=== PATIENT | male | born 1940 | race Caucasian/White ===

== ENCOUNTER → 2016-09-12 | Outpatient (CLI) | payer BC ==
[~2016-09-12] MED LIST: AMOX500C3 PO; DEXL60CA4 PO; LEVO1TAB33 PO; METH-589 PO; METO50TA16 PO; OMEP20TA PO; PROM25TA16 PO; RBTDACL PO; TPZ5 PO; TRAM-10 PO
--- NOTE | 2016-09-12 10:30 | DIAGNOSTIC IMAGING REPORT ---
ULTRASOUND OF THE THYROID GLAND CLINICAL HISTORY: Thyroid nodule. COMPARISON STUDY: Nuclear thyroid scan dated 09/01/2016. TECHNIQUE: Real-time, grayscale, and color flow sonography of the thyroid gland is performed utilizing a high-frequency linear transducer. Images are reviewed in the transverse and longitudinal planes. FINDINGS: Right lobe: The right lobe of the thyroid gland is normal in size and slightly heterogeneous in echotexture, measuring 5.2 x 3.0 x 2.0 cm. Left lobe: The left lobe of the thyroid gland is normal in size and slightly heterogeneous in echotexture, measuring 4.3 x 2.3 x 1.2 cm. Isthmus: The thyroid isthmus is normal in appearance and measures 0.3 cm in AP diameter. IMPRESSION: 1. The thyroid gland is normal in size and slightly heterogeneous in echotexture. 2. No thyroid nodule is identified as clinically queried. Specifically, there is no abnormality identified to correspond to the nodule questioned on the nuclear thyroid scan. Electronically signed by: Sharad Russell M.D. 09/12/2016 10:28 AM Dictated Date/Time: 09/12/2016 10:19 AM
[2016-09-13 14:22] LABS: MICROSOMAL AB 201 IU/ML (<9)
== END | disposition home or self-care (01) ==
LOC: C.ULTR 09:30
PROVIDERS: ATTEND Internal Medicine
DX: E05.90 Thyrotoxicosis, unspecified without thyrotoxic crisis or storm (principal); E04.1 Nontoxic single thyroid nodule

== ENCOUNTER → 2016-10-26 | Outpatient (CLI) | payer BC ==
[2016-10-26 15:20] LABS: BASO % 0.2 %; BASO ABS # 0.02 K/uL (0-0.2); COMPLETE YES; EOS % 0.2 %; IG% 0.2 %; LYMPH % 24.2 %; LYMPH ABS # 2.07 K/uL (1.2-3.4); MEAN CELL VOLUME 83.8 fL (80-100); MEAN CORPUSCULAR HGB CONC 33.4 g/dl (32-36); MEAN PLATELET VOLUME 11.3 fL (7.4-10.4); MONO % 9.8 %; NEUT % 65.4 %; PLATELET COUNT 170 K/uL (130-400); RED BLOOD COUNT 5.61 M/uL (4.7-6.1); WHITE BLOOD COUNT 8.56 K/uL (4.8-10.8)
[2016-10-26 15:35] LABS: ALT/SGPT 37 U/L (12-78); AMYLASE 45 U/L (25-115); BLOOD UREA NITROGEN 12 mg/dl (7-18); BUN/CREATININE RATIO 13.8 (10-20); CALCIUM 8.6 mg/dl (8.5-10.1); CARBON DIOXIDE 27 mmol/L (21-32); CHLORIDE 102 mmol/L (98-107); CREATININE 0.89 mg/dl (0.60-1.40); GLUCOSE 105 mg/dl (70-99); POTASSIUM 4.3 mmol/L (3.5-5.1); SODIUM 139 mmol/L (136-145)
[2016-10-26 15:46] LABS: ALB/GLOB RATIO 0.7 (0.9-2); ALKALINE PHOSPHATASE 170 U/L (45-117); AST/SGOT 29 U/L (15-37); THYROID STIMULATING HORMONE < 0.005 uIu/ml (0.300-4.500)
== END | disposition home or self-care (01) ==
LOC: C.LABSPEC 14:58
PROVIDERS: ATTEND Internal Medicine
DX: E03.9 Hypothyroidism, unspecified (principal); R10.10 Upper abdominal pain, unspecified; R63.4 Abnormal weight loss

== ENCOUNTER → 2016-10-28 | Outpatient (CLI) | payer BC ==
[~2016-10-28] MED LIST changes: +OPTIRAY 320 IV PRN
--- NOTE | 2016-10-28 08:34 | DIAGNOSTIC IMAGING REPORT ---
ABDOMEN CT WITH IV AND ORAL CONTRAST CT DOSE: 171.53 mGy.cm HISTORY: UPPER ABDOMINAL PAIN, WEIGHT LOSS TECHNIQUE: Multiaxial CT images of the abdomen and pelvis were performed following the use of intravenous and oral contrast. COMPARISON STUDY: Abdomen and pelvis CT 06/29/2009. FINDINGS: Multifocal patchy groundglass and nodular airspace opacities seen within the lung bases. Dominant nodular density within the anterior aspect of the right upper lobe on image 1 measures 9 mm. No pneumoperitoneum. No pneumatosis. No suspicious lytic or blastic osseous lesions. Mild aneurysmal dilatation of the abdominal aorta measures up to 3.1 cm. Mild motion artifact. The spleen, adrenal glands, gallbladder, and pancreas are unremarkable. A 1.3 cm cyst within the caudate lobe. This is similar to the prior study. No retroperitoneal lymphadenopathy. Bilateral nephrolithiasis. No hydronephrosis. Tiny diverticulum at the second portion of the duodenum. The visualized loops of bowel show no wall thickening or obstruction. A few colonic diverticula. IMPRESSION: 1. Multifocal patchy groundglass and nodular airspace opacities within the lung bases. This favors a pneumonia, possibly secondary to aspiration. The dominant nodular density within the right upper lobe measures 9 mm. A follow-up chest CT in 1-2 months is recommended to ensure resolution following a course of antibiotic therapy. 2. Bilateral nephrolithiasis. No hydronephrosis. 3. A 3.1 cm abdominal aortic aneurysm. Electronically signed by: Michele Arreguin M.D. 10/28/2016 8:32 AM Dictated Date/Time: 10/28/2016 8:25 AM
== END | disposition home or self-care (01) ==
LOC: C.CTS 07:44
PROVIDERS: ATTEND Internal Medicine
DX: R10.10 Upper abdominal pain, unspecified (principal); R63.4 Abnormal weight loss; J18.9 Pneumonia, unspecified organism; R91.1 Solitary pulmonary nodule; N20.0 Calculus of kidney; I71.4 Abdominal aortic aneurysm, without rupture

== ENCOUNTER 2016-10-30 09:07 | Inpatient (IN) | payer BC, OTHER ==
[~2016-10-30] VITALS: Ht 177.8 cm; Wt 62.3 kg
[~2016-10-30 09:07] MED LIST changes: -DEXL60CA4 PO; -LEVO1TAB33 PO; -METH-589 PO; -OMEP20TA PO; -OPTIRAY 320 IV PRN; -PROM25TA16 PO; -TPZ5 PO
[2016-10-30] MEDS ORDERED: SODIUM CHLORIDE 0.9% 1000ML 1,000 ML IV STA (09:37)
--- NOTE | 2016-10-30 09:41 | EMERGENCY ROOM VISIT NOTE ---
History Report prepared by Julianneibroyer: Maddy Diaz Under the Supervision of: Dr. Juwan Villegas M.D. First contact with patient: 09:31 Chief Complaint: FLU LIKE SX Stated Complaint: FLU History of Present Illness The patient is a 76 year old male who presents to the Emergency Room with complaints of persistent flu like symptoms for the past 2 weeks. He is accompanied by his and daughter. He complains of a cough, congestion, nausea and intermittent diarrhea. He denies any vomiting or abdominal pain. He reports he had a CT scan of the abdomen and pelvis last week that showed "bilateral lower lobe pneumonia's" and states his doctor placed him on Levaquin. He has not noticed any improvement yet. The patient also reports he has been losing weight because of his nausea subsequent decreased appetite. He notes he also feels weak and has been very fatigued. He thinks he has been running a fever intermittently as well. 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 A total of 10 systems reviewed and were otherwise negative. Past Medical & Surgical Medical Problems: (1) Bilateral pneumonia (2) Pneumonia Social History Smoking Status: Never Smoker Alcohol Use: none Drug Use: none Marital Status: Housing Status: lives with family Occupation Status: retired Current/Historical Medications Scheduled Dexlansoprazole (Dexilant), 60 MG PO DAILY Levofloxacin (Levaquin), 500 MG PO DAILY Metoprolol Tartrate (Lopressor) (Lopressor), 50 MG PO DAILY Scheduled PRN Promethazine HCl (Promethazine HCl), 25 MG PO Q4H PRN for Nausea Allergies Coded Allergies: No Known Allergies (Unverified , 05/03/16) Physical Exam Vital Signs Date Time Temp Pulse Resp B/P Pulse Ox O2 Delivery O2 Flow Rate FiO2 10/30/16 10:17 99 10/30/16 10:13 100 18 143/68 95 Room Air 10/30/16 09:14 36.8 122 18 109/67 92 Room Air Physical Exam GENERAL: Patient is ill appearing and in moderate distress. HEENT: No acute trauma, normocephalic atraumatic, mucous membranes dry, no nasal congestion, no scleral icterus. NECK: No stridor, no adenopathy, no meningismus, trachea is midline. LUNGS: The patient is mildly dyspneic and tachypneic. Decreased breath sounds in the right lower lobe. No wheeze, no rhonchi. HEART: Tachycardic heart rate, regular rhythm. No murmurs, rubs, gallops appreciated. ABDOMEN: Soft, nontender, bowel sounds positive, no masses appreciated, no peritonitis. BACK: No midline tenderness, no CVA tenderness EXTREMITIES: Normal motion all extremities, no cyanosis, no edema. NEUROLOGIC: Alert and oriented, no acute motor or sensory deficits, no focal weakness, cranial nerves grossly intact. SKIN: No rash, no jaundice, no diaphoresis. Medical Decision & Procedures ER Provider Diagnostic Interpretation: This X-Ray was reviewed and interpreted by myself and the radiologist. CHEST ONE VIEW PORTABLE IMPRESSION: Bilateral patchy airspace opacities which favors a pneumonia. However, recommend follow-up to ensure complete resolution. Electronically signed by: Michele Arreguin M.D. 10/30/2016 10:06 AM Laboratory Results 10/30/16 09:52 Red Blood Count 5.25, Mean Corpuscular Volume 80.8, Mean Corpuscular Hemoglobin 27.4, Mean Corpuscular Hemoglobin Concent 34.0, Mean Platelet Volume 10.2, Neutrophils (%) (Auto) 73.8, Lymphocytes (%) (Auto) 13.4, Monocytes (%) (Auto) 12.2, Eosinophils (%) (Auto) 0.1, Basophils (%) (Auto) 0.1, Neutrophils # (Auto ) 8.02, Lymphocytes # (Auto) 1.45, Monocytes # (Auto) 1.32, Eosinophils # (Auto ) 0.01, Basophils # (Auto) 0.01 10/30/16 09:52 Test 10/30/16 09:40 10/30/16 09:52 10/30/16 09:57 Influenza Type A Antigen Neg for Influ A (NEG) Influenza Type B Antigen Neg for Influ B (NEG) White Blood Count 10.85 K/uL (4.8-10.8) Red Blood Count 5.25 M/uL (4.7-6.1) Hemoglobin 14.4 g/dL (14.0-18.0) Hematocrit 42.4 % (42-52) Mean Corpuscular Volume 80.8 fL (80-100) Mean Corpuscular Hemoglobin 27.4 pg (25-34) Mean Corpuscular Hemoglobin Concent 34.0 g/dl (32-36) Platelet Count 236 K/uL (130-400) Mean Platelet Volume 10.2 fL (7.4-10.4) Neutrophils (%) (Auto) 73.8 % Lymphocytes (%) (Auto) 13.4 % Monocytes (%) (Auto) 12.2 % Eosinophils (%) (Auto) 0.1 % Basophils (%) (Auto) 0.1 % Neutrophils # (Auto) 8.02 K/uL (1.4-6.5) Lymphocytes # (Auto) 1.45 K/uL (1.2-3.4) Monocytes # (Auto) 1.32 K/uL (0.11-0.59) Eosinophils # (Auto) 0.01 K/uL (0-0.5) Basophils # (Auto) 0.01 K/uL (0-0.2) RDW Standard Deviation 38.8 fL (36.4-46.3) RDW Coefficient of Variation 13.1 % (11.5-14.5) Immature Granulocyte % (Auto) 0.4 % Immature Granulocyte # (Auto) 0.04 K/uL (0.00-0.02) Prothrombin Time 13.4 SECONDS (9.0-12.0) Prothromb Time International Ratio 1.2 (0.9-1.1) Activated Partial Thromboplast Time 28.6 SECONDS (21.0-31.0) Partial Thromboplastin Ratio 1.1 Anion Gap 6.0 mmol/L (3-11) Est Creatinine Clear Calc Drug Dose 69.9 ml/min Estimated GFR () 100.9 Estimated GFR (Non- 87.1 BUN/Creatinine Ratio 16.0 (10-20) Calcium Level 8.6 mg/dl (8.5-10.1) Magnesium Level 2.0 mg/dl (1.8-2.4) Troponin I < 0.015 ng/ml (0-0.045) Bedside Lactic Acid Venous 1.62 mmol/L (0.90-1.70) Laboratory results as reviewed by me. Medications Administered Medications (Trade) Dose Ordered Sig/Nikkie Route Start Time Stop Time Status Last Admin Dose Admin Sodium Chloride (Nss 1000ml) 1,000 ml @ 999 mls/hr Q1H1M STAT IV 10/30/16 09:37 10/30/16 10:37 DC 10/30/16 10:16 999 MLS/HR Levofloxacin (Levaquin / D5W) 750 mg NOW STAT IV 10/30/16 10:48 10/30/16 10:49 DC 10/30/16 11:06 750 MG ECG Indication: weakness Rate (beats per minute): 101 Rhythm: sinus tachycardia Findings: no acute ischemic change, no ectopy ED Course 0934: The patient was evaluated in room B4B. A complete history and physical exam was performed. 0937: NSS 1000 ml @ 999 mls/hr IV. 1048: Levaquin 750 mg IV. 1048: I discussed the patients case with Dr. Pappas, Internal Medicine. The patient will be further evaluated. Medical Decision Differential: Infectious, Reactive Airway Disease, Pneumonia, Pneumothorax, COPD , CHF, ACS, Pulmonary Embolism, MSK, GI, Dissection, amongst other etiologies entertained. 76 yr old male arrives with complaint of persistent cough, fatigue and essentially not eating over last few days. Levaquin already started as outpatient though no improvement and now very weak. CXR consistent with bilateral pna. Labs/ekg OK. No evidence ACS/PE at this time nor dissection. Consults Time Called: 1037 Consulting Physician: Dr. Pappas, Returned Call: 1048 I discussed the patients case with Dr. Pappas, Internal Medicine. The patient will be further evaluated. Impression Primary Impression: Pneumonia Additional Impression: Failure of outpatient treatment Scribe Attestation The scribe's documentation has been prepared under my direction and personally reviewed by me in its entirety. I confirm that the note above accurately reflects all work, treatment, procedures, and medical decision making performed by me. Departure Information Dispostion Being Evaluated By Hospitalist Cristóbal Garrido M.D. (PCP) Patient Instructions My [facility] Problem Qualifiers Primary Impression: Pneumonia Pneumonia type: due to unspecified organism Laterality: bilateral Lung location: lower lobe of lung Qualified Codes: J18.9 - Pneumonia, unspecified organism
--- NOTE | 2016-10-30 10:07 | DIAGNOSTIC IMAGING REPORT ---
CHEST ONE VIEW PORTABLE HISTORY: cough COMPARISON: Chest 09/23/2014. FINDINGS: Patchy airspace opacities within the right upper lobe and lung bases. The heart is normal in size. No pleural effusions. No pneumothorax. IMPRESSION: Bilateral patchy airspace opacities which favors a pneumonia. However, recommend follow-up to ensure complete resolution. Electronically signed by: Michele Arreguin M.D. 10/30/2016 10:06 AM Dictated Date/Time: 10/30/2016 10:05 AM
[2016-10-30 10:09] LABS: BASO % 0.1 %; BASO ABS # 0.01 K/uL (0-0.2); COMPLETE YES; EOS % 0.1 %; HEMATOCRIT 42.4 % (42-52); IG% 0.4 %; LYMPH % 13.4 %; LYMPH ABS # 1.45 K/uL (1.2-3.4); MEAN CELL VOLUME 80.8 fL (80-100); MEAN CORPUSCULAR HEMOGLOBIN 27.4 pg (25-34); MEAN PLATELET VOLUME 10.2 fL (7.4-10.4); MONO % 12.2 %; NEUT % 73.8 %; PLATELET COUNT 236 K/uL (130-400); RED BLOOD COUNT 5.25 M/uL (4.7-6.1); WHITE BLOOD COUNT 10.85 K/uL (4.8-10.8)
[2016-10-30] MEDS ORDERED: PROM25TA16 PO ×2 (10:20)
[2016-10-30] MEDS ORDERED: DEXL60CA4 PO (10:20)
[2016-10-30] MEDS ORDERED: LEVO1TAB33 PO (10:20)
[2016-10-30 10:28] LABS: BLOOD UREA NITROGEN 13 mg/dl (7-18); CALCIUM 8.6 mg/dl (8.5-10.1); CARBON DIOXIDE 28 mmol/L (21-32); CHLORIDE 99 mmol/L (98-107); CREATININE 0.78 mg/dl (0.60-1.40); GLUCOSE 112 mg/dl (70-99); POTASSIUM 3.9 mmol/L (3.5-5.1); SODIUM 133 mmol/L (136-145)
[2016-10-30] MEDS ORDERED: LEVAQUIN 750MG / 150ML D5W IV STA (10:48)
[2016-10-30] MEDS ORDERED: DO NOT ADMINISTER PNEUMOCOCCAL VACCINE PRN ×2 (11:30)
[2016-10-30] MEDS ORDERED: ACETAMINOPHEN 500 MG TAB PO PRN (11:30)
[2016-10-30 11:36] VITALS: O2SAT 95; Ht 177.8 cm; Wt 62.3 kg
[2016-10-30 12:28] LABS: INR 1.2 (0.9-1.1); PARTIAL THROMBOPLASTIN RATIO 1.1; PROTHROMBIN TIME (PATIENT) 13.4 SECONDS (9.0-12.0)
[2016-10-30] MEDS: SODIUM CHLORIDE 0.9% 1000ML 1,000 ML IV SCH ×2 (12:32→20:39)
[2016-10-30 12:35] VITALS: BP 132/73; PULSE 104; TEMP 36.9; O2SAT 93
[2016-10-30] MEDS: ONDANSETRON INJ 8 MG in DEXTROSE 5% 50ML 50 ML IV PRN ×2 (13:25→17:58)
[2016-10-30] MEDS: LEVALBUTEROL 1.25MG/3ML NEB INH SCH ×2 (15:00→18:14)
[2016-10-30] MEDS ORDERED: INFLUENZA VIRUS QUAD VACCINE 0.5 ML SYR IM. ONE (16:30)
[2016-10-30] MEDS ORDERED: INFLUENZA ADMINISTRATION CHARGE ONE (16:30)
--- NOTE | 2016-10-30 17:33 | HISTORY & PHYSICAL EXAMINATION ---
DATE OF ADMISSION: 10/30/2016 A 76-year-old male admitted through the Emergency Room with persistent cough and chest congestion, nausea and weight loss and evidence of bilateral pneumonia. HISTORY OF PRESENT ILLNESS: The patient is with known arterial hypertension and hyperthyroidism. He was recently seen in the office complaining of epigastric pain. He has been sick since approximately 10/19/2016. He had difficulty explaining exactly what was going on, but he complained that for about a week and a half, he was complaining of congestion. He was coughing up phlegm. Mostly clear secretions. He did not have any fever or any chills. Subsequently, he started complaining of severe epigastric pain. He was also complaining of burning sensation in his upper abdomen. He was not able to eat or drink. He lost about 14 pounds from 09/20/2016 until 10/26/2016. At that time, multiple laboratory tests have been done. Also, a CT scan of the abdomen was done. The CT scan did not show any evidence of any intraabdominal pathology. There was no pancreatic abnormalities, but he was noted to have multifocal patchy ground-glass and nodular airspace opacities within the lung bases. This is thought to represent a pneumonia. There was also a dominant 9-mm density in the right upper lobe. Bilateral nephrolithiasis without hydronephrosis. He also had a 3.1-cm abdominal aortic aneurysm. The patient was started on Levaquin 500 mg daily. He was also complaining of nausea, so he was given Phenergan 25 mg every 4 hours as needed. His condition did not improve. He was still feeling quite ill. Still congested in his chest. Feeling nauseous. Not eating or drinking sufficiently. He was brought to the Emergency Room. Multiple tests were done. His chest x-ray showed the changes noted on his CT scan suspicious for pneumonia. He already had been on Levaquin for 2 days. In view of his persistent symptoms, weight loss, nausea and his inability to eat or drink sufficiently, the patient was admitted for further treatment. PAST MEDICAL HISTORY: 1. He had a prostate biopsy in 1999 and it was negative for cancer. 2. Surgery for a spermatocele and circumcision in the past. 3. Dislocation of the right wrist many years ago, required surgery. 4. In 2011, he presented with exertional dyspnea and he had a stress echo done, which was negative for any ischemic changes. 5. Right inguinal hernia repair in 2014. 6. Arterial hypertension. He is on metoprolol. 7. Hyperthyroidism. His TSH was markedly decreased to less than 0.005. His T4 was elevated. Also, his free T4 was elevated. His antimicrosomal antibodies were elevated to 201 with the normal being less than 9. His antithyroglobulin antibodies were elevated to 8 with a normal less 8. His 24-hour radioactive iodine uptake was 34%. He was started on Tapazole 5 mg twice a day. 8. Colonoscopy in 2008. 9. He has declined in the past receiving any vaccinations including influenza and Pneumovax. SOCIAL HISTORY: He is . 3 sons. He stopped smoking about 30 years ago. He also stopped drinking any alcohol about 30 years ago. No excessive coffee, tea or soft drinks. He worked in a [employer] about 38 years at the [employer] and he is retired. FAMILY HISTORY: Both of his parents are . Mother at 82. Natural cause. Father at 37. blood clot. 3 brothers and 5 sisters. 1 brother at age 52 of [place], One brother at age 55 of unknown cause. 3 sons doing well. ALLERGIES: None. ADMISSION MEDICATIONS: Included, 1. Levaquin 500 mg daily. 2. Metoprolol tartrate 50 mg daily. 3. Phenergan 25 mg every 4 hours as needed for any nausea. 4. Tapazole 5 mg twice a day. It was interrupted recently because I was concerned about any potential side effects from his Tapazole. 5. Dexilant 60 mg daily, which was started when I saw him in the office with his epigastric burning and pain. REVIEW OF SYSTEMS: He is feeling weak. Poor appetite. He has lost weight. He had no fever. No chills. No earache and no sore throat. On examination in the office last time, he was noted to have what was suspected a mass in his throat. There were no mucosal abnormalities. He was scheduled to see Dr. Nugent in ENT consultation and his appointment was coming up this week. Denied any chest pain. He is feeling congested in his chest. He is having cough. Not producing any purulent sputum. No hemoptysis. He does have some nonspecific abdominal pain. He is feeling nauseous. No vomiting. He had no change in his bowel movements recently. No problem urinating. No pain in his back or extremities. PHYSICAL EXAMINATION: GENERAL: Well developed, in no acute distress. His recorded weight is 62.3 kg, height 177.8 cm, and BMI 19.7. VITAL SIGNS: On arrival to the Emergency Room, his blood pressure was 109/67, pulse 122, respirations 18, temperature 36.8, and oxygen saturation 92% on room air. SKIN: Warm and dry. No rash. HEENT: He does wear glasses usually. He has upper dentures. Poor dentition. Multiple roots in place. No mucosal abnormality in his nose or mouth. He does have the mass in the midline of his throat. No mucosal ulceration noted. No bleeding noted. NECK: Supple. Nontender. No adenopathy. No thyromegaly. No JVD. Normal carotid pulses. No bruit. CHEST: Normal. HEART: Regular heart sounds. No evident murmur, rub, or gallop. LUNGS: Bilateral scattered rhonchi throughout both lung jc. AXILLA: No adenopathy. BREASTS: Normal. ABDOMEN: Soft. Slight epigastric tenderness. No guarding. No rebound. No organomegaly. No masses. BACK: No spinal tenderness. EXTREMITIES: No edema, clubbing, or cyanosis. No joint or muscle tenderness. Absent left dorsalis pedis pulse. NEUROLOGIC: He is alert and oriented. There is no evidence of any deficits. TODAY'S LABORATORY TESTS: WBC count 10,850, hemoglobin 14.4, hematocrit 42.4, and platelet count 236,000. Prothrombin time 13.4, INR 1.2, and PTT 28.6. Sodium 133, potassium 3.9, chloride 99, CO2 of 28, BUN 13, creatinine 0.78, glucose 112, calcium 8.6, and magnesium 2.0. Troponin I less than 0.015. Electrocardiogram showed sinus tachycardia without any significant abnormality otherwise. His chest x-ray showed bilateral patchy airspace opacities favoring pneumonia. As noted, he had recent laboratory tests on 10/26/2016. At that time, his WBC count was 8560, hemoglobin 15.7, hematocrit 47%, and platelet count 170,000. Sodium 139, potassium 3.4, chloride 102, CO2 of 27, BUN 12, creatinine 0.89, glucose 105, and calcium 8.6. Total bilirubin 0.7, AST 29, ALT 37, alkaline phosphatase 170, total protein 7.3, albumin 3.0, globulin 4.3, amylase 45, and lipase 231. TSH less than 0.005. Free T4 of 1.93. Total T4 11.4. Today, his influenza serology for AMB were negative. ASSESSMENT: 1. Bilateral pneumonia. 2. Generalized weakness. 3. Significant weight loss. 4. Arterial hypertension. 5. Hyperthyroidism. 6. A 3.1 abdominal aortic aneurysm. PLAN: The patient was admitted to medical bed. Resuscitation level 1. All his laboratory tests were ordered. He was started on IV fluids. He was started on IV Levaquin. Given IV Protonix. IV Zofran. High flow treatments with Xopenex. His condition will be monitored. He will be hydrated. Eventually, we need to repeat his chest x-ray. He was restarted on his Tapazole. He is allowed out of bed as tolerated. MTDD
[2016-10-30 18:14] VITALS: PULSE 96; O2SAT 95
[2016-10-30] MEDS: METHIMAZOLE 5 MG TAB PO SCH (20:33)
[2016-10-30] MEDS: HEPARIN SOD 5000 UNIT/0.5 ML CARP SQ SCH (20:35)
[2016-10-31] VITALS (10 sets, daily range): BP systolic 130–175; BP diastolic 66–72; PULSE 92–117; TEMP 36.9–37.2; O2SAT 92–96
[2016-10-31] MEDS: LEVALBUTEROL 1.25MG/3ML NEB INH SCH ×4 (01:44→19:41)
[2016-10-31] MEDS: ONDANSETRON INJ 8 MG in DEXTROSE 5% 50ML 50 ML IV PRN ×3 (01:52→14:20)
[2016-10-31] MEDS: SODIUM CHLORIDE 0.9% 1000ML 1,000 ML IV SCH ×2 (06:20→17:19)
[2016-10-31 06:22] LABS: BASO % 0.2 %; BASO ABS # 0.02 K/uL (0-0.2); COMPLETE YES; HEMATOCRIT 38.3 % (42-52); IG% 0.5 %; LYMPH % 15.2 %; LYMPH ABS # 1.95 K/uL (1.2-3.4); MEAN CELL VOLUME 82.4 fL (80-100); MEAN CORPUSCULAR HEMOGLOBIN 27.7 pg (25-34); MEAN CORPUSCULAR HGB CONC 33.7 g/dl (32-36); MEAN PLATELET VOLUME 10.3 fL (7.4-10.4); MONO % 10.4 %; NEUT % 73.7 %; PLATELET COUNT 242 K/uL (130-400); RED BLOOD COUNT 4.65 M/uL (4.7-6.1); WHITE BLOOD COUNT 12.85 K/uL (4.8-10.8)
[2016-10-31 06:44] LABS: ALB/GLOB RATIO 0.5 (0.9-2); BUN/CREATININE RATIO 13.5 (10-20); CREATININE 0.75 mg/dl (0.60-1.40); POTASSIUM 3.9 mmol/L (3.5-5.1)
[2016-10-31] MEDS ORDERED: OPTIRAY 320 IV PRN (07:45)
[2016-10-31] MEDS: METOPROLOL TARTRATE 50 MG TAB PO SCH (08:14)
[2016-10-31] MEDS: HEPARIN SOD 5000 UNIT/0.5 ML CARP SQ SCH ×2 (08:17→19:59)
--- NOTE | 2016-10-31 10:16 | Clinical Documentation Query ---
[facility] CLINICAL DOCUMENTATION QUERY Patient is a 76 year old male presenting for the evaluation and treatment of cough, chest congestion, nausea, and weight loss with evidence of bilateral pneumonia. Documentation includes "He lost about 14 pounds from 09/20/2016 until 10/26/2016". This represents a 9.3% loss from initial body weight over this interval. As appropriate, consider documentation as suggested below as this significantly impacts severity of illness, risk of mortality, and DRG assignment. Thank you. In your clinical opinion is this patient being managed for: ( ) Severe protein-calorie malnutrition ( ) Other explanation of clinical findings (Please Explain) (x ) Unable to determine (Please Define) Difficult to make definite conclusion ( ) Need to Discuss ( ) Not Agree The medical record reflects the following clinical findings, treatment, and risk factors. Clinical Indicators: As above Treatment: IVF, treatment of the pneumonia, Zofran, IV Protonix Risk Factors: Infection/acute illness Malnutrition in Acute Illness/Injury Moderate or Severe Malnutrition defined by 2 of the following 6 criteria: CHARACTERISTICS MODERATE MALNUTRITION SEVERE MALNUTRITION ENERGY INTAKE <75% of estimated energyrequirement for > 7 days <50% of estimated energyrequirement for > 5 days WEIGHT LOSS 1-2%/1 Week5%/1 month7.5%/3 months >1-2%/1 Week>5%/1 month>7.5%/3 months BODY FAT*loss of SQ fat from the orbits, triceps, or fat overlying the ribs MILD MODERATE MUSCLE MASS*muscle wasting at the temples, clavicles, shoulders, interosseous spaces, scapula, thigh, calf MILD MODERATE FLUID ACCUMULATION*localized or generalized edema of the extremities, vulva, scrotum weight loss may be masked by edema MILD MODERATE-SEVERE GROUP RESERVATIONS COORDINATOR STRENGTH N/A measurably decreased per the device's standards Please clarify and document your clinical opinion in the progress notes and discharge summary. Terms such as "probable", "suspected", "likely", "questionable", "possible", or "still to be ruled out" are acceptable. IF IN AGREEMENT, YOU MUST DOCUMENT ABOVE DIAGNOSTIC STATEMENT IN DAILY PROGRESS NOTES AND DISCHARGE SUMMARY. This document is not part of the patient's record. Thank You, Arun Gregory, RN [phone]
[2016-10-31] MEDS: LEVOFLOXACIN / D5W 750 MG in PREMIXED IN D5W 150 ML IV SCH (10:42)
[2016-10-31] MEDS: PANTOprazole INJ 40 MG in SYRINGE 0 ML IV SCH (10:42)
--- NOTE | 2016-10-31 14:11 | DIAGNOSTIC IMAGING REPORT ---
CT SCAN OF THE NECK WITH IV CONTRAST CLINICAL HISTORY: Pharyngeal mass. COMPARISON STUDY: No priors. TECHNIQUE: Following the IV administration of 93 cc of Optiray 320, CT scan of the soft tissues of the neck was performed from the skull base to the upper chest. Images are reviewed in the axial, sagittal, and coronal planes. IV contrast was administered without complication. CT DOSE: 349.55 mGy.cm FINDINGS: Pharynx: The nasopharynx, oropharynx, and laryngeal pharynx are normal in appearance. The pharyngeal airway is widely patent. There is no evidence of mass lesion. The vocal cords are symmetric. The parapharyngeal fat is well maintained. The prevertebral/retropharyngeal soft tissues are within normal limits. The epiglottis is normal. Lymphadenopathy: No cervical lymphadenopathy is seen Thyroid: Normal in size and attenuation. Salivary glands: The parotid and submandibular glands are within normal limits. Brain parenchyma: The visualized brain parenchyma at the skull base is normal in appearance noting age-related involutional change. Vascular structures: There is atherosclerotic calcification of the carotid bulbs. 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 Only trace flow is seen. The remainder of the left internal carotid artery is widely patent. The right internal carotid artery and both jugular veins are patent. Skeletal structures: The skeletal structures are osteopenic. Imaged portions of the calvarium at the skull base appear intact. There is multilevel cervical spondylosis. Orbits: The bony orbits are grossly intact. Orbital contents are within normal limits Sinuses and mastoids:. There are air-fluid levels within the maxillary antra, right greater than left. There is also a large air-fluid level in the left sphenoid sinus. Mild to moderate mucosal thickening is present in the ethmoid sinuses. The mastoid air cells are well pneumatized. Lung apices: Visualized apical lung parenchyma is clear. IMPRESSION: 1. No pharyngeal mass lesion is identified. If there is strong clinical concern for a mass lesion then endoscopy should be considered. 2. There is no cervical lymphadenopathy. 3. There is high-grade stenosis with near complete occlusion and only trace flow seen at the origin of the left internal carotid artery. 4. Paranasal sinus disease as above. Electronically signed by: Sharad Russell M.D. 10/31/2016 2:10 PM Dictated Date/Time: 10/31/2016 2:02 PM
[2016-10-31] MEDS: METHIMAZOLE 5 MG TAB PO SCH ×2 (14:23→19:59)
--- NOTE | 2016-10-31 15:49 | DIAGNOSTIC IMAGING REPORT ---
ULTRASOUND OF THE CAROTID ARTERIES CLINICAL HISTORY: Carotid artery stenosis. COMPARISON STUDY: CT scan of the neck dated 10/31/2016. TECHNIQUE: Real-time, grayscale, and color Doppler sonography of the carotid arteries is performed. Images are reviewed in the transverse and longitudinal planes. FINDINGS: Blood pressure in the right arm measures 136/60 and blood pressure in the left arm measures 146/60. The carotid arteries are patent bilaterally and demonstrate antegrade flow. There is moderate echogenic shadowing atherosclerotic plaque seen in the carotid bulbs bilaterally, left greater than right. Normal doppler arterial waveforms are seen throughout. Velocity measurements are listed below. Common carotid peak systolic velocity (cm/sec): RIGHT: 86 LEFT: 84 ICA proximal peak systolic velocity (cm/sec): RIGHT: 66 LEFT: 211 ICA mid peak systolic velocity (cm/sec): RIGHT: 64 LEFT: 165 ICA distal peak systolic velocity (cm/sec): RIGHT: 62 LEFT: 98 ICA/CC peak systolic ratio: RIGHT: 0.8 LEFT: 2.5 Antegrade flow was shown in the vertebral arteries. The external carotid arteries are patent. IMPRESSION: 1. Findings are consistent with 50-69% stenosis in the proximal left internal carotid artery by velocity criteria. This is discordant with the CT findings which suggest a greater degree of stenosis. Consider a CT angiogram of the neck in follow-up for further assessment. 2. There is no sonographic evidence of hemodynamically significant stenosis in the right carotid arterial system. 3. Antegrade flow is shown in the vertebral arteries. Electronically signed by: Sharad Russell M.D. 10/31/2016 3:48 PM Dictated Date/Time: 10/31/2016 3:43 PM
--- NOTE | 2016-10-31 19:31 | GASTROINTESTINAL CONSULTATION ---
DATE OF CONSULTATION: 10/31/2016 REQUESTING PHYSICIAN: Dr. Pappas. CHIEF COMPLAINT: Nausea, weight loss, for 2 months. HISTORY OF PRESENT ILLNESS: Mr. George is a 76-year-old white male who reports an approximate 1- to 2-month history of nausea with nearly all foods that he eats. The patient does not describe pain with these events and the nausea although can be present throughout the day, clearly seems to be worse with meals. This has not affected his appetite and such remains hungry; however, does develop these symptoms. There is no clear food aversion, however. These symptoms seemed to coincidentally occur around the time that he describes a recent diagnosis of hyperthyroidism, for which the patient was placed on medication several weeks ago for its treatment. The patient describes losing weight from baseline of approximately 162 pounds down to 137 recently. At times, the stools can be more loose than formed, but he denies any melena or bright red blood per rectum. In addition, he has no vomiting with these symptoms and has not had hematemesis or coffee ground emesis. The patient has no prior history of peptic ulcer disease and takes no NSAIDs. Other than the medication for his hyperthyroid state, he reports no new medications. The patient presented to the Emergency Room today because of chest congestion and a persistent cough. PAST MEDICAL HISTORY: Includes hypertension, hyperthyroidism over the past few months. The patient does report night sweats at times but does not report any fevers. The patient had undergone CT scan without obvious abdominal pathology including the pancreas. There are ground-glass nodular airspace opacities, felt to be pneumonia. The patient was started on Levaquin and Phenergan. ADDITIONAL PAST MEDICAL HISTORY: Includes prostate biopsy in 1999 which was negative for cancer. He also had surgery for circumcision, spermatocele, inguinal hernia. This was on the right side in 2014. For his hyperthyroid state, he had a markedly diminished TSH with simultaneous elevations in his T4 as well as free T4. The patient was started on Tapazole (methimazole) 5 mg twice a day. His last colonoscopy was 2008 and the patient described that he had polyps in the past but that a subsequent study in 2008 revealed no additional polyps. SOCIAL HISTORY: The patient is , has 3 children (sons). He did smoke cigarettes, although has not had any for nearly 3 decades. He also stopped alcohol use. The patient worked at the [employer], is retired and worked in the [employer]. FAMILY HISTORY: Significant for parents who of natural causes and father with blood clots. He has 8 siblings. ALLERGIES: He has no known drug allergies. CURRENT MEDICATIONS: At home include Levaquin, metoprolol, Phenergan, Tapazole, Dexilant 60 mg daily. REVIEW OF SYSTEMS: Otherwise noncontributory based on 14-point exam. There is no odynophagia, dysphagia, melena or bright red blood per rectum, abdominal angina; stools are perhaps more loose than normal and there is no blood described. The patient denies any rashes or problems with his hair. He denies no significant tremors or agitation, although did report the sweats. LABORATORY STUDIES: Today - white count 10,800, hemoglobin 14.4, platelets 236,000. INR 1.2. Potassium 3.9, chloride 99, BUN and creatinine are 13 and 0.8. Normal glucose, magnesium 2.0. Troponins are negative. EKG shows sinus tachycardia. Laboratory studies today include a white count of 12.8, hemoglobin 12.9, platelets of 242,000. Chemistries show a mild elevation in alkaline phosphatase is 153 with bilirubin, AST and ALT all within the normal range. Albumin is low at 2.0. Sodium is 134. Influenza type A and B are negative. Free T4 on October 26 was 1.93 (upper range 1.6 and was slightly lower in August at 1.65). IMAGING STUDIES: Discussed above. The patient also had a CT soft tissue of the neck and this revealed no evidence of cervical adenopathy. There is no pharyngeal mass identified. High grade stenosis seen on the left internal carotid, although ultrasound Doppler showed less significant disease. IMPRESSION AND PLAN: This is a 76-year-old white male with a history of a recent diagnosis of hyperthyroidism over the past couple months, on Tapazole therapy. The patient has had an approximate 20-pound weight loss over the past few months and a sense of nausea. There is a slight elevation in alkaline phosphatase, on the most recent liver panel. The remainder of the levels are normal. The albumin, however, is low. There is no prior history of peptic ulcer disease and the patient does not take chronic non-steroidal anti-inflammatory drugs. Differential diagnosis for this includes weight loss changes and perhaps nausea that is associated with his hyperthyroid state. In some instances of liver tests, particularly alkaline phosphatase can sometimes be elevated with thyroid abnormalities. Recent imaging study by CAT scan did not suggest any abnormalities in the liver except for a small cyst in the caudate lobe. This was unchanged. There is no evidence for adenopathy. There is a small diverticulum in the second portion of the duodenum and colonic diverticula. Given the patient's weight loss, nausea and mild change in stool habits, I believe it is reasonable to perform an upper endoscopy with biopsy to exclude peptic ulcer disease or infiltrative processes in the small bowel (amyloid). Would strive for euthyroid state and if the nausea persists, a CT imaging of the head, if not recently performed may be reasonable. Depending on these results, colonoscopy at some point may be helpful from the stool pattern change. Would continue the proton pump inhibitor therapy as presently prescribed. Antiemetics to reduce nausea and to help improve his food intolerance is also reasonable. Thank you for allowing me to participate in this pleasant gentleman's care. Further recommendations to follow.
--- NOTE | 2016-10-31 20:23 | PROGRESS NOTE ---
DATE: 10/31/2016 A 76-year-old male, admitted with bilateral pneumonia. He also has multiple other medical problems including recent diagnosis of hyperthyroidism. He has been complaining of nausea. Poor appetite. Significant weight loss. The patient was admitted. Cultures were done. He was started on IV Levaquin. I saw Mr. George early this morning. He was still complaining of nausea, but no vomiting. He has not had any fever or any chills. Has poor appetite. The patient was continued on IVs and the same medications. Because of the suspected mass in his throat a CT scan of the neck was done with contrast. Actually, the CT scan was negative for any evidence of mass. I think what I see in the back of his throat mostly could be just the effect of a bony prominence inside his throat. On his CT scan of the neck, there was mention of a high-grade stenosis with near complete occlusion and only trace flow at the origin of the left internal carotid artery. A carotid ultrasound was done and there was quite a bit of discrepancy of the results between the CT scan and ultrasound. The ultrasound results described 50-69% stenosis in the proximal left internal carotid artery. Because of the persistent nausea and the weight loss, I also requested a GI consultation. I saw Mr. George this afternoon. He was sitting up in bed. He was eating with excellent appetite. His family was at his bedside. He was not complaining of any headache, dizziness or lightheadedness. He had no chest pain or shortness of breath. No cough, sputum or hemoptysis. He was not complaining of any nausea. No vomiting. He has not had a bowel movement yet since admission. He was not having any problem urinating. PHYSICAL EXAMINATION: GENERAL: Well-developed. No distress. VITAL SIGNS: Blood pressure 130/72, pulse 98, respirations 20, temperature 37.1 and oxygen saturation 94% on room air. SKIN: Warm and dry. No rash. HEENT: He wears glasses. No mucosal abnormality. NECK: No adenopathy, no thyromegaly. No JVD. HEART: Regular heart sounds. LUNGS: Bilateral rhonchi. ABDOMEN: Soft, nontender, without organomegaly or masses. BACK: No spinal tenderness. EXTREMITIES: No edema, clubbing or cyanosis. TODAY'S LABORATORY TESTS: WBC count 12,850, hemoglobin 12.9, hematocrit 242,000. Sodium 134, potassium 3.9, chloride 101, CO2 26, BUN 10, creatinine 0.75, glucose 109, calcium 8.0, total bilirubin 0.9, AST 15, ALT 23, alkaline phosphatase 153, total protein 6.0, albumin 2.0. The imaging studies done today were as noted above as far as results. ASSESSMENT: 1. Bilateral pneumonia. 2. Persistent nausea. 3. Weight loss. 4. Hyperthyroidism. 5. Arterial hypertension. 6. Suspected left internal carotid artery stenosis. PLAN: 1. Late this afternoon, patient was seen by Dr. Ramos. Considering doing an EGD. 2. The elevation of his alkaline phosphatase is indeed related to his or hyperthyroidism. No liver abnormalities noted as far as his additional liver test or the CT scan of the abdomen that was just done. 3. Continue Tapazole. 4. We will proceed with his evaluation as recommended by Dr. Ramos. 5. I will discuss with the radiologist the significant discrepancy between the results of the left internal carotid artery stenosis; between the CT scan of the neck and ultrasound. It was recommended to do a CT angiogram of the neck for further definition. We will discuss that. 6. We will get him out of bed. 7. We will continue monitoring his laboratory tests. [facility]
[2016-11-01] VITALS (7 sets, daily range): BP systolic 158; BP diastolic 64; PULSE 91–109; TEMP 36.9; O2SAT 91–96
[2016-11-01] MEDS: LEVALBUTEROL 1.25MG/3ML NEB INH SCH ×4 (01:47→19:36)
[2016-11-01] MEDS: SODIUM CHLORIDE 0.9% 1000ML 1,000 ML IV SCH ×2 (03:12→16:50)
[2016-11-01 07:31] LABS: BASO % 0.1 %; BASO ABS # 0.01 K/uL (0-0.2); COMPLETE YES; EOS % 0.3 %; HEMATOCRIT 36.4 % (42-52); IG% 0.3 %; LYMPH % 13.3 %; MEAN CELL VOLUME 81.1 fL (80-100); MEAN CORPUSCULAR HEMOGLOBIN 27.2 pg (25-34); MEAN CORPUSCULAR HGB CONC 33.5 g/dl (32-36); MEAN PLATELET VOLUME 10.2 fL (7.4-10.4); PLATELET COUNT 206 K/uL (130-400); RED BLOOD COUNT 4.49 M/uL (4.7-6.1); WHITE BLOOD COUNT 10.54 K/uL (4.8-10.8)
[2016-11-01 07:54] LABS: BUN/CREATININE RATIO 11.4 (10-20); CALCIUM 7.8 mg/dl (8.5-10.1); CREATININE 0.65 mg/dl (0.60-1.40); POTASSIUM 3.8 mmol/L (3.5-5.1)
[2016-11-01] MEDS: METOPROLOL TARTRATE 50 MG TAB PO SCH (08:00)
[2016-11-01] MEDS: METHIMAZOLE 5 MG TAB PO SCH ×2 (08:00→21:07)
[2016-11-01] MEDS: ONDANSETRON INJ 8 MG in DEXTROSE 5% 50ML 50 ML IV PRN ×2 (08:21→21:59)
[2016-11-01] MEDS: HEPARIN SOD 5000 UNIT/0.5 ML CARP SQ SCH ×2 (08:23→21:09)
[2016-11-01] MEDS: LEVOFLOXACIN / D5W 750 MG in PREMIXED IN D5W 150 ML IV SCH (10:48)
[2016-11-01] MEDS: PANTOprazole INJ 40 MG in SYRINGE 0 ML IV SCH (10:49)
--- NOTE | 2016-11-01 15:34 | History & Physical Bridge Note ---
H&P Re-Evaluation Bridge Note: I have examined the patient, reviewed the History & Physical and in the interval since the performance of the History & Physical I have noted the following changes of clinical significance: No changes noted
--- NOTE | 2016-11-01 15:53 | GI REPORT ---
Procedure Date: 11/01/2016 3:24 PM Procedure: Upper GI endoscopy Indications: Nausea, Weight loss Medicines: Propofol per Anesthesia Complications: No immediate complications. Estimated blood loss: Minimal. Estimated Blood Loss: Estimated blood loss was minimal. Procedure: Pre-Anesthesia Assessment: - Prior to the procedure, a History and Physical was performed, and patient medications and allergies were reviewed. The patient's tolerance of previous anesthesia was also reviewed. The risks and benefits of the procedure and the sedation options and risks were discussed with the patient. All questions were answered, and informed consent was obtained. Prior Anticoagulants: The patient has taken no previous anticoagulant or antiplatelet agents. ASA Grade Assessment: II - A patient with mild systemic disease. After reviewing the risks and benefits, the patient was deemed in satisfactory condition to undergo the procedure. After obtaining informed consent, the endoscope was passed under direct vision. Throughout the procedure, the patient's blood pressure, pulse, and oxygen saturations were monitored continuously. The Scope was introduced through the mouth, and advanced to the third part of duodenum. The upper GI endoscopy was accomplished without difficulty. The patient tolerated the procedure well. Findings: The examined esophagus was normal. The Z-line was irregular and was found 41 cm from the incisors. Diffuse mildly erythematous mucosa without bleeding was found in the entire examined stomach. Biopsies were taken with a cold forceps for histology. Biopsies were taken with a cold forceps for histology. Verification of patient identification for the specimen was done by the physician and cartography technician using the patient's name and medical record number. The examined duodenum was normal. Biopsies were taken with a cold forceps for histology. Biopsies for histology were taken with a cold forceps for evaluation of celiac disease. Estimated blood loss was minimal. Verification of patient identification for the specimen was done by the physician and cartography technician using the patient's name and medical record number. The cardia and gastric fundus were normal on retroflexion. Retained gastric contents are not identified on this exam. Impression: - Normal esophagus. - Z-line irregular, 41 cm from the incisors. - Erythematous mucosa in the stomach. Biopsied. r/o atrophic gastritis - Normal examined duodenum. Biopsied. R/O Amyloid/Celiac Recommendation: - [facility]. - Resume regular diet. - Await pathology results. MD Anup Salter MD 11/01/2016 3:53:05 PM This report has been signed electronically. Note Initiated On: 11/01/2016 3:24 PM I attest to the content of the Intraoperative Record and orders documented therein, exceptions below
[2016-11-01] MEDS ORDERED: LIDOCAINE HCL 2% 2 ML VIAL (20MG/ML) ONE (15:56)
[2016-11-01] MEDS ORDERED: PROPOFOL IV EMULSION 10 MG/ML 20 ML VIAL IV ONE (15:56)
--- NOTE | 2016-11-01 16:41 | Anesthesiology Progress Note ---
Anesthesia Post Op Note Date & Time Nov 01, 2016 at 16:40 Vital Signs Pain Intensity: 0 Vital Signs Past 12 Hours Date Time Temp Pulse Resp B/P Pulse Ox O2 Delivery O2 Flow Rate FiO2 11/01/16 16:22 98 24 137/64 97 Room Air 11/01/16 16:07 105 24 126/69 100 Room Air 11/01/16 15:54 105 24 135/63 95 Room Air 11/01/16 14:54 36.7 110 24 154/72 91 Room Air 11/01/16 14:14 94 18 94 Room Air 11/01/16 08:09 36.9 109 17 158/64 91 Room Air 11/01/16 07:26 36.9 109 17 158/64 91 Room Air 11/01/16 07:02 102 18 94 Room Air Notes Mental Status: alert / awake / arousable, participated in evaluation Pt Amnestic to Procedure: Yes Nausea / Vomiting: adequately controlled Pain: adequately controlled Airway Patency, RR, SpO2: stable & adequate BP & HR: stable & adequate Hydration State: stable & adequate Anesthetic Complications: no major complications apparent
--- NOTE | 2016-11-01 20:57 | PROGRESS NOTE ---
DATE: 11/01/2016 A 76-year-old male, admitted with: 1. Bilateral pneumonia. 2. Persistent nausea. 3. Weight loss. 4. Hyperthyroidism. The patient was admitted. He was started on IV fluids. Started on IV Levaquin. All cultures were done. Because of his persistent nausea and weight loss, a GI consultation was requested. The patient was seen by Dr. Ramos. He is resting comfortably. He denied any headache. No dizziness. No chest pain, no shortness of breath. No abdominal pain. His nausea is intermittent. No vomiting. No problem urinating. No bowel movements yet. The patient had an EGD done today. There was erythema of the gastric mucosa. He had no ulcers. PHYSICAL EXAMINATION: GENERAL: Well-developed, in no distress. VITAL SIGNS: Blood pressure 158/64, pulse 109, respirations 17, temperature 36.9 and oxygen saturation 91% on room air. SKIN: Warm and dry. No rash. HEENT: No mucosal abnormality. NECK: No JVD. No adenopathy. HEART: Regular heart sounds. LUNGS: Scattered rhonchi. No wheezing. ABDOMEN: Soft, nontender, without organomegaly or masses. BACK: No spinal tenderness. EXTREMITIES: No edema, clubbing or cyanosis. TODAY'S LABORATORY TESTS: WBC count 10,540, hemoglobin 12.2, hematocrit 36.4 and platelet count 206,000. Sodium 137, potassium 3.8, chloride 102, CO2 25, BUN 7, creatinine 0.65, glucose 107 and calcium 7.8. ASSESSMENT: 1. Bilateral pneumonia. 2. Persistent nausea. 3. Suspected gastritis. 4. Weight loss. 5. Arterial hypertension. 6. Hyperthyroidism. PLAN: 1. Continue IV fluid. 2. Continue the same medications. 3. Try to increase his activity. 4. His appetite seems to be improving. 5. Continue monitoring his laboratory tests. 6. We will repeat his chest x-ray tomorrow.
[2016-11-02] VITALS (7 sets, daily range): BP systolic 136–150; BP diastolic 64–76; PULSE 89–118; TEMP 36.7–37.1; O2SAT 90–96
[2016-11-02] MEDS: LEVALBUTEROL 1.25MG/3ML NEB INH SCH ×4 (02:20→19:25)
[2016-11-02 06:49] LABS: BASO % 0.2 %; BASO ABS # 0.02 K/uL (0-0.2); COMPLETE YES; HEMATOCRIT 34.7 % (42-52); IG% 0.4 %; LYMPH % 12.2 %; LYMPH ABS # 1.59 K/uL (1.2-3.4); MEAN CELL VOLUME 80.5 fL (80-100); MEAN CORPUSCULAR HEMOGLOBIN 27.6 pg (25-34); MEAN CORPUSCULAR HGB CONC 34.3 g/dl (32-36); MEAN PLATELET VOLUME 9.6 fL (7.4-10.4); MONO % 9.9 %; NEUT % 77.3 %; PLATELET COUNT 191 K/uL (130-400); RED BLOOD COUNT 4.31 M/uL (4.7-6.1); WHITE BLOOD COUNT 13.03 K/uL (4.8-10.8)
[2016-11-02 07:22] LABS: BUN/CREATININE RATIO 14.8 (10-20); CALCIUM 7.7 mg/dl (8.5-10.1); CREATININE 0.56 mg/dl (0.60-1.40); POTASSIUM 3.8 mmol/L (3.5-5.1)
[2016-11-02] MEDS: METHIMAZOLE 5 MG TAB PO SCH ×2 (08:36→21:34)
[2016-11-02] MEDS: METOPROLOL TARTRATE 50 MG TAB PO SCH (08:36)
[2016-11-02] MEDS: HEPARIN SOD 5000 UNIT/0.5 ML CARP SQ SCH ×2 (08:38→21:38)
[2016-11-02] MEDS: SODIUM CHLORIDE 0.9% 1000ML 1,000 ML IV SCH ×3 (09:30→21:34)
[2016-11-02] MEDS: LEVOFLOXACIN / D5W 750 MG in PREMIXED IN D5W 150 ML IV SCH (12:07)
[2016-11-02] MEDS: PANTOprazole INJ 40 MG in SYRINGE 0 ML IV SCH (12:07)
[2016-11-03] VITALS (9 sets, daily range): BP systolic 138–147; BP diastolic 63–80; PULSE 89–107; TEMP 36.5–36.8; O2SAT 91–96
--- NOTE | 2016-11-03 00:51 | PROGRESS NOTE ---
DATE: 11/02/2016 A 76-year-old male admitted with bilateral pneumonia. He also has persistent nausea. He has lost significant amount of weight. He is treated for arterial hypertension, newly diagnosed hyperthyroidism. The patient was admitted. Cultures were done. He was started on IV Levaquin. He was seen in GI consultation by Dr. Ramos. An EGD was done yesterday. There was erythema of the gastric mucosa, but no ulceration. He remains afebrile. He denied any headache or dizziness. He still has some recurrent nausea. No vomiting. His appetite is improving. He is feeling stronger. He denied any headache or dizziness. No chest pain, no shortness of breath. No abdominal pain. Slight nausea, but no vomiting. No problem with his bowel movements. No urinary problem. PHYSICAL EXAMINATION: GENERAL: Well developed, in no distress. VITAL SIGNS: Blood pressure 147/76, pulse 93, respirations 20, temperature 37, oxygen saturation 90% on room air. SKIN: Warm and dry. No rash. HEENT: No mucosal abnormality. NECK: No JVD. No adenopathy. HEART: Regular heart sounds. LUNGS: Bilateral rhonchi. No wheezing. ABDOMEN: Soft, nontender. No organomegaly or masses. BACK: No spinal tenderness. EXTREMITIES: No edema, clubbing or cyanosis. TODAY'S LABORATORY TESTS: WBC count 13,030, hemoglobin 11.9, hematocrit 34.7, platelet count 191,000. Sodium 137, potassium 3.8, chloride 103, CO2 of 25, BUN 8, creatinine 0.56, glucose 111, calcium 7.7. ASSESSMENT: 1. Bilateral pneumonia. 2. Gastritis. 3. Hyperthyroidism. 4. Weight loss. 5. Arterial hypertension. PLAN: 1. Continuing the same medications including his IV fluids and IV Levaquin. 2. Continue IV Protonix, should be able to switch him to oral tomorrow. 3. We will plan on repeating his chest x-ray tomorrow. 4. He is ambulating. Encouraged to continue with that.
[2016-11-03] MEDS: LEVALBUTEROL 1.25MG/3ML NEB INH SCH ×4 (01:35→19:24)
[2016-11-03] MEDS: SODIUM CHLORIDE 0.9% 1000ML 1,000 ML IV SCH ×2 (05:38→17:02)
[2016-11-03 06:52] LABS: BASO % 0.1 %; BASO ABS # 0.01 K/uL (0-0.2); COMPLETE YES; EOS % 0.3 %; HEMATOCRIT 36.1 % (42-52); IG% 0.3 %; LYMPH % 14.9 %; LYMPH ABS # 1.72 K/uL (1.2-3.4); MEAN CELL VOLUME 81.3 fL (80-100); MEAN CORPUSCULAR HGB CONC 33.2 g/dl (32-36); MEAN PLATELET VOLUME 9.9 fL (7.4-10.4); MONO % 9.8 %; NEUT % 74.6 %; PLATELET COUNT 218 K/uL (130-400); RED BLOOD COUNT 4.44 M/uL (4.7-6.1); WHITE BLOOD COUNT 11.52 K/uL (4.8-10.8)
[2016-11-03 06:56] LABS: BUN/CREATININE RATIO 17.1 (10-20); CALCIUM 7.8 mg/dl (8.5-10.1); CREATININE 0.61 mg/dl (0.60-1.40); POTASSIUM 3.9 mmol/L (3.5-5.1)
[2016-11-03 06:59] LABS: ALB/GLOB RATIO 0.5 (0.9-2)
[2016-11-03] MEDS: METHIMAZOLE 5 MG TAB PO SCH ×2 (07:41→21:27)
[2016-11-03] MEDS: METOPROLOL TARTRATE 50 MG TAB PO SCH (07:41)
[2016-11-03] MEDS ORDERED: OPTIRAY 320 IV PRN (08:00)
[2016-11-03] MEDS: HEPARIN SOD 5000 UNIT/0.5 ML CARP SQ SCH ×2 (08:42→21:00)
--- NOTE | 2016-11-03 09:57 | DIAGNOSTIC IMAGING REPORT ---
CHEST 2 VIEWS ROUTINE CLINICAL HISTORY: Bilateral pneumonia. COMPARISON STUDY: Chest radiograph October 30, 2016. FINDINGS: There is no pneumothorax. There are suspected trace bilateral pleural effusions. Cardiomediastinal silhouette is stable. Multifocal airspace opacities, greatest within the lower lobes, are similar to prior exam of October 30, 2016. There is no evidence of pulmonary edema. IMPRESSION: No significant change in bilateral airspace opacities suggestive of multifocal pneumonia. Electronically signed by: Gaston Delgado M.D. 11/03/2016 9:56 AM Dictated Date/Time: 11/03/2016 9:54 AM
--- NOTE | 2016-11-03 10:07 | DIAGNOSTIC IMAGING REPORT ---
CT NECK ANGIO WITH CONTRAST CLINICAL HISTORY: Left internal carotid artery stenosis. Ultrasound discrepancy. COMPARISON STUDY: Carotid Doppler ultrasound dated 10/31/2016 TECHNIQUE: CT angiography was performed from the aortic arch to the skull base. MIP imaging was performed. The patient was scanned in a dynamic helical fashion during intravenous administration of 118 cc of Optiray 320. CT DOSE: 560.09 mGy.cm Technique: CT angiogram of the carotid and vertebral arteries was obtained using intravenous contrast and 3-D reconstruction. NASCET criteria was utilized. Findings: The right carotid revealed no evidence of aneurysm and no evidence of dissection. There is no evidence of hemodynamic significant stenosis. There is no evidence of aneurysm. There is no evidence of dissection. There are extensive atheromatous changes present within the proximal internal carotid. There is a 67% maximal diameter stenosis. There is no evidence of hemodynamically significant vertebral stenosis. There is no evidence of vertebral dissection. IMPRESSION: 1. Extensive atheromatous changes involving the proximal left internal carotid artery with a 67% maximal diameter stenosis. 2. No evidence of hemodynamically significant stenosis on the right 3. No evidence of vertebral artery stenosis Electronically signed by: Mike Patel M.D. 11/03/2016 10:06 AM Dictated Date/Time: 11/03/2016 9:50 AM
[2016-11-03] MEDS: PANTOprazole INJ 40 MG in SYRINGE 0 ML IV SCH (11:38)
[2016-11-03] MEDS: LEVOFLOXACIN / D5W 750 MG in PREMIXED IN D5W 150 ML IV SCH (11:38)
--- NOTE | 2016-11-03 20:21 | PROGRESS NOTE ---
DATE: 11/03/2016 A 76-year-old male, admitted with bilateral pneumonia. He also was having persistent nausea. He has lost weight. He has a new diagnosis of hyperthyroidism. The patient was admitted. Cultures were done. He was started on IV Levaquin. He was seen in GI consultation by Dr. Ramos. He had an EGD done. Pathology report of the biopsy is showing evidence of gastritis. No other abnormalities noted. Initially, the patient was thought to have a mass in his throat, but most likely that is a bony prominence. CT scan of the neck did not show any evidence of any mass, but there was a question of severe stenosis of his left internal carotid artery. A carotid ultrasound was done, it did not confirm the same degree of stenosis. It was in the range of up to 69%. Today, a CT angiogram of the neck with contrast was done and the findings are consistent with the findings on his ultrasound. Overall, his condition has improved. He remains afebrile. He denied any headache or dizziness. No chest pain, no shortness of breath. Has slight cough. No sputum. Intermittent nausea. No vomiting. No problem with his bowel movements. No problem urinating. No pain in his back or extremities. He has been ambulating in the hallway without any problem. PHYSICAL EXAMINATION: GENERAL: Well-developed, in no distress. VITAL SIGNS: Blood pressure 147/80, pulse 100, respirations 16, temperature 36.8 and oxygen saturation 91% on room air. SKIN: Warm and dry. No rash. HEENT: No mucosal abnormalities. NECK: No JVD, no adenopathy. HEART: Regular heart sounds. No murmur, rub or gallop. LUNGS: Clear. No wheezing. ABDOMEN: Soft and nontender. No organomegaly or masses. EXTREMITIES: No edema, clubbing or cyanosis. TODAY'S LABORATORY TESTS: WBC count 11,520, hemoglobin 12, hematocrit 36.1 and platelet count 218,000. Sodium 138, potassium 3.9, chloride 103, CO2 25, CONTINUED ......... MTDD
--- NOTE | 2016-11-03 20:32 | PROGRESS NOTE ---
DATE: 11/03/2016 CONTINUATION.... LABORATORY TESTS: Sodium 138, potassium 3.9, chloride 103, CO2 25, BUN 10, creatinine 0.61, glucose 99, calcium 7.8, total bilirubin 0.6, AST 19, ALT 27, alkaline phosphatase 158, total protein 5.7 and albumin 1.9. Repeat chest x-ray did not show any significant changes compared to prior x-rays. CT angiogram of the neck with contrast; the results were as noted above. ASSESSMENT: 1. Bilateral pneumonia. 2. Persistent nausea. 3. Weight loss. 4. Hyperthyroidism. 5. Gastritis. PLAN: 1. Continuing the same medications. 2. He is ambulating. Tolerating his diet. His condition has definitely improved. 3. If he remains stable through the night without any new problems, I anticipate that he should be able to go home tomorrow. JOSEPH
[2016-11-04] MEDS: SODIUM CHLORIDE 0.9% 1000ML 1,000 ML IV SCH (01:13)
[2016-11-04 02:03] VITALS: PULSE 102; O2SAT 92
[2016-11-04] MEDS: LEVALBUTEROL 1.25MG/3ML NEB INH SCH ×2 (02:03→07:15)
[2016-11-04 07:15] VITALS: PULSE 99; O2SAT 93
[2016-11-04] MEDS ORDERED: OMEP20TA PO (07:32)
[2016-11-04] MEDS ORDERED: TPZ5 PO (07:32)
--- NOTE | 2016-11-04 07:36 | Discharge Instructions ---
Discharge Instructions Admission Reason for Admission: Bilateral Pneumonia Gastritis weight loss arterial hypertension Hyperthyroidism Discharge Discharge Diagnosis / Problem: BILATERAL PNEUMONIA. GASTRITIS. HYPERTHYROIDISM. Discharge Goals Goal(s): Decrease discomfort, Improve function, Increase independence, Improve disease control, Improve nutritional status Activity Recommendations Activity Limitations: resume your previous activity . Instructions / Follow-Up Instructions / Follow-Up DR MEIER IN ONE WEEK Current Hospital Diet Patient's current hospital diet: Regular Diet Discharge Diet Recommended Diet: Regular Diet Pending Studies Studies pending at discharge: no Laboratory Results Lipid Panel Test 08/17/16 09:30 Range/Units Triglycerides Level 109 0-150 mg/dl Cholesterol Level 149 0-200 mg/dl HDL Cholesterol 39 mg/dl LDL Cholesterol Direct 106 mg/dl Cholesterol/HDL Ratio 3.8 LDL Cholesterol, Calculated mg/dl Medical Emergencies . Who to Call and When: Medical Emergencies: If at any time you feel your situation is an emergency, please call 911 immediately. . Non-Emergent Contact Non-Emergency issues call your: Primary Care Provider . . "Provider Documentation" section prepared by Cristóbal Meier. VTE Core Measure Inpt VTE Proph given/why not?: Treatment not indicated
[2016-11-04 08:06] VITALS: BP 154/68; PULSE 109; TEMP 36.7; O2SAT 91
[2016-11-04 08:07] VITALS: BP 144/63; PULSE 99; TEMP 36.7; O2SAT 93
[2016-11-04] MEDS: HEPARIN SOD 5000 UNIT/0.5 ML CARP SQ SCH (08:15)
[2016-11-04] MEDS: METOPROLOL TARTRATE 50 MG TAB PO SCH (08:15)
[2016-11-04] MEDS: METHIMAZOLE 5 MG TAB PO SCH (08:15)
--- NOTE | 2016-11-04 19:40 | GASTROENTEROLOGY PROGRESS NOTE ---
DATE: 11/03/2016 SUBJECTIVE: The patient is doing well, eating with his family in the room. He has no abdominal pain. The patient does have occasional loose stools. There is no blood described. The patient is with gastric and duodenal biopsies, was negative for H. pylori and evidence of chronic gastritis with reactive changes. The stomach showed mild atrophic gastritis with intestinal metaplasia. There was no dysplasia identified and H. pylori was negative. REVIEW OF SYSTEMS: Otherwise noncontributory. MEDICATIONS AND ALLERGIES: His medications were reviewed and reconciled as was his allergy list. PHYSICAL EXAMINATION: VITAL SIGNS: Stable. HEART: Normal S1, S2. LUNGS: Clear to auscultation. ABDOMEN: Soft, flat, without rebound or guarding. EXTREMITIES: Without edema. IMPRESSION: The patient with symptoms of diarrhea, weight loss, without significant changes on upper endoscopy or its biopsies. I believe a colonoscopy reasonable as it has been some time since his last study and this would be to take additional random biopsies. This could be arranged as an outpatient and I will make arrangements with the patient to set this up over the next few weeks. The patient is tentatively for a discharge for Monday. Intestinal metaplasia can sometimes be seen in the setting of atrophic gastritis. Would ensure that B12 levels are satisfactory. All questions were answered for the patient and his family. Thank you for allowing me to participate in the care of this pleasant patient.
--- NOTE | 2016-11-04 20:24 | PROGRESS NOTE ---
DATE: 11/04/2016 SUBJECTIVE: A 76-year-old male with the following problems: 1. Bilateral pneumonia. 2. Gastritis. 3. Hyperthyroidism. 4. Arterial hypertension. 5. Weight loss. His condition has improved. His workup included an EGD which showed evidence of gastritis. His chest x-ray showed evidence of bibasilar pneumonia. He was treated with IV Levaquin. His condition improved. His appetite improved. He was ambulating without any problem. He denied any headache. No dizziness, no lightheadedness. No chest pain, no shortness of breath. No abdominal pain, no nausea, no vomiting. No problem with his bowel movements. No problem urinating. No pain in his back or extremities. PHYSICAL EXAMINATION: GENERAL: Well developed in no distress. VITAL SIGNS: Blood pressure 154/68, pulse 109, respirations 16, temperature 36.7, oxygen saturation 91% on room air. SKIN: Warm and dry. No rash. HEENT: No evidence of any mucosal abnormality. NECK: No JVD. No adenopathy. HEART: Regular heart sounds. LUNGS: Clear. ABDOMEN: Soft, nontender, without organomegaly or masses. EXTREMITIES: No edema, clubbing, or cyanosis. ASSESSMENT: 1. Bilateral pneumonia. 2. Gastritis. 3. Weight loss. 4. Hyperthyroidism. 5. Arterial hypertension. PLAN: 1. Overall, his condition has improved. He is doing well. 2. He was discharged home. Continue Levaquin 500 mg daily, he has the remainder of the prescription that was started prior to his admission at home and he will finish the course. 3. He will continue the same dose of the Tapazole. 4. Follow up in the office.
[2016-11-11] MEDS ORDERED: METH-589 PO (09:50)
[2016-11-11] MEDS ORDERED: OMEP20TA PO (09:50)
--- NOTE | 2016-11-16 23:55 | DISCHARGE SUMMARY ---
DISCHARGE DIAGNOSES: 1. Bilateral pneumonia. 2. Gastritis. 3. Weight loss. 4. Arterial hypertension. 5. Hyperthyroidism. 6. Recurrent nausea. DISCHARGE MEDICATIONS: Included: 1. Tapazole 5 mg twice a day. 2. Omeprazole 20 mg daily. 3. Levaquin 500 mg daily. 4. Metoprolol tartrate 50 mg daily. 5. Promethazine 25 mg every 4 hours as needed for nausea. CONSULTATION: Dr. Anup Ramos in gastroenterology. PROCEDURE: EGD done by Dr. Ramos. HISTORY: Mr. George is a 76-year-old male admitted through the Emergency Room with persistent cough and chest congestion, nausea, weight loss, and evidence of bilateral pneumonia. The patient with known arterial hypertension and hyperthyroidism. He was recently seen in the office complaining of epigastric pain. His illness started around 10/19/2016. He was complaining of cough, coughing up some phlegm, mostly clear secretions. He did not have any fever. No chills. Subsequently, he started complaining of severe epigastric pain. He was also complaining of burning sensation in the upper abdomen. He was not maintaining adequate oral intake. He lost about 4 pounds from 09/20/2016 until 10/26/2016. Multiple laboratory tests were done. A CT scan of the abdomen was also done. It did not show any significant intraabdominal pathology. He was noted to have multifocal patchy ground-glass and nodular airspace opacities of both lung bases. He was thought to have bilateral pneumonia. He was started on oral Levaquin. He was also complaining of persistent nausea. No vomiting. Phenergan was also prescribed. His condition did not improve. He continued to feel quite ill. He was feeling congested in his chest. He remained nauseous. The patient was brought to the Emergency Room. He was evaluated. He was admitted for further treatment. PAST MEDICAL HISTORY, SOCIAL HISTORY AND FAMILY HISTORY: All as noted. ALLERGIES: None. MEDICATIONS ON ADMISSION: All as noted. PHYSICAL EXAMINATION AND ADMISSION LABORATORY TESTS: All as ordered. HOSPITAL COURSE: The patient was admitted to medical bed. Resuscitation level 1. All his laboratory tests were ordered. He was started on IV fluids. Started on IV Levaquin. IV Protonix. IV Zofran. He was given Xopenex high flow treatments. His condition was monitored. He was hydrated. Because of his persistent nausea, GI consultation was requested. He was seen by Dr. Ramos. An EGD was done. He had evidence of gastritis. His condition started to improve. His chest congestion was improving. He was not producing any significant sputum. All his cultures including blood culture and sputum cultures were negative. He remained afebrile. His WBC counts did fluctuate. It remains slightly elevated. His alkaline phosphatase was elevated. This was thought to be related to his hyperthyroidism. As his condition improved, his appetite improved. He was ambulating. His nausea subsided. Repeat chest x-ray did not really show any significant changes but it was too early to expect any changes, but definitely it was not worsening. The patient was discharged home. Medications as noted above. Follow up in the office. Dr. Ramos recommended doing a colonoscopy. This was to be scheduled as an outpatient.
== END 2016-11-04 08:43 | disposition home or self-care (01) | DRG 194 ==
LOC: ENRESERVDT → ENRESERVTM → C.EDB 09:12 → C.4E 11:19
PROVIDERS: ADMIT Internal Medicine; ATTEND Internal Medicine
PROC: 0DB98ZX Excision of Duodenum, Via Natural or Artificial Opening Endoscopic, Diagnostic (ICD-10-PCS; principal; 2016-11-01 14:49)
PROC: 0DB68ZX Excision of Stomach, Via Natural or Artificial Opening Endoscopic, Diagnostic (ICD-10-PCS; principal; 2016-11-01 14:49)
DX: J18.9 Pneumonia, unspecified organism (principal); Z68.1 Body mass index [BMI] 19.9 or less, adult; K57.30 Diverticulosis of large intestine without perforation or abscess without bleeding; I10 Essential (primary) hypertension; I71.4 Abdominal aortic aneurysm, without rupture; E05.90 Thyrotoxicosis, unspecified without thyrotoxic crisis or storm; R11.0 Nausea; R63.4 Abnormal weight loss; I65.22 Occlusion and stenosis of left carotid artery; Z87.01 Personal history of pneumonia (recurrent); Z87.891 Personal history of nicotine dependence; K27.9 Peptic ulcer, site unspecified, unspecified as acute or chronic, without hemorrhage or perforation; K29.50 Unspecified chronic gastritis without bleeding; R91.1 Solitary pulmonary nodule; N20.0 Calculus of kidney

== ENCOUNTER → 2016-11-16 | Outpatient (CLI) | payer BC ==
[~2016-11-16] MED LIST changes: +DEXL60CA4 PO; +LEVO1TAB33 PO; +METH-589 PO; +OMEP20TA PO; +PROM25TA16 PO; +TPZ5 PO
[2016-11-16 12:42] LABS: BASO % 0.2 %; BASO ABS # 0.03 K/uL (0-0.2); COMPLETE YES; EOS % 2.8 %; HEMATOCRIT 43.1 % (42-52); IG% 0.3 %; LYMPH % 18.3 %; LYMPH ABS # 2.45 K/uL (1.2-3.4); MEAN CELL VOLUME 85.5 fL (80-100); MEAN CORPUSCULAR HGB CONC 32.7 g/dl (32-36); MEAN PLATELET VOLUME 10.1 fL (7.4-10.4); MONO % 6.7 %; NEUT % 71.7 %; PLATELET COUNT 377 K/uL (130-400); RED BLOOD COUNT 5.04 M/uL (4.7-6.1); WHITE BLOOD COUNT 13.37 K/uL (4.8-10.8)
[2016-11-16 12:51] LABS: ALT/SGPT 30 U/L (12-78); BLOOD UREA NITROGEN 8 mg/dl (7-18); BUN/CREATININE RATIO 10.5 (10-20); CALCIUM 8.9 mg/dl (8.5-10.1); CARBON DIOXIDE 31 mmol/L (21-32); CHLORIDE 104 mmol/L (98-107); CREATININE 0.74 mg/dl (0.60-1.40); GLUCOSE 101 mg/dl (70-99); POTASSIUM 4.5 mmol/L (3.5-5.1); SODIUM 141 mmol/L (136-145)
[2016-11-16 12:54] LABS: ALB/GLOB RATIO 0.5 (0.9-2); ALKALINE PHOSPHATASE 200 U/L (45-117); AST/SGOT 23 U/L (15-37)
== END | disposition home or self-care (01) ==
LOC: C.LABSPEC 12:15
PROVIDERS: ATTEND Internal Medicine
DX: R63.4 Abnormal weight loss (principal); D64.9 Anemia, unspecified; K29.70 Gastritis, unspecified, without bleeding; E03.9 Hypothyroidism, unspecified

== ENCOUNTER → 2016-12-01 | Day surgery (SDC) | payer BC ==
[2016-11-11 09:51] VITALS: Ht 177.8 cm; Wt 60.0 kg
[~2016-12-01] VITALS: Ht 177.8 cm; Wt 60.0 kg
[~2016-12-01] MED LIST changes: -AMOX500C3 PO; -DEXL60CA4 PO; -LEVO1TAB33 PO; +LIDOCAINE HCL 2% 2 ML VIAL (20MG/ML) ONE; +PROPOFOL IV EMULSION 10 MG/ML 20 ML VIAL IV ONE; -RBTDACL PO; +SODIUM CHLORIDE 0.9% 500ML 500 ML IV ONE; -TPZ5 PO; -TRAM-10 PO
[2016-12-01 12:48] VITALS: TEMP 36.6
--- NOTE | 2016-12-01 13:04 | Endo History and Physical ---
History & Physical Date of Service: Dec 01, 2016. Chief Complaint: Diarrhea Referring Physician: Dr. Angela Ivory History of Present Illness diarrhea Past Surgical History Hx Cardiac Surgery: No Hx Internal Defibrillator: No Hx Pacemaker: No Hx Abdominal Surgery: Yes (HERNIA REPAIR) Hx of Implantable Prosthesis: No Hx Post-Op Nausea and Vomiting: No Hx Cancer Surgery: No Hx Thoracic Surgery: No Hx Orthopedic: Yes (RT ARM SURGERY) Hx Urinary Tract Surgery: Yes (CYST REMOVAL FROM TESTES AND CIRCUMCISION) Family History None Social History Smoking Status: Former Smoker Hx Substance Use: No Hx Alcohol Use: No Allergies Coded Allergies: No Known Allergies (Verified , 12/01/16) Current Medications Reported Home Medications Medications Dose Route/Sig Max Daily Dose Days Date Category Methimazole (Methimazole) 5 Mg Tab 1 Tab PO QAM 11/11/16 Reported Omeprazole 20 Mg Tab 1 Tab PO QAM 11/11/16 Reported Promethazine HCl 25 Mg Tab 25 Mg PO Q4H PRN 10/30/16 Reported Lopressor (Metoprolol Tartrate) 50 Mg Tab 50 Mg PO QAM 05/03/16 Reported Vital Signs Weight (Kilograms): 60 Height (Feet): 5 Height (Inches): 10 Date Time Temp Pulse Resp B/P Pulse Ox O2 Delivery O2 Flow Rate FiO2 12/01/16 12:48 36.6 88 20 148/64 95 Room Air Physical Exam AAO x3 Nl s1s2 Lungs CTA Abd soft NT/ND + BS - CCE Assessment and Plan colonoscoipy
--- NOTE | 2016-12-01 13:32 | Discharge Instructions ---
Endoscopy Patient Instructions Date / Procedure(s) Performed Dec 01, 2016. Colonoscopy Allergy Information Coded Allergies: No Known Allergies (Verified , 12/01/16) Discharge Date / Findings Dec 01, 2016. diverticulosis/hemorrhoids Medication Instructions Restart Stopped Medication(s): Reported Home Medications Medications Dose Route/Sig Max Daily Dose Days Date Category Methimazole (Methimazole) 5 Mg Tab 1 Tab PO QAM 11/11/16 Reported Omeprazole 20 Mg Tab 1 Tab PO QAM 11/11/16 Reported Promethazine HCl 25 Mg Tab 25 Mg PO Q4H PRN 10/30/16 Reported Lopressor (Metoprolol Tartrate) 50 Mg Tab 50 Mg PO QAM 05/03/16 Reported Reported Home Medications Medications Dose Route/Sig Max Daily Dose Days Date Category Methimazole (Methimazole) 5 Mg Tab 1 Tab PO QAM 11/11/16 Reported Omeprazole 20 Mg Tab 1 Tab PO QAM 11/11/16 Reported Promethazine HCl 25 Mg Tab 25 Mg PO Q4H PRN 10/30/16 Reported Lopressor (Metoprolol Tartrate) 50 Mg Tab 50 Mg PO QAM 05/03/16 Reported Provider Instructions Activity Restrictions - No exercising or heavy lifting for 24 hours. - Do not drink alcohol the day of the procedure. - Do not drive a car or operate machinery until the day after the procedure. - Do not make any important decisions or sign important papers in 24 hours after the procedure. Following Day: - Return to full activity which may include returning to work/school. Diet Start your diet with liquids and light foods (jello, soup, juice, toast). Then eat your usual diet if not nauseated. Treatment For Common After Affects For mild abdominal pain, bloating, or excessive gas: - Rest - Eat lightly - Lie on right side Follow-Up Information Follow-up with Dr. Angela Ivory as scheduled Anesthesia Information What You Should Know You have had a procedure that required some medicine to reduce anxiety and discomfort. This treatment is called moderate sedation. After receiving the treatment, you may be sleepy, but you will be able to breathe on your own. The effects of the treatment may last for several hours. Follow these instructions along with Activity/Diet recommendations noted above: * Do NOT do anything where dizziness or clumsiness would be dangerous. * Rest quietly at home today, then you can be up and about tomorrow. * Have a responsible person stay with you the rest of today. * You may have had an I.V. today. If so, you may take the dressing off later today. Recommendations Call your doctor if: * Trouble breathing * Continuous vomiting for more than 24 hours * Temperature above 101 degrees * Severe abdominal pain or bloating * Pain not relieved by pain medicine ordered * There is increased drainage or redness from any incision * A large amount of rectal bleeding greater than 2-3 tablespoons. (If you had a polyp/s removed or have hemorrhoids, a small amount of blood - from the rectum is to be expected.) * You have any unanswered questions or concerns. IN THE EVENT OF A SERIOUS EMERGENCY, GO TO THE NEAREST EMERGENCY ROOM Your discharge instructions were prepared by provider Anup Ramos. Patient Instructions Signature Page Roddy George Patient (or Guardian) Signature/Date: I have read and understand the instructions given to me by my caregivers. Caregiver/RN/Doctor Signature/Date: The above-named patient and/or guardian has received patient instructions on this date. + Original Patient Signature Page (only) stays with chart. Please make copy for patient.
[2016-12-01 14:06] VITALS: BP 125/76; PULSE 81; O2SAT 95
--- NOTE | 2016-12-01 14:12 | Anesthesiology Progress Note ---
Anesthesia Post Op Note Date & Time Dec 01, 2016 at 14:12 Vital Signs Pain Intensity: 0 Vital Signs Past 12 Hours Date Time Temp Pulse Resp B/P Pulse Ox O2 Delivery O2 Flow Rate FiO2 12/01/16 14:06 81 20 125/76 95 Room Air 12/01/16 13:52 83 20 138/70 94 Room Air 12/01/16 13:37 85 20 111/62 94 Room Air 12/01/16 12:48 36.6 88 20 148/64 95 Room Air Notes Mental Status: alert / awake / arousable, participated in evaluation Pt Amnestic to Procedure: Yes Nausea / Vomiting: adequately controlled Pain: adequately controlled Airway Patency, RR, SpO2: stable & adequate BP & HR: stable & adequate Hydration State: stable & adequate Anesthetic Complications: no major complications apparent
--- NOTE | 2016-12-01 14:25 | GI REPORT ---
Procedure Date: 12/01/2016 1:03 PM Procedure: Colonoscopy Indications: Change in bowel habits Medicines: Propofol per Anesthesia Complications: No immediate complications. Estimated blood loss: Minimal. Estimated Blood Loss: Estimated blood loss was minimal. Procedure: Pre-Anesthesia Assessment: - Prior to the procedure, a History and Physical was performed, and patient medications and allergies were reviewed. The patient's tolerance of previous anesthesia was also reviewed. The risks and benefits of the procedure and the sedation options and risks were discussed with the patient. All questions were answered, and informed consent was obtained. Prior Anticoagulants: The patient has taken no previous anticoagulant or antiplatelet agents. ASA Grade Assessment: III - A patient with severe systemic disease. After reviewing the risks and benefits, the patient was deemed in satisfactory condition to undergo the procedure. After I obtained informed consent, the scope was passed under direct vision. Throughout the procedure, the patient's blood pressure, pulse, and oxygen saturations were monitored continuously. The On-site loaner was introduced through the anus and advanced to the terminal ileum, with identification of the appendiceal orifice and IC valve. The colonoscopy was performed without difficulty. The patient tolerated the procedure well. The quality of the bowel preparation was good. Findings: The perianal and digital rectal examinations were normal. Pertinent negatives include normal sphincter tone, no palpable rectal lesions and no anal lesion or abnormality was detected. The descending colon, ascending colon and ileum appeared normal. Biopsies for histology were taken with a cold forceps from the ascending colon and descending colon for evaluation of microscopic colitis. Verification of patient identification for the specimen was done by the physician and motion picture camera lens technician using the patient's name and medical record number. A few small-mouthed diverticula were found in the sigmoid colon. Non-bleeding internal hemorrhoids were found during retroflexion. The hemorrhoids were moderate. No additional abnormalities were found on retroflexion. Impression: - The descending colon, ascending colon and terminal ileum are normal. Biopsied. - Diverticulosis in the sigmoid colon. - Non-bleeding internal hemorrhoids. Recommendation: - Patient has a contact number available for emergencies. The signs and symptoms of potential delayed complications were discussed with the patient. Return to normal activities tomorrow. Written discharge instructions were provided to the patient. - Discharge patient to home (ambulatory). - Resume regular diet. - Continue present medications. - Await pathology results. - Return to referring physician as previously scheduled. - Repeat colonoscopy for surveillance based on pathology results. MD Anup Salter MD 12/01/2016 1:38:20 PM This report has been signed electronically. Note Initiated On: 12/01/2016 1:03 PM I attest to the content of the Intraoperative Record and orders documented therein, exceptions below
== END | disposition home or self-care (01) ==
LOC: C.GI 11:55
PROVIDERS: ATTEND Internal Medicine Gastroenterology
DX: R19.4 Change in bowel habit (principal); K57.30 Diverticulosis of large intestine without perforation or abscess without bleeding; K64.8 Other hemorrhoids; Z98.890 Other specified postprocedural states; Z87.891 Personal history of nicotine dependence

== ENCOUNTER → 2017-03-16 | Outpatient (CLI) | payer BC ==
[~2017-03-16] MED LIST changes: -LIDOCAINE HCL 2% 2 ML VIAL (20MG/ML) ONE; -PROPOFOL IV EMULSION 10 MG/ML 20 ML VIAL IV ONE; -SODIUM CHLORIDE 0.9% 500ML 500 ML IV ONE
[2017-03-16 13:34] LABS: BASO % 0.5 %; BASO ABS # 0.04 K/uL (0-0.2); COMPLETE YES; HEMATOCRIT 47.4 % (42-52); IG% 0.1 %; LYMPH % 24.8 %; LYMPH ABS # 2.04 K/uL (1.2-3.4); MEAN CELL VOLUME 89.9 fL (80-100); MEAN CORPUSCULAR HEMOGLOBIN 28.8 pg (25-34); MEAN CORPUSCULAR HGB CONC 32.1 g/dl (32-36); MEAN PLATELET VOLUME 10.3 fL (7.4-10.4); MONO % 8.1 %; NEUT % 59.5 %; PLATELET COUNT 219 K/uL (130-400); RED BLOOD COUNT 5.27 M/uL (4.7-6.1); WHITE BLOOD COUNT 8.23 K/uL (4.8-10.8)
== END | disposition home or self-care (01) ==
LOC: C.LABSPEC 12:40
PROVIDERS: ATTEND Internal Medicine
DX: E03.9 Hypothyroidism, unspecified (principal); D72.829 Elevated white blood cell count, unspecified

== ENCOUNTER → 2017-07-26 | Outpatient (CLI) | payer BC ==
[2017-07-26 13:25] LABS: BASO % 0.4 %; BASO ABS # 0.04 K/uL (0-0.2); COMPLETE YES; HEMATOCRIT 45.8 % (42-52); IG% 0.4 %; LYMPH ABS # 1.84 K/uL (1.2-3.4); MEAN CELL VOLUME 90.2 fL (80-100); MEAN CORPUSCULAR HEMOGLOBIN 29.7 pg (25-34); MEAN PLATELET VOLUME 10.5 fL (7.4-10.4); MONO % 9.4 %; NEUT % 64.8 %; PLATELET COUNT 201 K/uL (130-400); RED BLOOD COUNT 5.08 M/uL (4.7-6.1); WHITE BLOOD COUNT 9.21 K/uL (4.8-10.8)
[2017-07-26 13:37] LABS: ESTIMATED AVERAGE GLUCOSE 108 mg/dl; HA1C FLAG Normal (Normal)
[2017-07-26 15:41] LABS: ALT/SGPT 20 U/L (12-78); AST/SGOT 18 U/L (15-37); BLOOD UREA NITROGEN 12 mg/dl (7-18); BUN/CREATININE RATIO 13.8 (10-20); CALCIUM 8.9 mg/dl (8.5-10.1); CARBON DIOXIDE 31 mmol/L (21-32); CHLORIDE 105 mmol/L (98-107); CHOLESTEROL 185 mg/dl (0-200); CREATININE 0.89 mg/dl (0.60-1.40); GLUCOSE 96 mg/dl (70-99); MAGNESIUM 2.1 mg/dl (1.8-2.4); POTASSIUM 4.4 mmol/L (3.5-5.1); SODIUM 141 mmol/L (136-145); TRIGLYCERIDES 140 mg/dl (0-150); VERY LOW DENSITY LIPOPROT CALC 28 mg/dl
[2017-07-26 15:50] LABS: ALKALINE PHOSPHATASE 114 U/L (45-117); CHOLESTEROL/HDL RATIO 4.6; HDL CHOLESTEROL 40 mg/dl
== END | disposition home or self-care (01) ==
LOC: C.LABSPEC 12:39
PROVIDERS: ATTEND Internal Medicine
DX: R73.9 Hyperglycemia, unspecified (principal); I10 Essential (primary) hypertension; E78.5 Hyperlipidemia, unspecified; R25.2 Cramp and spasm; E05.90 Thyrotoxicosis, unspecified without thyrotoxic crisis or storm

== ENCOUNTER → 2017-07-28 | Outpatient (CLI) | payer BC | END | disposition home or self-care (01) | LOC: C.LABSPEC 14:28 | PROVIDERS: ATTEND Internal Medicine | DX: Z12.11 Encounter for screening for malignant neoplasm of colon (principal) ==

== ENCOUNTER → 2017-12-09 | Outpatient (CLI) | payer BC ==
[2017-12-09 11:42] LABS: BLOOD UREA NITROGEN 17 mg/dl (7-18); CREATININE 0.95 mg/dl (0.60-1.40)
== END | disposition home or self-care (01) ==
LOC: C.LAB 09:54
DX: R22.1 Localized swelling, mass and lump, neck (principal)

== ENCOUNTER → 2017-12-13 | Outpatient (CLI) | payer BC ==
[~2017-12-13] MED LIST changes: +OPTIRAY 320 IV PRN
--- NOTE | 2017-12-13 07:39 | DIAGNOSTIC IMAGING REPORT ---
SOFT TISSUE NECK WITH CLINICAL HISTORY: 77 years-old Male presenting with R13.10 Odynophagia. TECHNIQUE: Multidetector CT of the neck was performed after the administration of intravenous contrast. IV contrast: 93 mL of Optiray 320. A dose lowering technique was used consistent with the principles of ALARA (as low as reasonably achievable). COMPARISON: 10/31/2016. CT DOSE (mGy.cm): The estimated cumulative dose is 476.83 mGy.cm. FINDINGS: Ground Systems Engineer topogram: Unremarkable. No suspicious nodular enhancement along the airway and upper gastrointestinal tract. No effacement of the valleculae or piriform sinuses. Symmetric area epiglottic folds. Symmetric true vocal folds. Increased opacification of the left sphenoid sinus. Sclerosis of the left sphenoid sinus wall suggest chronic sinusitis. No osseous erosion. The total thickening in ethmoid air cells also noted. These findings have increased since the prior exam. Obstruction of the posterior sphenoethmoidal recess secondary to mucosal thickening. There is no enhancing mass in this region as a cause for obstruction. Mild mucosal thickening in the left frontal sinus with mucosal narrowing and/or obstruction of the left nasofrontal ethmoidal recess. Orbits normal. Limited intracranial evaluation within normal limits. Atherosclerosis of the cavernous segments of the internal carotid arteries. Significant stenosis of the origin of the left internal carotid artery (over 50% stenosis), unchanged from prior exam. Atherosclerosis of the right carotid bulb and proximal right internal carotid artery with less significant stenosis. Parotid, submandibular, and thyroid glands normal. No lymphadenopathy. Solid 4 mm nodule in the posterior segment of the right upper lobe (series 3 image 354). 2 mm nodule noted in the superior segment of the left lower lobe (series 3 image 369). Pleural-parenchymal scarring of the lung apices. Degenerative changes of the cervical spine. IMPRESSION: 1. Evidence of chronic sinusitis of the left sphenoid sinus. No evidence of an obstructing mass. Obstruction appears secondary to mucosal thickening in ethmoid air cells. 2. No evidence of a suspicious mass. 3. No lymphadenopathy. 4. Solid pulmonary nodules the largest measuring 4 mm. Follow-up per [employer] 2017 recommendations below. Please refer to below summary of Fleischner Society 2017 recommendations for follow-up of incidental CT nodules (H Laron et al. Guidelines for management of incidental pulmonary nodules detected on CT images: From the Fleischner Society 2017. Radiology 2017; 284: 228-243.) SOLID NODULES Single nodule; size < 6 mm * Low risk patients: No routine follow-up * High risk patients: Optional CT at 12 months Single nodule; size 6-8 mm * Low risk patients: CT at 6-12 months, then consider CT at 18-24 months * High risk patients: CT at 6-12 months, then at 18-24 months Single nodule; size > 8 mm * Either low or high risk patients: Considered CT at 3 months, PET/CT, or tissue sampling Multiple nodules; size < 6 mm * Low risk patients: No routine follow up * High risk patients: Optional CT at 12 months Multiple nodules; size 6-8 mm * Low risk patients: CT at 3-6 months, then consider CT at 18-24 months * High risk patients: CT at 3-6 months, then at 18-24 months Multiple nodules; size > 8 mm * Low risk patients: CT at 3-6 months, then consider at 18-24 months * High risk patients: CT at 3-6 months, then at 18-24 months SUBSOLID NODULES Single ground-glass nodule * Nodule size < 6 mm: No routine follow-up * Nodule size > or = 6 mm: CT at 6-12 months to confirm persistence, then CT every 2 years until 5 years Single part-solid nodule * Nodule size < 6 mm: No routine follow-up * Nodules size > or = 6 mm: CT at 3-6 months to confirm persistence. If unchanged and solid component remains < 6 mm, annual CT should be performed for 5 years Multiple nodules * Nodule size < 6 mm: CT at 3-6 months. If stable, consider CT at 2 and 4 years. * Nodules size > or = 6 mm: CT at 3-6 months. Subsequent management based on the most suspicious nodule(s) NOTE: These guidelines apply to incidental nodules. These guidelines do not apply to patients younger than 35 years, immunocompromised patients, or patients with cancer. * Low risk patients: Minimal or absent history of smoking and/or other known risk factors * High risk patients: History of smoking, exposure to other carcinogens, emphysema, fibrosis, upper lobe location, family history of lung cancer, etc. If a nodule up to 8 mm is partly solid or is ground glass, further follow-up is required after 24 months to exclude possible slow growing adenocarcinoma. Electronically signed by: Bentley Valladares M.D. 12/13/2017 7:38 AM Dictated Date/Time: 12/13/2017 7:24 AM
== END | disposition home or self-care (01) ==
LOC: C.CTS 06:57
DX: R13.10 Dysphagia, unspecified (principal); R91.8 Other nonspecific abnormal finding of lung field

== ENCOUNTER 2023-02-08 11:30 | Inpatient (IN) ==
[2023-02-08] MEDS ORDERED: SODIUM CHLORIDE 0.9% 1000ML 500 ML IV ONE (12:22)
[2023-02-08] MEDS ORDERED: ONDANSETRON INJ 2 MG/ML 2 ML VIAL IV STA (12:22)
--- NOTE | 2023-02-08 12:31 | Emergency Department Note ---
History of Present Illness General Chief complaint: Abdominal Pain Stated complaint: FEVER, WEAK, ABD PAIN Time Seen by Provider: 02/08/23 12:12 Source: patient, family (Family members are at the bedside including and son), RN notes reviewed and old records reviewed Mode of arrival: ambulatory Limitations: no limitations History of Present Illness This patient 83-year-old male who comes in after feeling nauseated for the last 3 days. He feels diffusely weak he has had a temperature at times up to 101 feels like he is sweating at times occasionally no diarrhea until that just started after he came here. No cough or respiratory symptoms no chest pain feels slightly short of breath at times no dysuria hematuria denies pain anyw here specifically denies headache or abdominal pain or back pain. No rash no joint aches. he feels like he has a slight sore throat and URI type symptoms. He was out in the [place] and his said he may be overdoing it so working out in the heat. No definite tick bites but he was working outside. Home Medications Medication Instructions Recorded Confirmed Type amlodipine 2.5 mg tablet 2.5 mg PO BID 02/08/22 02/08/22 History metoprolol tartrate 50 mg tablet 50 mg PO QAM 02/08/22 02/08/22 History Allergies Allergy/AdvReac Type Severity Reaction Status Date / Time No Known Allergies Allergy Verified 02/08/22 13:44 Past Med/Surg History Medical History Hypertension No pertinent family history Surgical History No pertinent past surgical history Social History Smoking Status: Former smoker Preferred Language: Nepali Feels Safe at Home: Yes Review of Systems A total of 10 systems reviewed and were otherwise negative Physical Exam Vital Signs Vital Signs - 24 hr 02/08/23 11:33 02/08/23 12:44 02/08/23 13:00 Temperature 36.4 C L Temperature Source Temporal Artery Scan Pulse Rate 85 89 87 Pulse Rate from SpO2 Sensor 87 Respiratory Rate 24 17 Respiratory Effort / Characteristics Spontaneous Respiratory Depth Normal Blood Pressure 138/68 128/72 Blood Pressure Mean 91 90 Pulse Oximetry 98 92 Oxygen Delivery Method Room Air Sepsis Recent Fever Within 48 Hours Yes Sepsis New/Unexplained Change in Mental Status N/A Sepsis Action Taken by Nursing No Action Required 02/08/23 13:28 02/08/23 13:30 02/08/23 14:00 Temperature Temperature Source Pulse Rate 89 90 83 Pulse Rate from SpO2 Sensor 88 83 Respiratory Rate 22 22 19 Respiratory Effort / Characteristics Respiratory Depth Blood Pressure 150/72 H 142/69 H Blood Pressure Mean 98 93 Pulse Oximetry 88 L 90 92 Oxygen Delivery Method Room Air Sepsis Recent Fever Within 48 Hours Sepsis New/Unexplained Change in Mental Status Sepsis Action Taken by Nursing General: Well developed well nourished older male who appears mildly ill but in no acute distress, breathing comfortably on room air. Normal speech HEENT: Normal cephalic atraumatic. Pupils are equal round and reactive to light. Sclera anicteric. No swelling the mouth lips or tongue. Posterior oropharynx is wide open. extraocular movements are intact. Oropharynx is pink with moist mucous membranes. No swelling of the mouth lips or tongue. Neck: Supple with a midline trachea. No meningeal signs or stiffness, no JVD or bruits. No Stridor. Chest: Clear to auscultation bilaterally. No wheezes or rhonchi. No increased work of breathing. Heart: Regular rate and rhythm without murmurs or gallops. Abdomen: Soft nontender, nondistended without rebound guarding or rigidity. Extremities: No cyanosis clubbing or edema. No calf tenderness or assymetry Spine/Back. Non tender to palpation. No CVA tenderness Skin: Good turgor without rashes. Neurologic exam: Cranial nerves two through 12 are intact. Motor and sensation are intact and symmetrical throughout. Course Administered Medications Discontinued Medications Sodium Chloride (Nss 1000ml) 500 mls @ 999 mls/hr IV .Q31M ONE Stop: 02/08/23 12:52 Last Admin: 02/08/23 13:15 Dose: 999 mls/hr Documented By: ROSA M Ondansetron HCl (Ondansetron Inj 2 Mg/Ml 2 Ml Vial) 4 mg IV NOW STA Stop: 02/08/23 12:23 Last Admin: 02/08/23 13:16 Dose: 4 mg Documented By: MT Medical Decision Making Differential Diagnosis Dehydration, intra-abdominal process, infection, GI illness, sepsis, pneumonia, cardiac disease, electrolyte or metabolic abnormality, tickborne illness Medical Records Attestation: I reviewed the patient's medical records. Home Medications Current Medication List: was personally reviewed by me Laboratory Data Attestation: I reviewed the patient's lab results. 02/08/23 12:04 02/08/23 12:04 Lab Results 02/08/23 02/08/23 02/08/23 Range/Units 12:04 12:04 12:04 WBC 2.82 L (4.8-10.8) K/ul RBC 5.49 (4.70-6.10) M/uL Hgb 16.0 (14.0-18.0) g/dl Hct 48.6 (42.0-52.0) % MCV 88.5 (80.0-100.0) fL MCH 29.1 (25.0-34.0) pg MCHC 32.9 (32.0-36.0) g/dL RDW Std Deviation 43.1 (36.4-46.3) fL RDW Coeff of Ricardo 13.2 (11.5-14.5) % Plt Count 65 L (130-400) K/uL MPV 11.1 (9.4-12.4) fL Immature Gran % (Auto) 0.7 % Neut % (Auto) 65.2 % Lymph % (Auto) 25.9 % [place] % (Auto) 7.1 % Eos % (Auto) 0.0 % Baso % (Auto) 1.1 % Neut # (Auto) 1.84 (1.40-6.50) K/uL Lymph # (Auto) 0.73 L (1.2-3.4) K/uL [place] # (Auto) 0.20 (0.11-0.59) K/uL Eos # (Auto) 0.00 (0-0.50) K/uL Baso # (Auto) 0.03 (0-0.2) K/uL Immature Gran # (Auto) 0.02 (0.01-0.20) K/uL Platelet Estimate Decreased L (Normal) Acanthocytes (Spur) 1+ Peripher Smr Path Cons Sodium 133 L (136-145) mmol/L Potassium 4.4 (3.5-5.1) mmol/L Chloride 97 L (98-107) mmol/L Carbon Dioxide 29 (21-32) mmol/L Anion Gap 7 (3-11) BUN 21 (6-23) mg/dl Creatinine 1.41 H (0.6-1.4) mg/dl Est Cr Clr Drug Dosing 36.5 ml/min Est GFR ( Amer) 52.6 ml/min Est GFR (Non-Af Amer) 45.4 ml/min BUN/Creatinine Ratio 14.9 (10-20) Glucose 113 H (70-99(Fasting)) mg/dl Lactate (0.4-2.0) mmol/L Calcium 8.9 (8.6-10.3) mg/dl Magnesium 2.0 (1.7-2.4) mg/dl Total Bilirubin 0.6 (0.2-1.0) mg/dl AST 47 H (13-39) U/L ALT 32 (7-52) U/L Alkaline Phosphatase 128 H (34-104) U/L Troponin I High Sens 8.8 (0-20) pg/ml Total Protein 7.4 (6.0-8.3) gm/dl Albumin 3.8 (3.4-5.0) gm/dl Globulin 3.6 (2.5-4.0) gm/dl Albumin/Globulin Ratio 1.1 (0.9-2) Urine Color Urine Appearance (Clear) Urine pH (4.5-7.5) Ur Specific [place] (1.000-1.030) Urine Protein (Negative) Urine Glucose (UA) (Negative) Urine Ketones (Negative) Urine Blood (Negative) Urine Nitrite (Negative) Urine Bilirubin (Negative) Urine Urobilinogen (Negative) Ur Leukocyte Esterase (Negative) Urine WBC (Auto) (0-5) /hpf Urine RBC (Auto) (0-4) /hpf U Hyaline Cast (Auto) (0-5) /lpf U Epithel Cells (Auto) (0-5) /lpf Urine Bacteria (Auto) (Negative) Ur Renal Epithelial Cell Amorphous Sediment (None Prsent) Granular Casts (0) /lpf Urine Mucus (None Prsent) Urine Yeast Anaplasma Smear See Comment A A. phagocytophilum DNA Anaplasma Comment Pos for Anaplasma Babesia Smear See Comment Lyme Disease IgG Ab (Negative) Lyme Disease IgM Ab (Negative) SARS-CoV-2 (PCR) NEGATIVE (Negative) Influenza Type A (PCR) Negative (Neg) Influenza Type B (PCR) Negative (Neg) RSV (RT-PCR) Negative (Neg) 02/08/23 02/08/23 02/08/23 Range/Units 12:04 12:46 12:46 WBC (4.8-10.8) K/ul RBC (4.70-6.10) M/uL Hgb (14.0-18.0) g/dl Hct (42.0-52.0) % MCV (80.0-100.0) fL MCH (25.0-34.0) pg MCHC (32.0-36.0) g/dL RDW Std Deviation (36.4-46.3) fL RDW Coeff of Ricardo (11.5-14.5) % Plt Count (130-400) K/uL MPV (9.4-12.4) fL Immature Gran % (Auto) % Neut % (Auto) % Lymph % (Auto) % [place] % (Auto) % Eos % (Auto) % Baso % (Auto) % Neut # (Auto) (1.40-6.50) K/uL Lymph # (Auto) (1.2-3.4) K/uL [place] # (Auto) (0.11-0.59) K/uL Eos # (Auto) (0-0.50) K/uL Baso # (Auto) (0-0.2) K/uL Immature Gran # (Auto) (0.01-0.20) K/uL Platelet Estimate (Normal) Acanthocytes (Spur) Peripher Smr Path Cons Sodium (136-145) mmol/L Potassium (3.5-5.1) mmol/L Chloride (98-107) mmol/L Carbon Dioxide (21-32) mmol/L Anion Gap (3-11) BUN (6-23) mg/dl Creatinine (0.6-1.4) mg/dl Est Cr Clr Drug Dosing ml/min Est GFR ( Amer) ml/min Est GFR (Non-Af Amer) ml/min BUN/Creatinine Ratio (10-20) Glucose (70-99(Fasting)) mg/dl Lactate 1.2 (0.4-2.0) mmol/L Calcium (8.6-10.3) mg/dl Magnesium (1.7-2.4) mg/dl Total Bilirubin (0.2-1.0) mg/dl AST (13-39) U/L ALT (7-52) U/L Alkaline Phosphatase (34-104) U/L Troponin I High Sens (0-20) pg/ml Total Protein (6.0-8.3) gm/dl Albumin (3.4-5.0) gm/dl Globulin (2.5-4.0) gm/dl Albumin/Globulin Ratio (0.9-2) Urine Color Urine Appearance (Clear) Urine pH (4.5-7.5) Ur Specific [place] (1.000-1.030) Urine Protein (Negative) Urine Glucose (UA) (Negative) Urine Ketones (Negative) Urine Blood (Negative) Urine Nitrite (Negative) Urine Bilirubin (Negative) Urine Urobilinogen (Negative) Ur Leukocyte Esterase (Negative) Urine WBC (Auto) (0-5) /hpf Urine RBC (Auto) (0-4) /hpf U Hyaline Cast (Auto) (0-5) /lpf U Epithel Cells (Auto) (0-5) /lpf Urine Bacteria (Auto) (Negative) Ur Renal Epithelial Cell Amorphous Sediment (None Prsent) Granular Casts (0) /lpf Urine Mucus (None Prsent) Urine Yeast Anaplasma Smear A. phagocytophilum DNA Cancelled Anaplasma Comment Babesia Smear Lyme Disease IgG Ab Negative (Negative) Lyme Disease IgM Ab Negative (Negative) SARS-CoV-2 (PCR) (Negative) Influenza Type A (PCR) (Neg) Influenza Type B (PCR) (Neg) RSV (RT-PCR) (Neg) 02/08/23 Range/Units 13:20 WBC (4.8-10.8) K/ul RBC (4.70-6.10) M/uL Hgb (14.0-18.0) g/dl Hct (42.0-52.0) % MCV (80.0-100.0) fL MCH (25.0-34.0) pg MCHC (32.0-36.0) g/dL RDW Std Deviation (36.4-46.3) fL RDW Coeff of Ricardo (11.5-14.5) % Plt Count (130-400) K/uL MPV (9.4-12.4) fL Immature Gran % (Auto) % Neut % (Auto) % Lymph % (Auto) % [place] % (Auto) % Eos % (Auto) % Baso % (Auto) % Neut # (Auto) (1.40-6.50) K/uL Lymph # (Auto) (1.2-3.4) K/uL [place] # (Auto) (0.11-0.59) K/uL Eos # (Auto) (0-0.50) K/uL Baso # (Auto) (0-0.2) K/uL Immature Gran # (Auto) (0.01-0.20) K/uL Platelet Estimate (Normal) Acanthocytes (Spur) Peripher Smr Path Cons Sodium (136-145) mmol/L Potassium (3.5-5.1) mmol/L Chloride (98-107) mmol/L Carbon Dioxide (21-32) mmol/L Anion Gap (3-11) BUN (6-23) mg/dl Creatinine (0.6-1.4) mg/dl Est Cr Clr Drug Dosing ml/min Est GFR ( Amer) ml/min Est GFR (Non-Af Amer) ml/min BUN/Creatinine Ratio (10-20) Glucose (70-99(Fasting)) mg/dl Lactate (0.4-2.0) mmol/L Calcium (8.6-10.3) mg/dl Magnesium (1.7-2.4) mg/dl Total Bilirubin (0.2-1.0) mg/dl AST (13-39) U/L ALT (7-52) U/L Alkaline Phosphatase (34-104) U/L Troponin I High Sens (0-20) pg/ml Total Protein (6.0-8.3) gm/dl Albumin (3.4-5.0) gm/dl Globulin (2.5-4.0) gm/dl Albumin/Globulin Ratio (0.9-2) Urine Color Dark Yellow Urine Appearance Cloudy A (Clear) Urine pH 5.0 (4.5-7.5) Ur Specific [place] 1.029 (1.000-1.030) Urine Protein 2+ H (Negative) Urine Glucose (UA) Negative (Negative) Urine Ketones 1+ H (Negative) Urine Blood Trace H (Negative) Urine Nitrite Negative (Negative) Urine Bilirubin 1+ H (Negative) Urine Urobilinogen Negative (Negative) Ur Leukocyte Esterase Trace H (Negative) Urine WBC (Auto) 1-5 (0-5) /hpf Urine RBC (Auto) 0-4 (0-4) /hpf U Hyaline Cast (Auto) 1-5 (0-5) /lpf U Epithel Cells (Auto) 5-10 H (0-5) /lpf Urine Bacteria (Auto) Negative (Negative) Ur Renal Epithelial Cell Not Reportable Amorphous Sediment Present A (None Prsent) Granular Casts 5-10 H (0) /lpf Urine Mucus Present A (None Prsent) Urine Yeast Not Reportable Anaplasma Smear A. phagocytophilum DNA Anaplasma Comment Babesia Smear Lyme Disease IgG Ab (Negative) Lyme Disease IgM Ab (Negative) SARS-CoV-2 (PCR) (Negative) Influenza Type A (PCR) (Neg) Influenza Type B (PCR) (Neg) RSV (RT-PCR) (Neg) Imaging Data Attestation: I personally reviewed and interpreted this imaging study as follows: My Impression: Chest x-rayno acute infiltrate, failure, pneumothorax seen Radiologist's Impression: Chest X-Ray 02/08/23 12:25 XR chest 1V portable HISTORY: 83 years-old Male fever acute shortness of breath with fever COMPARISON: 05/05/2022 TECHNIQUE: AP view of the chest FINDINGS: Cardiomediastinal and hilar silhouettes are unchanged. No pneumothorax, large pleural effusion or overt pulmonary edema. Degenerative changes of the shoulders and spine. Chronic blunting of the lateral left costophrenic angle. IMPRESSION: No acute process of the chest. ACT 112: Negative or not required by law. The above report was generated using voice recognition software. It may contain grammatical, syntax or spelling errors. Electronically signed by: Ernesto Zhou M.D. 02/08/2023 1:14 PM ECG Data Indication: + nausea and + weakness Rate (beats per minute): 99 Rhythm: + normal sinus and + other (Poor baseline) ECG Intervals/blocks: + Normal QRS, + Normal QT and + Normal MT ECG [place]: + Normal ECG ST segments: + Normal ST segments ECG Findings: no PACs or no PVCs Comparison ECG Date: from (05/04/22) Change: no significant change MDM Narrative This patient comes in as described above. He was placed on a scheduling analyst in room B11. He is here for treatment and evaluation of nausea. He has been sick for couple days. He had a temperature at times but is afebrile here. He looks mildly ill but nontoxic. IV access was established and I did a full sepsis type work-up. He was hydrated gently with a 500 cc IV normal saline bolus and given Zofran 4 mg IV. EKG, chest x-ray, multiple blood testing was obtained. I did order urinalysis as well as stool studies. He had recent exposure outside so I did tickborne studies as well. He was reassessed frequently. 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 He looks well he denies any short of breath his O2 sats mildly low at 88%. he did well with supplemental oxygen and has remained stable. His EKG is unremarkable and he has no evidence of arrhythmia or ischemia. Chest x-ray was clear. His creatinine is mildly elevated however it is about baseline I think he is likely a little dry on top of this. He has no abdominal complaints his abdomen is benign he has no headache and has a normal neurologic exam. I do think he needs to be admitted/observed for treatment of his anaplasmosis and dehydration. Have consulted the [facility] and discussed case with them and consulted them and they will admit/observe him for these measures Continuous cardiac monitoring: Orders placed in EMR for continuous cardiac monitoring: Upon my evaluation he was noted to be in normal sinus rhythm with a rate of 80. Impression & Plan Anaplasmosis, Nausea, Acute dehydration, Lab test negative for COVID-19 virus, Thrombocytopenia, Weakness Discharge Plan Visit Data Chief Complaint: Abdominal Pain Stated Complaint: FEVER, WEAK, ABD PAIN ED Provider: Arun Kay Discharge Problem: Anaplasmosis, Nausea, Acute dehydration, Lab test negative for COVID-19 virus, Thrombocytopenia, Weakness Forms Stand Alone Forms: My [facility] [employer] Prescriptions Prescriptions: No Action amlodipine 2.5 mg Tablet 2.5 mg PO BID Rx Instructions: Did not fill RX yet (02/08/22) metoprolol tartrate 50 mg tablet 50 mg PO QAM Referrals Referrals: Eugene Emmanuel MD [Primary Care Provider] -
[2023-02-08 12:46] LABS: Albumin Globulin Ratio 1.1 (0.9-2); Albumin Level 3.8 gm/dl (3.4-5.0); BUN Creatinine Ratio 14.9 (10-20); Bilirubin,Total 0.6 mg/dl (0.2-1.0); Calcium 8.9 mg/dl (8.6-10.3); Creatinine Clr Calc Pharmacy 36.5 ml/min; Est GFR (African American) 52.6 ml/min; Est GFR (Non-African American) 45.4 ml/min; Globulin 3.6 gm/dl (2.5-4.0); Potassium 4.4 mmol/L (3.5-5.1); Total Protein 7.4 gm/dl (6.0-8.3)
[2023-02-08 13:03] LABS: Influenza A virus by PCR Negative (Neg); Influenza B virus by PCR Negative (Neg); RSV by PCR Negative (Neg); SARS CoV2 RNA(COVID-19) Ceph NEGATIVE (Negative)
--- NOTE | 2023-02-08 13:15 | XRay Report ---
XR chest 1V portable HISTORY: 83 years-old Male fever acute shortness of breath with fever COMPARISON: 05/05/2022 TECHNIQUE: AP view of the chest FINDINGS: Cardiomediastinal and hilar silhouettes are unchanged. No pneumothorax, large pleural effusion or ove rt pulmonary edema. Degenerative changes of the shoulders and spine. Chronic blunting of the lateral left costophrenic angle. IMPRESSION: No acute process of the chest. ACT 112: Negative or not required by law. The above report was generated using voice recognition software. It may contain grammatical, syntax o r spelling errors. Electronically signed by: Ernesto Zhou M.D. 02/08/2023 1:14 PM
[2023-02-08 13:32] LABS: Troponin I High Sensitivity 8.8 pg/ml (0-20)
[2023-02-08 13:33] LABS: Hematocrit (blood only) 48.6 % (42.0-52.0); Mean Corpuscular Hemoglobin 29.1 pg (25.0-34.0); Mean Corpuscular Hgb Conc 32.9 g/dL (32.0-36.0); Mean Corpuscular Volume 88.5 fL (80.0-100.0); Mean Platelet Volume 11.1 fL (9.4-12.4); Platelet Count 65 K/uL (130-400); RDW Coefficient of Variation 13.2 % (11.5-14.5); RDW Standard Deviation 43.1 fL (36.4-46.3); Red Blood Count 5.49 M/uL (4.70-6.10); White Blood Count 2.82 K/ul (4.8-10.8)
[2023-02-08 13:40] LABS: Acanthocytes 1+; Basophils # (auto) 0.03 K/uL (0-0.2); Basophils % (auto) 1.1 %; Immature Granulocytes # (auto) 0.02 K/uL (0.01-0.20); Immature Granulocytes % (auto) 0.7 %; Lymphocytes # (auto) 0.73 K/uL (1.2-3.4); Lymphocytes % (auto) 25.9 %; Monocytes % (auto) 7.1 %; Neutrophils # (auto) 1.84 K/uL (1.40-6.50); Neutrophils % (auto) 65.2 %; Platelet Estimate Decreased (Normal)
[2023-02-08 13:48] LABS: Appearance Urine Cloudy (Clear); Bacteria Urine Automated Negative (Negative); Blood Urine Trace (Negative); Color Urine Dark Yellow; Glucose Urine UA Negative (Negative); Ketones Urine 1+ (Negative); Leukocyte Esterase Urine Trace (Negative); Nitrite Urine Negative (Negative); Protein Urine 2+ (Negative); Specific Gravity Urine 1.029 (1.000-1.030); Urobilinogen Urine Negative (Negative)
[2023-02-08] MEDS ORDERED: DOXYCYCLINE HYCLATE 100 MG in DEXTROSE 5% 100 ML IV STA (13:49)
[2023-02-08 13:57] LABS: Bilirubin Urine 1+ (Negative)
[2023-02-08 14:00] LABS: Anaplasmosis Smear(Rpt to DOH) Pos for Anaplasma
[2023-02-08 14:06] LABS: Mucus Urine Present (None Prsent)
[2023-02-08 14:07] LABS: Lyme Ab IgG w/WB Rflx Negative (Negative); Lyme Ab IgM w/WB Rflx Negative (Negative)
[2023-02-08 14:07] LABS: RBC Urine Automated 0-4 /hpf (0-4)
[2023-02-08 14:08] LABS: Amorphous Sediment Urine Present (None Prsent)
--- NOTE | 2023-02-08 14:46 | History & Physical Report ---
Date of Service February 08, 2023 Assessment & Plan (1) Anaplasmosis: (2) PINEDA (acute kidney injury): (3) Weakness: (4) Thrombocytopenia: (5) Hypoxia: Plan This is an 83-year-old male who has significant past medical history of hypertension, BPH, GERD and constipation who presents to ED secondary to weakness, nausea and vomiting, fever and sweats x3 days. Generalized Weakness Anaplasma leukopenia/thrombocytopenia Admit to med tele Doxycycline IV 100mg BID continue gentle fluids PT/OT monitor CBC PINEDA setting of illness baseline cr in OP records 1.0 continue gentle IVF, repeat labs in a.m. Acute hypoxia pt w/o resp complaint, cxr negative continue supplemental O2, encourage incentive spirometer and wean as able pt denies hx of COPD or lung disease, remote hx of smoking, no environmental exp, worked at [employer] at the [employer] [facility] [employer] Chest CTA: Multilobar distribution of chronic patchy tree-in-bud nodules with mild bronchial wall thickening, mucus plugging and mild cylindrical bronchiectasis. Findings are compatible with an infectious or inflammatory bronchiolitis such as nontuberculous mycobacterium. Follow up with pulmonology recommended. obtain procalcitonin, consult pulm pt family at bedside reports SOB last several days although pt denies, he also denies resp sx and cough. may need 2 step prior to discharge HTN continue metoprolol Constipation daily docusate DVT ppx: SCDs 2/2 thrombocytopenia Dispo: med tele, pt to need rehydration, PT/OT, wean oxygen prior to d/c FULL CODE PCP: Lien Pt was seen and examined in collaboration with Dr. Angel, please see addendum History of Present Illness Chief Complaint: Weakness, n/v x 3 days. Primary Care Provider: Eugene Emmanuel MD This is an 83-year-old male who has significant past medical history of h ypertension, BPH, GERD and constipation who presents to ED secondary to weakness, nausea and vomiting, fever and sweats x3 days. Over the last 3 days patient has felt generally weak. He complains of significant night sweats along with nausea, vomiting and poor oral appetite. He states he has been drinking fluids to make up for lack of intake. He generally feels weak. & son is at bedside. He denies similar symptoms. He denies any rashes or known insect bites. He denies chills, lightheadedness, dizziness, URI symptoms, cough, chest pain, shortness breath at rest, shortness breath with exertion, hemoptysis, abdominal pain, dysuria, increased urgency or frequency with urination, melena or hematochezia. He does tend to run on the constipated side and therefore takes docusate every morning. He did have loose bowels in ED today..In ED patient had a notable leukopenia and thrombocytopenia. His CMP also revealed a mild hyponatremia 133, chloride 97, creatinine 1.41, AST 47 and peripheral smear concerning for cytoplasmic inclusions concerning for Anaplasma. He was started on IV doxycycline, received IVF and has been requiring supplemental O2. CXR negative for acute disease. Denies prior hx of lung disease. Allergies Allergy/AdvReac Type Severity Reaction Status Date / Time amlodipine AdvReac Intermediate nausea and Verified 02/08/23 14:20 vomiting Home Medications Medication Instructions Recorded Confirmed Type aspirin 81 mg tablet,delayed 81 mg PO DAILY 02/08/23 02/08/23 History release cyanocobalamin (vitamin B-12) 1,000 mcg PO DAILY 02/08/23 02/08/23 History 1,000 mcg tablet docusate sodium 100 mg tablet 100 mg PO DAILY 02/08/23 02/08/23 History metoprolol succinate 50 mg 50 mg PO BID 02/08/23 02/08/23 History tablet,extended release 24 hr omeprazole 20 mg tablet,delayed 20 mg PO DAILY 02/08/23 02/08/23 History release tamsulosin 0.4 mg capsule 0.4 mg PO DAILY 02/08/23 02/08/23 History Past Med/Surg History Medical History (Updated 02/08/23 @ 14:46 by Bernarda Fregoso PA-C) BPH (benign prostatic hyperplasia) Hypertension No pertinent family history Surgical History (Updated 02/08/23 @ 14:42 by Bernarda Fregoso PA-C) History of testicular surgery Family History Other Family history non-contributory Social History (Updated 02/08/23 @ 14:42 by Bernarda Fregoso PA-C) Smoking Status: Former smoker Hx Alcohol Use: No Hx Substance Use: No Preferred Language: [place] Social Sciences Department Chair Required: No marital status: Current Living Situation: Spouse current occupational status: retired Feels Safe at Home: Yes Assistive Devices: Denture - Upper, Glasses and Hearing Aid - Bilateral Review of Systems Review of Systems: All systems reviewed & are unremarkable except as noted in HPI & below Physical Exam Physical Exam: Constitutional: WD/WN, elderly, M, vitals as above, NAD, sitting up in bed, pleasant, conversing easily Head: Normocephalic, Atraumatic Eyes: PERRL, conjunctivae normal, anicteric sclerae ENMT: external ear and nose normal, oropharynx normal Neck: trachea midline, no thyromegaly normal visual inspection Respiratory: normal respiratory effort, lungs clear to auscultation, no wheeze, rales, rhonchi. Normal insp/exp effort, no accessory muscle use Cardiovascular: RRR, no murmur, no edema Vessels: no JVD or carotid bruit Chest: normal inspection of chest Abdomen: normal bowel sounds, soft, nontender, no hepatosplenomegaly Musculoskeletal: no cyanosis or clubbing, extremities motor strength 5/5 Skin: no rashes, warm and dry normal turgor Neurologic: PERRL, EOMI, accommodation nl, no face palsy, no dysarthria CN's II-XI intact bilaterally and moves all extremities Psychiatric: A+Ox3, euthymic affect Lymphatic: no cervical or axillary lymphadenopathy : deferred Results & Data Results & Data Vital Signs (Past 12 Hours) Vital Signs Temp Pulse Resp BP Pulse Ox O2 Del Method O2 Flow Rate 02/08/23 14:17 22 91 Nasal Cannula 3 02/08/23 14:11 88 L Room Air 02/08/23 14:00 83 19 142/69 H 92 02/08/23 13:30 90 22 150/72 H 90 02/08/23 13:28 89 22 88 L Room Air 02/08/23 13:00 87 17 128/72 92 02/08/23 12:44 89 02/08/23 11:33 36.4 C L 85 24 138/68 98 Room Air Diagnostic Findings Chest X-Ray 02/08/23 12:25 XR chest 1V portable HISTORY: 83 years-old Male fever acute shortness of breath with fever COMPARISON: 05/05/2022 TECHNIQUE: AP view of the chest FINDINGS: Cardiomediastinal and hilar silhouettes are unchanged. No pneumothorax, large pleural effusion or overt pulmonary edema. Degenerative changes of the shoulders and spine. Chronic blunting of the lateral left costophrenic angle. IMPRESSION: No acute process of the chest. ACT 112: Negative or not required by law. The above report was generated using voice recognition software. It may contain grammatical, syntax or spelling errors. Electronically signed by: Ernesto Zhou M.D. 02/08/2023 1:14 PM Medications Administered Medication List Doxycycline Hyclate 100 mg/ (Dextrose) 110 mls @ 50 mls/hr IV NOW STA Stop: 02/08/23 16:00 Last Admin: 02/08/23 14:11 Dose: 50 mls/hr Documented By: MT Discontinued Medications Sodium Chloride (Nss 1000ml) 500 mls @ 999 mls/hr IV .Q31M ONE Stop: 02/08/23 12:52 Last Infusion: 02/08/23 14:11 Dose: 0 mls/hr Documented By: Admin: 02/08/23 13:15 Dose: 999 mls/hr Documented By: MT Ondansetron HCl (Ondansetron Inj 2 Mg/Ml 2 Ml Vial) 4 mg IV NOW STA Stop: 02/08/23 12:23 Last Admin: 02/08/23 13:16 Dose: 4 mg Documented By: MT ECG Rate (beats per minute): 99 Rhythm: normal sinus COVID-19 Results Results COVID-19 Adm Lab Results: RBC 5.49 M/uL (4.70-6.10) 02/08/23 WBC 2.82 K/ul (4.8-10.8) L 02/08/23 Hgb 16.0 g/dl (14.0-18.0) 02/08/23 Hct 48.6 % (42.0-52.0) 02/08/23 Plt Count 65 K/uL (130-400) L 02/08/23 Neutrophils (%) (Auto) 65.2 % 02/08/23 Lymphocytes (%) (Auto) 25.9 % 02/08/23 Monocytes # (Auto) 0.20 K/uL (0.11-0.59) 02/08/23 Eosinophils # (Auto) 0.00 K/uL (0-0.50) 02/08/23 Immature Granulocyte % (Auto) 0.7 % 02/08/23 Neutrophils # (Auto) 1.84 K/uL (1.40-6.50) 02/08/23 Lymphocytes # (Auto) 0.73 K/uL (1.2-3.4) L 02/08/23 Monocytes # (Auto) 0.20 K/uL (0.11-0.59) 02/08/23 Eosinophils # (Auto) 0.00 K/uL (0-0.50) 02/08/23 Basophils # (Auto) 0.03 K/uL (0-0.2) 02/08/23 Immature Granulocyte # (Auto) 0.02 K/uL (0.01-0.20) 3 Acanthocytes 1+ 02/08/23 Na 133 mmol/L (136-145) L 02/08/23 K 4.4 mmol/L (3.5-5.1) 02/08/23 Cl 97 mmol/L (98-107) L 02/08/23 CO2 29 mmol/L (21-32) 02/08/23 Anion Gap 7 (3-11) 02/08/23 BUN 21 mg/dl (6-23) 02/08/23 Creatinine 1.41 mg/dl (0.6-1.4) H 02/08/23 BUN/Creatinine Ratio 14.9 (10-20) 02/08/23 Glucose Level 113 mg/dl (70-99(Fasting)) H 02/08/23 Ca 8.9 mg/dl (8.6-10.3) 02/08/23 Total Bilirubin 0.6 mg/dl (0.2-1.0) 02/08/23 AST/SGOT 47 U/L (13-39) H 02/08/23 ALT/SGPT 32 U/L (7-52) 02/08/23 Alkaline Phosphatase 128 U/L (34-104) H 02/08/23 Total Protein 7.4 gm/dl (6.0-8.3) 02/08/23 Albumin 3.8 gm/dl (3.4-5.0) 02/08/23 Globulin 3.6 gm/dl (2.5-4.0) 02/08/23 Albumin/Globulin Ratio 1.1 (0.9-2) 02/08/23 Procalcitonin 0.54 ng/ml (0-0.5) H 02/08/23 COVID-19 PCR NEGATIVE (Negative) 02/08/23 Influenza Virus Type A (PCR) Negative (Neg) 02/08/23 Influenza Virus Type B (PCR) Negative (Neg) 02/08/23 Chest X-Ray 02/08/23 Code Status & VTE Plan Code Status FULL CODE VTE Prophylaxis Plan VTE Prophylaxis will be ordered: Yes Supervising Physician Co-Signing Physician Notes 83-year-old male who has significant past medical history of hypertension, BPH, GERD and constipation who presents to ED secondary to weakness, nausea and vomiting, fever and sweats x3 days. Over the last 3 days patient has felt generally weak . 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 ct pe study done was negative
[2023-02-08] MEDS ORDERED: MAGNESIUM HYDROXIDE SUSP 30 ML UDC PO PRN (16:21)
[2023-02-08] MEDS ORDERED: POLYETHYLENE (MIRALAX) 17 GM PACK PO PRN (16:21)
[2023-02-08] MEDS ORDERED: ACETAMINOPHEN 325 MG TAB PO PRN (16:21)
[2023-02-08] MEDS ORDERED: ALUMINUM/MAGNESIUM SUSP 30 ML UDC PO PRN (16:21)
[2023-02-08] MEDS ORDERED: ONDANSETRON INJ 2 MG/ML 2 ML VIAL IV PRN (16:21)
[2023-02-08] MEDS ORDERED: OPTIRAY 320 500ml IV ONE (16:53)
--- NOTE | 2023-02-08 17:28 | CT Scan Report ---
CT angio chest PE protocol CT DOSE: 521.06 mGy.cm HISTORY: 83 years-old Male with PE. 2 shortness of breath with chest pain TECHNIQUE: Multiple CTA images of the chest were obtained after the intravenous administration of 107 ml Optiray. Coronal and sagittal MIPS were obtained from the axial data set and were submitted for review. All measurements were obtained according to NASCET criteria. A dose lowering technique was u tilized adhering to the principles of ALARA. COMPARISON: Chest CT 09/22/2020 FINDINGS: CTA: Heart is normal in size. Moderate coronary artery calcifications. Atherosclerosis with tortuosity of the thoracic aorta. No aneurysm or dissection. No pulmonary emboli are identified. CT CHEST: No dominant thyroid nodule or pathologically enlarged lymph nodes. No pneumothorax. Trace right pleur al effusion. Multilobar multi segmental distribution of patchy tree-in-bud nodules are present within the lungs, similar to progressed from the prior study. Mild associated bronchial wall thickening. Mi ld bibasilar cylindrical bronchiectasis. Unremarkable soft tissues. No acute process of the imaged up per abdomen. No acute fracture. IMPRESSION: 1. Multilobar distribution of chronic patchy tree-in-bud nodules with mild bronchial wall thickening, mucus plugging and mild cylindrical bronchiectasis. Findings are compatible with an infectious or in flammatory bronchiolitis such as nontuberculous mycobacterium. Follow up with pulmonology recommended . 2. No pathologically enlarged lymph nodes. 3. No pulmonary emboli identified. ACT 112: Negative or not required by law. The above report was generated using voice recognition software. It may contain grammatical, syntax o r spelling errors. Electronically signed by: Ernesto Zhou M.D. 02/08/2023 5:27 PM
[2023-02-08] MEDS: SODIUM CHLORIDE 0.9% 1000ML 1,000 ML IV SCH (18:17)
[2023-02-08] MEDS: METOPROLOL SUCC 50MG EXT REL TAB PO SCH (21:12)
[2023-02-09] MEDS: DOXYCYCLINE HYCLATE 100 MG in DEXTROSE 5% 100 ML IV SCH ×2 (00:08→12:26)
[2023-02-09] MEDS: SODIUM CHLORIDE 0.9% 1000ML 1,000 ML IV SCH (07:59)
[2023-02-09] MEDS: DOCUSATE SODIUM 100 MG CAP PO SCH (08:00)
[2023-02-09] MEDS: TAMSULOSIN HCL 0.4 MG CAP PO SCH (08:00)
[2023-02-09] MEDS: ASPIRIN 81 MG ECTAB PO SCH (08:00)
[2023-02-09] MEDS: CYANOCOBALAMIN (B-12) 500 MCG TABLET PO SCH (08:00)
[2023-02-09] MEDS: METOPROLOL SUCC 50MG EXT REL TAB PO SCH ×2 (08:00→20:49)
[2023-02-09] MEDS: PANTOprazole 40 MG TAB PO SCH (08:00)
[2023-02-09 10:24] LABS: Adenovirus F 40/41 PCR Not Detected (NotDetected); Astrovirus PCR Not Detected (NotDetected); Campylobacter PCR Not Detected (NotDetected); Cryptosporidium PCR Not Detected (NotDetected); Cyclospora cayetanensis PCR Not Detected (NotDetected); Entamoeba histolytica PCR Not Detected (NotDetected); Enteroaggregative E.coli(EAEC) Not Detected (NotDetected); Enteropathogenic E.coli (EPEC) Not Detected (NotDetected); Enterotoxigenic E.coli (ETEC) Not Detected (NotDetected); Giardia lamblia PCR Not Detected (NotDetected); Norovirus GI/GII PCR Not Detected (NotDetected); Plesiomonas shigelloides PCR Not Detected (NotDetected); Rotavirus A PCR Not Detected (NotDetected); Salmonella PCR Not Detected (NotDetected); Sapovirus PCR Not Detected (NotDetected); Shiga-like Toxin E.coli (STEC) Not Detected (NotDetected); Shigella/Enteroinvasive E.coli Not Detected (NotDetected); Vibrio cholerae PCR Not Detected (NotDetected); Vibrio species PCR Not Detected (NotDetected); Yersinia enterocolitica PCR Not Detected (NotDetected)
--- NOTE | 2023-02-09 11:42 | Pulmonary Consultation ---
Date of Consultation February 09, 2023 Assessment & Plan (1) Hypoxia: IMPRESSION: 83-year-old male with a history of hypertension, BPH, GERD, and constipation presents with generalized weakness and fatigue with associated hypoxia. Findings of x-ray consistent with bronchiectasis pattern with mucous plugging. Patient still requiring small amounts of supplemental oxygen to maintain saturations. CT findings of bronchiectasis are relatively small and present during prior CT scans dating back to 2018. It is doubtful that this finding is significant enough to result in the patient's hypoxia. Greater concern would be the patient's generalized weakness and fatigue in the setting of anaplasmosis. Continue to titrate down supplemental oxygen as tolerated. Encourage incentive spirometry as well as flutter valve. (2) Bronchiectasis: As noted on CT findings. Images have demonstrated this since 2018. Order placed for AFB sputum cultures as well as standard sputum cultures. We will provide hypertonic saline nebulizers as well as a flutter valve to help clear secretions. Thankfully, the patient has not without significant ongoing symptoms at baseline. As discussed with patient and family, patient may benefit from nonemergent outpatient pulmonary follow-up for evaluation of his bronchiectasis. Otherwise, no further pulmonary evaluation necessary on the inpatient setting. (3) Weakness: Secondary to anaplasmosis. (4) Anaplasmosis: Plan Thank you for allowing us to participate in the care of this pleasant patient. Pulmonary would be happy to see him in the outpatient setting on a nonemergent basis. History of Present Illness Reason for Consultation: abn chest CT, hypoxia Requesting Physician: Bernarda Fregoso PA-C Attending Physician: Britney Branham MD History of Present Illness Patient is an 83-year-old male with a significant past medical history of hypertension, BPH, GERD, constipation who presented to the emergency department yesterday with complaints of generalized weakness and fatigue as well as nausea, vomiting, fevers, and sweats for approximately 3 to 4 days. He denies any recent upper respiratory complaints or productive cough. He reports a remote smoking history approximately 35 years ago when he smoked on the weekends while drinking. He denies any significant occupational exposures. No history of other malignancies. Family reports a history of recurrent pneumonia. Otherwise, the patient carries no history of asthma, COPD, or chronic bronchitis. He reports no chronic cough. No wheezing. No other chronic respiratory complaints. During evaluation yesterday, the patient was found to be hypoxic. CT scan demonstrates tree-in-bud findings likely associated with bronchiectasis. Pulmonary consulted for ongoing evaluation and management. Upon evaluation in room 2822, the patient is awake, alert, and oriented. His and son are at bedside and help provide historical information. Patient continues to feel generally weak, but otherwise feels improved from presentation. He denies complaints of chest pain, palpitations, shortness of breath at rest, hemoptysis, hematemesis, or abdominal pain. He reports that his nausea is improving. He states that he was feeling some shortness of breath with ambulation, but that has not been appreciated as he has been relatively bedridden since admission. Allergies Allergy/AdvReac Type Severity Reaction Status Date / Time amlodipine AdvReac Intermediate nausea and Verified 02/08/23 14:20 vomiting Home Medications Medication Instructions Recorded Confirmed Type aspirin 81 mg tablet,delayed 81 mg PO DAILY 02/08/23 02/08/23 History release cyanocobalamin (vitamin B-12) 1,000 mcg PO DAILY 02/08/23 02/08/23 History 1,000 mcg tablet docusate sodium 100 mg tablet 100 mg PO DAILY 02/08/23 02/08/23 History metoprolol succinate 50 mg 50 mg PO BID 02/08/23 02/08/23 History tablet,extended release 24 hr omeprazole 20 mg tablet,delayed 20 mg PO DAILY 02/08/23 02/08/23 History release tamsulosin 0.4 mg capsule 0.4 mg PO DAILY 02/08/23 02/08/23 History Patient History Medical History BPH (benign prostatic hyperplasia) Hypertension No pertinent family history Surgical History History of testicular surgery Family History Other Family history non-contributory Social History Smoking Status: Former smoker Hx Alcohol Use: No Hx Substance Use: No Preferred Language: [place] Communication Ability: Effective Toddler Teacher Required: No marital status: Current Living Situation: Spouse current occupational status: retired Feels Safe at Home: Yes Assistive Devices: Denture - Upper, Glasses and Hearing Aid - Bilateral Review of Systems Review of Systems: A complete 10 point review of systems was reviewed with the patient with pertinent positives and negatives as per history of present illness. All else were negative. Physical Exam Physical Exam: VITAL SIGNS - Vital signs and nursing notes were reviewed. GENERAL - 83-year-old male appearing his stated age who is in no acute distress. Communicates well with provider and answers questions appropriately. SKIN - Without rashes or lesions. NOSE - Midline and without cyanosis. MOUTH/OROPHARYNX - Without perioral cyanosis. NECK - Neck with FROM. LUNGS - Chest wall evaluation demonstrates kyphosis. Auscultation reveals no wheezes, rales, or rhonchi. CARDIAC - RRR with S1/S2. No murmur, rubs, or gallops appreciated. ABDOMEN - Abdominal inspection demonstrates a flat abdomen. BS normoactive all four quadrants. No tenderness, palpable masses, or ascites noted. EXTREMITIES - Nail clubbing no present. No peripheral cyanosis. No pretibial edema present. +3/5 radial palpated throughout. PSYCH - A&Ox3 and cooperates fully with examiner. Pt is very pleasant and interacts well with examiner. Results & Data Results & Data Vital Signs (Past 12 Hours) Vital Signs Temp Pulse Pulse Resp BP Pulse Ox O2 Del Method 02/09/23 11:36 36.5 C 68 18 128/60 95 Nasal Cannula 02/09/23 10:24 72 02/09/23 07:55 36.8 C 73 18 153/64 H 96 Room Air 02/09/23 03:43 36.4 C L 67 18 150/64 H 95 Nasal Cannula O2 Flow Rate 02/09/23 11:36 3 02/09/23 10:24 02/09/23 07:55 02/09/23 03:43 3 PG Care Time/CCT Total # of Minutes Spent Total Time Spent with Patient: Total time spent is greater than 50% in coordination of care (as documented) at patient's floor/unit and/or counseling patient: Coding Level of Care Code 45702 INT INP/OBS CARE 3/75MIN Diagnoses Hypoxia R09.02 Bronchiectasis J47.9 Weakness R53.1 Anaplasmosis A77.49
--- NOTE | 2023-02-09 15:27 | Hospitalist Progress Note ---
Date of Service February 09, 2023 Assessment & Plan (1) Anaplasmosis: (2) PINEDA (acute kidney injury): (3) Weakness: (4) Thrombocytopenia: (5) Hypoxia: Plan This is an 83-year-old male who has significant past medical history of hypertension, BPH, GERD and constipation who presents to ED secondary to weakness, nausea and vomiting, fever and sweats x3 days. Generalized Weakness Anaplasma leukopenia/thrombocytopenia Presented with weakness and shortness of breath Has been on doxycycline IV 100mg BID Has been receiving a small amount of intravenous fluid PT/OT-requested Clinically feeling much better and denies any significant symptom No history of tick bite-anaplasmosis bloody smear is positive but negative for Babesia and negative for Lyme disease PINEDA setting of illness baseline cr in OP records 1.0 continue gentle IVF, repeat labs in a.m. Creatinine went up to 1.4 on as of 02/08/2023 Has been getting intravenous fluid We will recheck it tomorrow Acute hypoxia pt w/o resp complaint, cxr negative continue supplemental O2, encourage incentive spirometer and wean as able pt denies hx of COPD or lung disease, remote hx of smoking, no environmental exp, worked at [employer] at the [employer] Chest CTA: Multilobar distribution of chronic patchy tree-in-bud nodules with mild bronchial wall thickening, mucus plugging and mild cylindrical bronchiectasis. Findings are compatible with an infectious or inflammatory bronchiolitis such as nontuberculous mycobacterium. Follow up with pulmonology recommended. obtain procalcitonin, consult pulm pt family at bedside reports SOB last several days although pt denies, he also denies resp sx and cough. may need 2 step prior to discharge Clinically much better and appreciate pulmonary input and recommendation Have outpatient pulmonary appointment Clinically much better HTN continue metoprolol Constipation daily docusate DVT ppx: SCDs 2/2 thrombocytopenia Dispo: med tele, pt to need rehydration, PT/OT, wean oxygen prior to d/c FULL CODE PCP: Lien Admission and Anticipated Discharge Date Admission Date: February 08, 2023 Subjective 02/09/2023 The patient was seen and examined in medical telemetry unit in presence of the son He has been feeling much better His weakness and shortness of breath have improved a lot Denies any fever and or chills and denies any tick bite and/or arthralgia/arthritis Review of Systems Review of Systems: All systems reviewed and are unremarkable except as noted below Neurologic: Generalized weakness which is being improving Physical Exam Physical Exam: Lying in bed comfortably Constitutional: + ill appearing and average body habitus Eyes: PERRL, conjunctivae normal, anicteric sclerae ENMT: external ear and nose normal, oropharynx normal Neck: trachea midline, no thyromegaly Respiratory: no respiratory distress Auscultation: + diminished lung sounds and + crackles (Bibasilar crackles) Cardiovascular: Rate/Rhythm: regular rate and regular rhythm Heart Sounds: normal S1 and normal S2; no murmur Extremities: no edema Gastrointestinal (Abdomen): Inspection/Auscultation: normal bowel sounds; abdomen not distended Percussion/Palpation: abdomen soft; abdomen nontender Musculoskeletal: No acute arthritis involving any of the joint Skin: No rash identified Neurologic: normal touch/pain/proprioception and moves all extremities; no focal motor deficits Psychiatric: A+Ox3, euthymic affect Lymphatic: no cervical or axillary lymphadenopathy Results & Data Results & Data Vital Signs (Past 12 Hours) Vital Signs Temp Pulse Pulse Resp BP Pulse Ox Pulse Ox 02/09/23 14:57 93 02/09/23 14:50 93 02/09/23 11:36 36.5 C 68 18 128/60 95 02/09/23 10:24 72 02/09/23 07:55 36.8 C 73 18 153/64 H 96 02/09/23 03:43 36.4 C L 67 18 150/64 H 95 Pulse Ox Pulse Ox O2 Del Method O2 Flow Rate O2 Flow Rate O2 Flow Rate O2 Flow Rate 02/09/23 14:57 96 93 3 3 3 02/09/23 14:50 02/09/23 11:36 Nasal Cannula 3 02/09/23 10:24 02/09/23 07:55 Room Air 02/09/23 03:43 Nasal Cannula 3 Medications Administered Current Inpatient Medications Acetaminophen (Acetaminophen 325 Mg Tab) 650 mg PO Q4H PRN PRN Reason: Pain or Fever Stop: 03/10/23 16:20 Al Hydrox/Mg Hydrox/Simethicone (Aluminum/Magnesium Susp 30 Ml Udc) 15 ml PO Q4H PRN PRN Reason: Dyspepsia Stop: 03/10/23 16:20 Aspirin (Aspirin 81 Mg Ectab) 81 mg PO DAILY TRISH Stop: 03/11/23 08:59 Last Admin: 02/09/23 08:00 Dose: 81 mg Cyanocobalamin (Cyanocobalamin (B-12) 500 Mcg Tablet) 1,000 mcg PO DAILY TRISH Stop: 03/11/23 08:59 Last Admin: 02/09/23 08:00 Dose: 1,000 mcg Docusate Sodium (Docusate Sodium 100 Mg Cap) 100 mg PO DAILY TRISH Stop: 03/11/23 08:59 Last Admin: 02/09/23 08:00 Dose: 100 mg Sodium Chloride (Nss 1000ml) 1,000 mls @ 75 mls/hr IV .[id number] TRISH Stop: 02/09/23 19:00 Last Admin: 02/09/23 07:59 Dose: 75 mls/hr Doxycycline Hyclate 100 mg/ (Dextrose) 110 mls @ 50 mls/hr IV Q12H TRISH Stop: 02/23/23 00:00 Last Infusion: 02/09/23 14:41 Dose: Infused Magnesium Hydroxide (Magnesium Hydroxide Susp 30 Ml Udc) 30 ml PO Q12H PRN PRN Reason: Constipation Stop: 03/10/23 16:20 Metoprolol Succinate (Metoprolol Succ 50mg Ext Rel Tab) 50 mg PO BID TRISH Stop: 03/10/23 20:59 Last Admin: 02/09/23 08:00 Dose: 50 mg Ondansetron HCl (Ondansetron Inj 2 Mg/Ml 2 Ml Vial) 4 mg IV Q6H PRN PRN Reason: Nausea Stop: 03/10/23 16:20 Pantoprazole Sodium (Pantoprazole 40 Mg Tab) 40 mg PO DAILY TRISH Stop: 03/11/23 08:59 Last Admin: 02/09/23 08:00 Dose: 40 mg Polyethylene Glycol (Polyethylene (Miralax) 17 Gm Pack) 17 gm PO DAILY PRN PRN Reason: Constipation Stop: 03/10/23 16:20 Sodium Chloride (Sodium Chlor 7% 4 Ml Neb) 4 ml NEB BIDR [facility] Stop: 03/11/23 18:59 Tamsulosin HCl (Tamsulosin Hcl 0.4 Mg Cap) 0.4 mg PO DAILY TRISH Stop: 03/11/23 08:59 Last Admin: 02/09/23 08:00 Dose: 0.4 mg
[2023-02-09] MEDS: SODIUM CHLOR 7% 4 ML NEB NEB SCH (19:29)
[2023-02-10] MEDS: DOXYCYCLINE HYCLATE 100 MG in DEXTROSE 5% 100 ML IV SCH ×2 (01:17→12:16)
--- NOTE | 2023-02-10 05:55 | Electrocardiogram Report ---
Test Reason : Blood Pressure : / mmHG Vent. Rate : 099 BPM Atrial Rate : 099 BPM P-R Int : 186 ms QRS Dur : 078 ms QT Int : 328 ms P-R-T Axes : 076 029 062 degrees QTc Int : 420 ms Normal sinus rhythm Normal ECG When compared with ECG of 04-MAY-2022 19:40, Criteria for Septal infarct are no longer Present Confirmed by Danny Anthony ([id number]) on 02/10/2023 5:55:11 AM Referred By: Confirmed By:Danny Anthony
[2023-02-10] MEDS: SODIUM CHLOR 7% 4 ML NEB NEB SCH (06:49)
[2023-02-10] MEDS: PANTOprazole 40 MG TAB PO SCH (07:41)
[2023-02-10] MEDS: METOPROLOL SUCC 50MG EXT REL TAB PO SCH (07:41)
[2023-02-10] MEDS: TAMSULOSIN HCL 0.4 MG CAP PO SCH (07:41)
[2023-02-10] MEDS: ASPIRIN 81 MG ECTAB PO SCH (07:41)
[2023-02-10] MEDS: DOCUSATE SODIUM 100 MG CAP PO SCH (07:41)
[2023-02-10] MEDS: CYANOCOBALAMIN (B-12) 500 MCG TABLET PO SCH (07:41)
[2023-02-10 10:28] LABS: Hematocrit (blood only) 39.3 % (42.0-52.0); Hemoglobin 12.8 g/dl (14.0-18.0); Mean Corpuscular Hemoglobin 29.2 pg (25.0-34.0); Mean Corpuscular Hgb Conc 32.6 g/dL (32.0-36.0); Mean Corpuscular Volume 89.7 fL (80.0-100.0); Mean Platelet Volume 11.2 fL (9.4-12.4); Platelet Count 70 K/uL (130-400); RDW Coefficient of Variation 13.2 % (11.5-14.5); Red Blood Count 4.38 M/uL (4.70-6.10); White Blood Count 3.45 K/ul (4.8-10.8)
[2023-02-10 10:35] LABS: Basophils # (auto) 0.02 K/uL (0-0.2); Basophils % (auto) 0.6 %; Eosinophils # (auto) 0.02 K/uL (0-0.50); Eosinophils % (auto) 0.6 %; Immature Granulocytes # (auto) 0.01 K/uL (0.01-0.20); Immature Granulocytes % (auto) 0.3 %; Lymphocytes # (auto) 1.42 K/uL (1.2-3.4); Lymphocytes % (auto) 41.2 %; Monocytes # (auto) 0.44 K/uL (0.11-0.59); Monocytes % (auto) 12.8 %; Neutrophils # (auto) 1.54 K/uL (1.40-6.50); Neutrophils % (auto) 44.5 %
[2023-02-10 11:15] LABS: BUN Creatinine Ratio 15.5 (10-20); Calcium 8.2 mg/dl (8.6-10.3); Creatinine Clr Calc Pharmacy 52.9 ml/min; Est GFR (Non-African American) 66.4 ml/min; Potassium 4.3 mmol/L (3.5-5.1)
--- NOTE | 2023-02-10 12:25 | Hospitalist Progress Note ---
Date of Service February 10, 2023 Assessment & Plan (1) Anaplasmosis: (2) PINEDA (acute kidney injury): (3) Weakness: (4) Thrombocytopenia: (5) Hypoxia: Plan This is an 83-year-old male who has significant past medical history of hypertension, BPH, GERD and constipation who presents to ED secondary to weakness, nausea and vomiting, fever and sweats x3 days. Generalized Weakness Anaplasma leukopenia/thrombocytopenia Presented with weakness and shortness of breath Has been on doxycycline IV 100mg BID Has been receiving a small amount of intravenous fluid PT/OT-requested Clinically feeling much better and denies any significant symptom No history of tick bite-anaplasmosis bloody smear is positive but negative for Babesia and negative for Lyme disease Clinically much better and labs are reasonable with gradual increase in platelet count We will continue doxycycline for a total of 10 days PINEDA setting of illness baseline cr in OP records 1.0 continue gentle IVF, repeat labs in a.m. Creatinine went up to 1.4 on as of 02/08/2023 Has been getting intravenous fluid Kidney function has been normalized with normal electrolytes Acute hypoxia pt w/o resp complaint, cxr negative continue supplemental O2, encourage incentive spirometer and wean as able pt denies hx of COPD or lung disease, remote hx of smoking, no environmental exp, worked at [employer] at the [employer] Chest CTA: Multilobar distribution of chronic patchy tree-in-bud nodules with mild bronchial wall thickening, mucus plugging and mild cylindrical bronchiectasis. Findings are compatible with an infectious or inflammatory bronchiolitis such as nontuberculous mycobacterium. Follow up with pulmonology recommended. obtain procalcitonin, consult pulm pt family at bedside reports SOB last several days although pt denies, he also denies resp sx and cough. may need 2 step prior to discharge Clinically much better and appreciate pulmonary input and recommendation Have outpatient pulmonary appointment Clinically much better-has been saturating on room air We will get to a stable O2 saturation test prior to discharge HTN continue metoprolol Constipation daily docusate DVT ppx: SCDs 2/2 thrombocytopenia Dispo: med tele, pt to need rehydration, PT/OT, wean oxygen prior to d/c FULL CODE PCP: O[facility]io Admission and Anticipated Discharge Date Admission Date: February 08, 2023 Subjective 02/09/2023 The patient was seen and examined in medical telemetry unit in presence of the son He has been feeling much better His weakness and shortness of breath have improved a lot Denies any fever and or chills and denies any tick bite and/or arthral tr/arthritis 02/10/2023 The patient was seen and examined in medical telemetry unit He has been feeling much better and denies any significant symptom at rest Has been saturating on room air and denies any respiratory symptoms Weakness is much improved and has had physical therapy with recommendation to go home Review of Systems Review of Systems: All systems reviewed and are unremarkable except as noted below Neurologic: Generalized weakness which is being improving Physical Exam Physical Exam: Lying in bed comfortably Constitutional: average body habitus; not ill appearing Eyes: PERRL, conjunctivae normal, anicteric sclerae ENMT: external ear and nose normal, oropharynx normal Neck: trachea midline, no thyromegaly Respiratory: no respiratory distress Auscultation: + diminished lung sounds and + crackles (Bibasilar crackles) Cardiovascular: Rate/Rhythm: regular rate and regular rhythm Heart Sounds: normal S1 and normal S2; no murmur Extremities: no edema Gastrointestinal (Abdomen): Inspection/Auscultation: normal bowel sounds; abdomen not distended Percussion/Palpation: abdomen soft; abdomen nontender Musculoskeletal: No acute arthritis involving any joint Neurologic: normal touch/pain/proprioception and moves all extremities; no focal motor deficits Psychiatric: A+Ox3, euthymic affect Lymphatic: no cervical or axillary lymphadenopathy Results & Data Results & Data Vital Signs (Past 12 Hours) Vital Signs Temp Pulse Pulse Resp BP BP Pulse Ox 02/10/23 11:49 36.6 C 68 18 120/62 90 02/10/23 08:41 36.6 C 74 18 128/55 L 92 02/10/23 07:31 74 02/10/23 06:50 79 18 94 02/10/23 03:30 36.6 C 72 18 148/68 H 96 02/10/23 01:20 68 02/10/23 01:20 02/10/23 00:32 36.6 C 70 18 151/65 H 98 O2 Del Method O2 Flow Rate 02/10/23 11:49 Room Air 02/10/23 08:41 Nasal Cannula 0.5 02/10/23 07:31 02/10/23 06:50 Nasal Cannula 3 02/10/23 03:30 Nasal Cannula 3 02/10/23 01:20 02/10/23 01:20 Nasal Cannula 3 02/10/23 00:32 Nasal Cannula Laboratory Results Short CBC 02/10/23 Range/Units 09:41 WBC 3.45 L (4.8-10.8) K/ul Hgb 12.8 L D (14.0-18.0) g/dl Hct 39.3 L (42.0-52.0) % Plt Count 70 L (130-400) K/uL BMP 02/10/23 09:41 Sodium 136 Potassium 4.3 Chloride 102 Carbon Dioxide 31 BUN 16 Creatinine 1.03 D Glucose 118 H Calcium 8.2 L Medications Administered Current Inpatient Medications Acetaminophen (Acetaminophen 325 Mg Tab) 650 mg PO Q4H PRN PRN Reason: Pain or Fever Stop: 03/10/23 16:20 Al Hydrox/Mg Hydrox/Simethicone (Aluminum/Magnesium Susp 30 Ml Udc) 15 ml PO Q4H PRN PRN Reason: Dyspepsia Stop: 03/10/23 16:20 Aspirin (Aspirin 81 Mg Ectab) 81 mg PO DAILY [facility] Stop: 03/11/23 08:59 Last Admin: 02/10/23 07:41 Dose: 81 mg Cyanocobalamin (Cyanocobalamin (B-12) 500 Mcg Tablet) 1,000 mcg PO DAILY [facility] Stop: 03/11/23 08:59 Last Admin: 02/10/23 07:41 Dose: 1,000 mcg Docusate Sodium (Docusate Sodium 100 Mg Cap) 100 mg PO DAILY [facility] Stop: 03/11/23 08:59 Last Admin: 02/10/23 07:41 Dose: 100 mg Doxycycline Hyclate 100 mg/ (Dextrose) 110 mls @ 50 mls/hr IV Q12H [facility] Stop: 02/23/23 00:00 Last Admin: 02/10/23 12:16 Dose: 50 mls/hr Magnesium Hydroxide (Magnesium Hydroxide Susp 30 Ml Udc) 30 ml PO Q12H PRN PRN Reason: Constipation Stop: 03/10/23 16:20 Metoprolol Succinate (Metoprolol Succ 50mg Ext Rel Tab) 50 mg PO BID [facility] Stop: 03/10/23 20:59 Last Admin: 02/10/23 07:41 Dose: 50 mg Ondansetron HCl (Ondansetron Inj 2 Mg/Ml 2 Ml Vial) 4 mg IV Q6H PRN PRN Reason: Nausea Stop: 03/10/23 16:20 Pantoprazole Sodium (Pantoprazole 40 Mg Tab) 40 mg PO DAILY [facility] Stop: 03/11/23 08:59 Last Admin: 02/10/23 07:41 Dose: 40 mg Polyethylene Glycol (Polyethylene (Miralax) 17 Gm Pack) 17 gm PO DAILY PRN PRN Reason: Constipation Stop: 03/10/23 16:20 Sodium Chloride (Sodium Chlor 7% 4 Ml Neb) 4 ml NEB BIDR [facility] Stop: 03/11/23 18:59 Last Admin: 02/10/23 06:49 Dose: 4 ml Tamsulosin HCl (Tamsulosin Hcl 0.4 Mg Cap) 0.4 mg PO DAILY [facility] Stop: 03/11/23 08:59 Last Admin: 02/10/23 07:41 Dose: 0.4 mg
--- NOTE | 2023-02-10 16:31 | Discharge Summary ---
Date of Service February 10, 2023 Admission HPI Per Admitting Provider This is an 83-year-old male who has significant past medical history of hypertension, BPH, GERD and constipation who presents to ED secondary to weakness, nausea and vomiting, fever and sweats x3 days. Over the last 3 days patient has felt generally weak. He complains of significant night sweats along with nausea, vomiting and poor oral appetite. He states he has been drinking fluids to make up for lack of intake. He generally feels weak. & son is at bedside. He denies similar symptoms. He denies any rashes or known insect bites. He denies chills, lightheadedness, dizziness, URI symptoms, cough, chest pain, shortness breath at rest, shortness breath with exertion, hemoptysis, abdominal pain, dysuria, increased urgency or frequency with urination, melena or hematochezia. He does tend to run on the constipated side and therefore takes docusate every morning. He did have loose bowels in ED today..In ED patient had a notable leukopenia and thrombocytopenia. His CMP also revealed a mild hyponatremia 133, chloride 97, creatinine 1.41, AST 47 and peripheral smear concerning for cytoplasmic inclusions concerning for Anaplasma. He was started on IV doxycycline, received IVF and has been requiring supplemental O2. CXR negative for acute disease. Denies prior hx of lung disease. Admission Exam Per Admitting Provider A Physical Exam: Constitutional: WD/WN, elderly, M, vitals as above, NAD, sitting up in bed, pleasant, conversing easily Head: Normocephalic, Atraumatic Eyes: PERRL, conjunctivae normal, anicteric sclerae ENMT: external ear and nose normal, oropharynx normal Neck: trachea midline, no thyromegaly normal visual inspection Respiratory: normal respiratory effort, lungs clear to auscultation, no wheeze, rales, rhonchi. Normal insp/exp effort, no accessory muscle use Cardiovascular: RRR, no murmur, no edema Vessels: no JVD or carotid bruit Chest: normal inspection of chest Abdomen: normal bowel sounds, soft, nontender, no hepatosplenomegaly Musculoskeletal: no cyanosis or clubbing, extremities motor strength 5/5 Skin: no rashes, warm and dry normal turgor Neurologic: PERRL, EOMI, accommodation nl, no face palsy, no dysarthria CN's II-XI intact bilaterally and moves all extremities Psychiatric: A+Ox3, euthymic affect Lymphatic: no cervical or axillary lymphadenopathy : deferred Principal Diagnosis Anaplasmosis, bronchiectasis, hypertension Discharge Exam Lying in bed comfortably Constitutional average body habitus; not ill appearing Eyes PERRL, conjunctivae normal, anicteric sclerae ENMT external ear and nose normal, oropharynx normal Neck trachea midline, no thyromegaly Respiratory no respiratory distress Auscultation: + diminished lung sounds and + crackles (Bibasilar crackles) Cardiovascular Rate/Rhythm: regular rate and regular rhythm Heart Sounds: normal S1 and normal S2; no murmur Extremities: no edema Gastrointestinal (Abdomen) Inspection/Auscultation: normal bowel sounds; abdomen not distended Percussion/Palpation: abdomen soft; abdomen nontender Neurologic normal touch/pain/proprioception and moves all extremities; no focal motor deficits Psychiatric A+Ox3, euthymic affect Lymphatic no cervical or axillary lymphadenopathy Discharge Data Allergies Allergy/AdvReac Type Severity Reaction Status Date / Time amlodipine AdvReac Intermediate nausea and Verified 02/08/23 14:20 vomiting Consultations 02/08/23 14:10 ED Decision to Admit Stat 02/08/23 17:34 Consult Pulmonology Routine Ordered Studies 02/08/23 16:20 CT for pulmonary embolism PE [CT angio chest PE protocol] Stat Hospital Course (1) Anaplasmosis: (2) PINEDA (acute kidney injury): (3) Weakness: (4) Thrombocytopenia: (5) Hypoxia: Plan This is an 83-year-old male who has significant past medical history of hypertension, BPH, GERD and constipation who presents to ED secondary to weakness, nausea and vomiting, fever and sweats x3 days. Generalized Weakness Anaplasma leukopenia/thrombocytopenia Presented with weakness and shortness of breath Has been on doxycycline IV 100mg BID Has been receiving a small amount of intravenous fluid PT/OT-requested Clinically feeling much better and denies any significant symptom No history of tick bite-anaplasmosis bloody smear is positive but negative for Babesia and negative for Lyme disease Clinically much better and labs are reasonable with gradual increase in platelet count We will continue doxycycline for a total of 10 days PINEDA setting of illness baseline cr in OP records 1.0 continue gentle IVF, repeat labs in a.m. Creatinine went up to 1.4 on as of 02/08/2023 Has been getting intravenous fluid Kidney function has been normalized with normal electrolytes Acute hypoxia pt w/o resp complaint, cxr negative continue supplemental O2, encourage incentive spirometer and wean as able pt denies hx of COPD or lung disease, remote hx of smoking, no environmental exp, worked at [employer] at the [employer] Chest CTA: Multilobar distribution of chronic patchy tree-in-bud nodules with mild bronchial wall thickening, mucus plugging and mild cylindrical bronchiectasis. Findings are compatible with an infectious or inflammatory bronchiolitis such as nontuberculous mycobacterium. Follow up with pulmonology recommended. obtain procalcitonin, consult pulm pt family at bedside reports SOB last several days although pt denies, he also denies resp sx and cough. may need 2 step prior to discharge Clinically much better and appreciate pulmonary input and recommendation Have outpatient pulmonary appointment Clinically much better-has been saturating on room air We will get to a stable O2 saturation test prior to discharge HTN continue metoprolol Constipation daily docusate DVT ppx: SCDs 2/2 thrombocytopenia Dispo: med tele, pt to need rehydration, PT/OT, wean oxygen prior to d/c FULL CODE PCP: Lien Total Time Total Time Spent Total Time Spent (In Minutes): 35 minutes Discharge Plan Discharge Items Patient Disposition: Home - Self-Care Reason For Visit: ANAPLASMA Discharge Diagnosis: Anaplasmosis, bronchiectasis, hypertension Condition on Discharge: Good Activity: Resume your previous activity Non-emergency contact: Primary Care Provider Call non-emergency contact if: you have any medication questions and your symptoms worsen Follow-up/Referrals: Eugene Emmanuel MD [Primary Care Provider] - (Date & Time 02/16/2023 11:20 AM Provider Euegne Emmanuel MD Department [facility] ) Diet: Heart Healthy and Low Sodium (2gm) Addtl Attending Provider Instructions: Please take precautions to avoid falls Please finish the course of antibiotic Take your medications as advised Please keep follow-up appointments with your healthcare provider Try to get a referral to see a lung doctor as an outpatient Try to use probiotics [id number] Pending Studies at Discharge: Yes Studies:: Bibasilar DNA testing Stand-Alone Forms: DDN, Smoking Cessation Medications and DC Order Prescriptions: New doxycycline hyclate 100 mg tablet 100 mg PO BID 8 Days Qty: 16 0RF Continued metoprolol succinate 50 mg Tablet Extended Release 24 Hr 50 mg PO BID aspirin 81 mg Tablet,Delayed Release (Dr/Ec) 81 mg PO DAILY tamsulosin 0.4 mg Capsule 0.4 mg PO DAILY omeprazole 20 mg Tablet,Delayed Release (Dr/Ec) 20 mg PO DAILY cyanocobalamin (vitamin B-12) 1,000 mcg Tablet 1,000 mcg PO DAILY docusate sodium 100 mg Tablet 100 mg PO DAILY Discharge Orders: Discharge Order (Routine); Ordered 02/10/23 Ordered By: Britney Almeida/Other Patient Handouts: Doxycycline Oral Tablet Admission Data Admit Date/Time: 02/08/23 14:14 Attending Provider: Britney Branham Admit Provider: Suman Angel Primary Care Provider: Eugene Emmanuel Other Providers: Suman Angel ; Raheem Iglesias Other Interventions: Discharge Summary Assessment (RN) Last Done: 02/10/23 13:12
[2023-02-10] MEDS ORDERED: DOXYCYCLINE HYCLATE 100 MG CAP PO SCH (21:00)
[2023-02-13 23:21] LABS: Babesia microti DNA Not Detected (Not Detected)
== END 2023-02-10 14:05 | disposition home or self-care (01) | DRG 868 ==
LOC: ED 11:30 → SUATTDRO 14:14 → 2N 14:14

== ENCOUNTER 2023-07-17 16:25 | Inpatient (IN) ==
--- NOTE | 2023-07-17 16:32 | ED Triage Note ---
Date of Service July 17, 2023 History of Present Illness This patient was briefly evaluated while in triage. An abbreviated physical exam was performed. This patient is a 83-year-old Male who presents to the ED for evaluation of arrhythmia following a urologic procedure. Earlier today underwent cysto with lithotripsy and stent placement. In the PACU was found to be in Afib w/ RVR. Physical Exam GENERAL: 83 year old male. In no acute distress. SKIN: No lesions or rashes. HEART: Irregular rate and rhythm. LUNGS: Clear to auscultation. ABDOMEN: Bowel sounds normoactive. No guarding or rigidity. No tenderness of palpation. NEURO: Alert and oriented. No deficits. MUSCULOSKELETAL: No deformities to inspection of the extremities. PSYCH: Patient is pleasant and answers all questions appropriately. Initial orders for labs and / or imaging were placed and he was taken to an exam room, [id number]
[2023-07-17] MEDS ORDERED: SODIUM CHLORIDE 0.9% 500 ML IV ONE (16:46)
--- NOTE | 2023-07-17 17:10 | XRay Report ---
XR chest 1V portable HISTORY: 83 years-old Male Afib post procedure acute atrial fibrillation COMPARISON: 02/08/2023 TECHNIQUE: AP view of the chest FINDINGS: Cardiomediastinal and hilar silhouettes are within normal limits. Mild chronic interstitial coarsenin g. No pneumothorax, pleural effusion or airspace consolidation. Bones appear grossly intact. Mild mid thoracic dextroscoliosis. IMPRESSION: No acute process. ACT 112: Negative or not required by law. The above report was generated using voice recognition software. It may contain grammatical, syntax o r spelling errors. Electronically signed by: Ernesto Zhou M.D. 07/17/2023 5:08 PM
[2023-07-17 17:29] LABS: Basophils # (auto) 0.02 K/uL (0.00-0.20); Basophils % (auto) 0.3 %; Eosinophils # (auto) 0.02 K/uL (0.00-0.50); Eosinophils % (auto) 0.3 %; Hematocrit (blood only) 46.5 % (42.0-52.0); Hemoglobin 14.5 g/dl (14.0-18.0); Immature Granulocytes # (auto) 0.02 K/uL (0.01-0.20); Immature Granulocytes % (auto) 0.3 %; Lymphocytes # (auto) 0.85 K/uL (1.20-3.40); Lymphocytes % (auto) 10.8 %; Mean Corpuscular Hemoglobin 29.4 pg (25.0-34.0); Mean Corpuscular Hgb Conc 31.2 g/dL (32.0-36.0); Mean Corpuscular Volume 94.1 fL (80.0-100.0); Monocytes # (auto) 0.06 K/uL (0.11-0.59); Monocytes % (auto) 0.8 %; Neutrophils # (auto) 6.93 K/uL (1.40-6.50); Neutrophils % (auto) 87.5 %; Platelet Count 127 K/uL (130-400); RDW Standard Deviation 44.3 fL (36.4-46.3); Red Blood Count 4.94 M/uL (4.70-6.10)
[2023-07-17 17:43] LABS: Alanine Aminotransferase 10 U/L (7-52); Albumin Globulin Ratio 1.2 (0.9-2); Albumin Level 3.7 gm/dl (3.4-5.0); Alkaline Phosphatase 130 U/L (34-104); Anion Gap 6 (3-11); Aspartate Aminotransferase 15 U/L (13-39); BUN Creatinine Ratio 12.7 (10-20); Bilirubin,Total 0.5 mg/dl (0.2-1.0); Blood Urea Nitrogen 13 mg/dl (6-23); Calcium 8.8 mg/dl (8.6-10.3); Carbon Dioxide 32 mmol/L (21-32); Chloride 103 mmol/L (98-107); Est GFR (African American) 77.9 ml/min; Est GFR (Non-African American) 67.2 ml/min; Globulin 3.1 gm/dl (2.5-4.0); Glucose 230 mg/dl (70-99(Fasting)); Magnesium 1.8 mg/dl (1.7-2.4); Potassium 4.4 mmol/L (3.5-5.1); Sodium 141 mmol/L (136-145); Total Protein 6.8 gm/dl (6.0-8.3)
[2023-07-17 17:50] LABS: Troponin I High Sensitivity 5.9 pg/ml (0-20)
[2023-07-17 17:56] LABS: Partial Thromboplastin Ratio 0.9; Partial Thromboplastin Time 26.6 Seconds (21.0-31.0); Prothrombin Time 11.2 Seconds (9.0-12.0)
--- NOTE | 2023-07-17 22:43 | Emergency Department Note ---
History of Present Illness General Chief complaint: Arrhythmia/Palpitations Stated complaint: AFIB Time Seen by Provider: 07/17/23 16:38 History of Present Illness Provider complaint: Palpitations atrial fibrillation 83-year-old male presents emergency department for palpitations atrial fibrillation. Patient had an outpatient urological procedure cystoscopy and stent placement by Dr. Morteza Donahue at [facility]. Patient has a history of hypertension and takes metoprolol. Patient did take his metoprolol prior to the procedure but has been n.p.o. since. In the postoperative recovery area, the patient went into A-fib RVR according to the notes. They gave him an extra dose of metoprolol IV but the patient remained in A-fib RVR so for the patient here to the emergency department. Currently patient denies any chest pain difficulty breathing abdominal pain. Home Medications Medication Instructions Recorded Confirmed Type aspirin 81 mg tablet,delayed 81 mg PO DAILY PRN Other 02/08/23 07/17/23 History release cyanocobalamin (vitamin B-12) 1,000 mcg PO DAILY 02/08/23 07/17/23 History 1,000 mcg tablet docusate sodium 100 mg tablet 100 mg PO DAILY 02/08/23 07/17/23 History metoprolol succinate 50 mg 50 mg PO BID 02/08/23 07/17/23 History tablet,extended release 24 hr omeprazole 20 mg tablet,delayed 20 mg PO DAILY 02/08/23 07/17/23 History release tamsulosin 0.4 mg capsule 0.4 mg PO DAILY 02/08/23 07/17/23 History Vitamin D3 1 tab PO DAILY 07/17/23 07/17/23 History ciprofloxacin HCl 500 mg tablet 500 mg PO BID 07/17/23 07/17/23 History (Cipro) Allergies Allergy/AdvReac Type Severity Reaction Status Date / Time amlodipine AdvReac Intermediate nausea and Verified 02/08/23 14:20 vomiting Past Med/Surg History Medical History BPH (benign prostatic hyperplasia) No pertinent family history Hypertension Surgical History History of testicular surgery Family History Other Family history non-contributory Social History Smoking Status: Never smoker Hx Alcohol Use: No Hx Substance Use: No Preferred Language: Lao Communication Ability: Effective 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 marital status: Current Living Situation: Spouse current occupational status: retired Feels Safe at Home: Yes Assistive Devices: Denture - Upper, Glasses and Hearing Aid - Bilateral Physical Exam Vital Signs Vital Signs - 24 hr 07/17/23 16:32 07/17/23 16:40 07/17/23 16:40 Temperature 36.9 C Temperature Source Temporal Artery Scan Pulse Rate 104 H Pulse Rate [Apical] 115 H Pulse Rhythm [Apical] Irregular Respiratory Rate 18 18 Respiratory Effort / Characteristics Non-Labored Spontaneous Respiratory Depth Normal Respiratory Pattern Regular Blood Pressure 91/61 L Blood Pressure [Right Arm] 99/73 L Blood Pressure Mean 71 Blood Pressure Mean [Right Arm] 81 Blood Pressure Position Sitting Blood Pressure Position [Right Arm] Lying Pulse Oximetry 100 100 100 Oxygen Delivery Method Room Air Room Air Room Air Oxygen Flow Rate Sepsis Recent Fever Within 48 Hours No Sepsis New/Unexplained Change in Mental Status N/A Sepsis Action Taken by Nursing No Action Required Oxygen Flow Rate - Titration Pulse Oximetry Post Tiitration 07/17/23 16:40 07/17/23 18:55 07/17/23 18:55 Temperature Temperature Source Pulse Rate 115 H Pulse Rate [Apical] 83 87 Pulse Rhythm [Apical] Irregular Respiratory Rate 18 20 Respiratory Effort / Characteristics Respiratory Depth Respiratory Pattern Blood Pressure Blood Pressure [Right Arm] 138/60 138/60 Blood Pressure Mean Blood Pressure Mean [Right Arm] 86 86 Blood Pressure Position Blood Pressure Position [Right Arm] Sitting Pulse Oximetry 100 94 94 Oxygen Delivery Method Room Air Room Air Room Air Oxygen Flow Rate Sepsis Recent Fever Within 48 Hours Sepsis New/Unexplained Change in Mental Status Sepsis Action Taken by Nursing Oxygen Flow Rate - Titration Pulse Oximetry Post Tiitration 07/17/23 19:30 07/17/23 21:40 Temperature Temperature Source Pulse Rate Pulse Rate [Apical] 83 Pulse Rhythm [Apical] Respiratory Rate 18 Respiratory Effort / Characteristics Respiratory Depth Respiratory Pattern Blood Pressure Blood Pressure [Right Arm] 136/62 Blood Pressure Mean Blood Pressure Mean [Right Arm] 86 Blood Pressure Position Blood Pressure Position [Right Arm] Lying Pulse Oximetry 89 L 95 Oxygen Delivery Method Room Air Nasal Cannula Nasal Cannula Oxygen Flow Rate 2 Sepsis Recent Fever Within 48 Hours Sepsis New/Unexplained Change in Mental Status Sepsis Action Taken by Nursing Oxygen Flow Rate - Titration 2 Pulse Oximetry Post Tiitration 97 Physical Exam GENERAL: oriented to person, place, and time. appears well-developed and well- nourished. HENT: Exam performed. - Head: Normocephalic and atraumatic. EYES: Conjunctivae and EOM are normal. Right eye exhibits no discharge. Left eye exhibits no discharge. No scleral icterus. NECK: Normal range of motion. Neck supple. No JVD present. CV: Normal rate, irregular rhythm, normal heart sounds and intact distal pulses. There is no peripheral edema. Palpable radial pulses bue. PULM/CHEST: Effort normal and breath sounds normal. No respiratory distress. No stridor. no wheezes. no rales. ABD: The abdomen is soft. There is no tenderness. NEURO: Motor and sensation grossly intact. SKIN: Skin is warm and dry. He is not diaphoretic. PSYCH: normal mood and affect. Behavior is normal. Judgment and thought content normal. Course Course 1638: The patient was evaluated in room B4. A complete history and physical exam was performed Cardiac monitoring: An order was placed for continuous cardiac monitoring. The monitor shows a rate of 90-110 with atrial fibrilation rhythm interpreted by or 1845: Vital signs stable. Patient remains in atrial fibrillation with a rate of 80-100. Labs and imaging within normal limits. Discussed case with [place] on- call cardiology Dr. De La Torre. He states the patient should be observed overnight on the hospital service and he will evaluate the patient in the morning for any changes in medications including any starting of anticoagulation. Patient and family member are in agreement. [place] Hospitalist team will be notified. Administered Medications Discontinued Medications Sodium Chloride (Nss) 500 mls @ 999 mls/hr IV .Q31M ONE Stop: 07/17/23 17:16 Last Infusion: 07/17/23 19:44 Dose: Infused Documented By: Admin: 07/17/23 18:05 Dose: 999 mls/hr Documented By: NATHANIEL Medical Decision Making Laboratory Data Attestation: I reviewed the patient's lab results. 07/17/23 17:11 07/17/23 17:11 Lab Results 07/17/23 07/17/23 Range/Units 16:53 17:11 WBC 7.90 (4.8-10.8) K/ul RBC 4.94 (4.70-6.10) M/uL Hgb 14.5 (14.0-18.0) g/dl Hct 46.5 (42.0-52.0) % MCV 94.1 (80.0-100.0) fL MCH 29.4 (25.0-34.0) pg MCHC 31.2 L (32.0-36.0) g/dL RDW Std Deviation 44.3 (36.4-46.3) fL RDW Coeff of Ricardo 13.0 (11.5-14.5) % Plt Count 127 L (130-400) K/uL MPV 10.0 (9.4-12.4) fL Immature Gran % (Auto) 0.3 % Neut % (Auto) 87.5 % Lymph % (Auto) 10.8 % [place] % (Auto) 0.8 % Eos % (Auto) 0.3 % Baso % (Auto) 0.3 % Neut # (Auto) 6.93 H (1.40-6.50) K/uL Lymph # (Auto) 0.85 L (1.20-3.40) K/uL [place] # (Auto) 0.06 L (0.11-0.59) K/uL Eos # (Auto) 0.02 (0.00-0.50) K/uL Baso # (Auto) 0.02 (0.00-0.20) K/uL Immature Gran # (Auto) 0.02 (0.01-0.20) K/uL PT 11.2 (9.0-12.0) Seconds INR 1.0 (0.9-1.1) APTT 26.6 (21.0-31.0) Seconds PTT Ratio 0.9 Sodium 141 (136-145) mmol/L Potassium 4.4 (3.5-5.1) mmol/L Chloride 103 (98-107) mmol/L Carbon Dioxide 32 (21-32) mmol/L Anion Gap 6 (3-11) BUN 13 (6-23) mg/dl Creatinine 1.02 (0.6-1.4) mg/dl Est Cr Clr Drug Dosing Not Reportable Est GFR ( Amer) 77.9 ml/min Est GFR (Non-Af Amer) 67.2 ml/min BUN/Creatinine Ratio 12.7 (10-20) Glucose 230 H (70-99(Fasting)) mg/dl POC Glucose 190 H (70-99) mg/dl Calcium 8.8 (8.6-10.3) mg/dl Magnesium 1.8 (1.7-2.4) mg/dl Total Bilirubin 0.5 (0.2-1.0) mg/dl AST 15 (13-39) U/L ALT 10 (7-52) U/L Alkaline Phosphatase 130 H (34-104) U/L Troponin I High Sens 5.9 (0-20) pg/ml Total Protein 6.8 (6.0-8.3) gm/dl Albumin 3.7 (3.4-5.0) gm/dl Globulin 3.1 (2.5-4.0) gm/dl Albumin/Globulin Ratio 1.2 (0.9-2) Imaging Data Attestation: I personally reviewed and interpreted this imaging study as follows: My Impression: Chest x-ray negative. Airway clear. No pneumothorax. No consolidation. No cardiomegaly or cephalization.. No free air under the diaphragm. No fractures of the skeletal structures. Radiologist's Impression: Chest X-Ray 07/17/23 16:33 XR chest 1V portable HISTORY: 83 years-old Male Afib post procedure acute atrial fibrillation COMPARISON: 02/08/2023 TECHNIQUE: AP view of the chest FINDINGS: Cardiomediastinal and hilar silhouettes are within normal limits. Mild chronic interstitial coarsening. No pneumothorax, pleural effusion or airspace consolidation. Bones appear grossly intact. Mild mid thoracic dextroscoliosis. IMPRESSION: No acute process. ACT 112: Negative or not required by law. The above report was generated using voice recognition software. It may contain grammatical, syntax or spelling errors. Electronically signed by: Ernesto Zhou M.D. 07/17/2023 5:08 PM ECG Data Attestation: I personally reviewed and interpreted this ECG as follows: Indication: + palpitations Rate (beats per minute): 110 Rhythm: + atrial fibrillation ECG Intervals/blocks: + Normal QT-c ECG ST segments: + Normal ST segments Additional Comments: QRS 74 MDM Narrative 1638: The patient was evaluated in room B4. A complete history and physical exam was performed Cardiac monitoring: An order was placed for continuous cardiac monitoring. The monitor shows a rate of 90-110 with atrial fibrilation rhythm interpreted by me 1845: Vital signs stable. Patient remains in atrial fibrillation with a rate of 80-100. Labs and imaging within normal limits. Discussed case with [place] on- call cardiology Dr. De La Torre. He states the patient should be observed overnight on the hospital service and he will evaluate the patient in the morning for any changes in medications including any starting of anticoagulation. Patient and family member are in agreement. [facility] hospitalist team will be notified. Impression & Plan Atrial fibrillation Discharge Plan Visit Data Chief Complaint: Arrhythmia/Palpitations Stated Complaint: AFIB ED Provider: Suman Coyle Discharge Problem: Atrial fibrillation Patient Disposition: Admitted As Inpatient Discharge Instructions Interventions: ED Discharge Assessment Last Done: 07/17/23 22:26 Prescriptions Prescriptions: No Action metoprolol succinate 50 mg Tablet Extended Release 24 Hr 50 mg PO BID aspirin 81 mg Tablet,Delayed Release (Dr/Ec) 81 mg PO DAILY PRN (Reason: Other) tamsulosin 0.4 mg Capsule 0.4 mg PO DAILY omeprazole 20 mg Tablet,Delayed Release (Dr/Ec) 20 mg PO DAILY cyanocobalamin (vitamin B-12) 1,000 mcg Tablet 1,000 mcg PO DAILY docusate sodium 100 mg Tablet 100 mg PO DAILY Vitamin D3 1 tab PO DAILY Rx Instructions: unknown dose ciprofloxacin HCl [Cipro] 500 mg Tablet 500 mg PO BID Discharge Problem: Atrial fibrillation Qualifiers: Atrial fibrillation type: unspecified Qualified Code(s): I48.91 - Unspecified atrial fibrillation
[2023-07-17] MEDS ORDERED: NITROGLYCERIN SL 0.4 MG/TAB TAB SL PRN (22:47)
[2023-07-17] MEDS ORDERED: ACETAMINOPHEN 325 MG TAB PO PRN (22:47)
[2023-07-17] MEDS ORDERED: ASPIRIN 81 MG ECTAB PO PRN (22:47)
[2023-07-17] MEDS ORDERED: SODIUM CHLORIDE 0.9% 1,000 ML IV SCH (23:15)
[2023-07-17] MEDS: METOPROLOL SUCC 50MG EXT REL TAB PO SCH (23:28)
[2023-07-18] MEDS ORDERED: METOPROLOL TARTRATE 1 MG/ML VIAL IV PRN (06:01)
--- NOTE | 2023-07-18 06:12 | History & Physical Report ---
Date of Service July 17, 2023 Assessment & Plan (1) Atrial fibrillation: Plan: 83-year-old male with past medical history significant for hyperlipidemia, abdominal aortic aneurysm, hypertension, left carotid artery stenosis, middle cerebral aneurysm, GERD, BPH comes because of rapid A-fib. Rapid A-fib New After the procedure of cystoscopy Currently seems to converted to sinus IV Lopressor as needed Continue home metoprolol Monitoring telemetry We will follow serial enzymes and echo Consult cardiology in a.m. Kidney stones Today s/p cystoscopy with laser lithotripsy and basket stone extraction and left ureteral stone exchange Postprocedure ongoing hematuria We will monitor Follow-up with urology Abdominal aortic aneurysm 3.6 cm Follow-up Hypertension On metoprolol succinate We will monitor BPH On Flomax DVT prophylaxis SCDs Disposition Telemetry floor Full code History of Present Illness Chief Complaint: Rapid A-fib Primary Care Provider: Eugene Emmanuel MD 83-year-old male with past medical history significant for hyperlipidemia, abdominal aortic aneurysm, hypertension, left carotid artery stenosis, middle cerebral aneurysm, GERD, BPH comes because of rapid A-fib. Patient in the morning had cystoscopy with laser lithotripsy and basket stone extraction and left ureteral stone exchange. After the procedure patient felt somewhat lightheaded, palpitations and found to be in rapid A-fib and sent in here. Currently patient's heart rates are under control. Denies any chest pain. No shortness of breath. No cough. No fevers. No headache. No nausea or vomiting. No abdominal pain. Normal bowel movements. Having some hematuria after the procedure. Currently resting comfortably and hemodynamically stable. Past medical history. As mentioned above Past surgical history. History of withdrawal with lithotripsy. EGD with endoscopic ultrasound. Left lithotripsy. Social history. . Former smoker. No alcohol currently. No drug use. Family history. No family history on file Allergies Allergy/AdvReac Type Severity Reaction Status Date / Time amlodipine AdvReac Intermediate nausea and Verified 02/08/23 14:20 vomiting Home Medications Medication Instructions Recorded Confirmed Type aspirin 81 mg tablet,delayed 81 mg PO DAILY PRN Other 02/08/23 07/17/23 History release cyanocobalamin (vitamin B-12) 1,000 mcg PO DAILY 02/08/23 07/17/23 History 1,000 mcg tablet docusate sodium 100 mg tablet 100 mg PO DAILY 02/08/23 07/17/23 History metoprolol succinate 50 mg 50 mg PO BID 02/08/23 07/17/23 History tablet,extended release 24 hr omeprazole 20 mg tablet,delayed 20 mg PO DAILY 02/08/23 07/17/23 History release tamsulosin 0.4 mg capsule 0.4 mg PO DAILY 02/08/23 07/17/23 History Vitamin D3 1 tab PO DAILY 07/17/23 07/17/23 History ciprofloxacin HCl 500 mg tablet 500 mg PO BID 07/17/23 07/17/23 History (Cipro) Past Med/Surg History Medical History BPH (benign prostatic hyperplasia) No pertinent family history Hypertension Surgical History History of testicular surgery Family History Other Family history non-contributory Social History Smoking Status: Former smoker Tobacco Type: Cigarettes Second Hand Exposure: No; Do You Dip or Chew Tobacco: No; Tobacco Cessation Education Requested by Patient: No Hx Alcohol Use: No Hx Substance Use: No Preferred Language: Finnish Communication Ability: Effective 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 ENT- oropharynx clear Neck- supple, no JVD. Lungs- clear to auscultation no wheezing or crackles. Heart- regular rate and rhythm; no murmur, no gallop. Abdomen- normal bowel sounds, soft, nontender, no distension Extremities- no pretibial edema, no erythema . Neuro- alert, oriented x 3; PERRL, no facial palsy; no dysarthria; moves extremities. Skin- warm & dry Results & Data Results & Data Vital Signs (Past 12 Hours) Vital Signs Temp Pulse Pulse Resp BP BP Pulse Ox 07/17/23 18:55 87 20 138/60 94 07/17/23 18:55 83 18 138/60 94 07/17/23 16:40 115 H 100 07/17/23 16:40 115 H 18 99/73 L 100 07/17/23 16:40 100 07/17/23 16:32 36.9 C 104 H 18 91/61 L 100 O2 Del Method 07/17/23 18:55 Room Air 07/17/23 18:55 Room Air 07/17/23 16:40 Room Air 07/17/23 16:40 Room Air 07/17/23 16:40 Room Air 07/17/23 16:32 Room Air Diagnostic Findings Laboratory Results WBC 7.90 K/ul (4.8-10.8) 07/17/23 17:11 RBC 4.94 M/uL (4.70-6.10) 07/17/23 17:11 Hgb 14.5 g/dl (14.0-18.0) 07/17/23 17:11 Hct 46.5 % (42.0-52.0) 07/17/23 17:11 MCV 94.1 fL (80.0-100.0) 07/17/23 17:11 MCH 29.4 pg (25.0-34.0) 07/17/23 17:11 MCHC 31.2 g/dL (32.0-36.0) L 07/17/23 17:11 RDW Std Deviation 44.3 fL (36.4-46.3) 07/17/23 17:11 RDW Coeff of Ricardo 13.0 % (11.5-14.5) 07/17/23 17:11 Plt Count 127 K/uL (130-400) L 07/17/23 17:11 MPV 10.0 fL (9.4-12.4) 07/17/23 17:11 Immature Gran % (Auto) 0.3 % 07/17/23 17:11 Neut % (Auto) 87.5 % 07/17/23 17:11 Lymph % (Auto) 10.8 % 07/17/23 17:11 [place] % (Auto) 0.8 % 07/17/23 17:11 Eos % (Auto) 0.3 % 07/17/23 17:11 Baso % (Auto) 0.3 % 07/17/23 17:11 Neut # (Auto) 6.93 K/uL (1.40-6.50) H 07/17/23 17:11 Lymph # (Auto) 0.85 K/uL (1.20-3.40) L 07/17/23 17:11 [place] # (Auto) 0.06 K/uL (0.11-0.59) L 07/17/23 17:11 Eos # (Auto) 0.02 K/uL (0.00-0.50) 07/17/23 17:11 Baso # (Auto) 0.02 K/uL (0.00-0.20) 07/17/23 17:11 Immature Gran # (Auto) 0.02 K/uL (0.01-0.20) 07/17/23 17:11 PT 11.2 Seconds (9.0-12.0) 07/17/23 17:11 INR 1.0 (0.9-1.1) 07/17/23 17:11 APTT 26.6 Seconds (21.0-31.0) 07/17/23 17:11 PTT Ratio 0.9 07/17/23 17:11 Sodium 141 mmol/L (136-145) 07/17/23 17:11 Potassium 4.4 mmol/L (3.5-5.1) 07/17/23 17:11 Chloride 103 mmol/L (98-107) 07/17/23 17:11 Carbon Dioxide 32 mmol/L (21-32) 07/17/23 17:11 Anion Gap 6 (3-11) 07/17/23 17:11 BUN 13 mg/dl (6-23) 07/17/23 17:11 Creatinine 1.02 mg/dl (0.6-1.4) 07/17/23 17:11 Est Cr Clr Drug Dosing Not Reportable 07/17/23 17:11 Est GFR ( Amer) 77.9 ml/min 07/17/23 17:11 Est GFR (Non-Af Amer) 67.2 ml/min 07/17/23 17:11 BUN/Creatinine Ratio 12.7 (10-20) 07/17/23 17:11 Glucose 230 mg/dl (70-99(Fasting)) H 07/17/23 17:11 POC Glucose 190 mg/dl (70-99) H 07/17/23 16:53 Calcium 8.8 mg/dl (8.6-10.3) 07/17/23 17:11 Magnesium 1.8 mg/dl (1.7-2.4) 07/17/23 17:11 Total Bilirubin 0.5 mg/dl (0.2-1.0) 07/17/23 17:11 AST 15 U/L (13-39) 07/17/23 17:11 ALT 10 U/L (7-52) 07/17/23 17:11 Alkaline Phosphatase 130 U/L (34-104) H 07/17/23 17:11 Troponin I High Sens 5.9 pg/ml (0-20) 07/17/23 17:11 Total Protein 6.8 gm/dl (6.0-8.3) 07/17/23 17:11 Albumin 3.7 gm/dl (3.4-5.0) 07/17/23 17:11 Globulin 3.1 gm/dl (2.5-4.0) 07/17/23 17:11 Albumin/Globulin Ratio 1.2 (0.9-2) 07/17/23 17:11 Impressions Chest X-Ray 07/17/23 16:33 XR chest 1V portable HISTORY: 83 years-old Male Afib post procedure acute atrial fibrillation COMPARISON: 02/08/2023 TECHNIQUE: AP view of the chest FINDINGS: Cardiomediastinal and hilar silhouettes are within normal limits. Mild chronic interstitial coarsening. No pneumothorax, pleural effusion or airspace consolidation. Bones appear grossly intact. Mild mid thoracic dextroscoliosis. IMPRESSION: No acute process. ACT 112: Negative or not required by law. The above report was generated using voice recognition software. It may contain grammatical, syntax or spelling errors. Electronically signed by: Ernesto Zhou M.D. 07/17/2023 5:08 PM ECG Additional Comments: EKG. Atrial fibrillation with rapid ventricular response rate of 110. No acute ST changes seen. Code Status & VTE Plan VTE Prophylaxis Plan VTE Prophylaxis will be ordered: Yes (1) Atrial fibrillation Atrial fibrillation type: unspecified Qualified Code(s): I48.91 - Unspecified atrial fibrillation
[2023-07-18 07:38] LABS: Basophils # (auto) 0.04 K/uL (0.00-0.20); Basophils % (auto) 0.3 %; Hematocrit (blood only) 43.3 % (42.0-52.0); Hemoglobin 13.7 g/dl (14.0-18.0); Immature Granulocytes # (auto) 0.05 K/uL (0.01-0.20); Immature Granulocytes % (auto) 0.3 %; Lymphocytes # (auto) 2.11 K/uL (1.20-3.40); Lymphocytes % (auto) 14.5 %; Mean Corpuscular Hemoglobin 29.1 pg (25.0-34.0); Mean Corpuscular Hgb Conc 31.6 g/dL (32.0-36.0); Mean Corpuscular Volume 92.1 fL (80.0-100.0); Mean Platelet Volume 9.9 fL (9.4-12.4); Monocytes # (auto) 0.86 K/uL (0.11-0.59); Monocytes % (auto) 5.9 %; Neutrophils # (auto) 11.52 K/uL (1.40-6.50); Platelet Count 150 K/uL (130-400); RDW Coefficient of Variation 12.9 % (11.5-14.5); RDW Standard Deviation 43.4 fL (36.4-46.3); White Blood Count 14.58 K/ul (4.8-10.8)
[2023-07-18 08:08] LABS: Troponin I High Sensitivity 27.5 pg/ml (0-20)
[2023-07-18] MEDS: METOPROLOL SUCC 50MG EXT REL TAB PO SCH ×2 (08:10→20:20)
[2023-07-18] MEDS: DOCUSATE SODIUM 100 MG CAP PO SCH (08:10)
[2023-07-18] MEDS: PANTOprazole 40 MG TAB PO SCH (08:10)
[2023-07-18 08:45] LABS: BUN Creatinine Ratio 12.6 (10-20); Calcium 8.8 mg/dl (8.6-10.3); Creatinine Clr Calc Pharmacy 55.3 ml/min; Est GFR (African American) 84.9 ml/min; Est GFR (Non-African American) 73.2 ml/min; Magnesium 1.7 mg/dl (1.7-2.4); Potassium 4.3 mmol/L (3.5-5.1)
[2023-07-18] MEDS ORDERED: TAMSULOSIN HCL 0.4 MG CAP PO SCH (09:00)
--- NOTE | 2023-07-18 09:06 | Electrocardiogram Report ---
Test Reason : Blood Pressure : / mmHG Vent. Rate : 074 BPM Atrial Rate : 074 BPM P-R Int : 190 ms QRS Dur : 084 ms QT Int : 390 ms P-R-T Axes : 035 037 058 degrees QTc Int : 432 ms Normal sinus rhythm Normal ECG When compared with ECG of 17-JUL-2023 16:43, Sinus rhythm has replaced Atrial fibrillation Vent. rate has decreased BY 36 BPM Confirmed by Brandon Lawrence ([id number]) on 07/18/2023 9:05:32 AM Referred By: REFERRED SELF Confirmed By:Brandon Lawrence
[2023-07-18 09:14] LABS: Appearance Urine Cloudy (Clear); Bilirubin Urine Negative (Negative); Blood Urine 3+ (Negative); Color Urine Red; Glucose Urine UA Negative (Negative); Ketones Urine Negative (Negative); Leukocyte Esterase Urine 1+ (Negative); Nitrite Urine Negative (Negative); Protein Urine 2+ (Negative); Specific Gravity Urine 1.025 (1.000-1.030); Urobilinogen Urine Negative (Negative)
[2023-07-18 09:17] LABS: Bacteria Urine 1+ (Negative); RBC Urine >30 /hpf (0-4); WBC Urine >30 /hpf (0-5)
[2023-07-18 09:18] LABS: Epithelial Cell Urine 0-5 /lpf (0-5)
--- NOTE | 2023-07-18 10:57 | Electrocardiogram Report ---
Test Reason : Blood Pressure : / mmHG Vent. Rate : 110 BPM Atrial Rate : 000 BPM P-R Int : 000 ms QRS Dur : 074 ms QT Int : 304 ms P-R-T Axes : 000 -03 024 degrees QTc Int : 411 ms Atrial fibrillation with rapid ventricular response Abnormal ECG When compared with ECG of 08-FEB-2023 11:49, Atrial fibrillation has replaced Sinus rhythm HR has increased by 11 bpm Confirmed by Brandon Lawrence ([id number]) on 07/18/2023 10:57:15 AM Referred By: REFERRED SELF Confirmed By:Brandon Lawrence
--- NOTE | 2023-07-18 11:16 | Cardiology Consultation ---
Date of Consultation July 18, 2023 Assessment & Plan (1) New onset atrial fibrillation: (2) Hematuria: (3) AAA (abdominal aortic aneurysm): Supervising Physician Co-Signing Physician Notes Attending Staff: Pt seen and examined with [facility] staff Concur with observations and plans 83 yo man presenting with palpitations * S/P Cystoscopy * Palpitations * New onset Afib * Rx with IV Lopressor - remained in AFIB * Transferred to ED * 500 ml of Saline * Converted back to NSR * CHADsVasc 4 * + Post procedural hematuria - deferred anticoagulation * Tn 5.9/ 27 * EKG - Nonspecific ST abnormalities * LVEF 55-60% - no major valvular abnormalities- no pericardial effusion * K+ 4.4 * Mag 1.8, 1.7 * TSH - Pending Plans: * Pt has reverted to NSR * Total time in afib 5+ hrs * Magnesium supplementation * F/U on TSH * Would consider systemic anticoagulation when urology deems safe from procedural perspective * Continue beta alivia - Lopressor 50 mg po BID * Follow up in [facility] at [facility] History of Present Illness Reason for Consultation: New onset atrial fibrillation with a rapid ventricular response Requesting Physician: Dr. Lyons Attending Physician: Dr. Mcdaniel History of Present Illness Mr. Roddy George Is an 83-year-old male who underwent cystoscopy with laser lithotripsy and basket stone extraction and left ureter stone exchange with Dr. Donahue on July 17, 2023 at [facility]. In the PACU patient was noted to be in new onset atrial fibrillation with a rapid ventricular response, feeling palpitations and somewhat lightheaded. Patient remained in atrial fibrillation with a rapid ventricular response despite receiving IV metoprolol and despite uninterrupted continuation of metoprolol succinate 50 mg BID. Patient subsequently referred to the [facility] ER for further evaluation and treatment. EKG on presentation to the ER revealed atrial fibrillation with a rapid ventricular response (110 bpm) with a QTc of 411 ms. In the ER patient received 500 mL of normal saline solution as well as aspirin 81 mg/day. At 17:14:52 rhythm converted back to sinus without conversion pause. Anticoagulation not initiated due to postprocedural hematuria. [id number] Score 4 points Troponin 5.9 -> 27.5 -> pending EKG this AM revealed normal sinus rhythm at 74 bpm with mild anterior T wave changes Resting echocardiography on July 18, 2023 demonstrated grossly normal valvular structure and function. LV size was normal. Ejection fraction 55 to 60%. RV systolic function was normal. Left atrial size was normal. Right atrial size was normal. No pericardial effusion. Past Medical and Surgical History: Hypertension Dyslipidemia Abdominal aortic aneurysm, 3.6 cm via July 27 CT Carotid artery stenosis Middle cerebral artery aneurysm GERD BPH Kidney stones Diverticulosis Social History: Former smoker. No significant alcohol. No illegal drug use. Allergies Allergy/AdvReac Type Severity Reaction Status Date / Time amlodipine AdvReac Intermediate nausea and Verified 02/08/23 14:20 vomiting Home Medications Medication Instructions Recorded Confirmed Type aspirin 81 mg tablet,delayed 81 mg PO DAILY PRN Other 02/08/23 07/17/23 History release cyanocobalamin (vitamin B-12) 1,000 mcg PO DAILY 02/08/23 07/17/23 History 1,000 mcg tablet docusate sodium 100 mg tablet 100 mg PO DAILY 02/08/23 07/17/23 History metoprolol succinate 50 mg 50 mg PO BID 02/08/23 07/17/23 History tablet,extended release 24 hr omeprazole 20 mg tablet,delayed 20 mg PO DAILY 02/08/23 07/17/23 History release tamsulosin 0.4 mg capsule 0.4 mg PO DAILY 02/08/23 07/17/23 History Vitamin D3 1 tab PO DAILY 07/17/23 07/17/23 History ciprofloxacin HCl 500 mg tablet 500 mg PO BID 07/17/23 07/17/23 History (Cipro) Patient History Medical History BPH (benign prostatic hyperplasia) No pertinent family history Hypertension Surgical History History of testicular surgery Family History Other Family history non-contributory Social History Smoking Status: Former smoker Tobacco Type: Cigarettes Second Hand Exposure: No; Do You Dip or Chew Tobacco: No; Tobacco Cessation Education Requested by Patient: No Hx Alcohol Use: No Hx Substance Use: No Preferred Language: Icelandic Communication Ability: Effective Square Cutter Required: No Beliefs That Will Affect Care: None marital status: Current Living Situation: Spouse Current Living Situation Comment: Lives at home with current occupational status: retired Other Information That Helps Us Care for You: No Feels Safe at Home: Yes Safety Concerns: Feels Safe At This Time Assistive Devices: Glasses Review of Systems Review of Systems: Complete review of systems is otherwise as stated above, negative, or noncontributory. Physical Exam Physical Exam: thin man in nAD No elevation in JVP S1S2, soft 2/6 systolic murmur - regular rhythm CTA B No c/c/e Warm and perfusing Results & Data Vital Signs (Past 12 Hours) Vital Signs Temp Pulse Pulse Resp BP Pulse Ox O2 Del Method 07/18/23 08:22 71 07/18/23 08:14 36.4 C L 79 19 152/74 H 91 Room Air 07/18/23 03:15 36.3 C L 72 16 141/55 H 95 Nasal Cannula O2 Flow Rate 07/18/23 08:22 07/18/23 08:14 07/18/23 03:15 2 Laboratory Results Cardiac Enzymes 07/17/23 07/18/23 Range/Units 17:11 07:16 AST 15 (13-39) U/L Troponin I High Sens 5.9 27.5 H D (0-20) pg/ml Coagulation 07/17/23 Range/Units 17:11 PT 11.2 (9.0-12.0) Seconds APTT 26.6 (21.0-31.0) Seconds CBC 07/17/23 07/18/23 Range/Units 17:11 07:16 WBC 7.90 14.58 H (4.8-10.8) K/ul RBC 4.94 4.70 (4.70-6.10) M/uL Hgb 14.5 13.7 L (14.0-18.0) g/dl Hct 46.5 43.3 (42.0-52.0) % Plt Count 127 L 150 (130-400) K/uL Neut # (Auto) 6.93 H 11.52 H (1.40-6.50) K/uL Lymph # (Auto) 0.85 L 2.11 (1.20-3.40) K/uL [place] # (Auto) 0.06 L 0.86 H (0.11-0.59) K/uL Eos # (Auto) 0.02 0.00 (0.00-0.50) K/uL Baso # (Auto) 0.02 0.04 (0.00-0.20) K/uL Comprehensive Metabolic Panel 07/17/23 07/18/23 Range/Units 17:11 07:16 Sodium 141 142 (136-145) mmol/L Potassium 4.4 4.3 (3.5-5.1) mmol/L Chloride 103 107 (98-107) mmol/L Carbon Dioxide 32 27 (21-32) mmol/L BUN 13 12 (6-23) mg/dl Creatinine 1.02 0.95 (0.6-1.4) mg/dl Glucose 230 H 101 H (70-99(Fasting)) mg/dl Calcium 8.8 8.8 (8.6-10.3) mg/dl AST 15 (13-39) U/L ALT 10 (7-52) U/L Alkaline Phosphatase 130 H (34-104) U/L Total Protein 6.8 (6.0-8.3) gm/dl Albumin 3.7 (3.4-5.0) gm/dl Intake and Output 07/17/23 07/18/23 07/18/23 22:59 06:59 14:59 Intake Total 500 / 500 Output Total 700 / 700 75 / 75 Balance 500 / -200 -700 / -200 -75 / -75 Intake: IV 500 / 500 Sodium Chloride 0.9% 500 ml @ 500 / 500 999 mls/hr IV .Q31M ONE Rx#: [id number] Output: Urine 100 / 100 75 / 75 Urine Amount (Catheter) 600 / 600 Straight 600 / 600 Other: Weight 67.6 kg Weight Measurement Method Standing Scale (2) Hematuria Hematuria type: gross Qualified Code(s): R31.0 - Gross hematuria (3) AAA (abdominal aortic aneurysm) Abdominal aorta location: infrarenal aorta Presence of rupture: without rupture Qualified Code(s): I71.43 - Infrarenal abdominal aortic aneurysm, without rupture
--- NOTE | 2023-07-18 13:21 | Hospitalist Progress Note ---
Date of Service July 18, 2023 Assessment & Plan (1) Atrial fibrillation: Plan: Mr. George is an 83-year-old gentleman with past medical history significant for hyperlipidemia, abdominal aortic aneurysm, hypertension, left carotid artery stenosis, middle cerebral aneurysm, GERD, BPH admitted for a fib with RVR. Patient is now in NSR. #Post-operative atrial fibrillation with RVR Identified post-operative, now NSR -Continue home Toprol XL 50mg BID -Cardiology with plans for follow up with [facility] -Monitor electrolytes -TSH WNL -Monitor on telemetry -Consider DOAC contingent on hematuria #Leukocytosis likely 2/2 to postoperative Continue CTX while inpatient, can discharge likely on PO cipro as previously prescribed for post-op ppx s/p stone removal Repeat CBC in am #Acute blood loss anemia, s/p post-op #Urolithiasis #Gross hematuria s/p shockwave lithotripsy Left Ureteral Stone 05/2023, ESWL 06/2023 . now s/p intervention ureteroscopy with stone removal and stent exchanged 07/17/2023 Monitor UOP, low threshold for simpson Discharged with Cipro 500mg BID, CTX while inpatient #BPH Continue tamsulosin, increased to 0.8mg daily #Abdominal aortic aneurysm 3.6 cm Follow-up as OP #Hypertension On metoprolol succinate, continue to monitor DVT prophylaxis SCDs Disposition Telemetry floor Full code Admission and Anticipated Discharge Date Admission Date: July 17, 2023 Subjective Reports some straining with voiding, denies any new concerns overall. Review of Systems Review of Systems: All systems reviewed & are unremarkable except as noted in Subjective Physical Exam Constitutional: WD/WN, vitals as above Respiratory: normal respiratory effort, lungs clear to auscultation Cardiovascular: RRR, no murmur, no edema Results & Data Results & Data Vital Signs (Past 12 Hours) Vital Signs Temp Pulse Pulse Resp BP Pulse Ox O2 Del Method 07/18/23 11:45 36.5 C 76 19 147/59 H 93 Room Air 07/18/23 08:22 71 07/18/23 08:14 36.4 C L 79 19 152/74 H 91 Room Air 07/18/23 03:15 36.3 C L 72 16 141/55 H 95 Nasal Cannula O2 Flow Rate 07/18/23 11:45 07/18/23 08:22 07/18/23 08:14 07/18/23 03:15 2 Laboratory Results Short CBC 07/17/23 07/18/23 Range/Units 17:11 07:16 WBC 7.90 14.58 H (4.8-10.8) K/ul Hgb 14.5 13.7 L (14.0-18.0) g/dl Hct 46.5 43.3 (42.0-52.0) % Plt Count 127 L 150 (130-400) K/uL BMP 07/17/23 07/18/23 17:11 07:16 Sodium 141 142 Potassium 4.4 4.3 Chloride 103 107 Carbon Dioxide 32 27 BUN 13 12 Creatinine 1.02 0.95 Glucose 230 H 101 H Calcium 8.8 8.8 Liver Function 07/17/23 Range/Units 17:11 Total Bilirubin 0.5 (0.2-1.0) mg/dl AST 15 (13-39) U/L ALT 10 (7-52) U/L Alkaline Phosphatase 130 H (34-104) U/L Albumin 3.7 (3.4-5.0) gm/dl Urine 07/18/23 Range/Units 08:50 Urine Color Red Urine Appearance Cloudy A (Clear) Urine pH 7.0 (4.5-7.5) Ur Specific Fleming 1.025 (1.000-1.030) Urine Protein 2+ H (Negative) Urine Glucose (UA) Negative (Negative) Medications Administered Home Medications Medication Instructions Recorded Confirmed Last Taken aspirin 81 mg tablet,delayed 81 mg PO DAILY PRN Other 02/08/23 07/17/23 Unknown release cyanocobalamin (vitamin B-12) 1,000 mcg PO DAILY 02/08/23 07/17/23 Unknown 1,000 mcg tablet docusate sodium 100 mg tablet 100 mg PO DAILY 02/08/23 07/17/23 Unknown metoprolol succinate 50 mg 50 mg PO BID 02/08/23 07/17/23 07/17/23 tablet,extended release 24 hr omeprazole 20 mg tablet,delayed 20 mg PO DAILY 02/08/23 07/17/23 07/17/23 release tamsulosin 0.4 mg capsule 0.4 mg PO DAILY 02/08/23 07/17/23 07/17/23 Vitamin D3 1 tab PO DAILY 07/17/23 07/17/23 Unknown ciprofloxacin HCl 500 mg tablet 500 mg PO BID 07/17/23 07/17/23 Unknown (Cipro) Active Medications Generic Name Dose Route Start Last Admin Trade Name Radha PRN Reason Stop Dose Admin Docusate Sodium 100 mg 07/18/23 09:00 07/18/23 08:10 Docusate Sodium 100 Mg Cap PO 08/17/23 08:59 100 mg DAILY TRISH Administration Metoprolol Succinate 50 mg 07/17/23 22:47 07/18/23 08:10 Metoprolol Succ 50mg Ext Rel Tab PO 08/16/23 22:46 50 mg BID TRISH Administration Non-Formulary Medication 1,000 mcg 07/18/23 09:00 07/18/23 10:48 Cyanocobalamin (Vitamin B-12) PO 08/17/23 08:59 Not Given DAILY TRISH Pantoprazole Sodium 40 mg 07/18/23 09:00 07/18/23 08:10 Pantoprazole 40 Mg Tab PO 08/17/23 08:59 40 mg DAILY TIRSH Administration (1) Atrial fibrillation Atrial fibrillation type: unspecified Qualified Code(s): I48.91 - Unspecified atrial fibrillation
[2023-07-18] MEDS ORDERED: TAMSULOSIN HCL 0.4 MG CAP PO ONE (13:47)
[2023-07-18] MEDS: MAGNESIUM OXIDE 400 MG TAB PO SCH (14:45)
[2023-07-18] MEDS: cefTRIAXone SODIUM 2,000 MG in DEXTROSE 5 % MINI-B 50 ML IV SCH (15:03)
[2023-07-19] MEDS: MAGNESIUM OXIDE 400 MG TAB PO SCH (08:13)
[2023-07-19] MEDS: METOPROLOL SUCC 50MG EXT REL TAB PO SCH (08:13)
[2023-07-19] MEDS: DOCUSATE SODIUM 100 MG CAP PO SCH (08:13)
[2023-07-19] MEDS: PANTOprazole 40 MG TAB PO SCH (08:13)
[2023-07-19 08:14] LABS: Hematocrit (blood only) 42.1 % (42.0-52.0); Hemoglobin 13.7 g/dl (14.0-18.0); Mean Corpuscular Hgb Conc 32.5 g/dL (32.0-36.0); Mean Platelet Volume 10.1 fL (9.4-12.4); Platelet Count 148 K/uL (130-400); RDW Coefficient of Variation 12.9 % (11.5-14.5); RDW Standard Deviation 42.5 fL (36.4-46.3); Red Blood Count 4.73 M/uL (4.70-6.10); White Blood Count 9.52 K/ul (4.8-10.8)
--- NOTE | 2023-07-19 08:15 | Electrocardiogram Report ---
Test Reason : Blood Pressure : / mmHG Vent. Rate : 069 BPM Atrial Rate : 069 BPM P-R Int : 214 ms QRS Dur : 082 ms QT Int : 396 ms P-R-T Axes : 030 024 092 degrees QTc Int : 424 ms Poor data quality, interpretation may be adversely affected Sinus rhythm with 1st degree A-V block Abnormal ECG When compared with ECG of 18-JUL-2023 05:30, No significant change was found Confirmed by Brandon Lawrence ([id number]) on 07/19/2023 8:15:20 AM Referred By: REFERRED SELF Confirmed By:Brandon Lawrence
[2023-07-19 08:48] LABS: BUN Creatinine Ratio 14.3 (10-20); Creatinine Clr Calc Pharmacy 50.4 ml/min; Est GFR (African American) 75.2 ml/min; Est GFR (Non-African American) 64.9 ml/min; Magnesium 1.7 mg/dl (1.7-2.4); Phosphorus 2.5 mg/dl (2.5-4.9); Potassium 4.1 mmol/L (3.5-5.1)
[2023-07-19] MEDS ORDERED: TAMSULOSIN HCL 0.4 MG CAP PO SCH (09:00)
--- NOTE | 2023-07-19 12:48 | Cardiology Progress Note ---
Date of Service July 19, 2023 Assessment & Plan Admission and Anticipated Discharge Date Admission Date: July 17, 2023 Supervising Physician Co-Signing Physician Notes Attending Staff: Pt seen and examined with [facility] staff Concur with observations and plans 83 yo man presenting with palpitations * S/P Cystoscopy * Palpitations * New onset Afib * Rx with IV Lopressor - remained in AFIB * Transferred to ED * 500 ml of Saline * Converted back to NSR * CHADsVasc 4 * + Post procedural hematuria - deferred anticoagulation * Tn 5.9 * EKG - Nonspecific ST abnormalities * LVEF 55-60% - no major valvular abnormalities- no pericardial effusion * K+ 4.4 * Mag 1.8, 1.7 * TSH - Pending Plans: * Pt has reverted to NSR * Total time in afib 5+ hrs * Magnesium supplementation * TSH - WNL - 1.585 * Would consider systemic anticoagulation when urology deems safe from procedural perspective * STOP Lopressor 50 mg po BID * START Toprol XL 100 mg po per day * Follow up in [facility] at [facility] * May need [facility] as an outpt * Please call back with additional questions Ilya De La Torre Subjective Events overnight: * remained in NSR Subjective: * No complaints Review of Systems Review of Systems: All systems reviewed & are unremarkable except as noted in HPI & below Physical Exam Physical Exam: thin man in nAD No elevation in JVP S1S2, soft 2/6 systolic murmur - regular rhythm CTA B No c/c/e Warm and perfusing Results & Data Vital Signs (Past 12 Hours) Vital Signs Temp Pulse Pulse Resp BP Pulse Ox O2 Del Method 07/19/23 11:44 36.4 C L 70 18 165/63 H 91 Room Air 07/19/23 08:30 Room Air 07/19/23 07:45 36.9 C 67 18 172/80 H 92 Room Air 07/19/23 07:34 66 07/19/23 03:04 36.6 C 69 18 142/70 H 91 Room Air Laboratory Results Cardiac Enzymes 07/18/23 07/18/23 Range/Units 10:59 16:49 Troponin I High Sens 34.7 H 37.3 H (0-20) pg/ml CBC 07/19/23 Range/Units 07:46 WBC 9.52 (4.8-10.8) K/ul RBC 4.73 (4.70-6.10) M/uL Hgb 13.7 L (14.0-18.0) g/dl Hct 42.1 (42.0-52.0) % Plt Count 148 (130-400) K/uL Comprehensive Metabolic Panel 07/19/23 Range/Units 07:46 Sodium 138 (136-145) mmol/L Potassium 4.1 (3.5-5.1) mmol/L Chloride 104 (98-107) mmol/L Carbon Dioxide 28 (21-32) mmol/L BUN 15 (6-23) mg/dl Creatinine 1.05 (0.6-1.4) mg/dl Glucose 98 (70-99(Fasting)) mg/dl Calcium 9.0 (8.6-10.3) mg/dl Intake and Output 07/18/23 07/19/23 07/19/23 22:59 06:59 14:59 Intake Total 250 / 1350 100 / 1350 Output Total 700 / 2550 1100 / 2550 Balance -450 / -1200 -1000 / -1200 Intake: IV 50 / 1050 cefTRIAXone SODIUM 2,000 mg In 50 / 50 Dextrose 5 % Mini-B 50 ml @ 100 mls/hr IV Q24H [facility] Rx#: [id number] Oral 200 / 300 100 / 300 Output: Urine 700 / 2550 1100 / 2550 Other: Weight 68.1 kg Weight Measurement Method Built in [facility] Medications Administered Current Inpatient Medications Acetaminophen (Acetaminophen 325 Mg Tab) 650 mg PO Q4H PRN PRN Reason: Pain or Fever Stop: 08/16/23 22:46 Docusate Sodium (Docusate Sodium 100 Mg Cap) 100 mg PO DAILY [facility] Stop: 08/17/23 08:59 Last Admin: 07/19/23 08:13 Dose: 100 mg Ceftriaxone Sodium 2,000 mg/ (Dextrose) 50 mls @ 100 mls/hr IV Q24H [facility]; Protocol Stop: 07/23/23 13:59 Last Infusion: 07/18/23 15:51 Dose: Infused Magnesium Oxide (Magnesium Oxide 400 Mg Tab) 400 mg PO QAM TRISH Stop: 08/17/23 13:14 Last Admin: 07/19/23 08:13 Dose: 400 mg Metoprolol Succinate (Metoprolol Succ 50mg Ext Rel Tab) 50 mg PO BID [facility] Stop: 08/16/23 22:46 Last Admin: 07/19/23 08:13 Dose: 50 mg Metoprolol Tartrate (Metoprolol Tartrate 1 Mg/Ml Vial) 5 mg IV Q6 PRN PRN Reason: Tachycardia Stop: 08/17/23 11:59 Nitroglycerin (Nitroglycerin Sl 0.4 Mg/Tab Tab) 0.4 mg SL Q5M PRN PRN Reason: Chest Pain Stop: 08/16/23 22:46 Non-Formulary Medication (Cyanocobalamin (Vitamin B-12)) 1,000 mcg PO DAILY TRISH Stop: 08/17/23 08:59 Last Admin: 07/19/23 08:14 Dose: Not Given Pantoprazole Sodium (Pantoprazole 40 Mg Tab) 40 mg PO DAILY TRISH Stop: 08/17/23 08:59 Last Admin: 07/19/23 08:13 Dose: 40 mg Tamsulosin HCl (Tamsulosin Hcl 0.4 Mg Cap) 0.8 mg PO DAILY TRISH Stop: 08/18/23 08:59 Last Admin: 07/19/23 08:13 Dose: 0.8 mg
[2023-07-19] MEDS: cefTRIAXone SODIUM 2,000 MG in DEXTROSE 5 % MINI-B 50 ML IV SCH (13:04)
--- NOTE | 2023-07-19 13:24 | Discharge Summary ---
Date of Service July 19, 2023 Admission HPI Per Admitting Provider 83-year-old male with past medical history significant for hyperlipidemia, abdominal aortic aneurysm, hypertension, left carotid artery stenosis, middle cerebral aneurysm, GERD, BPH comes because of rapid A-fib. Patient in the morning had cystoscopy with laser lithotripsy and basket stone extraction and left ureteral stone exchange. After the procedure patient felt somewhat lightheaded, palpitations and found to be in rapid A-fib and sent in here. Currently patient's heart rates are under control. Denies any chest pain. No shortness of breath. No cough. No fevers. No headache. No nausea or vomiting. No abdominal pain. Normal bowel movements. Having some hematuria after the procedure. Currently resting comfortably and hemodynamically stable. Past medical history. As mentioned above Past surgical history. History of withdrawal with lithotripsy. EGD with endoscopic ultrasound. Left lithotripsy. Social history. . Former smoker. No alcohol currently. No drug use. Family history. No family history on file Admission Exam Per Admitting Provider General- Not in distress Head- atraumatic Eyes- PERRL. ENT- oropharynx clear Neck- supple, no JVD. Lungs- clear to auscultation no wheezing or crackles. Heart- regular rate and rhythm; no murmur, no gallop. Abdomen- normal bowel sounds, soft, nontender, no distension Extremities- no pretibial edema, no erythema . Neuro- alert, oriented x 3; PERRL, no facial palsy; no dysarthria; moves extremities. Skin- warm & dry Principal Diagnosis Atrial fibrillation with RVR Acute blood loss anemia, status post postoperative Gross hematuria Recent urologic intervention including ureteroscopy with stone removal and stent exchange. Discharge Exam GENERAL: Alert and oriented x3. NAD, on RA. HEENT: No pallor, no icterus. Pupils equal, round and reactive to light. Oral mucosa moist. NECK: No JVD, no neck masses. HEART: S1 and S2 heard. Regular rate and rhythm. No murmur, no gallop. RESPIRATORY SYSTEM: Normal AP diameter. No accessory muscle use. No wheezing, no crackles. ABDOMEN: Soft, bowel sounds present, nontender, no distention. CENTRAL NERVOUS SYSTEM: No facial droop. Speech is clear. Obeys simple commands. Moves extremities. EXTREMITIES: No edema, no erythema seen. Discharge Data Allergies Allergy/AdvReac Type Severity Reaction Status Date / Time amlodipine AdvReac Intermediate nausea and Verified 02/08/23 14:20 vomiting Consultations 07/17/23 18:42 ED Decision to Admit Stat 07/17/23 18:43 Consult Cardiology Routine Hospital Course (1) Atrial fibrillation: Per prior attending with addendum: Mr. George is an 83-year-old gentleman with past medical history significant for hyperlipidemia, abdominal aortic aneurysm, hypertension, left carotid artery stenosis, middle cerebral aneurysm, GERD, BPH admitted for a fib with RVR. Patient is now in NSR. #Post-operative atrial fibrillation with RVR Identified post-operative, now NSR -Continue home Toprol XL 50mg BID -Cardiology with plans for follow up with Blu Morales -Monitor electrolytes -TSH WNL -Monitor on telemetry -Consider DOAC contingent on hematuria #Leukocytosis likely 2/2 to postoperative Continue CTX while inpatient, can discharge likely on PO cipro as previously prescribed for post-op ppx s/p stone removal Repeat CBC in am #Acute blood loss anemia, s/p post-op #Urolithiasis #Gross hematuria s/p shockwave lithotripsy Left Ureteral Stone 05/2023, ESW[facility] 06/2023 . now s/p intervention ureteroscopy with stone removal and stent exchanged 07/17/2023 Monitor UOP, low threshold for simpson Discharged with Cipro 500mg BID, CTX while inpatient #BPH Continue tamsulosin, increased to 0.8mg daily #Abdominal aortic aneurysm 3.6 cm Follow-up as OP #Hypertension On metoprolol succinate, continue to monitor DVT prophylaxis SCDs Disposition Telemetry floor Full code Addendum: Patient was seen and examined at bedside for postoperative A-fib with RVR and hematuria ISO recent urologic intervention. Cardiology evaluated the patient, plan for DOAC upon clearance from urology. Patient to set up urology visit within a week time upon discharge, currently NSR, and upon clearance from urology likely to be started on Eliquis. Patient to follow-up with cardiology within a week time upon discharge (after OP urology eval) for starting on blood thinner. Patient reports improving color of his urine, less red now per him, is hemodynamically stable, patient would like to go home today and his family at bedside is in agreement with the patient. He is being discharged with following instruction at the point of discharge: Follow-up with your primary care physician within a week time and likely you will need labs CBC/CMP/magnesium/phosphorus. Follow-up with urology within a week time prior to your visit with cardiology in a week time upon discharge. You will need further evaluation regarding your recent instrumentation/hematuria/need clearance for starting you on blood thinner. Follow-up with cardiology in a week time upon discharge, further discussion regarding anticoagulation needs to happen. Also you will need outpatient Zio patch monitoring. You are started on Toprol-XL 100 mg daily instead of your jewel e metoprolol succinate 50 mg twice a day. You can continue to take your antibiotic ciprofloxacin for next 5 days which was already prescribed to you prior to arrival. Take your medications as prescribed. Please make sure that you are able to get your medications today by calling your pharmacy before you leave the hospital so that your treatment continuity is not broken. Home Health Attestation I certify that this patient is under my care and that I, or a physicians assistant associate professor working with me, had a face to-face encounter that meets the home health [id number] encounter requirements with this patient. The encounter with the patient was in whole, or in part, for the following medical condition, which is the primary reason for home health care (list medical condition): I certify that, based on my findings, the following services are medically necessary home health services: My clinical findings support the need for the above services because: Further, I certify that my clinical findings support that this patient is homebound (i.e. absences from home require considerable and taxing effort and are for medical reasons or restorationism services or infrequently or of short duration when for other reasons) because: Certification for Home Health Services: Based on the above findings, I certify that this patient is confined to the home and needs intermittent halfway care, physical therapy and/or speech therapy or continues to need occupational therapy. The patient is under my care, and I have initiated the establishment of the plan of care. This patient will be followed by a physician who will periodically review the plan of care. Total Time Total Time Spent Total Time Spent (In Minutes): 45 Discharge Plan Discharge Items Patient Disposition: Home - Self-Care Reason For Visit: RAPID A FIB Discharge Diagnosis: Atrial fibrillation with RVR Acute blood loss anemia, status post postoperative Gross hematuria Recent urologic intervention including ureteroscopy with stone removal and stent exchange. Activity: Resume your previous activity Non-emergency contact: Primary Care Provider Call non-emergency contact if: you have any medication questions, your symptoms worsen and your temperature is above 101 Follow-up/Referrals: Eugene Emmanuel MD [Primary Care Provider] - Diet: Heart Healthy Addtl Attending Provider Instructions: Follow-up with your primary care physician within a week time and likely you will need labs CBC/CMP/magnesium/phosphorus. Follow-up with urology within a week time prior to your visit with cardiology in a week time upon discharge. You will need further evaluation regarding your recent instrumentation/hematuria/need clearance for starting you on blood thinner. Follow-up with cardiology in a week time upon discharge, further discussion regarding anticoagulation needs to happen. Also you will need outpatient Zio patch monitoring. You are started on Toprol-XL 100 mg daily instead of your home metoprolol succinate 50 mg twice a day. You can continue to take your antibiotic ciprofloxacin for next 5 days which was already prescribed to you prior to arrival. Take your medications as prescribed. Please make sure that you are able to get your medications today by calling your pharmacy before you leave the hospital so that your treatment continuity is not broken. Pending Studies at Discharge: Yes Stand-Alone Forms: My [facility], Smoking Cessation Medications and DC Order Prescriptions: New tamsulosin 0.4 mg Capsule 0.8 mg PO DAILY Qty: 60 0RF nitroglycerin [Nitrostat] 0.4 mg Tablet, Sublingual 0.4 mg sublingual UD PRN (Reason: chest pain) Qty: 20 0RF metoprolol succinate [Toprol XL] 100 mg tablet extended release 24 hr 100 mg PO DAILY Qty: 30 0RF magnesium oxide 400 mg (241.3 mg magnesium) Tablet 400 mg PO QAM Qty: 30 0RF Continued omeprazole 20 mg Tablet,Delayed Release (Dr/Ec) 20 mg PO DAILY cyanocobalamin (vitamin B-12) 1,000 mcg Tablet 1,000 mcg PO DAILY docusate sodium 100 mg Tablet 100 mg PO DAILY Vitamin D3 1 tab PO DAILY Rx Instructions: unknown dose ciprofloxacin HCl [Cipro] 500 mg Tablet 500 mg PO BID Held aspirin 81 mg Tablet,Delayed Release (Dr/Ec) 81 mg PO DAILY PRN (Reason: Other) Hold Instructions: Resume on 07/25/23. Until urology clearance within a week time of discharge. Discontinued metoprolol succinate 50 mg Tablet Extended Release 24 Hr 50 mg PO BID tamsulosin 0.4 mg Capsule 0.4 mg PO DAILY Discharge Orders: Discharge Order (Routine); Ordered 07/19/23 Ordered By: Kylah Mayes Admission Data Admit Date/Time: 07/17/23 21:39 Attending Provider: Kylah Mayes Admit Provider: Serafin Lyons Primary Care Provider: Eugene Emmanuel Other Providers: Bia Madrigal
--- OUTSIDE RECORDS SUMMARY | 2023-07-19 23:18 | External Medical Summary | Summary of Care ---
Author Name Unknown Organization [facility] [address] [address] Phone [phone] Care Team Providers Care Vocational Director Name Role Phone Eugene Emmanuel MD Primary Care Provider [phone]- [phone] Encounter Details Date Type Department Care Team Description [facility] [address] [place] [address] Eugene Emmanuel MD [address] [place] [address] Allergies Active Allergy Reactions Severity Noted Date Comments Amlodipine Nausea/vomiting 08/31/2022 documented as of this encounter (statuses as of 06/16/2023) Medications Medication Sig Dispensed Refills Start Date End Date Status Docusate Sodium 100 MG Oral Capsule Take 1 Capsule by mouth in the morning and 1 Capsule before bedtime. Reports he takes 2 pills at night . 0 Active Aspirin 81 MG Oral Tablet Chewable Take 1 Tablet by mouth in the morning. 0 Active B-12 1000 MCG Oral Tablet Take by mouth. 0 Active Tamsulosin HCl 0.4 MG Oral Capsule (Flomax) Take 1 Capsule by mouth in the morning. 90 Capsule 3 11/14/2022 Active Metoprolol Succinate ER 50 MG Oral Tablet Extended Release 24 Hour (toPROL XL) Take 1 Tablet by mouth in the morning and 1 Tablet before bedtime. 180 Tablet 3 01/25/2023 Active Omeprazole 20 MG Oral Capsule Delayed Release (PriLOSEC) TAKE 1 CAPSULE BY MOUTH EVERY DAY 90 Capsule 1 02/13/2023 Active Ondansetron 4 MG Oral Tablet Disintegrating (Zofran)Indications:Na usea without vomiting Place 1 Tablet on tongue every 8 hours as needed for Nausea. dissolve on tongue. 20 Tablet 0 02/16/2023 Active documented as of this encounter (statuses as of 06/16/2023) Active Problems Problem Noted Date BPH with obstruction/lower urinary tract symptoms 04/20/2023 Calculus of kidney 04/20/2023 Middle cerebral aneurysm 06/05/2022 HTN, goal below 140/90 12/01/2021 Dyslipidemia 12/01/2021 Abdominal aortic aneurysm (AAA) without rupture 12/01/2021 Asymptomatic stenosis of left carotid ar stephanie 12/01/2021 Gastroesophageal reflux disease 12/02/19 22 documented as of this encounter (statuses as of 06/16/2023) Resolved Problems Problem Noted Date Resolved Date Abdominal aortic aneurysm without rupture 202209/08/2022 Constipation 06/13/2022 09/08/2022 Hyperthyroidism 12/01/2021 06/13/2022 documented as of this encounter (statuses as of 06/16/2023) Immunizations Name Administration Dates Next Due Pneumococcal Polysaccharide PPV23 (Pneumovax) Seasonal Influenza, Quad, Nasal (Flumist) 2020 Seasonal Influenza, Quadrivalent Hd (Fluzone Hd) 05/12/2022 documented as of this encounter Social History Tobacco Use Types Packs/Day Years Used Date Smoking Tobacco: Former Smokeless Tobacco: Never Alcohol Use Standard Drinks/Week Comments Not Currently 0 (1 standard drink = 0.6 oz pur e alcohol) Sex Assigned at Date Recorded Not on file Job Start Date Occupation Industry Not on file Not on file Not on file documented as of this encounter Miscellaneous Notes * Telephone Encounter - ARTIS Gonzales - 03/17/2023 3:55 PM EDT Reason for patient's call: Nikky from the [facility] calling requesting to speak to the office Caller was transferred to epi at the clinic. documented in this encounter Plan of Treatment Upcoming Encounters Date Type Specialty Care Team Description 06/19/2023 Hospital Encounter Surgery Morteza Donahue MD [address] [place] [id number] 06/19/2023 Surgery Surgery Morteza Donahue MD [address] [place] [id number] LEFT LITHOTRIPSY EXTRACORPOREAL SHOCK WAVE 06/26/2023 Procedure Only Urology Morteza Donahue MD [address] [place] [id number] 07/05/2023 Imaging Radiology 11/10/2023 Office Visit Family Medicine Eugene Emmanuel MD [address] [place] [address] Scheduled Procedures Name Priority Associated Diagnoses Date/Ti me LITHOTRIPSY EXTRACORPOREAL S HOCK WAVE Kidney stones 06/19/2023 7:45 AM EDT Health Maintenance Due Date Last Done Comments DTaP,Tdap,and Td Vaccines (1 - Tdap) 1959 Zoster Vaccines (1 of 2) 1989 Pneumococcal Vaccine: 65+ Years (2 - PCV) 07/26/2018 07/26/2017 COVID-19 Vaccine (4 - 2022- season) 2023 09/01/2021, 11/09/2020, 10/12/2020 Depression Screening 11/05/2023 11/04/2022 GFR 03/20/2024 03/20/2023, 0101/2023, 08/09/2022, Additional history exists Albumin/Creatinine Ratio 09/08/2025 09/08/2022 Influenza Vaccine (FLU shot) Completed 03/2023, 05/12/2022, 06/25/2021 GARDASIL-HPV IMMUNIZATION SERIES Aged Out No longer eligible based on patient's age to complete this topic Hepatitis B Aged Out No longer eligi ble based on patient's age to complete this topic MENINGOCOCCAL (MENACTRA/MENVEO) Aged Out No longer eligible based on patient's age to complete this topic documented as of this encounter Medical Devices Not on filedocumented as of this encounter Advance Directives Latest Code Status on File Code Status Date Activated Date Inactivated Comments Full Code 05/22/2023 12:29 PM 05/22/2023 6:02 PM This order reflects the patients wishes and were consensually agreed upon. Question Answer Comments Discussion of Advance Directives occurred with: Patient Code Status History Code Status Date Activated Date Inactivated Comments Full Code 05/22/2023 8:43 AM 05/22/2023 12:29 PM This order reflects the patients wishes and were consensually agreed upon. Question Answer Comments Discussion of Advance Directives occurred with: Patient Care Teams Vocational Director Relationship Specialty Start Date End Date Eugene Emmanuel MD [address] [place] [address] PCP - General Family Medicine 11/03/21 documented as of this encounter
--- OUTSIDE RECORDS SUMMARY | 2023-07-19 23:18 | External Medical Summary | Summary of Care ---
Author Name Unknown Organization [facility] Address [address] [facility] [place] [address] Phone [phone] Care Team Providers Care Dot Compliance Specialist Name Role Phone Eugene Paul MD Primary Care Provider [phone]- [phone] Reason for Visit * Reason Comments Post-Op Encounter Details Date Type Department Care Team Description 06/05/2023 Office Visit Urology Prieto Jimenez [address] [place] [id number] Morteza Donahue MD [address] [place] [address] Calculus of kidney*; Pre-op testing Allergies Active Allergy Reactions Severity Noted Date Comments Amlodipine Nausea/vomiting 08/31/2022 documented as of this encounter (statuses as of 06/05/2023) Medications Medication Sig Dispensed Refills Start Date End Date Status Metoprolol Tartrate 50 MG Oral Tablet (Lopressor) Take by mouth 1 Tablet in the morning. 90 Tablet 3 12/17/2021 Active Additional Information Patient not taking.Reported on 02/16/2023 Docusate Sodium 100 MG Oral Capsule Take 1 Capsule by mouth in the morning and 1 Capsule before bedtime. Reports he takes 2 pills at night . 0 Active Aspirin 81 MG Oral Tablet Chewable Take 1 Tablet by mouth in the morning. 0 Active B-12 1000 MCG Oral Tablet Take by mouth. 0 Active Vitamin Deficiency System-B12 1000 MCG/ML Injection Kit (Cyanocobalamin) Inject 1,000 mcg into a large muscle every 30 days. 0 Active Tamsulosin HCl 0.4 MG Oral [...] Active Ondansetron 4 MG Oral Tablet Disintegrating (Zofran)Indications: Nausea without vomiting Place 1 Tablet on tongue every 8 hours as needed for Nausea. dissolve on tongue. 20 Tablet 0 02/16/2023 Active Cholecalciferol 25 MCG (1000 UT) Oral Tablet Disintegrating Take 50 mcg by mouth every evening. 0 03/07/2023 Active Atorvastatin Calcium 40 MG Oral Tablet (Lipitor) Take 1 Tablet by mouth every evening. 0 03/07/2023 Active Sulfamethoxazole-Tri methoprim 800-160 MG Oral Tablet (Bactrim DS) Take 1 Tablet by mouth in the morning and 1 Tablet before bedtime. 8 Tablet 0 05/22/2023 Active oxyCODONE-Acetaminop hen 5-325 MG Oral Tablet (Percocet) Take 1 Tablet by mouth every 6 hours as needed for Pain, Severe. 16 Tablet 0 05/22/2023 Active documented as of this encounter (statuses as of 06/05/2023) Active Problems Problem Noted Date BPH with obstruction/lower urinary tract symptoms 04/20/2023 Calculus of kidney 04/20/2023 Middle cerebral aneurysm 06/05/2022 HTN, goal below 140/90 12/01/2021 Dyslipidemia 12/01/2021 Abdominal aortic aneurysm (AAA) without rupture 12/01/2021 Asymptomatic stenosis of left carotid ar stephanie 12/01/2021 Gastroesophageal reflux disease 12/02/19 22 documented as of this encounter (statuses as of 06/05/2023) Resolved Problems Problem Noted Date Resolved Date Abdominal aortic aneurysm without rupture 202209/08/2022 Constipation 06/13/2022 09/08/2022 Hyperthyroidism 12/01/2021 06/13/2022 documented as of this encounter (statuses as of 06/05/2023) Immunizations Name Administration Dates Next Due Pneumococcal Polysaccharide PPV23 (Pneumovax) Seasonal Influenza, Quad, Nasal (Flumist) 2020 Seasonal Influenza, Quadrivalent Hd (Fluzone Hd) 05/11/2023,05/12/2022 documented as of this encounter Social History [...] on file documented as of this encounter Progress Notes * Morteza Donahue MD - 06/05/2023 2:31 PM EDT [id number] PCP: EUGENE PAUL [place], [place] [id number] Roddy George is a 83 year old male, who presents for follow-up of his stone disease after ureteroscopic laser lithotripsy. Significant stone impaction inflammation was present, full stone could not be removed. KUB images from today are personally reviewed with patient. Patient's past notes reviewed. Patient is here today with family. Patient notes he is tolerating the stent quite well. BPH: Patient is being seen for BPH today. He has had the following symptoms: nocturia x 4-6 and frequency. Severity is moderate. He has tried tamsulosin Jun 2022. Switched to finasteride Sep 2022. He has previously had no surgery done. Problem has been present for years. Problem is getting worse. Urolithiasis: Patient is being seen for stone disease today This is their first stone. Severity is mild Problem is about the same. Patient has had the following imaging done: CT scan, KUB and renal US. In the past they have had left-sided ureteroscopy with laser lithotripsy May 2023 manage their stones. Stone composition is unknown. Previous evaluation was done by primary care physician. Presented to Urology June 2022: KUB March 2023: IMPRESSION Large 22 x 11 mm left ureteral calculus now projects at the sacral ala level, more distal than 09/16/2022. An ultrasound could be performed to evaluate for obstruction as clinically warranted. Renal ultrasound March 2023: IMPRESSION 1. Moderate left hydroureteronephrosis with a transitional point in the mid left ureter with a 0.8 x 2.2 cm calculus. 2. The 0.8 cm right renal calculus. 3. Fusiform dilatation of the mid abdominal aorta measuring 3.2 x 3.2 cm. Current Outpatient Medications Medication Sig Dispense Refill Metoprolol Tartrate 50 MG Oral Tablet (Lopressor) Take by mouth 1 Tablet in the morning. (Patient not taking: Reported on 02/16/2023) 90 Tablet 3 Docusate Sodium 100 MG Oral Capsule Take 1 Capsule by mouth in the morning and 1 Capsule before bedtime. Reports he takes 2 pills at night . Aspirin 81 MG Oral Tablet Chewable Take 1 Tablet by mouth in the morning. B-12 1000 MCG Oral Tablet Take by mouth. Vitamin Deficiency System-B12 1000 MCG/ML Injection Kit (Cyanocobalamin) Inject 1,000 mcg into a large muscle every 30 days. (Patient not taking: Reported on 11/04/2022) Tamsulosin HCl 0.4 MG Oral Capsule (Flomax) Take 1 Capsule by mouth in the morning. 90 Capsule 3 Metoprolol Succinate ER 50 MG Oral Tablet Extended Release 24 Hour (toPROL XL) Take 1 Tablet by mouth in the morning and 1 Tablet before bedtime. 180 Tablet 3 Omeprazole 20 MG Oral Capsule Delayed Release (PriLOSEC) TAKE 1 CAPSULE BY MOUTH EVERY DAY 90 Capsule 1 Ondansetron 4 MG Oral Tablet Disintegrating (Zofran) Place 1 Tablet on tongue every 8 hours as needed for Nausea. dissolve on tongue. 20 Tablet 0 Cholecalciferol 25 MCG (1000 UT) Oral Tablet Disintegrating Take 50 mcg by mouth every evening. Atorvastatin Calcium 40 MG Oral Tablet (Lipitor) Take 1 Tablet by mouth every evening. Sulfamethoxazole-Trimethoprim 800-160 MG Oral Tablet (Bactrim DS) Take 1 Tablet by mouth in the morning and 1 Tablet before bedtime. 8 Tablet 0 oxyCODONE-Acetaminophen 5-325 MG Oral Tablet (Percocet) Take 1 Tablet by mouth every 6 hours as needed for Pain, Severe. 16 Tablet 0 No current facility-administered medications for this visit. Review of patient's allergies indicates: Allergen Reactions Amlodipine Nausea/vomiting Social History: Social History Tobacco Use Smoking status: Former Smokeless tobacco: Never Substance Use Topics Alcohol use: Not Currently Vaping/E-Cigarette Use Vaping/E-Cigarette Substances Vaping/E-Cigarette Devices No family history on file. Past Surgical History: Procedure Laterality Date CYSTO/URETERO W/LITHOTRIPSY Left 05/22/2023 CYSTOURETHROSCOPY URETEROSCOPY WITH LITHOTRIPSY AND STENT INSERTION performed by Morteza Donahue MD at OR [facility] EGD, W/ENDOSCOPIC US 07/08/2022 mild inflammatory changes on bx / ESOPHAGOGASTRODUODENOSCOPY (EGD), FLEXIBLE, TRANSORAL, ENDOSCOPICULTRASOUND performed by Rigoberto Lee DO at ENDOSCOPY [facility] Past Medical History: Diagnosis Date HTN (hypertension) Patient Active Problem List Diagnosis Code HTN, goal below 140/90 I10 Dyslipidemia E78.5 Abdominal aortic aneurysm (AAA) without rupture (HCC) I71.40 Asymptomatic stenosis of left carotid artery I65.22 Gastroesophageal reflux disease K21.9 Middle cerebral aneurysm I67.1 BPH with obstruction/lower urinary tract symptoms N40.1, N13.8 Calculus of kidney N20.0 Constitutional: (-) fever and (-) chills Abdominal/GI: (-) diarrhea Male : See HPI Neurology: (-) negative: no focal neurologic defect Psychiatry: (-) negative: no depression or anxiety Physical Exam Nursing note reviewed. Constitutional: General: He is not in acute distress. Appearance: Normal appearance. He is not toxic-appearing. HENT: Head: Normocephalic and atraumatic. Right Ear: External ear normal. Left Ear: External ear normal. Nose: Nose normal. Mouth/Throat: Mouth: Mucous membranes are moist. Cardiovascular: Pulses: Normal pulses. Pulmonary: Effort: Pulmonary effort is normal. No respiratory distress. Abdominal: Palpations: Abdomen is soft. Tenderness: There is no abdominal tenderness. Musculoskeletal: Cervical back: Normal range of motion and neck supple. Lymphadenopathy: Cervical: No cervical adenopathy. Skin: Coloration: Skin is not cyanotic or pale. Neurological: Mental Status: He is alert and oriented to person, place, and time. Psychiatric: Attention and Perception: Attention normal. Mood and Affect: Mood and affect normal. Impression/Plan: 83-year-old male with impacted left ureteral stone, indwelling stent. Findings reviewed with patient. Will proceed with left-sided extracorporeal shockwave lithotripsy as previously planned. Risks and benefits reviewed. Hopefully, if this is successful, we can proceed with cystoscopy and stent removal in office if stone is adequately fragmented. Patient vocalizes good understanding of the treatment plan. Morteza Donahue MD 2:31 PM 06/05/2023 documented in this encounter Nursing Notes * Radha Trujillo LPN - 06/05/2023 2:09 PM EDT Chief Complaint Patient presents with Post-Op Pt presents for post op s/p cysto with lithotripsy and stent placement on 05/22/23, KUB completed. Pt states things are going well and he has no new concerns at this time. documented in this encounter Plan of Treatment Upcoming Encounters Date Type Specialty Care Team Description 06/19/2023 Hospital Encounter Surgery Morteza Donahue MD [address] [place] [address] 06/19/2023 Surgery Surgery Morteza Donahue MD [address] [place] [address] LEFT LITHOTRIPSY EXTRACORPOREAL SHOCK WAVE 06/26/2023 Procedure Only Urology Morteza Donahue MD [address] [place] [address] 07/05/2023 Imaging Radiology 11/10/2023 Office Visit Family Medicine Eugene Paul MD [address] [place] [address] Scheduled Orders Name Type Priority Associated Diagnoses Orde r Schedule CULTURE, URINE, QUANTITATIVE Lab Routine Calculus of kidney Pre-op testing Expected: 06/05/2023, Expires: 06/05/2024 URINALYSIS, REFLEX TO MICROSCOPIC Lab Routine Calculus of kidney Pre-op testing Expected: 06/05/2023, Expires: 06/05/2024 Scheduled Procedures Name Priority Associated Diagnoses Date/Ti me LITHOTRIPSY EXTRACORPOREAL S HOCK WAVE Kidney stones 06/19/2023 7:45 AM EDT Health Maintenance Due Date Last Done Comments DTaP,Tdap,and Td Vaccines (1 - Tdap) 1959 Zoster Vaccines (1 of 2) 1989 Pneumococcal Vaccine: 65+ Years (2 - PCV) 07/26/2018 07/26/2017 COVID-19 Vaccine (4 - Moderna series) 10/27/2021 09/01/2021, 11/09/2020, 10/12/2020 Depression Screening 11/05/2023 11/04/2022 GFR 03/20/2024 03/20/2023, 01/2023, 08/09/2022, Additional history exists Albumin/Creatinine Ratio 09/08/2025 [...] Not on filedocumented as of this encounter Visit Diagnoses Diagnosis Calculus of kidney- Primary Pre-op testing Preoperative examination, unspecified Kidney stones Calculus of kidney documented in this encounter Advance Directives Latest Code Status [...] Advance Directives occurred with: Patient Care Teams Dot Compliance Specialist Relationship Specialty Start Date End Date Eugene Paul MD [address] [place], [place] [id number] PCP - General Family Medicine 11/03/21 documented as of this encounter
--- OUTSIDE RECORDS SUMMARY | 2023-07-19 23:18 | External Medical Summary | Summary of Care ---
Author Name Unknown Organization [facility] Address [address] [place] [address] Phone [phone] Care Team Providers Care Brake Coupler Dinkey Name Role Phone Eugene Emmanuel MD Primary Care Provider +1- [phone] Reason for Visit * Reason Comments Outpatient Testing Encounter Details Date Type Department Care Team Description 06/12/2023 Laboratory Laboratory, [place] [address] [place] [address] [place], Laboratory [address] [place] [address] Calculus of kidney; Pre-op testing Allergies Active Allergy Reactions Severity Noted Date Comments Amlodipine Nausea/vomiting 08/31/2022 documented as of this encounter (statuses as of 06/12/2023) Medications Medication Sig Dispensed Refills Start Date [...] as of this encounter (statuses as of 06/12/2023) Active Problems Problem Noted Date BPH with obstruction/lower urinary tract symptoms 04/20/2023 Calculus of kidney 04/20/2023 Middle cerebral aneurysm 06/05/2022 HTN, goal below 140/90 12/01/2021 Dyslipidemia 12/01/2021 Abdominal aortic aneurysm (AAA) without rupture 12/01/2021 Asymptomatic stenosis of left carotid ar stephanie 12/01/2021 Gastroesophageal reflux disease 12/02/19 22 documented as of this encounter (statuses as of 06/12/2023) Resolved Problems Problem Noted Date Resolved Date Abdominal aortic aneurysm without rupture 202209/08/2022 Constipation 06/13/2022 09/08/2022 Hyperthyroidism 12/01/2021 06/13/2022 documented as of this encounter (statuses as of 06/12/2023) Immunizations Name Administration Dates Next Due Pneumococcal [...] on file documented as of this encounter Plan of Treatment Upcoming Encounters Date Type Specialty Care Team Description 06/19/2023 Hospital Encounter Surgery Morteza Donahue MD [address] [place] [id number] 06/19/2023 Surgery Surgery Morteza Donahue MD [address] [place] [id number] LEFT LITHOTRIPSY EXTRACORPOREAL SHOCK WAVE 06/26/2023 Procedure Only Urology Morteza Donahue MD [address] [place] [id number] 07/05/2023 Imaging Radiology 11/10/2023 Office Visit Family Medicine Eugene Emmanuel MD [facility] [place] [address] Pending Results Name Type Priority Associated Diagnoses Date /Time CULTURE, URINE, QUANTITATIVE Lab Routine Calculus of kidney Pre-op testing 06/12/2023 8:43 AM EDT URINALYSIS, REFLEX TO MICROSCOPIC Lab Routine Calculus of kidney Pre-op testing 06/12/2023 8:43 AM EDT Scheduled Procedures Name Priority Associated Diagnoses Date/Ti me LITHOTRIPSY EXTRACORPOREAL S HOCK WAVE Kidney stones 06/19/2023 7:45 AM EDT Health Maintenance Due Date Last Done Comments DTaP,Tdap,and Td Vaccines (1 - Tdap) 1959 Zoster Vaccines (1 of 2) 1989 Pneumococcal Vaccine: 65+ Years (2 - PCV) 07/26/2018 07/26/2017 COVID-19 Vaccine (4 - season) 2023 09/01/2021, 11/09/2020, 10/12/2020 Depression Screening [...] this encounter Visit Diagnoses Diagnosis Calculus of kidney Pre-op testing Preoperative examination, unspecified Kidney stones [...] Advance Directives occurred with: Patient Care Teams Brake Coupler Dinkey Relationship Specialty Start Date End Date Eugene Emmanuel MD [address] [place] [address] PCP - General Family Medicine 11/03/21 documented as of this encounter
--- OUTSIDE RECORDS SUMMARY | 2023-07-19 23:18 | External Medical Summary | Summary of Care ---
Author Name Unknown Organization [facility] Address [address] [place] [address] Phone [phone] Care Team Providers Care Well Servicing Rig Operator Name Role Phone Eugene Emmanuel MD Primary Care Provider +1- [phone] Reason for Visit * Reason Comments Outpatient Testing Encounter Details Date Type Department Care Team (Late st Contact Info) Description 07/10/2023 9:10 AM EST Laboratory Laboratory, [place] [address] [place] [facility] [place] [address] [place], [facility] [address] [facility] [place] [phone] Calculus of kidney Allergies Active Allergy Reactions Criticality Noted Date Comments Amlodipine Nausea/vomiting 08/31/2022 documented as of this encounter (statuses as of 07/10/2023) Medications Medication Sig Dispensed Refills Start Date [...] EVERY DAY 90 Capsule 1 02/13/2023 Active Cholecalciferol 25 MCG (1000 UT) Oral Tablet Disintegrating Take 50 mcg by mouth every evening. 0 03/07/2023 Active Atorvastatin Calcium 40 MG Oral Tablet (Lipitor) Take 1 Tablet by mouth every evening. 0 03/07/2023 Active Ondansetron 4 MG Oral Tablet Disintegrating (Zofran)Indications: Nausea without vomiting Place 1 Tablet on tongue every 8 hours as needed for Nausea. dissolve on tongue. 20 Tablet 0 06/19/2023 Active Additional Information Patient not taking.Reported on 06/26/2023 oxyCODONE-Acetaminop hen 5-325 MG Oral Tablet (Percocet) Take 1 Tablet by mouth every 6 hours as needed for Pain, Severe. 12 Tablet 0 06/19/2023 Active documented as of this encounter (statuses as of 07/10/2023) Active Problems Problem Noted Date Diagnosed Date BPH with obstruction/lower urinary tract symptom s 04/20/2023 Calculus of kidney 04/20/2023 Middle cerebral aneurysm 06/05/2022 HTN, goal below 140/90 12/01/2021 Dyslipidemia 12/01/2021 Abdominal aortic aneurysm (AAA) without rupture 12/01/2021 Asymptomatic stenosis of left carotid artery Gastroesophageal reflux disease 12/01/2021 documented as of this encounter (statuses as of 07/10/2023) Resolved Problems Problem Noted Date Diagnosed Date Resolved Date Abdominal aortic aneurysm without rupture 09/08/2022 09/08/2022 Constipation 06/13/2022 09/08/2022 Hyperthyroidism 12/01/2021 06/13/2022 documented as of this encounter (statuses as of 07/10/2023) Immunizations Name Administration Dates Next Due Pneumococcal Polysaccharide PPV23 (Pneumovax) Seasonal Influenza, Quad, Nasal (Flumist) 2020 Seasonal Influenza, Quadrivalent Hd (Fluzone Hd) 05/11/2023,05/12/2022 documented as of this encounter Social History Tobacco Use Types Packs/Day Years Used Date Smoking Tobacco: Former Smokeless Tobacco: Never Alcohol Use Standard Drinks/Week Comments Not Currently 0 (1 standard drink = 0.6 oz pur e alcohol) PHQ-2 Answer Date Recorded PHQ Adult Total Score 0 11/04/2022 Sex and Gender Information Value Date Recorded Sex Assigned at Not on file Gender Identity Not on file Sexual Orientation Straight 11/03/2021 9: 24 AM EST Job Start Date Occupation Industry Not on file Not on file Not on file documented as of this encounter Plan of Treatment Upcoming Encounters Date Type Department Care Team (Latest Contact Info) Description 07/17/2023 10:28 AM EST Hospital Encounter [facility] [address] [facility] [place] [phone] Morteza Donahue MD [address] [place] [address] 07/17/2023 10:28 AM EST - 07/17/2023 11:43 AM EST Surgery [facility], Operating Room [facility] [address] [facility] [place] [phone] Morteza Donahue MD [address] [place] [address] CYSTOURETHROSCOPY URETEROSCOPY WITH LITHOTRIPSY AND STENT INSERTION 07/31/2023 3:30 PM EST Procedure Only Urology, [facility] [address] [facility] [place] [address] Morteza Donahue MD [address] [place] [address] 11/10/2023 10:40 AM EST Office Visit [facility] [address] [place] [facility] [place] [id number] Eugene Emmanuel MD [address] [place] [facility] [place] [address] Pending Results Name Type Priority Associated Diagnoses Date /Time CULTURE, URINE, QUANTITATIVE Lab Routine Calculus of kidney 07/10/2023 9:23 AM EST Scheduled Procedures Name Priority Associated Diagnoses Date/Ti me CYSTOURETHROSCOPY URETEROSCO PY WITH LITHOTRIPSY AND STENT INSERTION Kidney stones 07/17/2023 10:28 AM EST Health Maintenance Due Date Last Done Comments [...] encounter Visit Diagnoses Diagnosis Calculus of kidney Kidney stones Calculus of kidney documented in this encounter Advance Directives Latest Code Status on File Code Status Date Activated Date Inactivated Comments Full Code 06/19/2023 9:03 AM 06/19/2023 2:19 PM Thi s order reflects the patients wishes and were consensually agreed upon. Question Answer Comments Discussion of Advance Directives occurred with: Patient Code Status History Code Status Date Activated Date Inactivated Comments Full Code 06/19/2023 6:29 AM 06/19/2023 9:03 AM Thi s order reflects the patients wishes and were consensually agreed upon. Question Answer Comments Discussion of Advance Directives occurred with: Patient Full Code 05/22/2023 12:29 PM 05/22/2023 6:02 PM This order reflects the patients wishes and were consensually agreed upon. Question Answer Comments Discussion of Advance Directives occurred with: Patient Full Code 05/22/2023 8:43 AM 05/22/2023 12:29 PM This order reflects the patients wishes and were consensually agreed upon. Question Answer Comments Discussion of Advance Directives occurred with: Patient Care Teams Well Servicing Rig Operator Relationship Specialty Start Date End Date Eugene Emmanuel MD [address] [facility] [place] [address] PCP - General Family Medicine 11/03/21 documented as of this encounter
--- OUTSIDE RECORDS SUMMARY | 2023-07-19 23:18 | External Medical Summary | Summary of Care ---
Author Name Unknown Organization [facility] Address [address] [place] [facility] [place] [place] [address] Phone [phone] Care Team Providers Care Systems Coordinator Name Role Phone Siena Paul MD Primary Care Provider [phone]- [phone] Reason for Visit * Auth/Cert Specialty Diagnoses / Procedures Referred By Contac t Referred To Contact Diagnoses Kidney stones Kidney stones [N20.0] Procedures FRAGMENT KIDNEY STONE BY SHOCK WAVE LEFT LITHOTRIPSY EXTRACORPOREAL SHOCK WAVE Referral ID Status Reason Start Date Expiration Date Visits Re quested Visits Authorized [id number] Encounter Details Date Type Department Care Team Description 06/19/2023 Hospital Encounter OR [facility], Operating Room [facility] [address] [facility] [place] [address] Morteza Donahue MD 27 [facility] [address] [place] [address] Allergies Active Allergy Reactions Severity Noted Date Comments Amlodipine Nausea/vomiting 08/31/2022 documented as of this encounter (statuses as of 06/19/2023) Medications Medication Sig Dispensed Refills Start Date [...] mouth in the morning. 90 Capsule 3 3 Active Metoprolol Succinate ER 50 MG Oral Tablet Extended Release 24 Hour (toPROL XL) Take 1 Tablet by mouth in the morning and 1 Tablet before bedtime. 180 Tablet 3 3 Active Omeprazole 20 MG Oral Capsule Delayed Release (PriLOSEC) TAKE 1 CAPSULE BY MOUTH EVERY DAY 90 Capsule 1 3 Active Cholecalciferol 25 MCG (1000 UT) Oral Tablet Disintegrating Take 50 mcg by mouth every evening. 0 3 Active Atorvastatin Calcium 40 MG Oral Tablet (Lipitor) Take 1 Tablet by mouth every evening. 0 3 Active Ondansetron 4 MG Oral Tablet Disintegrating (Zofran)Indications :Nausea without vomiting Place 1 Tablet on tongue every 8 hours as needed for Nausea. dissolve on tongue. 20 Tablet 0 3 Active oxyCODONE-Acetamino phen 5-325 MG Oral Tablet (Percocet) Take 1 Tablet by mouth every 6 hours as needed for Pain, Severe. 12 Tablet 0 3 Active Metoprolol Tartrate 50 MG Oral Tablet (Lopressor) Take by mouth 1 Tablet in the morning. 90 Tablet 3 2 06/14/20 23 Discontinued Vitamin Deficiency System-B12 1000 MCG/ML Injection Kit (Cyanocobalamin) Inject 1,000 mcg into a large muscle every 30 days. 0 06/14/20 23 Discontinued Ondansetron 4 MG Oral Tablet Disintegrating (Zofran)Indications :Nausea without vomiting Place 1 Tablet on tongue every 8 hours as needed for Nausea. dissolve on tongue. 20 Tablet 0 3 06/19/20 23 Discontinued(Ref ill) Sulfamethoxazole-Tr imethoprim 800-160 MG Oral Tablet (Bactrim DS) Take 1 Tablet by mouth in the morning and 1 Tablet before bedtime. 8 Tablet 0 3 06/14/20 23 Discontinued oxyCODONE-Acetamino phen 5-325 MG Oral Tablet (Percocet) Take 1 Tablet by mouth every 6 hours as needed for Pain, Severe. 16 Tablet 0 3 06/19/20 23 Discontinued(Ref ill) documented as of this encounter (statuses as of 06/19/2023) Active Problems Problem Noted Date BPH with obstruction/lower urinary tract symptoms 04/20/2023 Calculus of kidney 04/20/2023 Middle cerebral aneurysm 06/05/2022 HTN, goal below 140/90 12/01/2021 Dyslipidemia 12/01/2021 Abdominal aortic aneurysm (AAA) without rupture 12/01/2021 Asymptomatic stenosis of left carotid ar stephanie 12/01/2021 Gastroesophageal reflux disease 12/02/19 documented as of this encounter (statuses as of 06/19/2023) Resolved Problems Problem Noted Date Resolved Date Abdominal aortic aneurysm without rupture 202209/08/2022 Constipation 06/13/2022 09/08/2022 Hyperthyroidism 12/01/2021 06/13/2022 documented as of this encounter (statuses as of 06/19/2023) Immunizations Name Administration Dates Next Due Pneumococcal [...] on file documented as of this encounter Last Filed Vital Signs Vital Sign Reading Time Taken Comments Blood Pressure 158/49 06/19/2023 9:55 AM EDT Pulse 64 06/19/2023 9:55 AM EDT Temperature 36.2 C (97.1 F) 06/19/2023 9:40 AM ED T Respiratory Rate 20 06/19/2023 9:55 AM EDT Oxygen Saturation 94% 06/19/2023 9:55 AM EDT Inhaled Oxygen Concentration - - Weight 67.1 kg (148 lb) 06/19/2023 6:45 AM EDT Height 177.8 cm (5' 10") 06/19/2023 6:45 AM EDT Body Mass Index 21.24 06/19/2023 6:45 AM EDT documented in this encounter Discharge Instructions * Discharge Instr - AVS* Morteza Donahue MD - 06/19/2023 8:14 AM EDT Strain urine as instructed and bring stone fragments into your next office visit. KUB Xray before follow-up visit if ordered. Blood, grit and possible pain with stone passage is expected. Contact our office with any fevers, chills, nausea, vomiting or other postoperative difficulties. Contact our office if you are unsure of the time of your postoperative appointment. It is OK to shower and take a bath. No driving while taking pain medication or within 24 hours of anesthesia. documented in this encounter Progress Notes * Morteza oDnahue MD - 06/19/2023 10:19 AM EDT [address] [address] OUTPATIENT SURGERY DISCHARGE SUMMARY NOTE Name: Roddy George Location: OR [facility]/[place] Date: 06/19/2023 Time: 10:19 AM Surgery Date: 06/19/2023 Procedure: Procedure(s): LEFT LITHOTRIPSY EXTRACORPOREAL SHOCK WAVE Left Surgeon: Surgeon(s): MD Jessica Machado PA-C Discharge Diagnosis: Left ureteral stone status post shockwave lithotripsy After examination of this patient, I have determined he is ready for discharge to home when the patient meets criteria. Discharge instructions were given to the patient. documented in this encounter H&P Notes * Morteza Donahue MD - 06/19/2023 7:26 AM EDT HISTORY & PHYSICAL INTERVAL NOTE [address] [address] History and Physical Update: Name: Roddy George Location: OR [facility]/[place] Date: 06/19/2023 Time: 7:26 AM DATE OF HISTORY AND PHYSICAL: June 05, 2023 BP: 181 mmHg/68 mmHg (06/19/23644) Pulse: 71 (06/19/23644) Temp: 36.33 C (06/19/23644) Resp: 20 (06/19/23644) SpO2: 94 % (06/19/23644) Does patient take a beta alivia? Metoprolol Did patient stop anticoagulants? Yes, Aspirin Heart Exam: regular rate and rhythm Lung Exam: clear to auscultation bilaterally Other Pertinent Physical Exam: Abdomen benign I have reviewed the H&P previously performed and examined the patient today. There are no new findings noted. * Morteza Donahue MD - 06/19/2023 7:09 AM EDT Images from the original note were not included. GENERAL HISTORY & PHYSICAL EXAMINATION - Urology Service [facility] [address] [address] Name: Roddy George Location: OR [facility]/[place] Date: 06/19/2023 Time: 7:10 AM Date of H&P June 05, 2023: [id number] PCP: [place] [address] Roddy George is a 83 year old [...] performed by Morteza Donahue MD at OR [facility] EGD, W/ENDOSCOPIC US 07/08/2022 mild inflammatory changes on bx / ESOPHAGOGASTRODUODENOSCOPY (EGD), FLEXIBLE, TRANSORAL, ENDOSCOPICULTRASOUND performed by Rigoberto Lee DO at ENDOSCOPY [facility] Past Medical History: Diagnosis Date HTN [...] documented in this encounter Nursing Notes * Eliana Pacheco RN - 06/19/2023 10:16 AM EDT Vs stable. Reports pain at 0/10 on pain scale, tolerable. Denies nausea and tolerating PO intake. Son at bedside and verbalized understanding of all discharge directions. Patient stable for dischargeto home. Pt voided upon discharge. Pt provided with a urinal, strainer, and cup to collect any grit/ stones. Ambulated to private auto with staff presence. * Eliana Pacheco RN - 06/19/2023 9:40 AM EDT Patient transferred to pacu 2 status post left lithotripsy. Patient awake. Denies pain and nausea. Respirations are even and unlabored on room air. Abdomen soft and non distended. Vital signs stable. * Martita Hector RN - 06/19/2023 9:36 AM EDT Pt meets d'c criteria for PACU 1 * Martita Hector RN - 06/19/2023 9:31 AM EDT Pt using incentive spirometer. Pt claudia po ice chips. * Martita Hector RN - 06/19/2023 9:17 AM EDT Pt oxygen decreased and sat remaining 100% * Martita Hector RN - 06/19/2023 9:00 AM EDT Patient received to pacu 1 status post lithotripsy . Patient able to rouse. no pain. no nausea. Respirations are even and unlabored on 6l/min. Lungs clear. NSR on monitor. Abdomen soft and non distended. Vital signs stable. * Yanelis Martinez RN - 06/19/2023 8:48 AM EDT Small area of petechiae noted on left flank at end of procedure, approximate size of dime. * Luisa Cheney RN - 06/19/2023 6:50 AM EDT Surgical consent verified with patient. Patient agrees with listed procedure and verified signature. documented in this encounter OR Notes * OR Surgeon - Morteza Donahue MD - 06/19/2023 9:03 AM EDT [facility] [address] [place] [address] OPERATIVE REPORT Name: Roddy George Date: 06/19/2023 Time: 9:04 AM Location: OR [facility] Service: Urology Date of Operation: 06/19/2023 Pre-op Diagnosis: 1.9 x 1.2 cm left midureter stone. Post-op Diagnosis: Same Surgeon: Morteza Donahue MD Assistants: None. Anesthesia: general anesthesia with laryngeal mask Operation: left extracorporeal shockwave lithotripsy. Findings: Good stone fragmentation noted on intraoperative fluoroscopy. Specimen and Disposition: None, patient stable. Estimated Blood Loss: Minimal. Fluids: <1000 cc. Urine Output: Not measured. Drains/Implants: Indwelling stent in place. Complications: None. Postoperative Condition: Stable. Indications and History: Patient is pleasant 83-year-old male with a longstanding history of left ureteral stone disease status post ureteroscopy with residual stones secondary to difficulties with intraureteral maneuvering.Patient is here today for shockwave lithotripsy to manage his residual stone disease. After discussion of risks and benefits of various forms of management patient has decided upon shockwave lithotripsy to manage their disease. Perioperative Ancef provided for antibiotic coverage and SCDs used for DVT prophylaxis. Please see H&P and outpatient notes for further details. IV Ancef provided for antibiotic coverage. Description of Operation: Patient was properly identified and brought into the operative suite after identification of appropriate consent in the chart. general anesthesia with laryngeal mask was initiated and patient was prepped and draped in the standard fashion for this procedure. key operator-out procedure was followed. Stone was localized in 2 planes using judicious fluoroscopic imaging throughout the procedure. Using the Dornier Delta III appropriate shockwave therapy of rising amplitude was initiated. This was continued for a total of 3000 shocks with good stone fragmentation being noted. Patient tolerated the procedure well without difficulties and remained stable throughout the case. After completion anesthesia was reversed and patient was transferred to the recovery room in stable condition. Postoperative Care: Patient will be discharged home with following prescriptions: Percocet and Zofran. Outpatient follow-up was confirmed. Patient is instructed to contact our office with any fevers, chills, nausea, vomiting or other postoperative concerns. Attestation: Morteza Donahue MD performed the case. documented in this encounter Plan of Treatment Upcoming Encounters Date Type Specialty Care Team Description 06/26/2023 Procedure Only Urology Morteza Donahue MD 27 [facility] [place] [address] [place] [address] 07/05/2023 Imaging Radiology 11/10/2023 Office Visit Family Medicine Siena Paul MD [address] [place] [address] Scheduled Orders Name Type Priority Associated Diagnoses Orde r Schedule XR ABDOMEN 3 OR MORE VIEWS Medical Imaging Routine Calculus of kidney Ordered: 06/19/2023 Scheduled Procedures Name Priority Associated Diagnoses Date/Ti me LITHOTRIPSY EXTRACORPOREAL S HOCK WAVE Kidney stones 06/19/2023 7:10 AM EDT Health Maintenance Due Date Last [...] Visit Diagnoses Diagnosis Calculus of kidney- Primary Nausea without vomiting documented in this encounter Administered Medications Inactive Administered Medications - up to 3 most recent administrations Medication Order MAR Action Action Date Dose Rate Site Acetaminophen (Tylenol) tab 650 mg 650 mg, Oral, PRN Pain, Mild, Starting on Mon06/19/23 at 0942, Until Mon06/19/23 at 1419, For 1 dose, Maximum of 4 grams (4000 mg) per day., Post-op ceFAZolin in dextrose (Ancef) ivpb 2 g 2 g, IV Piggyback, PREOP, 1 dose, First dose on Mon06/19/23 at 0700, Administer 60 minutes prior to skin incision, Pre-Op New Bag 06/19/2023 7:38 AM EDT 2 g 100 mL/hr dexAMETHasone Sodium Phosphate (Decadron) 4 MG/ML inj 4 mg 4 mg, IV Push, PRN Nausea, Starting on Mon06/19/23 at 0903, Until Mon06/19/23 at 1419, For 1 dose, PROTECT FROM LIGHT, PACU fentaNYL (PF) inj 25 mcg 25 mcg, IV Push, PRN Pain, Severe, Starting on Mon06/19/23 at 0903, Until Mon06/19/23 at 1419, For 6 doses, When given IV Push its recommended that the dose be given over 3 to 5 minutes. , PACU isolyte-S pH 7.4 infusion Intravenous, Plasma-LYTE 148, isolyte-S, and isolyte-S pH 7.4 are considered equivalent - including for MAR barcode scanning., CONTINUOUS, Starting on Mon06/19/23 at 0700, Until Mon06/19/23 at 1419, Pre-Op Restarted 06/19/2023 8:41 AM EDT Continue from Pre-Op 06/19/2023 7:45 AM EDT 100 mL/hr New Bag 06/19/2023 6:51 AM EDT 1,000 mL 100 mL/hr ondansetron (Zofran) inj 4 mg 4 mg, IV Push, PRN Nausea, Starting on Mon06/19/23 at 0903, Until Mon06/19/23 at 1419, For 1 dose, PACU documented in this encounter Active and Recently Administered Medications Times are shown in EDT. Scheduled Medication Order 06/17/2023 06/18/2023 06/19/2023 Acetaminophen (Ofirmev) inj 1,000 mg (COMPLETED) 1,000 mg, Intravenous, PREOP, 1 dose, First dose on Mon06/19/23 at 0700, Administer over 15 Minutes, Administer undiluted over 15 minutes! NOTE: Maximum of 4000 mg per 24 hours of acetaminophen from all acetaminophen containing products., Pre-Op, Indication: Patient is strictly NPO 0802 (Given - Provid er: Gwendolyn Gutierrez CRNA) ceFAZolin in dextrose (Ancef) ivpb 2 g (COMPLETED) 2 g, IV Piggyback, PREOP, 1 dose, First dose on Mon06/19/23 at 0700, Administer 60 minutes prior to skin incision, Pre-Op 0738 (New Bag - Prov ider: Luisa Cheney RN) Pneumococcal 20-Savana Conj Vacc (Prevnar 20) inj 0.5 mL 0.5 mL, Intramuscular, ONCE, On Mon06/19/23 at 0945, For 1 dose, Add Lot# and Inward Toll Operator in Immunization Info section of MAR, Post-op 0945 (Due) Continuous Medication Order 06/17/2023 06/18/2023 06/19/2023 isolyte-S pH 7.4 infusion Intravenous, Plasma-LYTE 148, isolyte-S, and isolyte-S pH 7.4 are considered equivalent - including for MAR barcode scanning., CONTINUOUS, Starting on Mon06/19/23 at 0700, Until Mon06/19/23 at 1419, Pre-Op 0651 (New Bag - Prov ider: Luisa Cheney RN)0745 (Continue from Pre-Op - Provider: Gwendolyn Gutierrez CRNA)0840 (Paused - Provider: Gwendolyn Gutierrez CRNA - Comment: Switch to gravity)0841 (Restarted - Provider: Gwendolyn Gutierrez CRNA) isolyte-S pH 7.4 infusion Intravenous, at 100 mL/hr, For Periop use. Plasma-LYTE 148, isolyte-S, and isolyte-S pH 7.4 are considered equivalent - including for MAR barcode scanning., CONTINUOUS, Starting on Mon06/19/23 at 0945, Until Mon06/19/23 at 1344, Post-op 0945 (Due) PRN Medication Order 06/17/2023 06/18/2023 06/19/2023 Acetaminophen (Tylenol) tab 650 mg 650 mg, Oral, PRN Pain, Mild, Starting on Mon06/19/23 at 0942, Until Mon06/19/23 at 1419, For 1 dose, Maximum of 4 grams (4000 mg) per day., Post-op dexAMETHasone Sodium Phosphate (Decadron) 4 MG/ML inj 4 mg 4 mg, IV Push, PRN Nausea, Starting on Mon06/19/23 at 0903, Until Mon06/19/23 at 1419, For 1 dose, PROTECT FROM LIGHT, PACU fentaNYL (PF) inj 25 mcg 25 mcg, IV Push, PRN Pain, Severe, Starting on Mon06/19/23 at 0903, Until Mon06/19/23 at 1419, For 6 doses, When given IV Push its recommended that the dose be given over 3 to 5 minutes. , PACU HYDROmorphone (Dilaudid) inj 1 mg 1 mg, IV Push, Q3H PRN Pain, Severe, Starting on Mon06/19/23 at 0900, Until Mon06/19/23 at 1419, Post-op ondansetron (Zofran) inj 4 mg 4 mg, IV Push, PRN Nausea, Starting on Mon06/19/23 at 0903, Until Mon06/19/23 at 1419, For 1 dose, PACU oxyCODONE-acetaminophen 5-325 mg per tab (Percocet) 1 Tablet 1 Tablet, Oral, Q4H PRN Pain, Moderate, Starting on Mon06/19/23 at 0900, Until Mon06/19/23 at 1419, Maximum of 4 grams (4000 mg) of acetaminophen per day, Post-op documented in this encounter Advance Directives Latest [...] Advance Directives occurred with: Patient Care Teams Systems Coordinator Relationship Specialty Start Date End Date Siena Paul MD [address] [place] [address] PCP - General Family Medicine 11/03/21 documented as of this encounter
--- OUTSIDE RECORDS SUMMARY | 2023-07-19 23:18 | External Medical Summary | Summary of Care ---
Author Name Unknown Organization [facility] Address [address] [address] Phone [phone] Care Team Providers Care Restaurant Crew Member Name Role Phone Eugene Emmanuel MD Primary Care Provider +1- [phone] Encounter Details Date Type Department Care Team Description 06/05/2023 Telephone Urology Prieto Jimenez [address] [address] [place] [address] Morteza Donahue MD [address] [place] [address] [place] [address] Allergies Active Allergy Reactions Severity Noted Date [...] encounter Miscellaneous Notes * Telephone Encounter - Jammie Nguyễn LPN - 06/05/2023 11:18 AM EDT Called and spoke with patient's . She's aware. Will have her son bring patient early so they can go to [facility] prior for KUB. * Telephone Encounter - Jammie Nguyễn LPN - 06/05/2023 11:18 AM EDT ----- Message from Morteza Donahue MD sent at 06/05/2023 11:13 AM EDT ----- Order placed, x, ----- Message ----- From: Jammie Nguyễn LPN Sent: 06/05/2023 10:34 AM EDT To: Morteza Donahue MD Patient has post op appointment today, supposed to have KUB prior. No KUB order, please place and Iwill call patient to remind him to complete prior. documented in this encounter Plan of Treatment Upcoming Encounters Date Type Specialty Care Team Description 06/05/2023 Office Visit Urology Morteza Donahue MD [address] [place] [address] 06/19/2023 Hospital Encounter Surgery Morteza Donahue MD [address] [place] [address] 06/19/2023 Surgery Surgery Morteza Donahue MD [address] [place] [address] [place] [address] LEFT LITHOTRIPSY EXTRACORPOREAL SHOCK WAVE 06/26/2023 Procedure Only Urology Morteza Donahue MD [address] [place] [address] [place] [address] 07/05/2023 Imaging Radiology 11/10/2023 Office Visit Family Medicine Eugene Emmanuel MD [address] [place] [address] Scheduled Procedures Name Priority Associated Diagnoses Date/Ti [...] Advance Directives occurred with: Patient Care Teams Restaurant Crew Member Relationship Specialty Start Date End Date Eugene Emmanuel MD [address] [place] [address] PCP - General Family Medicine 11/03/21 documented as of this encounter
--- OUTSIDE RECORDS SUMMARY | 2023-07-19 23:18 | External Medical Summary ---
Author Name Unknown Address Unknown Organization [id number]:LAB[facility]ATORY [facility] [place] - [address] [place] [id number] Laboratory Report Ordering Provider Test Date Status POLINARUTHANN 05/25/2023 08:41:04 Final Observation Date Value Abnormality Reference (Units) Status Bacteria identified in Specimen by Culture 05/25/2023 08:41:04 No significant growth Final Test: Culture, Urine, Quanti tative
Specimen Source: Urine, Clean Catch
Specimen Type: Urine
Specimen Date: 05/25/2023 8:41 AM
Result Date: 05/26/2023 12:00 PM
Result Status: Final result
Resulting Lab: [facility]
[address]
[facility] [address]

CULTURE

No significant growth

null Performing Location LAB[facility]ATORY [facility] - [address] [facility] [address]
--- OUTSIDE RECORDS SUMMARY | 2023-07-19 23:18 | External Medical Summary ---
Author Name Unknown Address Unknown Organization K01[place] [address] [facility] [address] Laboratory Report Ordering Provider Test Date Status RUTHANN FISH 06/12/2023 08:43:49 Final Observation Date Value Abnormality Reference (Units ) Status Color of Urine by Auto 06/12/2023 08:43:49 Light Yellow Colorless, Light Yellow, Yellow, Dark Yellow Final Clarity, Urine 06/12/2023 08:43:49 Clear Clear Final Glucose [Mass/volume] in Urine by Automated test strip 06/12/2023 08:43:49 Negative Negative (mg/dL) Final Bilirubin.total [Presence] in Urine by Automated test strip 06/12/2023 08:43:49 Negative Negative Final Ketones [Mass/volume] in Urine by Automated test strip 06/12/2023 08:43:49 Negative Negative (mg/dL) Final Specific gravity, Urine 06/12/2023 08:43:49 1.011 1.003-1.030 Final Hemoglobin [Presence] in Urine by Automated test strip 06/12/2023 08:43:49 Small Abnormal Negative Final pH, Urine 06/12/2023 08:43:49 7.0 5.0-7.5 (Units) Final Protein [Mass/volume] in Urine by Automated test strip 06/12/2023 08:43:49 30 Abnormal Negative (mg/dL) Final Urobilinogen [Mass/volume] in Urine by Automated test strip 06/12/2023 08:43:49 Normal Normal (mg/dL) Final Nitrite [Presence] in Urine by Automated test strip 06/12/2023 08:43:49 Negative Negative Final Leukocyte esterase [Presence] in Urine by Automated test strip 06/12/2023 08:43:49 Moderate Abnormal Negative Final RBC, Urine 06/12/2023 08:43:49 3-5 Abnormal 0-2 (/HPF) Final WBC, Urine 06/12/2023 08:43:49 10-19 Abnormal 0-2 (/HPF) Final Bacteria [#/area] in Urine sediment by Microscopy high power field 06/12/2023 08:43:49 26-50 Abnormal 0-25 (/HPF) Final Hyaline casts, Urine 06/12/2023 08:43:49 1-4 Abnormal None (/LPF) Final Transitional cells [#/area] in Urine sediment by Microscopy high power field 06/12/2023 08:43:49 1-4 Abnormal None (/HPF) Final Performing Location [facility] [place] [address] [facility] [address]
--- OUTSIDE RECORDS SUMMARY | 2023-07-19 23:18 | External Medical Summary | Summary of Care ---
Author Name Unknown Organization [facility] Address [address] [facility] [place] [address] Phone [phone] Care Team Providers Care Gear Hobber Name Role Phone Eugene mEmanuel MD Primary Care Provider +1- [phone] Encounter Details Date Type Department Care Team Description 05/23/2023 Telephone Urology Prieto Jimenez [address] [place] [address] Morteza Donahue MD [address] [place] [address] Allergies Active Allergy Reactions Severity Noted Date Comments Amlodipine Nausea/vomiting 08/31/2022 documented as of this encounter (statuses as of 05/24/2023) Medications Medication Sig Dispensed Refills Start Date [...] as of this encounter (statuses as of 05/24/2023) Active Problems Problem Noted Date BPH with obstruction/lower urinary tract symptoms 04/20/2023 Calculus of kidney 04/20/2023 Middle cerebral aneurysm 06/05/2022 HTN, goal below 140/90 12/01/2021 Dyslipidemia 12/01/2021 Abdominal aortic aneurysm (AAA) without rupture 12/01/2021 Asymptomatic stenosis of left carotid ar stephanie 12/01/2021 Gastroesophageal reflux disease 12/02/19 22 documented as of this encounter (statuses as of 05/24/2023) Resolved Problems Problem Noted Date Resolved Date Abdominal aortic aneurysm without rupture 202209/08/2022 Constipation 06/13/2022 09/08/2022 Hyperthyroidism 12/01/2021 06/13/2022 documented as of this encounter (statuses as of 05/24/2023) Immunizations Name Administration Dates Next Due Pneumococcal [...] encounter Miscellaneous Notes * Telephone Encounter - Kristie Lizama LPN - 05/24/2023 10:16 AM EDT I spoke with the patients and she states the patient is straining to urinate, he does have some blood in urine and passed "something" yesterday. He is drinking 2 glasses of water a day. The patient denied fever, chills, pain, n/v/d. He was advised to increase his water intake to about 8 glasses of water daily. If symptoms continue patient will call with further concerns. FYI * Telephone Encounter - ARTIS Garcia - 05/23/2023 1:52 PM EDT called back and said patient's urine is trickling out post surgery. * Telephone Encounter - ARTIS Bustamante - 05/23/2023 10:08 AM EDT Patient's called in and stated that patient is having bowel issues post surgery. Please call patient back. documented in this encounter Plan of Treatment Upcoming Encounters Date Type Specialty Care Team Description 06/05/2023 Office Visit Urology Morteza Donahue MD [address] [facility] [address] [place] [address] 06/19/2023 Hospital Encounter Surgery Morteza Donahue MD [address] [place] [address] [place] [address] 06/19/2023 Surgery Surgery Morteza Donahue MD [address] [place] [address] [place] [address] LEFT LITHOTRIPSY EXTRACORPOREAL SHOCK WAVE 06/26/2023 Procedure Only Urology Morteza Donahue MD [address] [place] [address] [place] [address] 07/05/2023 Imaging Radiology 11/10/2023 Office Visit Family Medicine Eugene Emmanuel MD [address] [place] [address] Scheduled Procedures Name Priority Associated Diagnoses Date/Ti [...] Depression Screening 11/05/2023 11/04/2022 GFR 03/20/2024 03/20/2023, 01/0 01/2023, 08/09/2022, Additional history exists Albumin/Creatinine Ratio [...] Advance Directives occurred with: Patient Care Teams Gear Hobber Relationship Specialty Start Date End Date Eugene Emmanuel MD [address] [place] [address] PCP - General Family Medicine 11/03/21 documented as of this encounter
--- OUTSIDE RECORDS SUMMARY | 2023-07-19 23:18 | External Medical Summary | Summary of Care ---
Author Name Unknown Organization [facility] Address [address] [facility] [place] [address] Phone [phone] Care Team Providers Care Oilseed Meat Presser Name Role Phone Eugene Emmanuel MD Primary Care Provider +1- [phone] Encounter Details Date Type Department Care Team Description 05/25/2023 Nurse Only Urology, [facility] [address] [facility] [place] [address] [facility] Nurse Urology [facility] [address] [facility] [place] [address] Arrived Allergies Active Allergy Reactions Severity Noted Date Comments Amlodipine Nausea/vomiting 08/31/2022 documented as of this encounter (statuses as of 05/25/2023) Medications Medication Sig Dispensed Refills Start Date [...] as of this encounter (statuses as of 05/25/2023) Active Problems Problem Noted Date BPH with obstruction/lower urinary tract symptoms 04/20/2023 Calculus of kidney 04/20/2023 Middle cerebral aneurysm 06/05/2022 HTN, goal below 140/90 12/01/2021 Dyslipidemia 12/01/2021 Abdominal aortic aneurysm (AAA) without rupture 12/01/2021 Asymptomatic stenosis of left carotid ar stephanie 12/01/2021 Gastroesophageal reflux disease 12/02/19 22 documented as of this encounter (statuses as of 05/25/2023) Resolved Problems Problem Noted Date Resolved Date Abdominal aortic aneurysm without rupture 202209/08/2022 Constipation 06/13/2022 09/08/2022 Hyperthyroidism 12/01/2021 06/13/2022 documented as of this encounter (statuses as of 05/25/2023) Immunizations Name Administration Dates Next Due Pneumococcal [...] on file documented as of this encounter Nursing Notes * Mari Hansen LPN - 05/25/2023 8:35 AM EDT PVR 137 mL. Urine sample given for culture. Feeling better since increasing fluids. Encouraged to maintain higher fluid intake, aiming for at least 8 glasses of water per day. documented in this encounter Plan of Treatment Upcoming Encounters Date Type Specialty Care Team Description 06/05/2023 Office Visit Urology Morteza Donahue MD [address] [place] [address] [place] [address] 06/19/2023 Hospital Encounter Surgery Morteza Donahue MD [address] [place] [address] [place] [address] 06/19/2023 Surgery Surgery Morteza Donahue MD [address] [place] [address] [place] [address] LEFT LITHOTRIPSY EXTRACORPOREAL SHOCK WAVE 06/26/2023 Procedure Only Urology Morteza Donahue MD [address] [address] [place] [address] 07/05/2023 Imaging Radiology 11/10/2023 Office Visit Family Medicine Eugene Emmanuel MD [place] [address] Scheduled Orders Name Type Priority Associated Diagnoses Orde r Schedule CULTURE, URINE, QUANTITATIVE Lab Routine Calculus of kidney Expected: 05/25/2023, Expires: 05/25/2024 Scheduled Procedures Name Priority Associated Diagnoses Date/Ti [...] Visit Diagnoses Diagnosis Calculus of kidney- Primary Kidney stones Calculus of kidney documented in [...] Advance Directives occurred with: Patient Care Teams Oilseed Meat Presser Relationship Specialty Start Date End Date Oesterling, Eugene R, MD [address] [place], [place] [id number] PCP - General Family Medicine 11/03/21 documented as of this encounter
--- OUTSIDE RECORDS SUMMARY | 2023-07-19 23:18 | External Medical Summary | Summary of Care ---
Author Name Unknown Organization [facility] Address [address] [facility] [address] Phone [phone] Care Team Providers Care Computer Science Intern Name Role Phone Eugene Emmanuel MD Primary Care Provider +1- [phone] Encounter Details Date Type Department Care Team [...] encounter Miscellaneous Notes * Telephone Encounter - Mari Hansen LPN - 05/25/2023 8:31 AM EDT PVR 137 mL, urine culture given. Dr Donahue made aware via tiger text. Pt has increased fluid intake, feeling better. Encouraged to push fluids, avoid caffeine. * Telephone Encounter - Morteza Donahue MD - 05/24/2023 2:54 PM EDT Patient should come in for PVR to make sure he is emptying his bladder or proceed to ER if he cannot pee, not rare for patient to go into retention after ureteroscopy when elderly with BPH. Make surethe patient is taking his tamsulosin. Thanks, HM * Telephone Encounter - Kristie Lizama LPN [...] [address] [place] [address] [place] [address] 06/19/2023 Hospital Encounter Surgery Morteza Donahue MD [address] [place] [address] [place] [address] 06/19/2023 Surgery Surgery Morteza Donahue MD [address] [place] [address] [place] [address] LEFT LITHOTRIPSY EXTRACORPOREAL SHOCK WAVE 06/26/2023 Procedure Only Urology Morteza Donahue MD [address] [place] [address] [place] [address] 07/05/2023 Imaging Radiology 11/10/2023 Office Visit Family Medicine Eugene Emmanuel MD [address] [place] [address] Scheduled Procedures Name Priority Associated Diagnoses Date/Ti [...] Depression Screening 11/05/2023 11/04/2022 GFR 03/20/2024 03/20/2023, 01/01/2023, 08/09/2022, Additional history exists Albumin/Creatinine Ratio 09/08/2025 [...] Advance Directives occurred with: Patient Care Teams Computer Science Intern Relationship Specialty Start Date End Date Eugene Emmanuel MD [address] [place] [address] PCP - General Family Medicine 11/03/21 documented as of this encounter
--- OUTSIDE RECORDS SUMMARY | 2023-07-19 23:18 | External Medical Summary | Summary of Care ---
Author Name Unknown Organization [facility] Address [address] [facility] [place] [address] Phone [phone] Care Team Providers Care Roving Hand Name Role Phone Eugene Emmanuel MD Primary Care Provider +1- [phone] Encounter Details Date Type Department Care Team Description 05/25/2023 Nurse Only Urology, [facility] [address] [facility] [place] [address] [facility] Nurse Urology [facility] [address] [place] [address] Arrived Allergies Active Allergy Reactions Severity Noted [...] [address] [place] [address] [place] [address] 06/19/2023 Hospital Encounter Surgery Morteza Donahue MD [address] [place] [address] [place] [address] 06/19/2023 Surgery Surgery Morteza Donahue MD [address] [place] [address] [place] [address] LEFT LITHOTRIPSY EXTRACORPOREAL SHOCK WAVE 06/26/2023 Procedure Only Urology Morteza Donahue MD [address] [place] [address] [place] [address] 07/05/2023 Imaging Radiology 11/10/2023 Office Visit Family Medicine Eugene Emmanuel MD [facility] [place] [address] Scheduled Orders Name Type Priority Associated Diagnoses [...] Advance Directives occurred with: Patient Care Teams Roving Hand Relationship Specialty Start Date End Date Oesterling, Eugene R, MD [address] [place], [place] [phone] PCP - General Family Medicine 11/03/21 documented as of this encounter
--- OUTSIDE RECORDS SUMMARY | 2023-07-19 23:18 | External Medical Summary | Summary of Care ---
Author Name Unknown Organization [facility] Address [address] [place] [address] Phone [phone] Care Team Providers Care Director Of Individual Giving Name Role Phone Eugene Emmanuel MD Primary Care Provider +1- [phone] Reason for Visit * Reason Onset Date Comments Advice 06/21/2023 Encounter Details Date Type Department Care Team Description 06/21/2023 Telephone Urology [facility] [address] [place] [address] Services, Scheduling [address] [place] [address] Advice Allergies Active Allergy Reactions Severity Noted Date Comments Amlodipine Nausea/vomiting 08/31/2022 documented as of this encounter (statuses as of 06/21/2023) Medications Medication Sig Dispensed Refills Start Date [...] on tongue. 20 Tablet 0 06/19/2023 Active oxyCODONE-Acetaminophe n 5-325 MG Oral Tablet (Percocet) Take 1 Tablet by mouth every 6 hours as needed for Pain, Severe. 12 Tablet 0 06/19/2023 Active documented as of this encounter (statuses as of 06/21/2023) Active Problems Problem Noted Date BPH with obstruction/lower urinary tract symptoms 04/20/2023 Calculus of kidney 04/20/2023 Middle cerebral aneurysm 06/05/2022 HTN, goal below 140/90 12/01/2021 Dyslipidemia 12/01/2021 Abdominal aortic aneurysm (AAA) without rupture 12/01/2021 Asymptomatic stenosis of left carotid ar stephanie 12/01/2021 Gastroesophageal reflux disease 12/02/19 22 documented as of this encounter (statuses as of 06/21/2023) Resolved Problems Problem Noted Date Resolved Date Abdominal aortic aneurysm without rupture 202209/08/2022 Constipation 06/13/2022 09/08/2022 Hyperthyroidism 12/01/2021 06/13/2022 documented as of this encounter (statuses as of 06/21/2023) Immunizations Name Administration Dates Next Due Pneumococcal [...] Telephone Encounter - Kristie Lizama LPN - 06/21/2023 10:25 AM EDT Patient aware, will come 30 minutes prior on Monday for KUB. * Telephone Encounter - ARTIS Sharp - 06/21/2023 9:44 AM EDT Patient's calling to ask if patient needs to get an xray done prior to coming in in on Monday06/26/23. documented in this encounter Plan of Treatment Upcoming Encounters Date Type Specialty Care Team Description 06/26/2023 Procedure Only Urology Morteza Donahue MD [address] [facility] [address] [place] [address] 07/05/2023 Imaging Radiology 11/10/2023 Office Visit Family Medicine Eugene Emmanuel MD [address] [place] [address] Health Maintenance Due Date Last Done Comments DTaP,Tdap,and Td Vaccines (1 - Tdap) 1959 Zoster Vaccines (1 of 2) 1989 Pneumococcal Vaccine: 65+ Years (2 - PCV) 07/26/2018 07/26/2017 COVID-19 Vaccine (4 - 2022-24 season) 2023 09/01/2021, 11/09/2020, 10/12/2020 Depression Screening [...] Advance Directives occurred with: Patient Care Teams Director Of Individual Giving Relationship Specialty Start Date End Date Eugene Emmanuel MD [address] [place] [address] PCP - General Family Medicine 11/03/21 documented as of this encounter
--- OUTSIDE RECORDS SUMMARY | 2023-07-19 23:18 | External Medical Summary | Summary of Care ---
Author Name Unknown Organization [facility] Address [address] [facility] [place] [address] Phone [phone] Care Team Providers Care Yard Worker Name Role Phone Eugene Emmanuel MD Primary Care Provider +1- [phone] Encounter Details Date Type Department Care Team (Late st Contact Info) Description 07/10/2023 Orders Only Urology, [facility] [address] [facility] [place] [address] Morteza Donahue MD [address] [place] [address] [place] [address] Calculus of kidney* Allergies Active Allergy Reactions Criticality Noted Date [...] Encounter OR [facility], Operating Room [facility] [address] [facility] [place] [address] Morteza Donahue MD [address] [address] [place] [address] 07/17/2023 10:28 AM EST - 07/17/2023 11:43 AM EST Surgery OR [facility], Operating Room [facility] [address] [facility] [place] [address] Morteza Donahue MD [address] [place] [address] CYSTOURETHROSCOPY URETEROSCOPY WITH LITHOTRIPSY AND STENT INSERTION 07/31/2023 3:30 PM EST Procedure Only Urology, [facility] [address] [facility] [place] [address] Morteza Donahue MD [address] [place] [address] 11/10/2023 10:40 AM EST [facility] [address] [facility] [id number] Eugene Emmanuel MD [address] [facility] [place] [phone] Pending Results Name Type Priority Associated Diagnoses Date /Time CULTURE, URINE, QUANTITATIVE Lab Routine Calculus of kidney 07/10/2023 9:23 AM EST Scheduled Orders Name Type Priority Associated Diagnoses Orde r Schedule CULTURE, URINE, QUANTITATIVE Lab Routine Calculus of kidney Expected: 07/10/2023, Expires: 07/10/2024 Scheduled Procedures Name Priority Associated Diagnoses Date/Ti [...] Advance Directives occurred with: Patient Care Teams Yard Worker Relationship Specialty Start Date End Date Eugene Emmanuel MD [address] [place] [facility] [place] [address] PCP - General Family Medicine 11/03/21 documented as of this encounter
--- OUTSIDE RECORDS SUMMARY | 2023-07-19 23:18 | External Medical Summary ---
Author Name Unknown Address Unknown Organization [id number]:[facility] - [address] [facility] [address] Laboratory Report Ordering Provider Test Date Status RUTHANN FISH 06/12/2023 08:43:49 Final Observation Date Value Abnormality Reference (Units) Status Bacteria identified in Specimen by Culture 06/12/2023 08:43:49 No significant growth Final Test: Culture, Urine, Quanti tative
Specimen Source: Urine, Clean Catch
Specimen Type: Urine
Specimen Date: 06/12/2023 8:43 AM
Result Date: 06/13/2023 9:42 AM
Result Status: Final result
Resulting Lab: [facility]
[address]
[facility] [address]

CULTURE

No significant growth

null Performing Location [facility] - [address] [facility] [address]
--- OUTSIDE RECORDS SUMMARY | 2023-07-19 23:18 | External Medical Summary | Summary of Care ---
Author Name Unknown Organization [facility] Address [address] [facility] [place] [address] Phone [phone] Care Team Providers Care Marketing Effectiveness Manager Name Role Phone Eugene Emmanuel MD Primary Care Provider +1- [phone] Encounter Details Date Type Department Care Team Description 05/23/2023 Telephone Urology Debi Jimenez [address] [place] [address] Morteza Donahue MD [address] [place] [address] Allergies Active Allergy Reactions Severity [...] encounter Miscellaneous Notes * Telephone Encounter - Morteza Donahue MD [...] Donahue MD [address] [place] [address] 06/19/2023 Hospital Encounter Surgery Morteza Donahue MD [address] [place] [address] 06/19/2023 Surgery Surgery Morteza Donahue MD [address] [place] [address] LEFT LITHOTRIPSY EXTRACORPOREAL SHOCK WAVE 06/26/2023 Procedure Only Urology Morteza Donahue MD [address] [place] [address] 07/05/2023 Imaging Radiology 11/10/2023 Office Visit Family Medicine Eugene Emmanuel MD [address] [place] [address] Scheduled Procedures Name Priority Associated Diagnoses Date/Ti [...] Advance Directives occurred with: Patient Care Teams Marketing Effectiveness Manager Relationship Specialty Start Date End Date Eugene Emmanuel MD [address] [place] [address] PCP - General Family Medicine 11/03/21 documented as of this encounter
--- OUTSIDE RECORDS SUMMARY | 2023-07-19 23:18 | External Medical Summary ---
Author Name Unknown Address Unknown Organization : Laboratory Report Ordering Provider Test Date Status RUTHANN FISH 05/22/2023 12:29:18 Final Observation Date Value Abnormality Reference (Units ) Status Glucose Point of Care 05/22/2023 12:29:18 118 70-120 (mg/dL) Final Performing Location
--- OUTSIDE RECORDS SUMMARY | 2023-07-19 23:18 | External Medical Summary | Summary of Care ---
Author Name Unknown Organization [facility] Address [address] [address] Phone [phone] Care Team Providers Care Community Service Worker Name Role Phone Eugene Paul MD Primary Care Provider [phone]- [phone] Reason for Visit * Reason Comments Follow Up Encounter Details Date Type Department Care Team (Latest Contact Info) Description 06/26/2023 3:00 PM EDT Procedure Only Urology, [facility] [address] [facility] [place] [id number] Morteza Donahue MD [address] [facility] [address] [place] [address] Calculus of kidney*; Hydronephrosis, left Allergies Active Allergy Reactions Criticality Noted Date Comments Amlodipine Nausea/vomiting 08/31/2022 documented as of this encounter (statuses as of 06/26/2023) Medications Medication Sig Dispensed Refills Start Date [...] as of this encounter (statuses as of 06/26/2023) Active Problems Problem Noted Date Diagnosed Date BPH with obstruction/lower urinary tract symptom s 04/20/2023 Calculus of kidney 04/20/2023 Middle cerebral aneurysm 06/05/2022 HTN, goal below 140/90 12/01/2021 Dyslipidemia 12/01/2021 Abdominal aortic aneurysm (AAA) without rupture 12/01/2021 Asymptomatic stenosis of left carotid artery Gastroesophageal reflux disease 12/01/2021 documented as of this encounter (statuses as of 06/26/2023) Resolved Problems Problem Noted Date Diagnosed Date Resolved Date Abdominal aortic aneurysm without rupture 09/08/2022 09/08/2022 Constipation 06/13/2022 09/08/2022 Hyperthyroidism 12/01/2021 06/13/2022 documented as of this encounter (statuses as of 06/26/2023) Immunizations Name Administration Dates Next Due Pneumococcal [...] Progress Notes * Morteza Donahue MD - 06/26/2023 2:17 PM EDT [id number] PCP: [place] [address] Roddy George is a 83 year old male, who presents For postop check after shockwave lithotripsy to his left ureteral stone. Patient's past notes reviewed. KUB images from today and previous reviewed demonstrating further diminishment of the patient's stone but large residual fragments remained. Patient is here today with his son. Patient denies collecting stone material after his procedure. BPH: Patient is being seen for BPH [...] laser lithotripsy May 2023 manage their stones. Left ESWL Jun 2023. Stone composition is unknown. Previous evaluation was done by primary care physician. Presented to Urology June 2022: Current Outpatient Medications Medication Sig Dispense Refill Docusate Sodium 100 MG Oral Capsule Take 1 Capsule by mouth in the morning and 1 Capsule before bedtime. Reports he takes 2 pills at night . Aspirin 81 MG Oral Tablet Chewable Take 1 Tablet by mouth in the morning. B-12 1000 MCG Oral Tablet Take by mouth. Tamsulosin HCl 0.4 MG Oral Capsule (Flomax) [...] BY MOUTH EVERY DAY 90 Capsule 1 Cholecalciferol 25 MCG (1000 UT) Oral Tablet Disintegrating Take 50 mcg by mouth every evening. Atorvastatin Calcium 40 MG Oral Tablet (Lipitor) Take 1 Tablet by mouth every evening. Ondansetron 4 MG Oral Tablet Disintegrating (Zofran) Place 1 Tablet on tongue every 8 hours as needed for Nausea. dissolve on tongue. 20 Tablet 0 oxyCODONE-Acetaminophen 5-325 MG Oral Tablet (Percocet) Take 1 Tablet by mouth every 6 hours as needed for Pain, Severe. 12 Tablet 0 No current facility-administered medications for [...] INSERTION performed by Morteza Donahue MD at [facility] EGD, W/ENDOSCOPIC US 07/08/2022 mild inflammatory changes on bx / ESOPHAGOGASTRODUODENOSCOPY (EGD), FLEXIBLE, TRANSORAL, ENDOSCOPICULTRASOUND performed by Rigoberto Lee DO at ENDOSCOPY [facility] FRAGMENT KIDNEY STONE BY SHOCK WAVE Left 06/19/2023 LEFT LITHOTRIPSY EXTRACORPOREAL SHOCK WAVE performed by Morteza Donahue MD at [facility] Past Medical History: Diagnosis Date HTN (hypertension) Patient Active Problem List Diagnosis Code HTN, goal below 140/90 I10 Dyslipidemia E78.5 Abdominal aortic aneurysm (AAA) without rupture (HCC) I71.40 Asymptomatic stenosis of left carotid artery I65.22 Gastroesophageal reflux disease K21.9 Middle cerebral aneurysm I67.1 BPH with obstruction/lower urinary tract symptoms N40.1, N13.8 Calculus of kidney N20.0 Constitutional: (-) fever and (-) chills Cardiovascular: (-) chest pain Male : see HPI Neurology: (-) negative: no focal neurologic defect Psychiatry: (-) negative: no depression or anxiety Physical Exam Constitutional: General: He is not in acute distress. Appearance: Normal appearance. He is not ill-appearing or toxic-appearing. HENT: Head: Normocephalic and atraumatic. Right Ear: External ear normal. Left Ear: External ear normal. Nose: Nose normal. Mouth/Throat: Mouth: Mucous membranes are moist. Cardiovascular: Pulses: Normal pulses. Pulmonary: Effort: Pulmonary effort is normal. Abdominal: Palpations: Abdomen is soft. Tenderness: There [...] and affect normal. Impression/Plan: 83-year-old male with persistent left ureteral stone. Findings reviewed with patient's son at length. Unfortunately, I think interventional stone needed to clear the patient's remaining left ureteral stone burden. Will proceed with repeat, staged ureteroscopy. Hopefully, patient be rendered stone free after this intervention thanks to a period of stent rest in the patient's ureter. Risks and benefits reviewed, informed consent obtained. Patient vocalizes good understanding of the treatment plan. Morteza Donahue MD 2:17 PM 06/26/2023 documented in this encounter Nursing Notes * Mari Hansen LPN - 06/26/2023 2:19 PM EDT Patient presents post op. Has been straining urine, no stones seen. documented in this encounter Plan of Treatment Upcoming Encounters Date Type Department Care Team (Late st Contact Info) Description 07/05/2023 1:00 PM EDT Imaging Radiology [address] [place] [address] 07/17/2023 Hospital Encounter OR [facility], Operating Room [facility] [address] [place] [id number] Morteza Donahue MD [address] [place] [address] 07/31/2023 3:30 PM EST Procedure Only [facility] [place] [address] Morteza Donahue MD [address] [place] [address] 11/10/2023 10:40 AM EST Office Visit [facility] [address] [place] [id number] Eugene Paul MD [address] [place], [place] [id number] Scheduled Procedures Name Priority Associated Diagnoses Date/Ti me CYSTOURETHROSCOPY URETEROSCO PY WITH LITHOTRIPSY AND STENT INSERTION Kidney stones Health Maintenance Due Date Last Done Comments [...] Visit Diagnoses Diagnosis Calculus of kidney- Primary Hydronephrosis, left Hydronephrosis documented in this encounter Advance Directives Latest [...] Advance Directives occurred with: Patient Care Teams Community Service Worker Relationship Specialty Start Date End Date Eugene Paul MD [address] [place] [address] PCP - General Family Medicine 11/03/21 documented as of this encounter
--- OUTSIDE RECORDS SUMMARY | 2023-07-19 23:18 | External Medical Summary | Summary of Care ---
Author Name Unknown Organization [facility] Address [address] [place] [address] Phone [phone] Care Team Providers Care Apparel Stock Checker Name Role Phone Siena Paul MD Primary Care Provider [phone] Reason for Visit * Auth/Cert Specialty Diagnoses / Procedures Referred By Charleen t Referred To Contact Diagnoses BPH with obstruction/lower urinary tract symptoms BPH with obstruction/lower urinary tract symptoms [N40.1, N13.8] Procedures CYSTO/URETERO W/LITHOTRIPSY CYSTOURETHROSCOPY URETEROSCOPY WITH LITHOTRIPSY AND STENT INSERTION Referral ID Status Reason Start Date Expiration Date Visits Re quested Visits Authorized [id number] Encounter Details Date Type Department Care Team Description 05/22/2023 Hospital Encounter OR [facility], Operating Room [facility] [address] [facility] [place] [id number] Morteza Donahue MD [address] [place] [address] [place] [address] Allergies Active Allergy Reactions Severity Noted Date Comments Amlodipine Nausea/vomiting 08/31/2022 documented as of this encounter (statuses as of 05/23/2023) Medications Medication Sig Dispensed Refills Start Date [...] as of this encounter (statuses as of 05/23/2023) Active Problems Problem Noted Date BPH with obstruction/lower urinary tract symptoms 04/20/2023 Calculus of kidney 04/20/2023 Middle cerebral aneurysm 06/05/2022 HTN, goal below 140/90 12/01/2021 Dyslipidemia 12/01/2021 Abdominal aortic aneurysm (AAA) without rupture 12/01/2021 Asymptomatic stenosis of left carotid ar stephanie 12/01/2021 Gastroesophageal reflux disease 12/02/19 22 documented as of this encounter (statuses as of 05/23/2023) Resolved Problems Problem Noted Date Resolved Date Abdominal aortic aneurysm without rupture 202209/08/2022 Constipation 06/13/2022 09/08/2022 Hyperthyroidism 12/01/2021 06/13/2022 documented as of this encounter (statuses as of 05/23/2023) Immunizations Name Administration Dates Next Due Pneumococcal [...] Sign Reading Time Taken Comments Blood Pressure 141/60 05/22/2023 1:20 PM EDT Pulse 66 05/22/2023 1:20 PM EDT Temperature 36.4 C (97.5 F) 05/22/2023 1:20 PM ED T Respiratory Rate 18 05/22/2023 1:20 PM EDT Oxygen Saturation 96% 05/22/2023 1:20 PM EDT Inhaled Oxygen Concentration - - Weight 67.1 kg (148 lb) 05/22/2023 9:01 AM EDT Height 177.8 cm (5' 10") 05/22/2023 9:01 AM EDT Body Mass Index 21.24 05/22/2023 9:01 AM EDT documented in this encounter Discharge Instructions * Discharge Instr - AVS* Morteza Donahue MD - 05/22/2023 12:17 PM EDT Expected symptoms after stent placement include bladder pain/spasms, blood in the urine, referred back pain, burning with urination and other bothersome voiding symptoms. The symptoms may worsen withphysical activity. Please contact our office with any fevers, chills, nausea, vomiting or other worrisome changes. Please follow up in the office as scheduled. A KUB x-ray has been ordered for you beforehand have this done before coming to the office. Complete any prescribed antibiotics as ordered. It is OK to take a shower or bath. No driving within 24 hours of anesthesia or while using narcotic pain medication. Hold aspirin until seen by Urology in the office documented in this encounter Progress Notes * Morteza Donahue MD - 05/22/2023 12:17 PM EDT [facility] ENDOSCOPY [address] [address] OUTPATIENT SURGERY DISCHARGE SUMMARY NOTE Name: Roddy George Location: OR [facility]/HI Date: 05/22/2023 Time: 12:17 PM Surgery Date: 05/22/2023 Procedure: Procedure(s): CYSTOURETHROSCOPY URETEROSCOPY WITH LITHOTRIPSY AND STENT INSERTION Left Surgeon: Surgeon(s): Morteza Donahue MD Discharge Diagnosis: Large left ureteral stone status post laser lithotripsy, ureteral stent placement. After examination of this patient, I have determined he is ready for discharge to home when the patient meets criteria. Discharge instructions were given to the patient. documented in this encounter H&P Notes * Morteza Donahue MD - 05/22/2023 9:17 AM EDT GENERAL HISTORY & PHYSICAL EXAMINATION - Urology Service [address] [address] Name: Roddy George Location: OR [facility]/OR Date: 05/22/2023 Time: 9:17 AM Date of H&P May 22, 2023. [id number] PCP: [place] [facility] [address] Roddy George is a 83 year old male, who presents for surgical management of his large left ureteral stone. Patient's past notes reviewed. Unfortunately, hydronephrosis is present on time of patient's ultrasound. He denies colicky pain or changes in his general health since his last telehealth visit. BPH: Patient is being seen for BPH [...] US. In the past they have had nosurgery for stone to manage their stones. Stone composition is unknown. [...] abdominal aorta measuring 3.2 x 3.2 cm. @actMED@ Review of patient's allergies indicates: Allergen Reactions Amlodipine Nausea/vomiting Social History: Social History Tobacco Use Smoking status: Former Smokeless tobacco: Never Substance Use Topics Alcohol use: Not Currently Vaping/E-Cigarette Use Vaping/E-Cigarette Substances Vaping/E-Cigarette Devices No family history on file. Past Surgical History: Procedure Laterality Date EGD, W/ENDOSCOPIC US 07/08/2022 mild inflammatory changes on bx / ESOPHAGOGASTRODUODENOSCOPY (EGD), FLEXIBLE, TRANSORAL, ENDOSCOPICULTRASOUND performed by Rigoberto Lee DO at ENDOSCOPY [facility] Past Medical History: Diagnosis Date HTN (hypertension) Patient Active Problem List Diagnosis Code HTN, goal below 140/90 I10 Dyslipidemia E78.5 Abdominal aortic aneurysm (AAA) without rupture (HCC) I71.40 Asymptomatic stenosis of left carotid artery I65.22 Gastroesophageal reflux disease K21.9 Middle cerebral aneurysm I67.1 BPH with obstruction/lower urinary tract symptoms N40.1, N13.8 Calculus of kidney N20.0 Constitutional: (-) fever and (-) chills ENT: (+) hearing loss Abdominal/GI: (-) abdominal pain Male : See HPI Neurology: (-) negative: [...] membranes are moist. Cardiovascular: Pulses: Normal pulses. Heart sounds: Normal heart sounds. Pulmonary: Effort: Pulmonary effort is normal. No respiratory distress. Breath sounds: Normal breath sounds. Abdominal: Palpations: Abdomen is soft. Tenderness: There [...] and affect normal. Impression/Plan: 83-year-old male with 2.2 cm left ureteral stone, hydronephrosis. Findings reviewed with patient. Informed consent obtained. Will proceed with cystoscopy, left retrograde pyelography, left-sided ureteroscopy with laser lithotripsy, basket stone extraction and ureteral stent placement. Risks and benefits reviewed, informed consent obtained. IV Ancef on-call for antibiotic coverage, SCDs for DVT prophylaxis. Patient vocalizes good understanding of the treatment plan. Morteza Donahue MD 9:17 AM 05/22/2023 documented in this encounter Nursing Notes * Sana Rowell RN - 05/22/2023 2:00 PM EDT Vs stable. Reports pain at 0/10 on pain scale, tolerable. Denies nausea and tolerating PO intake. Patient and patients verbalized understanding of all discharge directions. Patient stable for discharge to home. Transferred via wheelchair to private auto with staff presence. * Sana Rowell RN - 05/22/2023 1:35 PM EDT Patient alert and tolerating clear liquids. Patient denies pain and nausea. Vital signs stable. Patients son called for tranportation. * Sana Rowell RN - 05/22/2023 1:20 PM EDT Patient admitted to PACU 2 via stretcher, report received. Patient awake and alert, denies pain andnausea. * Martita Hector RN - 05/22/2023 1:17 PM EDT Pt meets d'c criteria for PACU 1 * Martita Hector RN - 05/22/2023 12:42 PM EDT Pt now awake but drowsy, returns to sleep. Pt denies pain/nausea * Martita Hector RN - 05/22/2023 12:23 PM EDT Patient received to pacu 1 status post lithotripsy and cysto with stent placement. Patient sleeping. no pain. no nausea. Respirations are even and unlabored on 6l/min mask. Lungs clear. NSR on monitor. Abdomen soft and non distended. Vital signs stable. * Yanelis Martinez RN - 05/22/2023 11:48 AM EDT [employer] Contour VL ureteral stent inserted into left ureter by Dr Donahue. 6F x 22cm-30cm Ref: [id number] Lot: [id number] Exp: 2025-02-04 documented in this encounter OR Notes * OR Surgeon - Morteza Donahue MD - 05/22/2023 12:29 PM EDT [facility] [address] [place] [address] OPERATIVE REPORT Name: Roddy George Date: 05/22/2023 Time: 12:29 PM Location: OR [facility] Service: Urology Date of Operation: 05/22/2023 Pre-op Diagnosis: 2.2 cm left mid ureteral stone.. Post-op Diagnosis: Same. Surgeon: Morteza Donahue MD Assistants: None. Anesthesia: general anesthesia with laryngeal mask Operation: Cystoscopy, left retrograde pyelography, left flexible and semi-rigid ureteroscopy with laser lithotripsy, left ureteral stent placement. Findings: Dramatically impacted left ureteral stone fragmented to allow for access to the left upper moiety, no proximal migration of contrast prior to laser lithotripsy, good stent position after completion of case, somewhat over half of stone volume fragmented. Specimen and Disposition: No specimen. Estimated Blood Loss: Minimal. Fluids: <1000 cc. Urine Output: Not measured. Drains/Implants: 6 [place] multi-length left-sided ureteral stent. Complications: None. Postoperative Condition: Stable. Indications and History: Patient is here today for surgical management of a large left ureteral stone, not symptomatic but associated with left-sided hydronephrosis on ultrasound. After discussion of risks and benefits of various forms of management patient has decided upon ureteroscopy with laser lithotripsy to manage hisdisease. Perioperative Ancef provided for antibiotic coverage and SCDs used for DVT prophylaxis. Please see H&P and outpatient notes for further details. Informed consent obtained preoperatively today. Description of Operation: Patient was properly identified and brought into the operative suite after identification of appropriate consent in the chart. general anesthesia with laryngeal mask was initiated and patient was prepped and draped in the standard fashion for this procedure. [employer] architect-out procedure was followed. A well lubricated 22 [place] rigid cystoscope was introduced through the meatus into the urethra. Urethra demonstrated a mild urethral stenosis able to be bypassed with scope. Moderate lateral lobe hypertrophy of the prostate with mild bladder neck elevation is appreciated. Bladder neck was visualized and bladder was entered. Sterile irrigation was used to distend the bladder which was noted to have no tumors, stones or mucosal abnormalities with grade 3 trabeculation. Bladder was circumferentiallyinspected. Ureteral orifices were noted to be in the normal anatomic position bilaterally. The leftureter was cannulated using an open-ended ureteral catheter and gentle retrograde pyelography was performed. This demonstrated a normal distal ureter up to the level of a large mid ureteral stone with no proximal migration of contrast.. A sensor tip wire was advanced to the level of the stone, but could not be maneuvered proximally. This was left in place at the level of the stone as a distal ureteral safety wire. Semirigid ureteroscope was then advanced into the distal ureter without the need for dilation over a working wire. Ureter was noted to be relatively accommodating distally. Stone was encountered, and was noted to be significantly impacted with dramatic ureteral edema at the level of the vessels. Unfortunately, this could not be well targeted using the semi-rigid scope A 2nd working wire was placed and a 11/13 [place] 28 cm ureteral access sheath was placed in the distal ureter. Fiberoptic flexible ureteral scope was advanced up to the level of the stone. Two hundred micron laser fiber was used to fragment the stone. Due to the turn in the ureter in the impaction of the stone this took some time and was quite challenging especially when attempting to avoid ureteral injury.After sufficient amounts of the stone had been fragmented to allow for a small amount of stone mobility, wire was replaced through the ureteral scope and able to be advanced up to the level of the left renal pelvis as a complete safety wire. Access sheath was replaced over a working wire to allow for the wire to be external to the access sheath lumen. Stone was then again addressed. 90 minutes oflaser lithotripsy were undertaken, again with difficulties allowing the stone to be well targeted secondary to its impaction and occupying the entire ureteral lumen. However, a significant channel was able to be opened and stone volume significantly decreased. Retrograde pyelography performed via the ureteral scope demonstrated significant proximal hydronephrosis with some areas of tortuosity as well. Stone could not be bypassed with the scope. Unfortunately, secondary to the extended ureteroscopy and laser lithotripsy, ureteral edema and oozing caused diminishing visualization over the course of time. After extended ureteroscopy and laser lithotripsy decision was made to place a ureteral stent to diminish the volume of ureteral edema. Six [place] multi-length stent was placed with some resistance at the proximal aspect of the stone which had been less well fragmented. Full coils being present within the renal pelvis were appreciated as well as redundant coils within the bladder. Bladder was drained and cystoscope was removed. Anesthesia was reversed and patient was transferred to the recovery room in stable condition. Follow-up care: Patient will be discharged home after passing a trial of void. Prescription for Percocet and Bactrim provided. Patient will need a second-look stone surgery. Will consider shockwave lithotripsy versus ureteroscopy after discussion with patient. KUB prior to follow-up. Patient is to contact our service with any fevers chills nausea vomiting or other difficulties in the postoperative period. Outpatient appointments are confirmed. Attestation: Morteza Donahue MD performed the case. documented in this encounter Plan of Treatment Upcoming Encounters Date Type Specialty Care Team Description 06/05/2023 Office Visit Urology Morteza Donahue MD [address] [place] [id number] 06/19/2023 Hospital Encounter Surgery Morteza Donahue MD [address] [place] [address] 06/19/2023 Surgery Surgery Morteza Donahue MD [address] [place] [address] LEFT LITHOTRIPSY EXTRACORPOREAL SHOCK WAVE 06/26/2023 Procedure Only Urology Morteza Donahue MD [address] [facility] [address] [place] [address] 07/05/2023 Imaging Radiology 11/10/2023 Office Visit Family Medicine Siena Paul MD [address] [place] [address] Scheduled Orders Name Type Priority Associated Diagnoses Orde r Schedule GLUCOSE METER, POINT OF CARE (COMMUNICATION ORDER) Point of Care Testing Routine Perform Now for 1 Occurrences starting 05/22/2023 until 05/22/2023 Scheduled Procedures Name Priority Associated Diagnoses Date/Ti [...] Not on filedocumented as of this encounter Procedures Procedure Name Priority Date/Time Associated Diagnosis Comments GLUCOSE METER, POINT OF CARE RUTHIE 05/22/2023 12:29 PM EDT XR INTRA-OP C-ARM CASE Routine 05/22/2023 12:15 PM EDT documented in this encounter Results * GLUCOSE METER, POINT OF CARE (05/22/2023 12:29 PM EDT) Glucose Meter 118 70 - 120 mg/dL 05/22/2023 12:31 PM EDT [facility] 57-00 Blood Whole blood specimen / Unknown 05/22/2023 12:29 PM EDT 05/22/2023 12:31 PM EDT Morteza Donahue MD LAB POINT OF CAR E TEST DOCKED DEVICE UNSOLICITED RESULTS LABORATORY [facility] 57-[address] [place] [address] * XR INTRA-OP C-ARM CASE (05/22/2023 12:15 PM EDT) Narrative Scheduling, Silent - 05/22/2023 12:16 PM EDT This procedure will not be read by a Radiologist. Please see operative note. Morteza Donahue MD RADIOLOGY ([facility]) documented in this encounter Visit Diagnoses Diagnosis Calculus of kidney- Primary Kidney stones Calculus of kidney documented in this encounter Administered Medications Inactive Administered Medications - up to 3 most recent administrations Medication Order MAR Action Action Date Dose Rate Site ceFAZolin in dextrose (Ancef) ivpb 2 g 2 g, IV Piggyback, PREOP, 1 dose, First dose on Mon05/22/23 at 0915, Administer 60 minutes prior to skin incision, Pre-Op New Bag 05/22/2023 10:07 AM EDT 2 g 100 mL/hr Dexamethasone Sodium Phosphate (Decadron) 4 MG/ML inj 4 mg 4 mg, IV Push, PRN Nausea, Starting on Mon05/22/23 at 1224, Until Mon05/22/23 at 1802, For 1 dose, Protect from Light, PACU Dexamethasone Sodium Phosphate (Decadron) 4 MG/ML inj 4 mg 4 mg, IV Push, PRN Nausea, Starting on Mon05/22/23 at 1226, Until Mon05/22/23 at 1802, For 1 dose, Protect from Light, PACU fentaNYL (PF) inj 25 mcg 25 mcg, IV Push, PRN Pain, Severe, Starting on Mon05/22/23 at 1224, Until Mon05/22/23 at 1802, For 6 doses, When given IV Push its recommended that the dose be given over 3 to 5 minutes. , PACU fentaNYL (PF) inj 25 mcg 25 mcg, IV Push, PRN Pain, Severe, Starting on Mon05/22/23 at 1226, Until Mon05/22/23 at 1802, For 6 doses, When given IV Push its recommended that the dose be given over 3 to 5 minutes. , PACU isolyte-S pH 7.4 infusion Intravenous, Plasma-LYTE 148, isolyte-S, and isolyte-S pH 7.4 are considered equivalent - including for MAR barcode scanning., CONTINUOUS, Starting on Mon05/22/23 at 0915, Until Mon05/22/23 at 1802, Pre-Op Continue from Pre-Op 05/22/2023 10:06 AM EDT 100 mL/hr New Bag 05/22/2023 9:21 AM EDT 1,000 mL 100 mL/hr ondansetron (Zofran) inj 4 mg 4 mg, IV Push, PRN Nausea, Starting on Mon05/22/23 at 1224, Until Mon05/22/23 at 1802, For 1 dose, PACU ondansetron (Zofran) inj 4 mg 4 mg, IV Push, PRN Nausea, Starting on Mon05/22/23 at 1226, Until Mon05/22/23 at 1802, For 1 dose, PACU documented in this encounter Active and Recently Administered Medications Times are shown in EDT. Scheduled Medication Order 05/20/2023 05/21/2023 05/22/2023 Acetaminophen (Ofirmev) inj 1,000 mg (COMPLETED) 1,000 mg, Intravenous, PREOP, 1 dose, First dose on Mon05/22/23 at 0915, Administer over 15 Minutes, Administer undiluted over 15 minutes! NOTE: Maximum of 4000 mg per 24 hours of acetaminophen from all acetaminophen containing products., Pre-Op, Indication: Patient is strictly NPO 1030 (Given - Provid er: Sharad M Petrunak, [employer] AND WELLNESS DIRECTOR - Comment: ofirmev 1000mg slowe IV infusion)1220 (Anes Intra-Op Fluid - Provider: Sharad Booker CRNA) ceFAZolin in dextrose (Ancef) ivpb 2 g (COMPLETED) 2 g, IV Piggyback, PREOP, 1 dose, First dose on Mon05/22/23 at 0915, Administer 60 minutes prior to skin incision, Pre-Op 1007 (New Bag - Prov ider: Christiane Shfafer RN)1220 (Anes Intra-Op Fluid - Provider: Sharad Booker CRNA) Pneumococcal 20-Savana Conj Vacc (Prevnar 20) inj 0.5 mL 0.5 mL, Intramuscular, ONCE, On Mon05/22/23 at 1300, For 1 dose, Add Lot# and Safety Council Director in Immunization Info section of MAR, Post-op 1300 (Due) Continuous Medication Order 05/20/2023 05/21/2023 05/22/2023 isolyte-S pH 7.4 infusion Intravenous, Plasma-LYTE 148, isolyte-S, and isolyte-S pH 7.4 are considered equivalent - including for MAR barcode scanning., CONTINUOUS, Starting on Mon05/22/23 at 0915, Until Mon05/22/23 at 1802, Pre-Op 0921 (New Bag - Prov ider: Christiane Shaffer RN)1006 (Continue from Pre-Op - Provider: Sharad Booker CRNA)1220 (Anes Intra-Op Fluid - Provider: Sharad Booker CRNA) isolyte-S pH 7.4 infusion Intravenous, at 100 mL/hr, For Periop use. Plasma-LYTE 148, isolyte-S, and isolyte-S pH 7.4 are considered equivalent - including for MAR barcode scanning., CONTINUOUS, Starting on Mon05/22/23 at 1300, Until Mon05/22/23 at 1659, Post-op 1300 (Due) PRN Medication Order 05/20/2023 05/21/2023 05/22/2023 Dexamethasone Sodium Phosphate (Decadron) 4 MG/ML inj 4 mg 4 mg, IV Push, PRN Nausea, Starting on Mon05/22/23 at 1224, Until Mon05/22/23 at 1802, For 1 dose, Protect from Light, PACU Dexamethasone Sodium Phosphate (Decadron) 4 MG/ML inj 4 mg 4 mg, IV Push, PRN Nausea, Starting on Mon05/22/23 at 1226, Until Mon05/22/23 at 1802, For 1 dose, Protect from Light, PACU fentaNYL (PF) inj 25 mcg 25 mcg, IV Push, PRN Pain, Severe, Starting on Mon05/22/23 at 1224, Until Mon05/22/23 at 1802, For 6 doses, When given IV Push its recommended that the dose be given over 3 to 5 minutes. , PACU fentaNYL (PF) inj 25 mcg 25 mcg, IV Push, PRN Pain, Severe, Starting on Mon05/22/23 at 1226, Until Mon05/22/23 at 1802, For 6 doses, When given IV Push its recommended that the dose be given over 3 to 5 minutes. , PACU HYDROmorphone (Dilaudid) inj 1 mg 1 mg, IV Push, Q3H PRN Pain, Severe, Starting on Mon05/22/23 at 1226, Until Mon05/22/23 at 1802, Post-op Iothalamate Meglumine (Conray 60) inj (CANCELED) ONCE PRN INTRA PROCEDURE, Starting on Mon05/22/23 at 1135, Until Mon05/22/23 at 1220, Intra-Op 1135 (Given - Provid er: Morteza Donahue MD - Comment: 20ml dye mixed with 20ml saline (39ml mixture used) for left retrograde) ondansetron (Zofran) inj 4 mg 4 mg, IV Push, PRN Nausea, Starting on Mon05/22/23 at 1224, Until Mon05/22/23 at 1802, For 1 dose, PACU ondansetron (Zofran) inj 4 mg 4 mg, IV Push, PRN Nausea, Starting on Mon05/22/23 at 1226, Until Mon05/22/23 at 1802, For 1 dose, PACU oxyCODONE-acetaminophen 5-325 mg per tab (Percocet) 1 Tablet 1 Tablet, Oral, Q4H PRN Pain, Moderate, Starting on Mon05/22/23 at 1226, Until Mon05/22/23 at 1802, Maximum of 4 grams (4000 mg) of acetaminophen per day, Post-op sodium chloride IR 0.9 % irrigation (CANCELED) ONCE PRN INTRA PROCEDURE, Starting on Mon05/22/23 at 1034, Until Mon05/22/23 at 1220, Intra-Op 1034 (Given - Provid er: Morteza Donahue MD - Comment: ureter and bladder) documented in this encounter Advance Directives Latest [...] Advance Directives occurred with: Patient Care Teams Apparel Stock Checker Relationship Specialty Start Date End Date Siena Paul MD [address] [place] [address] PCP - General Family Medicine 11/03/21 documented as of this encounter
--- OUTSIDE RECORDS SUMMARY | 2023-07-19 23:18 | External Medical Summary | Summary of Care ---
Author Name Unknown Organization [facility] Address [address] [place] [address] Phone [phone] Care Team Providers Care Fruit Picker Machine Operator Name Role Phone Eugene Emmanuel MD Primary Care Provider +1- [phone] Encounter Details Date Type Department Care Team Description 06/05/2023 Hospital Encounter Radiology, [facility] [address] [place] [address] Arrived Allergies Active Allergy Reactions Severity Noted Date Comments Amlodipine Nausea/vomiting 08/31/2022 documented as of this encounter (statuses as of 06/06/2023) Medications Medication Sig Dispensed Refills Start Date [...] as of this encounter (statuses as of 06/06/2023) Active Problems Problem Noted Date BPH with obstruction/lower urinary tract symptoms 04/20/2023 Calculus of kidney 04/20/2023 Middle cerebral aneurysm 06/05/2022 HTN, goal below 140/90 12/01/2021 Dyslipidemia 12/01/2021 Abdominal aortic aneurysm (AAA) without rupture 12/01/2021 Asymptomatic stenosis of left carotid ar stephanie 12/01/2021 Gastroesophageal reflux disease 12/02/19 22 documented as of this encounter (statuses as of 06/06/2023) Resolved Problems Problem Noted Date Resolved Date Abdominal aortic aneurysm without rupture 202209/08/2022 Constipation 06/13/2022 09/08/2022 Hyperthyroidism 12/01/2021 06/13/2022 documented as of this encounter (statuses as of 06/06/2023) Immunizations Name Administration Dates Next Due Pneumococcal [...] [address] [place] [address] 06/19/2023 Surgery Surgery Morteza Donahue MD [address] [place] [address] LEFT LITHOTRIPSY EXTRACORPOREAL SHOCK WAVE 06/26/2023 Procedure Only Urology Morteza Donahue MD [address] [place] [address] 07/05/2023 Imaging Radiology 11/10/2023 Office Visit Family Medicine Eugene Emmanuel MD [address] [place] [phone] Pending Results Name Type Priority Associated Diagnoses Date /Time XR ABDOMEN 1 VIEW Medical Imaging Routine Calculus of kidney 06/05/2023 1:39 PM EDT Scheduled Procedures Name Priority Associated Diagnoses [...] Advance Directives occurred with: Patient Care Teams Fruit Picker Machine Operator Relationship Specialty Start Date End Date Eugnee Emmanuel MD [address] [place], [place] [phone] PCP - General Family Medicine 11/03/21 documented as of this encounter
--- OUTSIDE RECORDS SUMMARY | 2023-07-19 23:18 | External Medical Summary ---
Author Name Unknown Address Unknown Organization [id number]:[facility] - [address] [facility] [address] Laboratory Report Ordering Provider Test Date Status RUTHANN FISH 07/10/2023 09:23:42 Final Observation Date Value Abnormality Reference (Units) Status Bacteria identified in Specimen by Culture 07/10/2023 09:23:42 No significant growth Final Test: Culture, Urine, Quanti tative
Specimen Source: Urine, Clean Catch
Specimen Type: Urine
Specimen Date: 07/10/2023 9:23 AM
Result Date: 07/11/2023 10:23 AM
Result Status: Final result
Resulting Lab: [facility]
[address]
[place] [address]

CULTURE

No significant growth

null Performing Location [facility] - [address] [facility] [address]
--- OUTSIDE RECORDS SUMMARY | 2023-07-19 23:18 | External Medical Summary | Summary of Care ---
Author Name Unknown Organization [facility] Address [address] [facility] [address] Phone [phone] Care Team Providers Care [employer] Worker Name Role Phone Eugene Emmanuel MD Primary Care Provider +1- [phone] Encounter Details Date Type Department Care Team [...] Miscellaneous Notes * Telephone Encounter - ARTIS Garcia - [...] MD [address] [place] [address] 06/19/2023 Hospital Encounter Surgery Morteza Donahue MD [address] [place] [address] 06/19/2023 Surgery Surgery Morteza Donahue MD [address] [place] [address] LEFT LITHOTRIPSY EXTRACORPOREAL SHOCK WAVE 06/26/2023 Procedure Only Urology Morteza Donahue MD [address] [place] [address] 07/05/2023 Imaging Radiology 11/10/2023 Office Visit Family Medicine Eugene Emmanuel MD [address] [place] [address] Scheduled Procedures Name Priority Associated Diagnoses Date/Ti [...] Advance Directives occurred with: Patient Care Teams Red Cross Worker Relationship Specialty Start Date End Date Eugene Emmanuel MD [address] [place], [place] [phone] PCP - General Family Medicine 11/03/21 documented as of this encounter
--- OUTSIDE RECORDS SUMMARY | 2023-07-19 23:18 | External Medical Summary | Summary of Care ---
Author Name Unknown Organization [facility] Address [address] [facility] [address] Phone [phone] Care Team Providers Care Gymnastics Instructor Name Role Phone Eugene Emmanuel MD Primary Care Provider +1- [phone] Encounter Details Date Type Department Care Team [...] Miscellaneous Notes * Telephone Encounter - ARTIS Bustamante - 05/23/2023 10:08 AM EDT Patient's called in and stated that patient is having bowel issues post surgery. Please call patient back. documented in this encounter Plan of Treatment Upcoming Encounters Date Type Specialty Care Team Description 06/05/2023 Office Visit Urology Morteza Donahue MD [address] [place] [address] 06/19/2023 Hospital Encounter Surgery Morteza Donahue MD [address] [place] [address] 06/19/2023 Surgery Surgery Morteza Donahue MD [address] [place] [address] LEFT LITHOTRIPSY EXTRACORPOREAL SHOCK WAVE 06/26/2023 Procedure Only Urology Mortzea Donahue MD [address] [place] [address] 07/05/2023 Imaging Radiology 11/10/2023 Office Visit Family Medicine Eugene Emmanuel MD [facility] [place] [address] Scheduled Procedures Name Priority Associated Diagnoses Date/Ti [...] Advance Directives occurred with: Patient Care Teams Gymnastics Instructor Relationship Specialty Start Date End Date Eugene Emmanuel MD [address] [place], [place] [phone] PCP - General Family Medicine 11/03/21 documented as of this encounter
--- OUTSIDE RECORDS SUMMARY | 2023-07-19 23:19 | External Medical Summary | Summary of Care ---
Author Name Unknown Organization [facility] Address [address] [place] [address] Phone [phone] Care Team Providers Care Hims Clerk Name Role Phone Eugene Emmanuel MD Primary Care Provider +1- [phone] Reason for Visit * Reason Onset Date Comments Test Results 03/16/2023 Encounter Details Date Type Department Care Team Description 03/16/2023 Telephone Laboratory, [address] [address] Morteza Beavers MD [address] [facility] [address] [place] [address] Test Results Allergies Active Allergy Reactions Severity Noted Date Comments Amlodipine Nausea/vomiting 08/31/2022 documented as of this encounter (statuses as of 03/20/2023) Medications Medication Sig Dispensed Refills Start Date [...] large muscle every 30 days. 0 Active Ergocalciferol 1.25 MG (55369 UT) Oral Capsule (Vitamin D2(Drisdol)) 1,250 mcg . 0 08/10/2022 Active Tamsulosin HCl 0.4 MG Oral Capsule [...] EVERY DAY 90 Capsule 1 02/13/2023 Active Doxycycline Hyclate 100 MG Oral Tablet Take 1 Tablet by mouth in the morning and 1 Tablet before bedtime. For 8 days. 0 02/10/2023 Active Ondansetron 4 MG Oral Tablet Disintegrating (Zofran)Indications: Nausea without vomiting Place 1 Tablet on tongue every 8 hours as needed for Nausea. dissolve on tongue. 20 Tablet 0 02/16/2023 Active documented as of this encounter (statuses as of 03/20/2023) Active Problems Problem Noted Date Middle cerebral aneurysm 06/05/2022 HTN, goal below 140/90 12/01/2021 Dyslipidemia 12/01/2021 Abdominal aortic aneurysm (AAA) without rupture 12/01/2021 Asymptomatic stenosis of left carotid ar stephanie 12/01/2021 Gastroesophageal reflux disease 12/02/19 22 documented as of this encounter (statuses as of 03/20/2023) Resolved Problems Problem Noted Date Resolved Date Abdominal aortic aneurysm without rupture 202209/08/2022 Constipation 06/13/2022 09/08/2022 Hyperthyroidism 12/01/2021 06/13/2022 documented as of this encounter (statuses as of 03/20/2023) Immunizations Name Administration Dates Next Due Pneumococcal [...] Telephone Encounter - Mari Hansen LPN - 03/20/2023 9:37 AM EDT Patient has appt today, did not return call last Monday regarding ultrasound. Will schedule after office visit. * Telephone Encounter - Mari Hansen LPN - 03/17/2023 10:15 AM EDT Left msg on pt's voicemail requesting he return call to office. * Addendum Note - Morteza Beavers MD - 03/16/2023 3:38 PM EDTAddended by: MORTEZA BEAVERS on: 03/16/2023 03:38 PM Modules accepted: Orders * Telephone Encounter - Morteza Beavers MD - 03/16/2023 3:38 PM EDT Noted, renal US ordered. Let's see if we can obtain prior to scheduled f/u visit. Thanks, HM * Telephone Encounter - ARTIS Arrieta - 03/16/2023 10:31 AM EDT Hello- The radiologist discovered an unexpected or indeterminate finding on Roddy George ([id number]) and asks that you review the following report. Study Type:XR ABDOMEN 1 VIEW Date of Study: 03/15/2023 IMPRESSION Large 22 x 11 mm left ureteral calculus now projects at the sacral ala level, more distal than 09/16/2022. An ultrasound could be performed to evaluate for obstruction as clinically warranted Please respond to this encounter to acknowledge receipt of this message and take responsibility to ensure this report is reviewed. Thank you, ARTIS Arrieta Client Service Rep [facility] [place] documented in this encounter Plan of Treatment Upcoming Encounters Date Type Specialty Care Team Description 03/20/2023 Office Visit Urology Morteza Beavers MD [address] [place] [address] 05/11/2023 Office Visit Family Medicine Eugene Emmanuel MD [address] [place] [address] Scheduled Orders Name Type Priority Associated Diagnoses Orde r Schedule US RENAL Medical Imaging Routine History of kidney stones Ordered: 03/16/2023 Health Maintenance Due Date Last Done Comments DTaP,Tdap,and Td Vaccines (1 - Tdap) 1959 Zoster Vaccines (1 of 2) 1989 Pneumococcal Vaccine: 65+ Years (2 - PCV) 07/26/2018 07/26/2017 COVID-19 Vaccine (4 - Moderna series) 10/27/2021 09/01/2021, 11/09/2020, 10/12/2020 Influenza Vaccine (FLU shot) (#1) 2023 05/12/2022, 06/25/2021 AAA MONITORING; CT OR US YEARLY 06/01/2023 06/01/2022, 08/07/2019 AAA ULTRASOUND YEARLY 06/01/2023 06/01/2022, 019 GFR 09/08/2023 09/08/2022, 12/0 02/2022, 05/12/2022, Additional history exists Depression Screening, Annual for Pts 12 and Over 11/05/2023 11/04/2022 Albumin/Creatinine Ratio 09/08/2025 09/08/2022 GARDASIL-HPV IMMUNIZATION SERIES Aged Out No longer [...] as of this encounter Visit Diagnoses Diagnosis History of kidney stones- Primary Personal history of urinary calculi documented in this encounter Care Teams Hims Clerk Relationship Specialty Start Date End Date Eugene Emmanuel MD [address] [place] [address] PCP - General Family Medicine 11/03/21 documented as of this encounter
--- OUTSIDE RECORDS SUMMARY | 2023-07-19 23:19 | External Medical Summary | Summary of Care ---
Author Name Unknown Organization [facility] Address [address] [facility] [place] [address] Phone [phone] Care Team Providers Care Manager Video Games Name Role Phone Eugene aPul MD Primary Care Provider +1- [phone] Reason for Referral * Precert (Within 10 days (routine)) - Pending Review Specialty Diagnoses / Procedures Referred By Contac t Referred To Contact Radiology Diagnoses BPH with obstruction/lower urinary tract symptoms Calculus of kidney Procedures CT ABD/PELVIS WO IV/ORAL CONTRAST Morteza Donahue MD [address] [place] [address] Referral ID Status Reason Start Date Expiration Date V isits Requested Visits Authorized [id number] Pending Review 07/03/2023 999 999 Reason for Visit * Reason Comments Follow Up Follow up with KUB. Encounter Details Date Type Department Care Team Description 03/20/2023 Office Visit Urology, [address] [place] [address] Morteza Donahue MD [address] [place] [address] Calculus of kidney*; BPH with obstruction/lower urinary tract symptoms Allergies Active Allergy Reactions Severity Noted Date [...] 30 days. 0 Active Ergocalciferol 1.25 MG (17371 UT) Oral Capsule (Vitamin D2(Drisdol)) 1,250 mcg [...] Sign Reading Time Taken Comments Blood Pressure - - Pulse - - Temperature 36.8 C (98.2 F) 03/20/2023 3:32 PM ED T Respiratory Rate - - Oxygen Saturation - - Inhaled Oxygen Concentration - - Weight 66.9 kg (147 lb 8 oz) 03/20/2023 3:32 PM EDT Height - - Body Mass Index 21.16 11/04/2022 9:13 AM EST documented in this encounter Progress Notes * Morteza Donahue MD - 03/20/2023 3:49 PM EDT [id number] PCP: [place] [address] Roddy George is a 83 year old male, who presents for six-month follow-up of his history of BPH andstone disease. Patient's past notes reviewed. Patient remains on tamsulosin. KUB images are reviewed with patient. This suggests distal migration of the patient's stone. Patient is here today with his son. BPH: Patient is being seen for BPH today. He has had the following symptoms:nocturia x4-6and frequency.Severity is moderate. He has triedtamsulosin Jun 2022. Switched to finasteride Sep 2022. He has previously hadno surgerydone. Problem has been present for years. Problem is getting worse. Urolithiasis: Patient is being seen for stone disease todayThis is their first stone. Severity is mild Problem is about the same. Patient has had the following imaging done:CT scan. In the past they have hadno surgery for stoneto manage their stones. Stone composition isunknown. Previous evaluationwas done by primary care physician. Presented to Urology June 2022: KUB March 2023: IMPRESSION Large 22 x 11 mm left ureteral calculus now projects at the sacral ala level, more distal than 09/16/2022. An ultrasound could be performed to evaluate for obstruction as clinically warranted. Creatinine Results: Lab Results Component Value Date/Time CREATININE - [facility] 1.0 09/08/2022 08:48 AM CREATININE - [facility] 1.3 (H) 05/12/2022 11:17 AM CREATININE, RANDOM URINE - [facility] 210 09/08/2022 08:48 AM CREATININE-OUTSIDE LAB 0.9 08/09/2022 12:00 AM CREATININE-OUTSIDE LAB 0.96 09/16/2020 12:00 AM PSA Results: Lab Results Component Value Date/Time PSA - [facility] 2.77 09/08/2022 08:48 AM Current Outpatient Medications Medication Sig Dispense Refill Metoprolol Tartrate 50 MG Oral Tablet (Lopressor) Take by mouth 1 Tablet in the morning. (Patient not taking: Reported on 02/16/2023) 90 Tablet 3 Docusate Sodium 100 MG Oral Capsule Take 1 Capsule by mouth in the morning and 1 Capsule beforebedtime. Reports he takes 2 pills at night . Aspirin 81 MG Oral Tablet Chewable Take 1 Tablet by mouth in the morning. B-12 1000 MCG Oral Tablet Take by mouth. Vitamin Deficiency System-B12 1000 MCG/ML Injection Kit (Cyanocobalamin) Inject 1,000 mcg into a large muscle every 30 days. (Patient not taking: Reported on 11/04/2022) Ergocalciferol 1.25 MG (25758 UT) Oral Capsule (Vitamin D2(Drisdol)) 1,250 mcg . Tamsulosin HCl 0.4 MG Oral Capsule (Flomax) Take 1 Capsule by mouth in the morning. 90 Capsule 3 Metoprolol Succinate ER 50 MG Oral Tablet Extended Release 24 Hour (toPROL XL) Take 1 Tablet bymouth in the morning and 1 Tablet before bedtime. 180 Tablet 3 Omeprazole 20 MG Oral Capsule Delayed Release (PriLOSEC) TAKE 1 CAPSULE BY MOUTH EVERY DAY 90 Capsule 1 Doxycycline Hyclate 100 MG Oral Tablet Take 1 Tablet by mouth in the morning and 1 Tablet before bedtime. For 8 days. Ondansetron 4 MG Oral Tablet Disintegrating (Zofran) Place 1 Tablet on tongue every 8 hours as needed for Nausea. dissolve on tongue. 20 Tablet 0 No current facility-administered medications for this visit. Review of patient's allergies indicates: Allergen Reactions Amlodipine Nausea/vomiting Social History: Social History Tobacco Use Smoking status: Former Smokeless tobacco: Never Substance Use Topics Alcohol use: Not Currently Vaping/E-Cigarette Use Vaping/E-Cigarette Substances Vaping/E-Cigarette Devices Family History 2 items Mother () Father () Past Surgical History: Procedure Laterality Date EGD, W/ENDOSCOPIC US 07/08/2022 mild inflammatory changes on bx / ESOPHAGOGASTRODUODENOSCOPY (EGD), FLEXIBLE, TRANSORAL, ENDOSCOPICULTRASOUND performed by Rigoberto Lee DO at [facility] Past Medical History: Diagnosis Date HTN (hypertension) Patient Active Problem List Diagnosis Code HTN, goal below 140/90 I10 Dyslipidemia E78.5 Abdominal aortic aneurysm (AAA) without rupture (HCC) I71.40 Asymptomatic stenosis of left carotid artery I65.22 Gastroesophageal reflux disease K21.9 Middle cerebral aneurysm I67.1 Constitutional: (-) fever and (-) chills Eyes: (+) corrective lenses Abdominal/GI: (+) heartburn (+) acid reflux Male : see HPI Musculoskeletal: (+) back pain/problems Neurology: (-) negative: no focal neurologic defect Psychiatry: (-) negative: no depression or anxiety Physical Exam Nursing note reviewed. Constitutional: General: He is not in acute distress. Appearance: Normal appearance. He is not toxic-appearing. HENT: Head: Normocephalic and atraumatic. Right Ear: External ear normal. Left Ear: External ear normal. Nose: Nose normal. Mouth/Throat: Mouth: Mucous membranes are moist. Eyes: Extraocular Movements: Extraocular movements intact. Cardiovascular: Pulses: Normal pulses. Pulmonary: Effort: Pulmonary effort is normal. No respiratory distress. Abdominal: Palpations: Abdomen is soft. Tenderness: There is no abdominal tenderness. Musculoskeletal: General: Deformity (Severe kyphoscoliosis) present. Cervical back: Normal range of motion and neck supple. Lymphadenopathy: Cervical: No cervical adenopathy. Skin: Coloration: Skin is not cyanotic or pale. Neurological: Mental Status: He is alert and oriented to person, place, and time. Motor: No weakness. Psychiatric: Attention and Perception: Attention normal. Mood and Affect: Mood and affect normal. Impression/Plan: 83-year-old male with stone disease, BPH. KUB suggests distal migration of the patient's stone. Renal ultrasound is pending to evaluate for the possibility of hydronephrosis. Will check a BMP today to rule out any degree of renal insufficiency. Management options are reviewed. Stone is unlikely to pass seen its current size. Seen the lack of any ongoing pain, however, if the patient is not suffering from any significant sequelae from thestone including renal failure, colic and hydronephrosis, further observation may be reasonable. Will plan on 4 month follow-up with CT scan if the patient's current evaluation is negative. However, if hydronephrosis and/ or renal insufficiency are present, we will consider more acute endoscopic intervention with ureteroscopy. Above content is personally reviewed. Patient vocalizes good understanding of the treatment plan. Morteza Donahue MD 3:49 PM 03/20/2023 documented in this encounter Nursing Notes * SAUMYA Cheng - 03/20/2023 3:33 PM EDT Chief Complaint Patient presents with Follow Up Follow up with K[facility]. PSA Results: Lab Results Component Value Date/Time PSA - [facility] 2.77 09/08/2022 08:48 AM documented in this encounter Plan of Treatment Upcoming Encounters Date Type Specialty Care Team Description 03/23/2023 Imaging Radiology 04/04/2023 Telemedicine Urology Morteza Donahue MD [address] [place] [address] 05/11/2023 Office Visit Family Medicine Eugene Paul MD [address] [place] [facility] [address] 07/05/2023 Imaging Radiology 07/26/2023 Office Visit Urology Morteza Donahue MD [address] [place] [address] Scheduled Orders Name Type Priority Associated Diagnoses Orde r Schedule CT ABD/PELVIS WO IV/ORAL CONTRAST Medical Imaging Routine BPH with obstruction/lower urinary tract symptoms Calculus of kidney Expected: 07/03/2023, Expires: 04/20/2024 Health Maintenance Due Date Last Done Comments [...] Visit Diagnoses Diagnosis Calculus of kidney- Primary BPH with obstruction/lower urinary tract symptoms Hypertrophy of prostate with urinary obstruction and other lower urinary tract symptoms (LUTS) documented in this encounter Care Teams Manager Video Games Relationship Specialty Start Date End Date Eugene Paul MD [address] [place], [place] [phone] PCP - General Family Medicine 11/03/21 documented as of this encounter
--- OUTSIDE RECORDS SUMMARY | 2023-07-19 23:19 | External Medical Summary ---
Author Name Unknown Address Unknown Organization K01:[facility] [place] [address] [facility] [address] Laboratory Report Ordering Provider Test Date Status KELSIE,MINGEIRINA 03/20/2023 16:15:18 Final Observation Date Value Abnormality Reference (Units ) Status HbA1C 03/20/2023 16:15:18 5.6 4.0-5.6 (% ) Final The use of HbA1c to monitor glycemic status is based on normal hemoglobin and HbA composition. This test should not be used in patients with abnormal hemoglobin that affects the half life of the red blood cell or the in vivo glycation rates. Glucose, estimated average 03/20/2023 16:15:18 114 <126 (mg/dL) Final Performing Location [facility] [address] [facility] [address]
--- OUTSIDE RECORDS SUMMARY | 2023-07-19 23:19 | External Medical Summary | Summary of Care ---
Author Name Unknown Organization [facility] Address [address] [facility] [place] [address] Phone [phone] Care Team Providers Care Senior Talent Acquisition Specialist Name Role Phone Eugene Emmanuel MD Primary Care Provider +1- [phone] Encounter Details Date Type Department Care Team Description 04/20/2023 Orders Only Urology, [facility] 132 [facility] [place] [address] Morteza Donahue MD 27 [facility] [address] [place] [address] Calculus of kidney*; Hydronephrosis, left Allergies Active Allergy Reactions Severity Noted Date Comments Amlodipine Nausea/vomiting 08/31/2022 documented as of this encounter (statuses as of 04/20/2023) Medications Medication Sig Dispensed Refills Start Date [...] 30 days. 0 Active Ergocalciferol 1.25 MG (94356 UT) Oral Capsule (Vitamin D2(Drisdol)) 1,250 mcg [...] as of this encounter (statuses as of 04/20/2023) Active Problems Problem Noted Date BPH with obstruction/lower urinary tract symptoms 04/20/2023 Calculus of kidney 04/20/2023 Middle cerebral aneurysm 06/05/2022 HTN, goal below 140/90 12/01/2021 Dyslipidemia 12/01/2021 Abdominal aortic aneurysm (AAA) without rupture 12/01/2021 Asymptomatic stenosis of left carotid ar stephanie 12/01/2021 Gastroesophageal reflux disease 12/02/19 22 documented as of this encounter (statuses as of 04/20/2023) Resolved Problems Problem Noted Date Resolved Date Abdominal aortic aneurysm without rupture 202209/08/2022 Constipation 06/13/2022 09/08/2022 Hyperthyroidism 12/01/2021 06/13/2022 documented as of this encounter (statuses as of 04/20/2023) Immunizations Name Administration Dates Next Due Pneumococcal [...] Encounters Date Type Specialty Care Team Description 05/11/2023 Office Visit Family Medicine Eugene Emmanuel MD [address] [place] [address] 07/05/2023 Imaging Radiology 07/26/2023 Office Visit Urology Morteza Donahue MD [address] [place], [place] [id number] Scheduled Orders Name Type Priority Associated Diagnoses Orde r Schedule CULTURE, URINE, QUANTITATIVE Lab Routine Calculus of kidney Hydronephrosis, left Expected: 04/20/2023, Expires: 04/20/2024 EKG EKG Routine Calculus of kidney Hydronephrosis, left Expected: 04/20/2023 (Approximate), Expires: 05/21/2024 XR CHEST 2 VIEWS Medical Imaging Routine Calculus of kidney Hydronephrosis, left Ordered: 04/20/2023 Health Maintenance Due Date Last Done Comments DTaP,Tdap,and Td Vaccines (1 - Tdap) 1959 Zoster Vaccines (1 of 2) 1989 Pneumococcal Vaccine: 65+ Years (2 - PCV) 07/26/2018 07/26/2017 COVID-19 Vaccine (4 - Moderna series) 10/27/2021 09/01/2021, 11/09/2020, 10/12/2020 Influenza Vaccine (FLU shot) (#1) 2023 05/12/2022, 06/25/2021 Depression Screening, Annual for Pts 12 and Over 11/05/2023 11/04/2022 GFR 03/20/2024 03/20/2023, 01/2023, 08/09/2022, Additional history exists Albumin/Creatinine Ratio 09/08/2025 09/08/2022 GARDASIL-HPV IMMUNIZATION SERIES [...] Hydronephrosis, left Hydronephrosis documented in this encounter Care Teams Senior Talent Acquisition Specialist Relationship Specialty Start Date End Date Eugene Emmanuel MD [address] [place] [address] PCP - General Family Medicine 11/03/21 documented as of this encounter
--- OUTSIDE RECORDS SUMMARY | 2023-07-19 23:19 | External Medical Summary | Summary of Care ---
Author Name Unknown Organization [facility] Address [address] [facility] [place] [address] Phone [phone] Care Team Providers Care Unemployment Insurance Director Name Role Phone Eugene Emmanuel MD Primary Care Provider +1- [phone] Encounter Details Date Type Department Care Team Description 03/23/2023 Telephone Urology, [facility] 132 [facility] [place] [address] Morteza Donahue MD 27 [facility] [address] [place] [address] Allergies Active Allergy Reactions Severity Noted Date Comments Amlodipine Nausea/vomiting 08/31/2022 documented as of this encounter (statuses as of 03/29/2023) Medications Medication Sig Dispensed Refills Start Date [...] 30 days. 0 Active Ergocalciferol 1.25 MG (33165 UT) Oral Capsule (Vitamin D2(Drisdol)) 1,250 mcg [...] as of this encounter (statuses as of 03/29/2023) Active Problems Problem Noted Date Middle cerebral aneurysm 06/05/2022 HTN, goal below 140/90 12/01/2021 Dyslipidemia 12/01/2021 Abdominal aortic aneurysm (AAA) without rupture 12/01/2021 Asymptomatic stenosis of left carotid ar stephanie 12/01/2021 Gastroesophageal reflux disease 12/02/19 22 documented as of this encounter (statuses as of 03/29/2023) Resolved Problems Problem Noted Date Resolved Date Abdominal aortic aneurysm without rupture 202209/08/2022 Constipation 06/13/2022 09/08/2022 Hyperthyroidism 12/01/2021 06/13/2022 documented as of this encounter (statuses as of 03/29/2023) Immunizations Name Administration Dates Next Due Pneumococcal [...] encounter Miscellaneous Notes * Telephone Encounter - Leonel Moses Jr., MD - 03/27/2023 7:18 AM EDT This is not a new finding and has been addressed by Dr. Donahue and can be seen in follow up for further discussion as scheduled unless the clinical situation changes.. * Telephone Encounter - Mari Hansen LPN - 03/23/2023 3:10 PM EDT [place] Text sent to Dr Bustillo for review and advice. Thank you Iza * Telephone Encounter - Danii Garrison RN - 03/23/2023 2:26 PM EDT Received TigerText communication from radiology regarding significant abnormal finding on patients recent US Renal dated 03/23/23 asking for review of report. Spoke with Dr. Donahue's clinic nurse, Iza Hansen who will be reaching out to employee relations administrator provider to make them aware as Dr. Donahue is out -of-office. Danii Garrison RN MSN Office Manager Executive Assistant [facility] documented in this encounter Plan of Treatment Upcoming Encounters Date Type Specialty Care Team Description 04/04/2023 Telemedicine Urology Morteza Donahue MD [address] [place] [address] 05/11/2023 Office Visit Family Medicine Eugene Emmanuel MD [facility] [id number] 07/05/2023 Imaging Radiology 07/26/2023 Office Visit Urology Morteza Donahue MD [address] [place] [address] Health Maintenance Due Date Last Done Comments [...] Not on filedocumented as of this encounter Care Teams Unemployment Insurance Director Relationship Specialty Start Date End Date Eugene Emmanuel MD [address] [facility] [address] PCP - General Family Medicine 11/03/21 documented as of this encounter
--- OUTSIDE RECORDS SUMMARY | 2023-07-19 23:19 | External Medical Summary ---
Author Name Unknown Address Unknown Organization [id number]:[facility] 100 [facility] [place] [address] Laboratory Report Ordering Provider Test Date Status BREE IGLESIAS 03/20/2023 16:15:18 Final Observation Date Value Abnormality Reference (Units ) Status BUN 03/20/2023 16:15:18 12 6-20 (mg/dL) Final Creatinine 03/20/2023 16:15:18 1.2 0.6-1.2 (mg/dL) Final Glomerular filtration rate/1.73 sq M.predicted [Volume Rate/Area] in Serum, Plasma or Blood by Creatinine-based formula (CKD-EPI) 03/20/2023 16:15:18 62 >=60 (mL/min) Final eGFR is calculated based on the CKD-EPI 2020 equation SODIUM 03/20/2023 16:15:18 142 135-146 (m mol/L) Final Potassium 03/20/2023 16:15:18 5.2 Above high normal 3. 5-5.1 (mmol/L) Final Cl 03/20/2023 16:15:18 103 98-107 (mm ol/L) Final CO2 03/20/2023 16:15:18 32 22-32 (mmo l/L) Final Anion gap 03/20/2023 16:15:18 7 7-15 (mmol /L) Final Glucose 03/20/2023 16:15:18 111 70-120 (mg /dL) Final Albumin 03/20/2023 16:15:18 3.9 3.8-5.0 (g /dL) Final AST (Aspartate aminotransferase) 03/20/2023 16:15:18 13 10-50 (U/L) Fin al Alk Phos 03/20/2023 16:15:18 122 35-130 (U/ L) Final Bilirubin, Total 03/20/2023 16:15:18 0.3 <=1 .2 (mg/dL) Final Calcium 03/20/2023 16:15:18 9.2 8.4-10.2 ( mg/dL) Final Protein 03/20/2023 16:15:18 6.7 6.0-8.3 (g /dL) Final ALT (Alanine aminotransferase) 03/20/2023 16:15:18 17 10-50 (U/L) Tim mckeon Performing Location [facility] [place] [facility] [address] [facility] [address]
--- OUTSIDE RECORDS SUMMARY | 2023-07-19 23:19 | External Medical Summary | Summary of Care ---
Author Name Unknown Organization [facility] Address [address] [facility] [place] [address] Phone [phone] Care Team Providers Care Tromper Name Role Phone Eugene Emmanuel MD Primary Care Provider +1- [phone] Encounter Details Date Type Department Care Team Description 03/23/2023 Telephone Urology, [facility] 132 [facility] [place] [address] Morteza Donahue MD 27 [facility] [address] [place] [address] Allergies Active Allergy Reactions Severity Noted Date Comments Amlodipine Nausea/vomiting 08/31/2022 documented as of this encounter (statuses as of 03/24/2023) Medications Medication Sig Dispensed Refills Start Date [...] 30 days. 0 Active Ergocalciferol 1.25 MG (59903 UT) Oral Capsule (Vitamin D2(Drisdol)) 1,250 mcg [...] as of this encounter (statuses as of 03/24/2023) Active Problems Problem Noted Date Middle cerebral aneurysm 06/05/2022 HTN, goal below 140/90 12/01/2021 Dyslipidemia 12/01/2021 Abdominal aortic aneurysm (AAA) without rupture 12/01/2021 Asymptomatic stenosis of left carotid ar stephanie 12/01/2021 Gastroesophageal reflux disease 12/02/19 22 documented as of this encounter (statuses as of 03/24/2023) Resolved Problems Problem Noted Date Resolved Date Abdominal aortic aneurysm without rupture 202209/08/2022 Constipation 06/13/2022 09/08/2022 Hyperthyroidism 12/01/2021 06/13/2022 documented as of this encounter (statuses as of 03/24/2023) Immunizations Name Administration Dates Next Due Pneumococcal [...] Hansen LPN - 03/23/2023 3:10 PM EDT [place] Text sent to Dr Bustillo for review and advice. Thank you Iza * Telephone Encounter - Danii Garrison RN - 03/23/2023 2:26 PM EDT Received TigerText communication from radiology regarding significant abnormal finding on patients recent US Renal dated 03/23/23 asking for review of report. Spoke with Dr. Donahue's clinic nurse, Iza Hansen who will be reaching out to contact manager provider to make them aware as Dr. Donahue is out -of-office. Danii Garrison RN MSN Paintings Conservator [facility] documented in this encounter Plan of Treatment Upcoming Encounters Date Type Specialty Care Team Description 04/04/2023 Telemedicine Urology Morteza Donahue MD [address] [place] [address] 05/11/2023 Office Visit Family Medicine Eugene Emmanuel MD [address] [place] [address] 07/05/2023 Imaging Radiology 07/26/2023 Office Visit Urology Morteza Donahue MD [address] [place] [address] Health Maintenance Due Date Last Done Comments [...] filedocumented as of this encounter Care Teams Tromper Relationship Specialty Start Date End Date Eugene Emmanuel MD [address], [place] [phone] PCP - General Family Medicine 11/03/21 documented as of this encounter
--- OUTSIDE RECORDS SUMMARY | 2023-07-19 23:19 | External Medical Summary ---
Author Name Unknown Address Unknown Organization K01:[facility] [place] - [facility] [address] Laboratory Report Ordering Provider Test Date Status BREE IGLESIAS 03/20/2023 16:15:18 Final Observation Date Value Abnormality Reference (Units ) Status WBC, Total 03/20/2023 16:15:18 7.67 4.00-10.80 (K/uL) Final RBC 03/20/2023 16:15:18 4.80 4.50-5.25 (M/uL) Final Hemoglobin 03/20/2023 16:15:18 13.8 Below low normal 14.0-16.8 (g/dL) Final HCT 03/20/2023 16:15:18 45.8 40.0-48.4 (%) Final MCV 03/20/2023 16:15:18 95.4 82.0-99.5 (fL) Final MCH 03/20/2023 16:15:18 28.8 27.0-34.0 (pg) Final MCHC 03/20/2023 16:15:18 30.1 32.0-36.0 (g/dL) Final RDW 03/20/2023 16:15:18 13.2 11.5-15.5 (%) Final Platelets 03/20/2023 16:15:18 194 140-400 (K/uL) Final MPV 03/20/2023 16:15:18 10.2 6.6-11.1 (fL) Final Nucleated erythrocytes/100 leukocytes [Ratio] in Blood by Automated count 03/20/2023 16:15:18 0 <=0 (/100 WBCs) Final Performing Location [facility] [place] - [address] [facility] [address]
--- OUTSIDE RECORDS SUMMARY | 2023-07-19 23:19 | External Medical Summary | Summary of Care ---
Author Name Unknown Organization [facility] Address [address] [facility] [address] Phone [phone] Care Team Providers Care Silverware Buffer Name Role Phone Eugene Emmanuel MD Primary Care Provider +1- [phone] Reason for Visit * Reason Comments Outpatient Testing Encounter Details Date Type Department Care Team Description 03/20/2023 Laboratory Laboratory, [facility] [address] [facility] 132 [facility] [address] Wellness examination; Body mass index (BMI) 30.0-30.9, adult; Encounter for long-term (current) use of other medications Allergies Active Allergy Reactions Severity Noted Date [...] 30 days. 0 Active Ergocalciferol 1.25 MG (12343 UT) Oral Capsule (Vitamin D2(Drisdol)) 1,250 mcg [...] Telemedicine Urology Morteza Donahue MD [address] [place] [address] 05/11/2023 Office Visit Family Medicine Eugene Emmanuel MD [address] [place] [address] 07/05/2023 Imaging Radiology 07/26/2023 Office Visit Urology Morteza Donahue MD [address] [place] [address] Pending Results Name Type Priority Associated Diagnoses Date /Time CBC WITH WBC DIFFERENTIAL Lab Routine Wellness examination 03/20/2023 4:15 PM EDT COMPREHENSIVE METABOLIC PANEL Lab Routine Wellness examination 03/20/2023 4:15 PM EDT URINALYSIS WITH MICROSCOPIC EXAM Lab Routine Wellness examination 03/20/2023 4:15 PM EDT LIPID PANEL WITH DIRECT LDL IF TG IS HIGH Lab Routine Wellness examination 03/20/2023 4:15 PM EDT VITAMIN B12 Lab Routine Wellness examination 03/20/2023 4:15 PM EDT FERRITIN Lab Routine Wellness examination 03/20/2023 4:15 PM EDT 25-HYDROXY VITAMIN D Lab Routine Wellness examination Body mass index (BMI) 30.0-30.9, adult 03/20/2023 4:15 PM EDT HEMOGLOBIN A1C Lab Routine Wellness examination 03/20/2023 4:15 PM EDT MAGNESIUM Lab Routine Encounter for long-term (current) use of other medications 03/20/2023 4:15 PM EDT CBC Lab Routine Wellness examination 03/20/2023 4:15 PM EDT DIFFERENTIAL, AUTOMATED Lab Routine Wellness examination 03/20/2023 4:15 PM EDT Health Maintenance Due Date Last Done [...] YEARLY 06/01/2023 06/01/2022, 019 GFR 09/08/2023 09/08/2022, 02/2022, 05/12/2022, Additional history exists Depression Screening, [...] as of this encounter Visit Diagnoses Diagnosis Wellness examination Body mass index (BMI) 30.0-30.9, adult Encounter for long-term (current) use of other medications documented in this encounter Care Teams Silverware Buffer Relationship Specialty Start Date End Date Eugene Emmanuel MD [address] [place] [address] PCP - General Family Medicine 11/03/21 documented as of this encounter
--- OUTSIDE RECORDS SUMMARY | 2023-07-19 23:19 | External Medical Summary ---
Author Name Unknown Address Unknown Organization K01:[facility] [place] - 100 [facility] [place] [address] Laboratory Report Ordering Provider Test Date Status BREE IGLESIAS 03/20/2023 16:15:18 Final Observation Date Value Abnormality Reference (Units ) Status Triglyceride 03/20/2023 16:15:18 108 <=174 ( mg/dL) Final Triglyceride Reference Range s (mg/dL):
<150 Acceptable
150-174 Borderline high
175-499 High
>=500 Very high Cholesterol 03/20/2023 16:15:18 107 <200 (mg /dL) Final Total Cholesterol Reference Ranges (mg/dL):
<200 Desirable
200-239 Borderline high
>=240 High HDL 03/20/2023 16:15:18 37 Below low normal >39 (mg/dL) Final HDL Cholesterol Reference Ra nges (mg/dL):
>=60 High (Desirable)
<50 Low (Undesirable) For Females
<40 Low (Undesirable) For Males NON-HDL CHOLESTEROL 03/20/2023 16:15:18 70 <=159 (mg/dL) Final Non-HDL Cholesterol Referenc e Range (mg/dL):
<100 Target level for high risk ASCVD patient
<130 Optimal for general population
130-159 Near optimal for general population
160-189 Borderline High
190-219 High
>=220 Very High LDL, (calculated) 03/20/2023 16:15:18 48 <= 129 (mg/dL) Final LDL Cholesterol Reference Ra nges (mg/dL):
<70 Target level for high risk ASCVD patient
<100 Optimal for general population
100-129 Near optimal for general population
130-159 Borderline high
160-189 High
>=190 Very high Performing Location [facility] [place] - [address] [facility] [address]
--- OUTSIDE RECORDS SUMMARY | 2023-07-19 23:19 | External Medical Summary | Summary of Care ---
Author Name Unknown Organization [facility] Address [address] [facility] [place] [address] Phone [phone] Care Team Providers Care Farmworker General Name Role Phone Eugene Emmanuel MD Primary Care Provider +1- [phone] Encounter Details Date Type Department Care Team Description 03/23/2023 Telephone Urology, [facility] 132 [facility] [place] [address] Morteza Donahue MD 27 [facility] [address] [place] [address] Allergies Active Allergy [...] 30 days. 0 Active Ergocalciferol 1.25 MG (23944 UT) Oral Capsule (Vitamin D2(Drisdol)) 1,250 mcg [...] Hansen LPN - 03/23/2023 3:10 PM EDT [place] Text sent to Dr Bustillo for review and advice. Thank you Iza * Telephone Encounter - Danii Garrison RN - 03/23/2023 2:26 PM EDT Received TigerText communication from radiology regarding significant abnormal finding on patients recent US Renal dated 03/23/23 asking for review of report. Spoke with Dr. Donahue's clinic nurse, Iza Hansen who will be reaching out to chief cardiopulmonary technologist provider to make them aware as Dr. Donahue is out -of-office. Daini Garrison RN MSN Sound Technician [facility] documented in this encounter Plan of Treatment Upcoming Encounters Date Type Specialty Care Team Description 04/04/2023 Telemedicine Urology Morteza Donahue MD [address] [place] [address] 05/11/2023 Office Visit Family Medicine Eugene Emmanuel MD [address] [place] [address] 07/05/2023 Imaging Radiology 07/26/2023 Office Visit Urology Morteza Donahue MD [address] [place] [address] Health Maintenance Due Date Last Done Comments [...] filedocumented as of this encounter Care Teams Farmworker General Relationship Specialty Start Date End Date Eugene Emmanuel MD [address] [place], [place] [phone] PCP - General Family Medicine 11/03/21 documented as of this encounter
--- OUTSIDE RECORDS SUMMARY | 2023-07-19 23:19 | External Medical Summary | Summary of Care ---
Author Name Unknown Organization [facility] Address [address] [facility] [address] Phone [phone] Care Team Providers Care Machine Bender Name Role Phone Eugene Paul MD Primary Care Provider +1- [phone] Encounter Details Date Type Department Care Team Description 04/20/2023 Telemedicine Urology Prieto Jimenez [address] [place] [address] Morteza Donahue MD [address] [place] [address] BPH with obstruction/lower urinary tract symptoms*; Calculus of kidney; Hydronephrosis, left Allergies Active Allergy Reactions Severity [...] 30 days. 0 Active Ergocalciferol 1.25 MG (31628 UT) Oral Capsule (Vitamin D2(Drisdol)) 1,250 mcg [...] Progress Notes * Morteza Donahue MD - 04/20/2023 3:28 PM EDT Images from the original note were not included. [id number] PCP: EUGENE PAUL [place], [place] [id number] Patient location: HOME. I was in a hospital or clinic location. After connecting through televideo,patient was verified with two unique identifiers. Patient (or authorized legal account services representative) was then informed that this was a Telemedicine visit and being conducted confidentially over secure lines. Methods to assure confidentiality were taken. Patient acknowledged consent and understanding of pr ivacy and security of the Telemedicine visit. The patient agreed to participate. Roddy George is a 83 year old male, who presents for f/u of his stone disease. He notes good voiding, denies colic or pain. He denies hematuria. He is here with family. US images reviewed with patient via screen share. This shows moderate left-sided hydronephrosis, increased compared to previous CT imaging, also reviewed with patient. He denies stone passage. BPH: Patient is being seen for BPH [...] abdominal aorta measuring 3.2 x 3.2 cm. Creatinine Results: Lab Results Component Value Date/Time CREATININE - [facility] 1.2 03/20/2023 04:15 PM CREATININE - [facility] 1.0 09/08/2022 08:48 AM CREATININE - [facility] 1.3 (H) 05/12/2022 11:17 AM CREATININE, RANDOM URINE - [facility] 210 09/08/2022 08:48 AM CREATININE-OUTSIDE LAB 0.9 08/09/2022 12:00 AM CREATININE-OUTSIDE LAB 0.96 09/16/2020 12:00 AM Current Outpatient Medications Medication Sig Dispense [...] taking: Reported on 11/04/2022) Ergocalciferol 1.25 MG (47866 UT) Oral Capsule (Vitamin D2(Drisdol)) 1,250 mcg [...] performed by Rigoberto Lee DO at [facility] Past Medical History: Diagnosis Date HTN (hypertension) Patient Active Problem List Diagnosis Code HTN, goal below 140/90 I10 Dyslipidemia E78.5 Abdominal aortic aneurysm (AAA) without rupture (HCC) I71.40 Asymptomatic stenosis of left carotid artery I65.22 Gastroesophageal reflux disease K21.9 Middle cerebral aneurysm I67.1 Constitutional: (-) fever and (-) chills Eyes: (+) corrective lenses Cardiovascular: (-) chest pain Abdominal/GI: (-) abdominal pain and (-) nausea Male : See HPI Neurology: (-) negative: no focal neurologic defect Psychiatry: (-) negative: no depression or anxiety Physical Exam Constitutional: General: He is not in acute distress. Appearance: He is not ill-appearing or toxic-appearing. HENT: Head: Normocephalic and atraumatic. Right Ear: External ear normal. Left Ear: External ear normal. Nose: Nose normal. Mouth/Throat: Mouth: Mucous membranes are moist. Eyes: Extraocular Movements: Extraocular movements intact. Pulmonary: Effort: Pulmonary effort is normal. No respiratory distress. Musculoskeletal: Cervical back: No rigidity. Skin: Coloration: Skin is not pale. Neurological: General: No focal deficit present. Mental Status: He is oriented to person, place, and time. Psychiatric: Mood and Affect: Mood normal. Behavior: Behavior normal. Thought Content: Thought content normal. Impression/Plan: 83-year-old male with moderate left hydronephrosis, 2 cm ureteral stone. Findings reviewed with patient. Despite the lack of symptoms and his relatively normal creatinine, there has been a rise above his previous baseline and significant hydronephrosis is present. I thinkit would be reasonable to proceed with endoscopic management of the patient's stone. Patient agrees, will arrange for cystoscopy, left-sided ureteroscopy, laser lithotripsy, basket stone extraction and ureteral stent placement. Risks and benefits reviewed. Will obtain consent the day of surgery. Patient would prefer to have this done at [facility] if possible, has undergone intervention there inthe past year. Questions answered. Above content is personally reviewed. Patient vocalizes good understanding of the treatment plan. Left-sided ureteroscopy, laser lithotripsy, basket stone extraction, ureteral stent placement. 10-14 day cystoscopy stent removal with KUB. Morteza Donahue MD 3:28 PM 04/20/2023 documented in this encounter Plan of Treatment Upcoming Encounters Date Type Specialty Care Team Description 05/11/2023 Office Visit Family Medicine Eugene Paul MD [address] [place] [address] 07/05/2023 Imaging Radiology 07/26/2023 Office Visit Urology Morteza Donahue MD [address] [address] Health Maintenance Due Date Last Done Comments [...] as of this encounter Visit Diagnoses Diagnosis BPH with obstruction/lower urinary tract symptoms- Primary Hypertrophy of prostate with urinary obstruction and other lower urinary tract symptoms (LUTS) Calculus of kidney Hydronephrosis, left Hydronephrosis documented in this encounter Care Teams Machine Bender Relationship Specialty Start Date End Date Eugene Paul MD [address] [place] [address] PCP - General Family Medicine 11/03/21 documented as of this encounter
--- OUTSIDE RECORDS SUMMARY | 2023-07-19 23:19 | External Medical Summary | Summary of Care ---
Author Name Unknown Organization [facility] Address [address] [place] [address] Phone [phone] Care Team Providers Care Stull Installer Name Role Phone Eugene Emmanuel MD Primary Care Provider +1- [phone] Reason for Visit * Reason Onset Date Comments Status Check Medication Administration 05/11/2023 Flu an d/or Pneumo Inj Encounter Details Date Type Department Care Team Description 05/11/2023 Office Visit [facility] [address] [place] [address] Eugene Emmanuel MD [address] [place] [address] HTN, goal below 140/90*; Need for prophylactic vaccination and inoculation against influenza; Dyslipidemia; Gastroesophageal reflux disease, unspecified whether esophagitis present; BPH with obstruction/lower urinary tract symptoms; Calculus of kidney Allergies Active Allergy Reactions Severity Noted Date Comments Amlodipine Nausea/vomiting 08/31/2022 documented as of this encounter (statuses as of 05/11/2023) Medications Medication Sig Dispensed Refills Start Date [...] by mouth every evening. 0 03/07/2023 Active Ergocalciferol 1.25 MG (12545 UT) Oral Capsule (Vitamin D2(Drisdol)) 1,250 mcg . 0 08/10/2022 3 Discontinu ed(Medicat ion List Clean Up) Doxycycline Hyclate 100 MG Oral Tablet Take 1 Tablet by mouth in the morning and 1 Tablet before bedtime. For 8 days. 0 02/10/2023 3 Discontinu ed(Medicat ion List Clean Up) documented as of this encounter (statuses as of 05/11/2023) Active Problems Problem Noted Date BPH with obstruction/lower urinary tract symptoms 04/20/2023 Calculus of kidney 04/20/2023 Middle cerebral aneurysm 06/05/2022 HTN, goal below 140/90 12/01/2021 Dyslipidemia 12/01/2021 Abdominal aortic aneurysm (AAA) without rupture 12/01/2021 Asymptomatic stenosis of left carotid ar stephanie 12/01/2021 Gastroesophageal reflux disease 12/02/19 22 documented as of this encounter (statuses as of 05/11/2023) Resolved Problems Problem Noted Date Resolved Date Abdominal aortic aneurysm without rupture 202209/08/2022 Constipation 06/13/2022 09/08/2022 Hyperthyroidism 12/01/2021 06/13/2022 documented as of this encounter (statuses as of 05/11/2023) Immunizations Name Administration Dates Next Due Pneumococcal Polysaccharide PPV23 (Pneumovax) Seasonal Influenza, Quad, Nasal (Flumist) 2020 Seasonal Influenza, Quadrivalent Hd (Fluzone Hd) 05/11/2023,05/12/2022 documented as of this encounter Social History Tobacco Use Types Packs/Day Years Used Date Smoking Tobacco: Former Smokeless Tobacco: Never Tobacco Cessation:Counseling Given: Not Answered Alcohol Use Standard Drinks/Week Comments Not Currently 0 (1 standard drink = 0.6 oz pur e alcohol) Sex Assigned at Date Recorded Not on file Job Start Date Occupation Industry Not on file Not on file Not on file documented as of this encounter Last Filed Vital Signs Vital Sign Reading Time Taken Comments Blood Pressure 128/66 05/11/2023 10:35 AM EDT Pulse 82 05/11/2023 10:35 AM EDT Temperature 37 C (98.6 F) 05/11/2023 10:35 AM EDT Respiratory Rate 14 05/11/2023 10:35 AM EDT Oxygen Saturation 90% 05/11/2023 10:35 AM EDT Inhaled Oxygen Concentration - - Weight 66.2 kg (146 lb) 05/11/2023 10:35 AM EDT Height - - Body Mass Index 20.95 11/04/2022 9:13 AM EST documented in this encounter Progress Notes * Eugene Emmanuel MD - 05/11/2023 10:57 AM EDT Subjective: Roddy George is a 83 year old male here today for Chief Complaint Patient presents with Status Check Medication Administration Flu and/or Pneumo Inj Pt prsents for routinoe recheck. He is tolerating his current meds. [facility] with [facility] next [facility]. He is scheduled for PFTs in June. No recent falls, injuries, hospitalizations. He does have an upcoming procedure for kidney stones. He does report having poor energy and has been sleeping a lot. Denies chest pain, shortness of breath, cough, nausea, vomiting, abd pain, dysuria, urinary frequency, nocturia, fever, melena, hematochezia, peripheral edema. Past Medical History: Diagnosis Date HTN (hypertension) Past Surgical History: Procedure Laterality Date EGD, W/ENDOSCOPIC US 07/08/2022 mild inflammatory changes on bx / ESOPHAGOGASTRODUODENOSCOPY (EGD), FLEXIBLE, TRANSORAL, ENDOSCOPICULTRASOUND performed by Rigoberto Lee DO at [facility] Review of patient's allergies indicates: Allergen Reactions Amlodipine Nausea/vomiting Current Outpatient Medications Medication Sig Dispense Refill Aspirin 81 MG Oral Tablet Chewable Take [...] Take 1 Tablet by mouth every evening. Metoprolol Tartrate 50 MG Oral Tablet (Lopressor) Take by mouth 1 Tablet in the morning. (Patient not taking: Reported on 02/16/2023) 90 Tablet 3 Docusate Sodium 100 MG Oral Capsule Take 1 Capsule by mouth in the morning and 1 Capsule before bedtime. Reports he takes 2 pills at night . Vitamin Deficiency System-B12 1000 MCG/ML Injection Kit (Cyanocobalamin) Inject 1,000 mcg into a large muscle every 30 days. (Patient not taking: Reported on 11/04/2022) Ondansetron 4 MG Oral Tablet Disintegrating (Zofran) Place 1 Tablet on tongue every 8 hours as needed for Nausea. dissolve on tongue. 20 Tablet 0 No current facility-administered medications for this visit. Objective: BP 128/66 | Pulse 82 | Temp 37 C (98.6 F) (Infrared ) | Resp 14 | Wt 66.2 kg (146 lb) | SpO2 90% | BMI 20.95 kg/m | BSA 1.81 m GEN: NAD HEENT: Benign NECK: Supple with no LAD, TM, JVD CHEST: CTA B CV: RRR ABD: Soft, NT/ND, No HSM, NABS EXT: No c,c,e Assessment and Plan: HTN, goal below 140/90 (Primary) Need for prophylactic vaccination and inoculation against influenza - INFLUENZA VACC, QUAD, HIGH DOSE (FLUZONE HD) Dyslipidemia Gastroesophageal reflux disease, unspecified whether esophagitis present BPH with obstruction/lower urinary tract symptoms Calculus of kidney -continue current meds -follow up with urology as scheduled -[facility] -next step for eval of fatigue would be labs - getting at [facility] tomorrow. Follow Up: Return in about 6 months (around 11/09/2023) for recheck. | For: recheck 30 min with pt and documentation Eugene Emmanuel MD * Esthela Freeman LPN - 05/11/2023 10:42 AM EDT PRE - ADMINISTRATION DOCUMENTATION Are you experiencing any cold symptoms or fever? No Have you had Guillain-Mercer Syndrome (an illness that causes paralysis) within the last 6 weeks? No Have you had the flu shot in the past? YES Have you ever had a reaction to the flu shot? No Esthela Freeman LPN, 05/11/2023 10:42 AM Immunization Administration Documentation Time Out Procedure Performed: Yes Patient Identified (Ask Name/Date of ): Yes Does the patient have a fever greater than 101 degrees today? No Patient allergic to latex? No VFC Stock: No Immunization(s) verified: Yes, Immunization Name: Flu, VIS Sheet(s) given: Yes Verified Side and Site: Yes Verified Shot(s) with Parent(s)/Patient: Yes documented in this encounter Nursing Notes * Esthela Freeman LPN - 05/11/2023 10:35 AM EDT The patient has been properly identified by confirmation of name and date of . Chief Complaint Patient presents with Status Check Return visit documented in this encounter Plan of Treatment Upcoming Encounters Date Type Specialty Care Team Description 05/15/2023 Nurse Only Urology Asad, Nurse Urology Nav[facility] [place] [address] 05/22/2023 Hospital Encounter Surgery Morteza Donahue MD [address] [place] [address] 05/22/2023 Surgery Surgery Morteza Donahue MD [address] [place] [address] CYSTOURETHROSCOPY URETEROSCOPY WITH LITHOTRIPSY AND STENT INSERTION 06/05/2023 Procedure Only Urology Morteza Donahue MD [address] [place] [address] 07/05/2023 Imaging Radiology 11/10/2023 Office Visit Family Medicine Eugene Emmanuel MD [address] [place] [id number] Scheduled Procedures Name Priority Associated Diagnoses Date/Ti me CYSTOURETHROSCOPY URETEROSCO PY WITH LITHOTRIPSY AND STENT INSERTION BPH with obstruction/lower urinary tract symptoms 05/22/2023 11:58 AM EDT Health Maintenance Due Date Last [...] as of this encounter Visit Diagnoses Diagnosis HTN, goal below 140/90- Primary Unspecified essential hypertension Need for prophylactic vaccination and inoculation against influenza Dyslipidemia Other and unspecified hyperlipidemia Gastroesophageal reflux disease, unspecified whether esophagitis present BPH with obstruction/lower urinary tract symptoms Hypertrophy of prostate with urinary obstruction and other lower urinary tract symptoms (LUTS) Calculus of kidney BPH with obstruction/lower urinary tract symptoms Hypertrophy of prostate with urinary obstruction and other lower urinary tract symptoms (LUTS) documented in this encounter Care Teams Stull Installer Relationship Specialty Start Date End Date Eugene Emmanuel MD [address] [place], [place] [phone] PCP - General Family Medicine 11/03/21 documented as of this encounter"
--- OUTSIDE RECORDS SUMMARY | 2023-07-19 23:19 | External Medical Summary ---
Author Name Unknown Address Unknown Organization [id number]:[facility] [place] - [address] [place] [id number] Laboratory Report Ordering Provider Test Date Status POLINARUTHANN 05/16/2023 11:44:13 Final Observation Date Value Abnormality Reference (Units) Status Bacteria identified in Specimen by Culture 05/16/2023 11:44:13 No significant growth Final Test: Culture, Urine, Quanti tative
Specimen Source: Urine, Clean Catch
Specimen Type: Urine
Specimen Date: 05/16/2023 11:44 AM
Result Date: 05/17/2023 1:35 PM
Result Status: Final result
Resulting Lab: [facility]
[address]
[facility]

CULTURE

No significant growth

null Performing Location [facility] [place] - [address] [facility] [address]
--- OUTSIDE RECORDS SUMMARY | 2023-07-19 23:19 | External Medical Summary | Summary of Care ---
Author Name Unknown Organization [facility] Address [address] [facility] [address] Phone [phone] Care Team Providers Care Bag Inspector Name Role Phone Eugene Emmanuel MD Primary Care Provider +1- [phone] Encounter Details Date Type Department Care Team Description 03/23/2023 Telephone Urology, [facility] [address] [facility] [place] [address] Morteza Donahue MD 27 [facility] [address] [place] [address] Allergies Active Allergy Reactions Severity Noted Date Comments Amlodipine Nausea/vomiting 08/31/2022 documented as of this encounter (statuses as of 03/23/2023) Medications Medication Sig Dispensed Refills Start Date [...] 30 days. 0 Active Ergocalciferol 1.25 MG (23169 UT) Oral Capsule (Vitamin D2(Drisdol)) 1,250 mcg [...] as of this encounter (statuses as of 03/23/2023) Active Problems Problem Noted Date Middle cerebral aneurysm 06/05/2022 HTN, goal below 140/90 12/01/2021 Dyslipidemia 12/01/2021 Abdominal aortic aneurysm (AAA) without rupture 12/01/2021 Asymptomatic stenosis of left carotid ar stephanie 12/01/2021 Gastroesophageal reflux disease 12/02/19 documented as of this encounter (statuses as of 03/23/2023) Resolved Problems Problem Noted Date Resolved Date Abdominal aortic aneurysm without rupture 202209/08/2022 Constipation 06/13/2022 09/08/2022 Hyperthyroidism 12/01/2021 06/13/2022 documented as of this encounter (statuses as of 03/23/2023) Immunizations Name Administration Dates Next Due Pneumococcal [...] Hansen LPN - 03/23/2023 3:10 PM EDT Rudyard Text sent to Dr Bustillo for review and advice. Thank you Iza * Telephone Encounter - Danii Garrison RN - 03/23/2023 2:26 PM EDT Received TigerText communication from radiology regarding significant abnormal finding on patients recent US Renal dated 03/23/23 asking for review of report. Spoke with Dr. Donahue's clinic nurse, Iza Hansen who will be reaching out to hotel casino floorperson provider to make them aware as Dr. Donahue is out -of-office. Danii Garrison RN MSN [employer] Fermentation Operator [facility] documented in this encounter Plan of Treatment Upcoming Encounters Date Type Specialty Care Team Description 04/04/2023 Telemedicine Urology Morteza Donahue MD [address] [place] [address] 05/11/2023 Office Visit Family Medicine Eugene Emmanuel MD [address] [place] [address] 07/05/2023 Imaging Radiology 07/26/2023 Office Visit Urology Morteza Donahue MD [address] [place] [address] Health Maintenance Due Date Last Done Comments [...] filedocumented as of this encounter Care Teams Bag Inspector Relationship Specialty Start Date End Date Eugene Emmanuel MD [address] [place], [place] [phone] PCP - General Family Medicine 11/03/21 documented as of this encounter
--- OUTSIDE RECORDS SUMMARY | 2023-07-19 23:19 | External Medical Summary | Summary of Care ---
Author Name Unknown Organization [facility] Address [address] [facility] [address] Phone [phone] Care Team Providers Care Fiberglass Technician Name Role Phone Eugene Emmanuel MD Primary Care Provider +1- [phone] Encounter Details Date Type Department Care Team Description 03/23/2023 Telephone Urology, [facility] 132 [facility] [place] [address] Morteza Donahue MD 27 [facility] [address] [place] [address] Allergies Active Allergy [...] 30 days. 0 Active Ergocalciferol 1.25 MG (68382 UT) Oral Capsule (Vitamin D2(Drisdol)) 1,250 mcg [...] Hansen LPN - 03/23/2023 3:10 PM EDT [place] Text sent to Dr Bustillo for review and advice. Thank you Iza * Telephone Encounter - Danii Garrison RN - 03/23/2023 2:26 PM EDT Received TigerText communication from radiology regarding significant abnormal finding on patients recent US Renal dated 03/23/23 asking for review of report. Spoke with Dr. Donahue's clinic nurse, Iza Hansen who will be reaching out to monorail operator provider to make them aware as Dr. Donahue is out -of-office. Danii Garrison RN MSN Professional Architect [facility] documented in this encounter Plan of Treatment Upcoming Encounters Date Type Specialty Care Team Description 04/04/2023 Telemedicine Urology Morteza Donahue MD [address] [place] [address] 05/11/2023 Office Visit Family Medicine Eugene Emmanuel MD [address] [place] [address] 07/05/2023 Imaging Radiology 07/26/2023 Office Visit Urology Morteza Donahue MD [address] [place] [address] Health Maintenance Due Date Last Done Comments [...] filedocumented as of this encounter Care Teams Fiberglass Technician Relationship Specialty Start Date End Date Eugene Emmanuel MD [address] [place], [place] [phone] PCP - General Family Medicine 11/03/21 documented as of this encounter
--- OUTSIDE RECORDS SUMMARY | 2023-07-19 23:19 | External Medical Summary | Summary of Care ---
Author Name Unknown Organization [facility] Address [address] [place] [address] Phone [phone] Care Team Providers Care Cullet Crusher And Washer Name Role Phone Eugene Emmanuel MD Primary Care Provider +1- [phone] Reason for Visit * Reason Onset Date Comments Test Results 03/16/2023 Lmom 03/17 Encounter Details Date Type Department Care Team Description 03/16/2023 Telephone Laboratory, [address] [address] Morteza Beavers MD [address] [place] [address] Test Results (Lmom 03/17) Allergies Active Allergy Reactions Severity Noted Date Comments Amlodipine Nausea/vomiting 08/31/2022 documented as of this encounter (statuses as of 03/17/2023) Medications Medication Sig Dispensed Refills Start Date [...] 30 days. 0 Active Ergocalciferol 1.25 MG (42505 UT) Oral Capsule (Vitamin D2(Drisdol)) 1,250 mcg [...] as of this encounter (statuses as of 03/17/2023) Active Problems Problem Noted Date Middle cerebral aneurysm 06/05/2022 HTN, goal below 140/90 12/01/2021 Dyslipidemia 12/01/2021 Abdominal aortic aneurysm (AAA) without rupture 12/01/2021 Asymptomatic stenosis of left carotid ar stephanie 12/01/2021 Gastroesophageal reflux disease 12/02/19 22 documented as of this encounter (statuses as of 03/17/2023) Resolved Problems Problem Noted Date Resolved Date Abdominal aortic aneurysm without rupture 202209/08/2022 Constipation 06/13/2022 09/08/2022 Hyperthyroidism 12/01/2021 06/13/2022 documented as of this encounter (statuses as of 03/17/2023) Immunizations Name Administration Dates Next Due Pneumococcal [...] unexpected or indeterminate finding on Roddy George ([id number]) and asks that you review the following [...] reviewed. Thank you, ARTIS [place] Client Service [facility] documented in this encounter Plan of Treatment Upcoming Encounters Date Type Specialty Care Team Description 03/20/2023 Office Visit Urology Morteza Beavers MD [address] [facility] [address] [place] [address] 05/11/2023 Office Visit Family Medicine Eugene Emmanuel MD [address] [facility] [place] [address] Scheduled Orders Name Type Priority Associated Diagnoses [...] calculi documented in this encounter Care Teams Cullet Crusher And Washer Relationship Specialty Start Date End Date Eugene Emmanuel MD [address] [place] [address] PCP - General Family Medicine 11/03/21 documented as of this encounter
--- OUTSIDE RECORDS SUMMARY | 2023-07-19 23:19 | External Medical Summary ---
Author Name Unknown Address Unknown Organization K01:[facility] - [address] [place] [address] Laboratory Report Ordering Provider Test Date Status BREE IGLESIAS 03/20/2023 16:15:18 Final Observation Date Value Abnormality Reference (Units ) Status Ferritin 03/20/2023 16:15:18 202 30-400 (ng /mL) Final Performing Location [facility] - [address] [place] [address]
--- OUTSIDE RECORDS SUMMARY | 2023-07-19 23:19 | External Medical Summary | Summary of Care ---
Author Name Unknown Organization [facility] Address [address] [place] [address] Phone [phone] Care Team Providers Care Truck Loader Name Role Phone Eugene Emmanuel MD Primary Care Provider +1- [phone] Reason for Visit * Reason Onset Date Comments Test Results 03/16/2023 Encounter Details Date Type Department Care Team Description 03/16/2023 Telephone Laboratory, [address] [address] Morteza Beavers MD [address] [facility] [address] [place] [address] Test Results Allergies Active Allergy Reactions Severity [...] 30 days. 0 Active Ergocalciferol 1.25 MG (86287 UT) Oral Capsule (Vitamin D2(Drisdol)) 1,250 mcg [...] * Telephone Encounter - ARTIS Bustamante - 03/20/2023 4:10 PM EDT Everything has been scheduled for patient. * Telephone Encounter - Mari Hansen LPN [...] accepted: Orders * Telephone Encounter - Morteza eBavers MD - 03/16/2023 3:38 PM EDT Noted, renal US ordered. Let's see if we can obtain prior to scheduled f/u visit. Thanks, HM * Telephone Encounter - ARTIS Arrieta - 03/16/2023 10:31 AM EDT Hello- The radiologist discovered an unexpected or indeterminate finding on Roddy George ([id number]) and asks that you review the following [...] Thank you, ARTIS Arrieta Client Service Rep [facility] documented in this encounter Plan of Treatment Upcoming Encounters Date Type Specialty Care Team Description 03/23/2023 Imaging Radiology 04/04/2023 Telemedicine Urology Morteza Beavers MD [address] [place] [address] 05/11/2023 Office Visit Family Medicine Eugene Emmanuel MD [address] [place] [address] 07/05/2023 Imaging Radiology 07/26/2023 Office Visit Urology Morteza Beavers MD [address] [place] [address] Scheduled Orders Name Type Priority Associated Diagnoses [...] 06/01/2022, 08/07/2019 AAA ULTRASOUND YEARLY 06/01/2023 06/01/2022, 12/04/2 019 GFR 09/08/2023 09/08/2022, 12/0 02/2022, 05/12/2022, [...] calculi documented in this encounter Care Teams Truck Loader Relationship Specialty Start Date End Date Eugene Emmanuel MD [address] [place], [place] [phone] PCP - General Family Medicine 11/03/21 documented as of this encounter
--- OUTSIDE RECORDS SUMMARY | 2023-07-19 23:19 | External Medical Summary ---
Author Name Unknown Address Unknown Organization K01:[facility] - [address] [place] [address] Laboratory Report Ordering Provider Test Date Status JAMI JONES 03/20/2023 16:15:18 Final Observation Date Value Abnormality Reference (Units ) Status Magnesium 03/20/2023 16:15:18 2.0 1.5-2.6 (m g/dL) Final Performing Location [facility] [address] [facility] [address]
--- OUTSIDE RECORDS SUMMARY | 2023-07-19 23:19 | External Medical Summary ---
Author Name Unknown Address Unknown Organization K01:LABORATORY [facility] [place] - [address] [facility] [place] [address] Laboratory Report Ordering Provider Test Date Status BREE IGLESIAS 03/20/2023 16:15:18 Final Observation Date Value Abnormality Reference (Units ) Status SYNC LEUKOCYTES IN BLOOD BY AUTOMATED COUNT 03/20/2023 16:15:18 7.67 4.00-10.80 (K/uL) Final Segs 03/20/2023 16:15:18 57.5 40.0-75.0 (%) Final Lymphs % 03/20/2023 16:15:18 27.9 18.0-42.0 (%) Final Monos 03/20/2023 16:15:18 8.2 1.0-11.0 (%) Final Eosinophils 03/20/2023 16:15:18 5.2 0.0-6.0 (%) Final Basos 03/20/2023 16:15:18 0.8 0.0-2.0 (%) Final Immature Granulocyte, Percent 03/20/2023 16:15:18 0.4 0.0-2.0 (%) Final Absolute Segs 03/20/2023 16:15:18 4.41 1.80-7.70 (K/uL) Final Lymphs, absolute 03/20/2023 16:15:18 2.14 1.00-4.80 (K/ul) Final Monos, Abs 03/20/2023 16:15:18 0.63 0.00-1.10 (K/uL) Final Eos, Abs 03/20/2023 16:15:18 0.40 0.00-0.70 (K/uL) Final Basos, Abs 03/20/2023 16:15:18 0.06 0.00-0.20 (K/uL) Final Immature Granulocytes, Number 03/20/2023 16:15:18 0.03 0.00-0.20 (K/uL) Final Performing Location LABORATORY [facility] - [address] [facility] [address]
--- OUTSIDE RECORDS SUMMARY | 2023-07-19 23:19 | External Medical Summary | Summary of Care ---
Author Name Unknown Organization [facility] Address [address] [facility] [place] [address] Phone [phone] Care Team Providers Care Sailing Instructor Name Role Phone Eugene Emmanuel MD Primary Care Provider +1- [phone] Encounter Details Date Type Department Care Team Description 03/23/2023 Telephone Urology, [facility] [address] [facility] [place] [address] Morteza Donahue MD 27 [facility] [address] [place] [address] Allergies [...] 30 days. 0 Active Ergocalciferol 1.25 MG (08446 UT) Oral Capsule (Vitamin D2(Drisdol)) 1,250 mcg [...] encounter Miscellaneous Notes * Telephone Encounter - Danii Garrison RN - 03/23/2023 2:26 PM EDT Received TigerText communication from radiology regarding significant abnormal finding on patients recent US Renal dated 03/23/23 asking for review of report. Spoke with Dr. Donahue's clinic nurse, Iza Hansen who will be reaching out to professional employer consultant provider to make them aware as Dr. Donahue is out -of-office. Danii Garrison RN MSN Wardrobe Attendant Surgery [facility] documented in this encounter Plan of Treatment Upcoming Encounters Date Type Specialty Care Team Description 04/04/2023 Telemedicine Urology Morteza Donahue MD [address] [place] [address] 05/11/2023 Office Visit Family Medicine Eugene Emmanuel MD [address] [place] [address] 07/05/2023 Imaging Radiology 07/26/2023 Office Visit Urology Morteza Donahue MD [address] [place] [address] Health Maintenance Due Date Last Done Comments [...] filedocumented as of this encounter Care Teams Sailing Instructor Relationship Specialty Start Date End Date Eugene Emmanuel MD [address] [place], [place] [phone] PCP - General Family Medicine 11/03/21 documented as of this encounter
--- OUTSIDE RECORDS SUMMARY | 2023-07-19 23:19 | External Medical Summary ---
Author Name Unknown Address Unknown Organization K01:[facility] - [address] [facility] [address] Laboratory Report Ordering Provider Test Date Status BREE IGLESIAS 03/20/2023 16:15:18 Final Observation Date Value Abnormality Reference (Units ) Status Color of Urine by Auto 03/20/2023 16:15:18 Yellow Colorless, Light Yellow, Yellow, Dark Yellow Final Clarity, Urine 03/20/2023 16:15:18 Clear Clear Final Glucose [Mass/volume] in Urine by Automated test strip 03/20/2023 16:15:18 Negative Negative (mg/dL) Final Bilirubin.total [Presence] in Urine by Automated test strip 03/20/2023 16:15:18 Negative Negative Final Ketones [Mass/volume] in Urine by Automated test strip 03/20/2023 16:15:18 Negative Negative (mg/dL) Final Specific gravity, Urine 03/20/2023 16:15:18 1.026 1.003-1.030 Final Hemoglobin [Presence] in Urine by Automated test strip 03/20/2023 16:15:18 Negative Negative Final pH, Urine 03/20/2023 16:15:18 5.5 5.0-7.5 (Units) Final Protein [Mass/volume] in Urine by Automated test strip 03/20/2023 16:15:18 Negative Negative (mg/dL) Final Urobilinogen [Mass/volume] in Urine by Automated test strip 03/20/2023 16:15:18 Normal Normal (mg/dL) Final Nitrite [Presence] in Urine by Automated test strip 03/20/2023 16:15:18 Negative Negative Final Leukocyte esterase [Presence] in Urine by Automated test strip 03/20/2023 16:15:18 Negative Negative Final RBC, Urine 03/20/2023 16:15:18 0-2 0-2 (/HPF) Final WBC, Urine 03/20/2023 16:15:18 0-2 0-2 (/HPF) Final Bacteria [#/area] in Urine sediment by Microscopy high power field 03/20/2023 16:15:18 0-25 0-25 (/HPF) Final Performing Location [facility] [address] [facility] [address]
--- OUTSIDE RECORDS SUMMARY | 2023-07-19 23:19 | External Medical Summary | Summary of Care ---
Author Name Unknown Organization [facility] Address [address] [facility] [place] [address] Phone [phone] Care Team Providers Care Aircraft Engine Dismantler Name Role Phone Eugene Emmanuel MD Primary Care Provider +1- [phone] Encounter Details Date Type Department Care Team Description 05/16/2023 Nurse Only Urology, [facility] [address] [facility] [place] [address] [facility] Nurse Urology [facility] [address] [place] [address] Arrived Allergies Active Allergy Reactions Severity Noted Date Comments Amlodipine Nausea/vomiting 08/31/2022 documented as of this encounter (statuses as of 05/16/2023) Medications Medication Sig Dispensed Refills Start Date [...] by mouth every evening. 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 Calculus of kidney 04/20/2023 Middle cerebral aneurysm 06/05/2022 HTN, goal below 140/90 12/01/2021 Dyslipidemia 12/01/2021 Abdominal aortic aneurysm (AAA) without rupture 12/01/2021 Asymptomatic stenosis of left carotid ar stephanie 12/01/2021 Gastroesophageal reflux disease 12/02/19 22 documented as of this encounter (statuses as of 05/16/2023) Resolved Problems Problem Noted Date Resolved Date Abdominal aortic aneurysm without rupture 202209/08/2022 Constipation 06/13/2022 09/08/2022 Hyperthyroidism 12/01/2021 06/13/2022 documented as of this encounter (statuses as of 05/16/2023) Immunizations Name Administration Dates Next Due Pneumococcal [...] Nursing Notes * Mari Hansen LPN - 05/16/2023 11:41 AM EDT Patient scheduled at [facility] for lithotripsy, stent placement with Dr Morteza Donahue. Date of Surgery: 05/22/23 Medications reviewed. Aware to d/c aspirin today EKG: obtained CXR: ordered Labs: on file UAC&S: obtained, to be done 1 week prior to surgery Post op appts scheduled Patient verbalizes understanding of pre- and post op instructions. Written instructions given for review at later date. Mari Hansen LPN 05/16/2023 documented in this encounter Plan of Treatment Upcoming Encounters Date Type Specialty Care Team Description 05/22/2023 Hospital Encounter Surgery Morteza Donahue MD [address] [place] [address] 05/22/2023 Surgery Surgery Morteza Donahue MD [address] [place] [address] CYSTOURETHROSCOPY URETEROSCOPY WITH LITHOTRIPSY AND STENT INSERTION 06/05/2023 Procedure Only Urology Morteza Donahue MD [address] [place] [address] 07/05/2023 Imaging Radiology 11/10/2023 Office Visit Family Medicine Eugene Emmanuel MD [facility] [place] [address] Scheduled Procedures Name Priority Associated Diagnoses Date/Ti me CYSTOURETHROSCOPY URETEROSCO PY WITH LITHOTRIPSY AND STENT INSERTION BPH with obstruction/lower urinary tract symptoms 05/22/2023 11:43 AM EDT Health Maintenance Due Date Last [...] Calculus of kidney- Primary Hydronephrosis, left Hydronephrosis BPH with obstruction/lower urinary tract symptoms Hypertrophy of prostate with urinary obstruction and other lower urinary tract symptoms (LUTS) documented in this encounter Care Teams Aircraft Engine Dismantler Relationship Specialty Start Date End Date Eugene Emmanuel MD [address] [place], [place] [phone] PCP - General Family Medicine 11/03/21 documented as of this encounter
--- OUTSIDE RECORDS SUMMARY | 2023-07-19 23:19 | External Medical Summary | Summary of Care ---
Author Name Unknown Organization [facility] Address [address] [facility] [place] [address] Phone [phone] Care Team Providers Care Pie Bottomer Name Role Phone Eugene Emmanuel MD Primary Care Provider +1- [phone] Encounter Details Date Type Department Care Team Description 03/23/2023 Telephone Urology, [facility] 132 [facility] [place] [address] Morteza Donahue MD 27 [facility] [address] [place] [address] Allergies Active Allergy Reactions Severity Noted Date Comments Amlodipine Nausea/vomiting 08/31/2022 documented as of this encounter (statuses as of 03/27/2023) Medications Medication Sig Dispensed Refills Start Date [...] 30 days. 0 Active Ergocalciferol 1.25 MG (75175 UT) Oral Capsule (Vitamin D2(Drisdol)) 1,250 mcg [...] as of this encounter (statuses as of 03/27/2023) Active Problems Problem Noted Date Middle cerebral aneurysm 06/05/2022 HTN, goal below 140/90 12/01/2021 Dyslipidemia 12/01/2021 Abdominal aortic aneurysm (AAA) without rupture 12/01/2021 Asymptomatic stenosis of left carotid ar stephanie 12/01/2021 Gastroesophageal reflux disease 12/02/19 22 documented as of this encounter (statuses as of 03/27/2023) Resolved Problems Problem Noted Date Resolved Date Abdominal aortic aneurysm without rupture 202209/08/2022 Constipation 06/13/2022 09/08/2022 Hyperthyroidism 12/01/2021 06/13/2022 documented as of this encounter (statuses as of 03/27/2023) Immunizations Name Administration Dates Next Due Pneumococcal [...] Hansen LPN - 03/23/2023 3:10 PM EDT [place] Text sent to Dr Bustillo for review and advice. Thank you Iza * Telephone Encounter - Danii Garrison RN - 03/23/2023 2:26 PM EDT Received TigerText communication from radiology regarding significant abnormal finding on patients recent US Renal dated 03/23/23 asking for review of report. Spoke with Dr. Donahue's clinic nurse, Iza Hansen who will be reaching out to telephone sex worker provider to make them aware as Dr. Donahue is out -of-office. Danii Garrison RN MSN Cooler Conveyor Loader [facility] documented in this encounter Plan of Treatment Upcoming Encounters Date Type Specialty Care Team Description 04/04/2023 Telemedicine Urology Morteza Donahue MD [address] [place] [address] 05/11/2023 Office Visit Family Medicine Eugene Emmanuel [facility] [phone] 07/05/2023 Imaging Radiology 07/26/2023 Office Visit Urology Morteza Donahue MD [address] [place] [address] Health Maintenance Due Date Last Done Comments [...] filedocumented as of this encounter Care Teams Pie Bottomer Relationship Specialty Start Date End Date Eugene Emmanuel MD [address] [facility] [address] PCP - General Family Medicine 11/03/21 documented as of this encounter
--- OUTSIDE RECORDS SUMMARY | 2023-07-19 23:19 | External Medical Summary | Summary of Care ---
Author Name Unknown Organization [facility] Address [address] [facility] [place] [address] Phone [phone] Care Team Providers Care Quality Internship Name Role Phone Eugene Paul MD Primary Care Provider +1- [phone] Encounter Details Date Type Department Care Team [...] 30 days. 0 Active Ergocalciferol 1.25 MG (86312 UT) Oral Capsule (Vitamin D2(Drisdol)) 1,250 mcg [...] from the original note were not included. [id number] PCP: EUGENE PAUL [place], [place] [phone] Patient location: HOME. I was in a hospital or clinic location. After connecting through televideo,patient was verified with two unique identifiers. Patient (or authorized legal claim service representative) was then informed that this was [...] taking: Reported on 11/04/2022) Ergocalciferol 1.25 MG (49294 UT) Oral Capsule (Vitamin D2(Drisdol)) 1,250 mcg [...] performed by Rigoberto Lee DO at ENDOSCOPY [facility] Past Medical History: Diagnosis Date HTN (hypertension) [...] to have this done at [facility] if possible, has undergone intervention there inthe [...] Family Medicine Eugene Paul MD [address] [place] [address] 07/05/2023 Imaging Radiology 07/26/2023 Office Visit Urology Morteza Donahue MD [address] [address] Health Maintenance Due Date Last [...] Hydronephrosis documented in this encounter Care Teams Quality Internship Relationship Specialty Start Date End Date Eugene Paul MD [address] [place] [address] PCP - General Family Medicine 11/03/21 documented as of this encounter
--- OUTSIDE RECORDS SUMMARY | 2023-07-19 23:19 | External Medical Summary ---
Author Name Unknown Address Unknown Organization K01:LABORATORY [facility] [place] - [address] [place] [address] Laboratory Report Ordering Provider Test Date Status BREE IGLESIAS 03/20/2023 16:15:18 Final Observation Date Value Abnormality Reference (Units ) Status Vitamin B12 03/20/2023 16:15:18 [phone] (pg/mL) Final Performing Location [facility] - [address] [place] [address]
--- OUTSIDE RECORDS SUMMARY | 2023-07-19 23:19 | External Medical Summary ---
Author Name Unknown Address Unknown Organization K01:[facility] [place] - [address] [place] [address] Laboratory Report Ordering Provider Test Date Status KELSIEBISIPATRICIA 03/20/2023 16:15:18 Final Deficient: <20 ng/mL
Ins ufficient: 20-29 ng/mL
Recommended/Optimum:30-50 ng/mL

Vitamin D intoxication is rare. If suspicious of Vitamin D toxicity, evaluation of serum Calcium and PTH is recommended. Observation Date Value Abnormality Reference (Units ) Status 25-OH Vitamin D total 03/20/2023 16:15:18 20 >19 (ng/mL) Final Performing Location [facility] [place] - [address] [place] [address]
--- OUTSIDE RECORDS SUMMARY | 2023-07-19 23:20 | External Medical Summary | Summary of Care ---
Author Name Unknown Organization [facility] Address [address] [place] [address] Phone [phone] Care Team Providers Care Brake Lining Curer Name Role Phone Eugene Emmanuel MD Primary Care Provider +1- [phone] Reason for Visit * Reason Onset Date Comments Hospital Follow-Up 02/13/2023 [facility] Encounter Details Date Type Department Care Team Description 02/13/2023 Telephone [facility] [address] [facility] [place] [address] Joy Wyatt RN Hospital Follow-Up (LARA) Allergies Active Allergy Reactions Severity Noted Date Comments Amlodipine Nausea/vomiting 08/31/2022 documented as of this encounter (statuses as of 02/13/2023) Medications Medication Sig Dispensed Refills Start Date End Date Status Metoprolol Tartrate 50 MG Oral Tablet (Lopressor) Take by mouth 1 Tablet in the morning. 90 Tablet 3 12/17/2021 Active Additional Information Patient taking differently:50 mg Oral Daily(AM),1.5 tabs daily, Reported on 09/08/2022 Docusate Sodium 100 MG Oral Capsule Take [...] 30 days. 0 Active Ergocalciferol 1.25 MG (95404 UT) Oral Capsule (Vitamin D2(Drisdol)) 1,250 mcg . 0 08/10/2022 Active Methimazole 2.5 MG OR TABS Take 0.5 Tablets by mouth in the morning and 0.5 Tablets before bedtime. 0 Active Tamsulosin HCl 0.4 MG Oral [...] bedtime. For 8 days. 0 02/10/2023 Active Tamsulosin HCl 0.4 MG Oral Capsule (Flomax) Take 1 Capsule by mouth in the morning. 0 10/29/2022 3 Discontinue d(Medicatio n List Clean Up) documented as of this encounter (statuses as of 02/13/2023) Active Problems Problem Noted Date Middle cerebral aneurysm 06/05/2022 HTN, goal below 140/90 12/01/2021 Dyslipidemia 12/01/2021 Abdominal aortic aneurysm (AAA) without rupture 12/01/2021 Asymptomatic stenosis of left carotid ar stephanie 12/01/2021 Gastroesophageal reflux disease 12/02/19 22 documented as of this encounter (statuses as of 02/13/2023) Resolved Problems Problem Noted Date Resolved Date Abdominal aortic aneurysm without rupture 202209/08/2022 Constipation 06/13/2022 09/08/2022 Hyperthyroidism 12/01/2021 06/13/2022 documented as of this encounter (statuses as of 02/13/2023) Immunizations Name Administration Dates Next Due Pneumococcal [...] encounter Miscellaneous Notes * Telephone Encounter - Joy Wyatt RN - 02/13/2023 12:41 PM EDT Transitions of Care Note Reason for Referral:Recent Admission Phone visit for follow up: [facility] Admitted to: [facility], Date: 02/08/2023 Discharged to: Home, Date: 02/10/2023 Diagnosis driving hospitalization: Anaplasmosis, Bronchiectasis, Hypertension Source/Contact: Patient's Nida SUBJECTIVE Consent: Verbal consent for review of hospital discharge: Yes REVIEW OF SYSTEMS Patient/Other Reports: Current patient/caregiver problems or concerns: Doing much better. Up and around using O2 2L/NC when needed/active. O2 Sat 94% this AM. CV: Denies problems Pulmonary: Denies problems Chills/Sweats/Fever:Denies chills/sweats Denies fever Appetite:Denies problems such as nausea, vomiting, burning, decreased appetite Current diet: Heart Healthy and Low Sodium Bowel: denies problems Bladder: denies problems Wound (If applicable): N/A Pain:Denies Sleep:Denies problems FUNCTIONAL STATUS: ADL'S: Needs Assistance With:N/A as pt is independent IADL'S: Needs Assistance With:N/A as pt is independent Cognitive and Mental Health: denies problems, alert and oriented x 3 and able to communicate, understand instructions, process information. MEDICATION RECONCILIATION Medications: Discharge med list reviewed with patient or caregiver New medication: Doxycycline ASSESSMENT Medication Risk Assessment: No risks identified Did patient fail outpatient treatment? No Discharge instructions available for review? Yes PLAN Symptom Monitoring Interventions:Member/caregiver education - signs and symptoms to contact PrimaryCare (DO NOT DELETE-Three sandoval symptoms patient is to report to PCP) 1. Chest Pain.SOB 2. Fever/chills 3. Increasing Weakness Nail Mill WorkerGum Maker of Care interventions/Action Plan: 5 - 7 day follow-up with PCP in place - Date: PCP appointment 02/16/2023 Educated on role of LARA completed with patient/caregiver. Educated patient/caregiver on patient right to have input on LARA plan of care. Verification of Home Health/DME if indicated: YES O2 vis [facility], they are bringing anothertank today Identified Care Gaps: No Care Gaps closed this call: Appointment made or confirmed and Transition of Care follow-up communication Re-evaluation of Plan of Care and progress towards goals achievement: Patient education this visit: Verbal, Confirmed PCP appointment 02/16/2023, discussed reasons to call sooner as above, notified oflate hours and weekend provider visits available if needed Plan to instructed to call Primary Care Provider with change in symptoms or as needed before next follow-up, discharge needs met, verbalizes understanding and agrees with plan. Joy Wyatt, RN documented in this encounter Plan of Treatment Upcoming Encounters Date Type Specialty Care Team Description 02/16/2023 Office Visit Family Medicine Eugene Emmanuel MD [address] [place], [place] [phone] 03/20/2023 Office Visit Urology Morteza Donahue MD 27 [facility] [address] [place] [address] 05/11/2023 Office Visit Family Medicine Eugene Emmanuel MD [address] [place], [place] [phone] Health Maintenance Due Date Last Done Comments DTaP,Tdap,and Td Vaccines (1 - Tdap) 1959 Zoster Vaccines (1 of 2) 1989 Pneumococcal Vaccine: 65+ Years (2 - PCV) 07/26/2018 07/26/2017 COVID-19 Vaccine (4 - Moderna series) 10/27/2021 09/01/2021, 11/09/2020, 10/12/2020 AAA MONITORING; CT OR US YEARLY 06/01/2023 06/01/2022, 08/07/2019 AAA ULTRASOUND YEARLY 06/01/2023 06/01/2022, 019 GFR 09/08/2023 09/08/2022, 12/02/2022, 05/12/2022, Additional history exists Depression Screening, Annual for Pts 12 and Over 11/05/2023 11/04/2022 Albumin/Creatinine Ratio 09/08/2025 09/08/2022 Influenza Vaccine (FLU shot) Completed 05/12/2022, 06/25/2021 GARDASIL-HPV IMMUNIZATION SERIES Aged Out [...] filedocumented as of this encounter Care Teams Brake Lining Curer Relationship Specialty Start Date End Date Eugene Emmanuel MD [address] [place] [address] PCP - General Family Medicine 11/03/21 documented as of this encounter
--- OUTSIDE RECORDS SUMMARY | 2023-07-19 23:20 | External Medical Summary | Summary of Care ---
Author Name Unknown Organization [facility] Address [address] [place] [address] Phone [phone] Care Team Providers Care Hand Rug Cleaner Name Role Phone Eugene Emmanuel MD Primary Care Provider +1- [phone] Reason for Visit * Reason Onset Date Comments Test Results 03/16/2023 Unexpected or In determinate Result Encounter Details Date Type Department Care Team Description 03/16/2023 Telephone Laboratory, [address] [address] Morteza Beavers MD [address] [place] [address] Test Results (Unexpected or Indeterminate ... Allergies Active Allergy Reactions Severity Noted Date Comments Amlodipine Nausea/vomiting 08/31/2022 documented as of this encounter (statuses as of 03/16/2023) Medications Medication Sig Dispensed Refills Start Date [...] 30 days. 0 Active Ergocalciferol 1.25 MG (59439 UT) Oral Capsule (Vitamin D2(Drisdol)) 1,250 mcg [...] as of this encounter (statuses as of 03/16/2023) Active Problems Problem Noted Date Middle cerebral aneurysm 06/05/2022 HTN, goal below 140/90 12/01/2021 Dyslipidemia 12/01/2021 Abdominal aortic aneurysm (AAA) without rupture 12/01/2021 Asymptomatic stenosis of left carotid ar stephanie 12/01/2021 Gastroesophageal reflux disease 12/02/19 22 documented as of this encounter (statuses as of 03/16/2023) Resolved Problems Problem Noted Date Resolved Date Abdominal aortic aneurysm without rupture 202209/08/2022 Constipation 06/13/2022 09/08/2022 Hyperthyroidism 12/01/2021 06/13/2022 documented as of this encounter (statuses as of 03/16/2023) Immunizations Name Administration Dates Next Due Pneumococcal [...] as of this encounter Miscellaneous Notes * Addendum Note - Morteza Beavers MD [...] unexpected or indeterminate finding on Roddy George ([id number]) and asks that you review the following [...] reviewed. Thank you, ARTIS Arrieta Client Service [facility] documented in this encounter Plan of Treatment Upcoming Encounters Date Type Specialty Care Team Description 03/20/2023 Office Visit Urology Mroteza Beavers MD [address] [facility] [address] [place] [address] 05/11/2023 Office Visit Family Medicine Eugene Emmanuel MD [address] [place] [address] Scheduled Orders Name Type Priority Associated [...] calculi documented in this encounter Care Teams Hand Rug Cleaner Relationship Specialty Start Date End Date Eugene Emmanuel MD [address] [place], [place] [phone] PCP - General Family Medicine 11/03/21 documented as of this encounter
--- OUTSIDE RECORDS SUMMARY | 2023-07-19 23:20 | External Medical Summary | Summary of Care ---
Author Name Unknown Organization [facility] Address [address] [place] [address] Phone [phone] Care Team Providers Care Log Yard Derrick Operator Name Role Phone Eugene Emmanuel MD Primary Care Provider +1- [phone] Encounter Details Date Type Department Care Team Description 01/25/2023 Refill [facility] [address] [place] [address] Eugene Emmanuel MD [address] [place] [address] Allergies Active Allergy Reactions Severity Noted Date Comments Amlodipine Nausea/vomiting 08/31/2022 documented as of this encounter (statuses as of 01/25/2023) Medications Medication Sig Dispensed Refills Start Date [...] 2 pills at night . 0 Active Omeprazole 20 MG Oral Capsule Delayed Release (PriLOSEC) TAKE 1 CAPSULE BY MOUTH EVERY DAY 90 Capsule 1 06/10/2022 Active Aspirin 81 MG Oral Tablet Chewable Take 1 Tablet by mouth in the morning. 0 Active B-12 1000 MCG Oral Tablet Take by mouth. 0 Active Vitamin Deficiency System-B12 1000 MCG/ML Injection Kit (Cyanocobalamin) Inject 1,000 mcg into a large muscle every 30 days. 0 Active Ergocalciferol 1.25 MG (63174 UT) Oral Capsule (Vitamin D2(Drisdol)) 1,250 mcg . 0 08/10/2022 Active Methimazole 2.5 MG OR TABS Take 0.5 Tablets by mouth in the morning and 0.5 Tablets before bedtime. 0 Active Tamsulosin HCl 0.4 MG Oral Capsule (Flomax) Take 1 Capsule by mouth in the morning. 0 10/29/2022 Active Tamsulosin HCl 0.4 MG Oral Capsule (Flomax) Take 1 Capsule by mouth in the morning. 90 Capsule 3 11/14/2022 Active Metoprolol Succinate ER 50 MG Oral Tablet Extended Release 24 Hour (toPROL XL) Take 1 Tablet by mouth in the morning and 1 Tablet before bedtime. 180 Tablet 3 01/25/2023 Active Metoprolol Succinate ER 50 MG Oral Tablet Extended Release 24 Hour (toPROL XL) Take 1 Tablet by mouth in the morning and 1 Tablet before bedtime. 60 Tablet 5 11/04/2022 Discontinue d(Refill) documented as of this encounter (statuses as of 01/25/2023) Active Problems Problem Noted Date Middle cerebral aneurysm 06/05/2022 HTN, goal below 140/90 12/01/2021 Dyslipidemia 12/01/2021 Abdominal aortic aneurysm (AAA) without rupture 12/01/2021 Asymptomatic stenosis of left carotid ar stephanie 12/01/2021 Gastroesophageal reflux disease 12/02/19 22 documented as of this encounter (statuses as of 01/25/2023) Resolved Problems Problem Noted Date Resolved Date Abdominal aortic aneurysm without rupture 202209/08/2022 Constipation 06/13/2022 09/08/2022 Hyperthyroidism 12/01/2021 06/13/2022 documented as of this encounter (statuses as of 01/25/2023) Immunizations Name Administration Dates Next Due Pneumococcal [...] encounter Miscellaneous Notes * Telephone Encounter - Eugene Emmanuel MD - 01/25/2023 1:11 PM EDTSigned Prescriptions: Disp Refills Metoprolol Succinate ER 50 MG Oral Tablet *180 Ta*3 Sig: Take 1 Tablet by mouth in the morning and 1 Tablet before bedtime.Authorizing Provider: EUGENE EMMANUEL- documented in this encounter Plan of Treatment Upcoming Encounters Date Type Specialty Care Team Description 03/20/2023 Office Visit Urology Morteza Donahue MD [address] [facility] [address] [place] [address] 05/11/2023 Office Visit Family Medicine Eugene Emmanuel MD [address] [place] [address] Health Maintenance Due Date Last Done Comments DTaP,Tdap,and Td Vaccines (1 - Tdap) 1959 Zoster Vaccines (1 of 2) 1989 Pneumococcal Vaccine: 65+ Years (2 - PCV) 07/26/2018 07/26/2017 COVID-19 Vaccine (4 - Booster for Moderna series) 10/27/2021 09/01/2021, 11/09/2020, 10/12/2020 AAA [...] filedocumented as of this encounter Care Teams Log Yard Derrick Operator Relationship Specialty Start Date End Date Eugene Emmanuel MD [address] [place] [address] PCP - General Family Medicine 11/03/21 documented as of this encounter
--- OUTSIDE RECORDS SUMMARY | 2023-07-19 23:20 | External Medical Summary | Summary of Care ---
Author Name Unknown Organization [facility] Address [address] [place] [address] Phone [phone] Care Team Providers Care Narcotics Detective Name Role Phone Eugene Emmanuel MD Primary Care Provider +1- [phone] Reason for Visit * Reason Onset Date Comments Test Results 03/16/2023 Unexpected or In determinate Result Encounter Details Date Type Department Care Team Description 03/16/2023 Telephone Laboratory, [address] [address] Morteza Donahue MD [address] [place] [address] Test Results (Unexpected or Indeterminate ... Allergies [...] 30 days. 0 Active Ergocalciferol 1.25 MG (35217 UT) Oral Capsule (Vitamin D2(Drisdol)) 1,250 mcg [...] Miscellaneous Notes * Telephone Encounter - ARTIS Arrieta - 03/16/2023 10:31 AM EDT Hello- The radiologist discovered an unexpected or indeterminate finding on Roddy George ([id number]) and asks that you review the following [...] Thank you, ARTIS Arrieta Client Service Rep [facility] documented in this encounter Plan of Treatment Upcoming Encounters Date Type Specialty Care Team Description 03/20/2023 Office Visit Urology Morteza Donahue MD [address] [place], [place] [phone] 05/11/2023 Office Visit Family Medicine Eugene Emmanuel MD [address] [place] [address] Health Maintenance Due Date Last [...] filedocumented as of this encounter Care Teams Narcotics Detective Relationship Specialty Start Date End Date Eugeen Emmanuel MD [address] [place], [place] [phone] PCP - General Family Medicine 11/03/21 documented as of this encounter
--- OUTSIDE RECORDS SUMMARY | 2023-07-19 23:20 | External Medical Summary | Summary of Care ---
Author Name Unknown Organization [facility] Address [address] [place] [address] Phone [phone] Care Team Providers Care Geology Professor Name Role Phone Eugene Emmanuel MD Primary Care Provider +1- [phone] Reason for Visit * Reason Onset Date Comments Hospital Follow-Up Hospital Follow-Up 03/06/2023 Encounter Details Date Type Department Care Team Description 02/16/2023 Office Visit [facility] [address] [facility] [place] [address] Eugene Emmanuel MD [address] [place], [place] [phone] Anaplasmosis*; Nausea without vomiting; Hospital discharge follow-up Allergies Active Allergy Reactions Severity Noted Date Comments Amlodipine Nausea/vomiting 08/31/2022 documented as of this encounter (statuses as of 03/06/2023) Medications Medication Sig Dispensed Refills Start Date [...] 30 days. 0 Active Ergocalciferol 1.25 MG (17140 UT) Oral Capsule (Vitamin D2(Drisdol)) 1,250 mcg [...] on tongue. 20 Tablet 0 02/16/2023 Active Methimazole 2.5 MG OR TABS Take 0.5 Tablets by mouth in the morning and 0.5 Tablets before bedtime. 0 3 Discontinu ed(Medicat ion List Clean Up) documented as of this encounter (statuses as of 03/06/2023) Active Problems Problem Noted Date Middle cerebral aneurysm 06/05/2022 HTN, goal below 140/90 12/01/2021 Dyslipidemia 12/01/2021 Abdominal aortic aneurysm (AAA) without rupture 12/01/2021 Asymptomatic stenosis of left carotid ar stephanie 12/01/2021 Gastroesophageal reflux disease 12/02/19 22 documented as of this encounter (statuses as of 03/06/2023) Resolved Problems Problem Noted Date Resolved Date Abdominal aortic aneurysm without rupture 202209/08/2022 Constipation 06/13/2022 09/08/2022 Hyperthyroidism 12/01/2021 06/13/2022 documented as of this encounter (statuses as of 03/06/2023) Immunizations Name Administration Dates Next Due Pneumococcal Polysaccharide PPV23 (Pneumovax) Seasonal Influenza, Quad, Nasal (Flumist) 10/22/ 2021 Seasonal Influenza, Quadrivalent Hd (Fluzone Hd) 05/12/2022 [...] Sign Reading Time Taken Comments Blood Pressure 132/62 02/16/2023 11:49 AM EDT Pulse 87 02/16/2023 11:49 AM EDT Temperature 36.5 C (97.7 F) 02/16/2023 11:49 AM E DT Respiratory Rate 18 02/16/2023 11:49 AM EDT Oxygen Saturation 92% 02/16/2023 11:49 AM EDT Inhaled Oxygen Concentration - - Weight 65.3 kg (144 lb) 02/16/2023 11:49 AM EDT Height - - Body Mass Index 20.66 11/04/2022 9:13 AM EST documented in this encounter Progress Notes * Eugene Emmanuel MD - 03/06/2023 9:31 PM EDT Subjective: Roddy George is a 83 year old male here today for Chief Complaint Patient presents with Hospital Follow-Up Hospital Follow-Up Admitted [facility] 02/08/23 - 02/10/23. Past Medical History: Diagnosis Date HTN (hypertension) Past Surgical History: Procedure Laterality Date EGD, W/ENDOSCOPIC US 07/08/2022 mild inflammatory changes on bx / ESOPHAGOGASTRODUODENOSCOPY (EGD), FLEXIBLE, TRANSORAL, ENDOSCOPICULTRASOUND performed by Rigoberto Lee DO at ENDOSCOPY [facility] Review of patient's allergies indicates: Allergen Reactions Amlodipine Nausea/vomiting Current Outpatient Medications Medication Sig Dispense Refill Aspirin 81 MG Oral Tablet Chewable Take 1 Tablet by mouth in the morning. B-12 1000 MCG Oral Tablet Take by mouth. Ergocalciferol 1.25 MG (37186 UT) Oral Capsule (Vitamin D2(Drisdol)) 1,250 mcg [...] Nausea. dissolve on tongue. 20 Tablet 0 Metoprolol Tartrate 50 MG Oral Tablet (Lopressor) [...] days. (Patient not taking: Reported on 11/04/2022) No current facility-administered medications for this visit. Objective: BP 132/62 | Pulse 87 | Temp 36.5 C (97.7 F) (Infrared ) | Resp 18 | Wt 65.3 kg (144 lb) | SpO2 92% | BMI 20.66 kg/m | BSA 1.8 m GEN: NAD HEENT: Benign NECK: Supple with no LAD, TM, JVD CHEST: CTA B CV: RRR ABD: Soft, NT/ND, No HSM, NABS EXT: No c,c,e Assessment and Plan: Anaplasmosis (Primary) Nausea without vomiting - Ondansetron 4 MG Oral Tablet Disintegrating (Zofran); Place 1 Tablet on tongue every 8 hours as needed for Nausea. dissolve on tongue. Hospital discharge follow-up - DISCH MED RECON CUR MED JASON Emmanuel MD documented in this encounter Nursing Notes * Esthela Freeman LPN - 02/16/2023 11:48 AM EDT The patient has been properly identified by confirmation of name and date of . Chief Complaint Patient presents with Hospital Follow-Up [facility] d/c 02/10/23 documented in this encounter Plan of Treatment Upcoming Encounters Date Type Specialty Care Team Description 03/20/2023 Office Visit Urology Morteza Donahue MD [address] [place] [address] 05/11/2023 Office Visit Family Medicine Eugene Emmanuel MD [address] [place] [address] Health Maintenance Due Date Last [...] as of this encounter Visit Diagnoses Diagnosis Anaplasmosis- Primary Other ehrlichiosis Nausea without vomiting Hospital discharge follow-up Other follow-up examination documented in this encounter Care Teams Geology Professor Relationship Specialty Start Date End Date Eugene Emmanuel MD [address] [place] [facility] [place] [address] PCP - General Family Medicine 11/03/21 documented as of this encounter"
--- OUTSIDE RECORDS SUMMARY | 2023-07-19 23:20 | External Medical Summary | Summary of Care ---
Author Name Unknown Organization [facility] Address [address] [place] [address] Phone [phone] Care Team Providers Care Salesforce Consultant Name Role Phone Eugene Paul MD Primary Care Provider +1- [phone] Reason for Visit * Reason Comments eRx-Medication Refill Encounter Details Date Type Department Care Team Description 02/10/2023 Refill [facility] [address] [place] [address] Eugene Paul MD [address] [place], [place] [phone] Encounter for long-term (current) use of other medications* Allergies Active Allergy Reactions Severity Noted Date [...] 30 days. 0 Active Ergocalciferol 1.25 MG (42183 UT) Oral Capsule (Vitamin D2(Drisdol)) 1,250 mcg [...] EVERY DAY 90 Capsule 1 02/13/2023 Active Omeprazole 20 MG Oral Capsule Delayed Release (PriLOSEC) TAKE 1 CAPSULE BY MOUTH EVERY DAY 90 Capsule 1 06/10/2022 3 Discontinued documented as of this encounter (statuses as [...] encounter Miscellaneous Notes * Telephone Encounter - Ernesto Yu RPh - 02/13/2023 7:38 AM EDTSigned Prescriptions: Disp Refills Omeprazole 20 MG Oral Capsule Delayed Rele*90 Cap*1 Sig: TAKE 1 CAPSULE BY MOUTH EVERY DAYAuthorizing Provider: EUGENE PAUL User: Cassie YU Prescriptions: Disp Refills Metoprolol Tartrate 50 MG Oral Tablet (Lop*90 Tab*3 Sig: TAKE BY MOUTH 1 TABLET IN THE MORNING.Refused By: Harpreet YU for Refusal: Course of treatment complete documented in this encounter Plan of Treatment Upcoming Encounters Date Type Specialty Care Team Description 02/16/2023 Office Visit Family Medicine Eugene Paul MD [address] [place] [address] 03/20/2023 Office Visit Urology Morteza Donahue MD 27 [facility] [address] [place] [address] 05/11/2023 Office Visit Family Medicine Eugene Paul MD [address] [place] [address] Scheduled Orders Name Type Priority Associated Diagnoses Orde r Schedule MAGNESIUM Lab Routine Encounter for long-term (current) use of other medications Expected: 02/13/2023 (Approximate), Expires: 02/14/2024 Health Maintenance Due Date Last Done Comments [...] as of this encounter Visit Diagnoses Diagnosis Encounter for long-term (current) use of other medications- Primary documented in this encounter Care Teams Salesforce Consultant Relationship Specialty Start Date End Date Eugene Paul MD [address] [place] [address] PCP - General Family Medicine 11/03/21 documented as of this encounter
--- OUTSIDE RECORDS SUMMARY | 2023-07-19 23:20 | External Medical Summary | Summary of Care ---
Author Name Unknown Organization [facility] Address [address] [place] [address] Phone [phone] Care Team Providers Care Television Production Technician Name Role Phone Eugene Emmanuel MD Primary Care Provider +1- [phone] Encounter Details Date Type Department Care Team Description 02/09/2023 Orders Only [facility] [address] [place] [address] Eugene Emmanuel MD [address] [place] [address] Allergies Active Allergy Reactions Severity Noted Date Comments Amlodipine Nausea/vomiting 08/31/2022 documented as of this encounter (statuses as of 02/09/2023) Medications Medication Sig Dispensed Refills Start Date [...] 30 days. 0 Active Ergocalciferol 1.25 MG (04302 UT) Oral Capsule (Vitamin D2(Drisdol)) 1,250 mcg [...] before bedtime. 180 Tablet 3 01/25/2023 Active documented as of this encounter (statuses as of 02/09/2023) Active Problems Problem Noted Date Middle cerebral aneurysm 06/05/2022 HTN, goal below 140/90 12/01/2021 Dyslipidemia 12/01/2021 Abdominal aortic aneurysm (AAA) without rupture 12/01/2021 Asymptomatic stenosis of left carotid ar stephanie 12/01/2021 Gastroesophageal reflux disease 12/02/19 22 documented as of this encounter (statuses as of 02/09/2023) Resolved Problems Problem Noted Date Resolved Date Abdominal aortic aneurysm without rupture 202209/08/2022 Constipation 06/13/2022 09/08/2022 Hyperthyroidism 12/01/2021 06/13/2022 documented as of this encounter (statuses as of 02/09/2023) Immunizations Name Administration Dates Next Due Pneumococcal [...] Family Medicine Eugene Emmanuel MD [address] [place] [address] Health Maintenance Due Date Last Done Comments DTaP,Tdap,and Td Vaccines (1 - Tdap) 1959 Zoster Vaccines (1 of 2) 1989 Pneumococcal Vaccine: 65+ Years (2 - PCV) 07/26/2018 07/26/2017 COVID-19 Vaccine (4 - Booster for Moderna series) 10/27/2021 09/01/2021, 11/09/2020, 10/12/2020 AAA MONITORING; CT OR US YEARLY 06/01/2023 06/01/2022, 08/07/2019 AAA ULTRASOUND YEARLY 06/01/2023 06/01/2022, 019 GFR 09/08/2023 09/08/2022, 1202/2022, 05/12/2022, Additional history exists Depression Screening, Annual [...] Procedure Name Priority Date/Time Associated Diagnosis Comments OUTSIDE LAB-CORONAVIRUS (COVID-19) Routine 02/08/2023 documented in this encounter Results * OUTSIDE LAB-CORONAVIRUS (COVID-19) (02/08/2023) [id number] E LAB NEGATIVE NEGATIVE OUTSIDE LAB (SEE SCANNED REPORT) 02/08/2023 History Per Patient LABORATORY OUTSIDE LAB (SEE SCANNED REPORT) documented in this encounter Care Teams Television Production Technician Relationship Specialty Start Date End Date Eugene Emmanuel MD [address] [place], [place] [phone] PCP - General Family Medicine 11/03/21 documented as of this encounter
== END 2023-07-19 15:57 | disposition home or self-care (01) | DRG 315 ==
LOC: ED 16:25 → 2S 21:39 → SUATTDRO 21:39 → 2S 22:26